=== PATIENT | female | born 1940 | race Caucasian/White ===

== ENCOUNTER 2017-01-12 20:49 | Emergency (ER) | payer OTHER, BC ==
[~2017-01-12] VITALS: Ht 165.1 cm; Wt 88.4 kg
[~2017-01-12 20:49] MED LIST: ASPI81TA28 PO; BENZ100C84 PO; CRAN1TAB6 PO; DICY20TA10 PO; GLIM1TAB2 PO; HYDR-5688 PO; HYDR25TA5 PO; INSDGI SQ; LEVO125T5 PO; LOSA50TA54 PO; METF-384 PO; MULT-506 PO; NVLGI SQ; ONDA4TAB9 PO; PRLSR20 PO; PROM25TA9 PO; SIMV40TA2 PO; TMF75 PO; ZOLP5TAB PO
[2017-01-12 20:56] VITALS: TEMP 36.9; Ht 165.1 cm; Wt 88.4 kg
[2017-01-12] MEDS ORDERED: ALBUT/IPRATROP 3MG/0.5MG NEB 3 ML VIAL INH ONE (21:15)
--- NOTE | 2017-01-12 21:17 | EMERGENCY ROOM VISIT NOTE ---
History Report prepared by Mel[place]: Denita Lee Under the Supervision of: Dr. Tai West M.D. First contact with patient: 21:05 Chief Complaint: OTHER COMPLAINT Stated Complaint: TOOK WRONG INSULIN MEDICATION History of Present Illness The patient is a 76 year old female who presents to the Emergency Room with complaints of weakness. 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 She denies trying her hurt herself by taking the wrong medication. She notes she did see her doctor earlier today for worsening asthma symptoms and shortness of breath, and states she was so tired she wasn't thinking when she went to take her evening medications. Her biggest complaint here in the ED is shortness of breath and wheezy breathing. She also notes she has not had much to eat today. 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 A total of 10 systems reviewed and were otherwise negative. Past Medical & Surgical Medical Problems: (1) Cancer of thorax (2) Carpal tunnel syndrome on right (3) Diabetes (4) Diverticulitis (5) Hypertension (6) Influenza A (7) Thyroid cancer Surgical Problems: (1) Hx of cholecystectomy Family History No significant family history stated Social History Smoking Status: Never Smoker Alcohol Use: none Drug Use: none Marital Status: Housing Status: lives with significant other Occupation Status: retired Current/Historical Medications Scheduled Aspirin (Aspirin Ec), 81 MG PO DAILY Cranberry (Vaccinium Macrocarp (Cranberry), 600 MG PO BID Dicyclomine Hcl (Dicyclomine Hcl), 20 MG PO DIRECTED Glimepiride (Glimepiride), 2 MG PO BID Hydrochlorothiazide (Hydrochlorothiazide), 25 MG PO BID Insulin Aspart (Novolog), SQ AC Insulin Glargine (Lantus), 95 UNITS SQ QPM Levothyroxine Sodium (Levothyroxine Sodium), 125 MCG PO DAILY Losartan Potassium (Cozaar), 50 MG PO DAILY Metformin Hcl (Glucophage), 1,000 MG PO BID Multivitamin (Multivitamin), 1 TAB PO DAILY Pantoprazole (Protonix), 40 MG PO QAM Prednisone (Prednisone Tab), 0 PO DAILY Simvastatin (Zocor), 40 MG PO QPM Scheduled PRN Benzonatate (Tessalon Perles), 100 MG PO DIRECTED PRN for Cough Hydrocodone/Acetaminophen 5MG/325MG (Rumely 5MG/325MG), 1 TABLET PO q4-6 hours PRN for Pain Promethazine Hcl (Phenergan), 25 MG PO DIRECTED PRN for Nausea Allergies Coded Allergies: Doxycycline (Verified Allergy, Severe, TONGUE SWELLS/SOB, 02/13/16) Codeine (Verified Allergy, Intermediate, LARGE DOSES CAUSE RASH, 02/13/16) Oxycodone (Verified Allergy, Unknown, RASH, TAKES HYDROCODONE AT HOME, ) Physical Exam Vital Signs Date Time Temp Pulse Resp B/P (MAP) Pulse Ox O2 Delivery O2 Flow Rate FiO2 01/13/17 00:24 106 20 133/68 97 Room Air 01/12/17 23:19 107 16 127/82 95 Room Air 01/12/17 22:20 104 01/12/17 21:44 96 16 95 Room Air 01/12/17 21:23 97 Room Air 01/12/17 21:23 97 Room Air 01/12/17 20:56 36.9 103 18 147/80 96 Room Air Physical Exam GENERAL: Patient is a healthy-appearing well-nourished 76 year old male HEAD: Normocephalic atraumatic EYES: Ocular movements intact pupils equal and react to light OROPHARYNX mucous membranes are moist no exudates present no erythema or edema present NECK: Supple no nuchal rigidity CHEST: Good equal expansion LUNGS: Slight wheezes bilaterally CARDIAC: Normal S1 and S2 ABDOMEN: Soft nontender no guarding BACK: No CVA tenderness EXTREMITIES: No pain upon palpation normal muscle strength in all groups no clubbing cyanosis or edema NEURO: Patient is following commands and answering questions appropriately. Alert and oriented x3 Cranial Nerves 2-12 grossly intact Medical Decision & Procedures ER Provider Diagnostic Interpretation: Radiology results as stated below per my review and radiologist interpretation: CHEST ONE VIEW PORTABLE CLINICAL HISTORY: 76 years-old Female presenting with Pt c/o sob. TECHNIQUE: Portable upright AP view of the chest was obtained. COMPARISON: 02/13/2016. FINDINGS: Atherosclerosis of aortic arch. Surgical clips again project over the left apex. Cardiac silhouette normal in size. Mildly low lung volumes though improved from prior exam. Decreased appearance of prominent interstitial lung markings. Lungs and pleural spaces clear. Severe degenerative changes of the bilateral glenohumeral joints. Upper abdomen normal. IMPRESSION: 1. No acute cardiopulmonary disease. Electronically signed by: Jayce Hunt M.D. 01/12/2017 9:48 PM Laboratory Results 01/12/17 21:10 Red Blood Count 4.87, Mean Corpuscular Volume 73.1, Mean Corpuscular Hemoglobin 22.2, Mean Corpuscular Hemoglobin Concent 30.3, Mean Platelet Volume 9.4, Neutrophils (%) (Auto) 61.9, Lymphocytes (%) (Auto) 29.6, Monocytes (%) (Auto) 5.1, Eosinophils (%) (Auto) 2.6, Basophils (%) (Auto) 0.6, Neutrophils # (Auto) 5.29, Lymphocytes # (Auto) 2.53, Monocytes # (Auto) 0.44, Eosinophils # (Auto) 0.22, Basophils # (Auto) 0.05 01/12/17 21:10 Test 01/12/17 21:10 01/12/17 21:16 01/12/17 23:30 White Blood Count 8.55 K/uL (4.8-10.8) Red Blood Count 4.87 M/uL (4.2-5.4) Hemoglobin 10.8 g/dL (12.0-16.0) Hematocrit 35.6 % (37-47) Mean Corpuscular Volume 73.1 fL (80-100) Mean Corpuscular Hemoglobin 22.2 pg (25-34) Mean Corpuscular Hemoglobin Concent 30.3 g/dl (32-36) Platelet Count 328 K/uL (130-400) Mean Platelet Volume 9.4 fL (7.4-10.4) Neutrophils (%) (Auto) 61.9 % Lymphocytes (%) (Auto) 29.6 % Monocytes (%) (Auto) 5.1 % Eosinophils (%) (Auto) 2.6 % Basophils (%) (Auto) 0.6 % Neutrophils # (Auto) 5.29 K/uL (1.4-6.5) Lymphocytes # (Auto) 2.53 K/uL (1.2-3.4) Monocytes # (Auto) 0.44 K/uL (0.11-0.59) Eosinophils # (Auto) 0.22 K/uL (0-0.5) Basophils # (Auto) 0.05 K/uL (0-0.2) RDW Standard Deviation 44.2 fL (36.4-46.3) RDW Coefficient of Variation 16.6 % (11.5-14.5) Immature Granulocyte % (Auto) 0.2 % Immature Granulocyte # (Auto) 0.02 K/uL (0.00-0.02) Polychromasia 1+ Microcytosis PRESENT Anion Gap 12.0 mmol/L (3-11) Est Creatinine Clear Calc Drug Dose 52.0 ml/min Estimated GFR () 64.0 Estimated GFR (Non- 55.3 BUN/Creatinine Ratio 11.4 (10-20) Calcium Level 8.5 mg/dl (8.5-10.1) Total Bilirubin 0.2 mg/dl (0.2-1) Direct Bilirubin 0.1 mg/dl (0-0.2) Aspartate Amino Transf (AST/SGOT) 19 U/L (15-37) Alanine Aminotransferase (ALT/SGPT) 29 U/L (12-78) Alkaline Phosphatase 64 U/L (45-117) Total Protein 7.6 gm/dl (6.4-8.2) Albumin 4.1 gm/dl (3.4-5.0) Thyroid Stimulating Hormone (TSH) 3.120 uIu/ml (0.300-4.500) Bedside Glucose 284 mg/dl (70-90) Urine Color YELLOW Urine Appearance CLEAR (CLEAR) Urine pH 5.0 (4.5-7.5) Urine Specific [place] 1.022 (1.000-1.030) Urine Protein NEG (NEG) Urine Glucose (UA) 3+ (NEG) Urine Ketones TRACE (NEG) Urine Occult Blood NEG (NEG) Urine Nitrite NEG (NEG) Urine Bilirubin NEG (NEG) Urine Urobilinogen NEG (NEG) Urine Leukocyte Esterase NEG (NEG) Labs reviewed by ED physician. 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 The patient was evaluated in room A11. A complete history and physical examination was performed. 2114: DuoNeb 12 ml INH. 2119: I discussed the patients case with [facility] [employer] [facility]. They recommend we recheck the patients labs every hour for 4 hours. 2235: Potassium Chloride 30 meq PO. 3: Nursing informed me the patients BSG is 220. Medical Decision Prior records/ancillary studies reviewed. Triage Nursing notes reviewed. The patient's history was concerning for altered mental status and probable overdose. Differential diagnosis: Etiologies such as toxicologic, infection, hypoglycemia, electrolyte abnormalities, cardiac sources, intracerebral event, neurologic, as well as others were entertained. This is a 76-year-old female who presents emergency department complaining of taking the wrong dosing of insulin. I did discuss case with poison control who felt that the patient could just be observed in the emergency department by drawing serial Accu-Cheks for 4 hours. This was performed as instructed. I will note the patient's blood sugar never dropped below 150. The patient did receive breathing treatments in emergency department as she is been wheezing. I will place the patient on prednisone for bronchitis. She was fed in the emergency department and was feeling better. The patient denied being suicidal or homicidal and I feel can be safely discharged home. Patient was in agreement with the treatment plan. Medication Reconcilliation Current Medication List: was personally reviewed by me Blood Pressure Screening Patient's blood pressure: Normal blood pressure Blood pressure disposition: Did not require urgent referral Consults Time Called: 2114 Consulting Physician: [facility] Returned Call: [phone] I discussed the patients case with [facility] [employer] [facility]. They recommend we recheck the patients labs every hour for 4 hours. Impression Primary Impression: Bronchitis Additional Impression: Poisoning by insulin and oral hypoglycemic [antidiabetic] drugs, accidental ( unintentional), initial encounter Scribe Attestation The scribe's documentation has been prepared under my direction and personally reviewed by me in its entirety. I confirm that the note above accurately reflects all work, treatment, procedures, and medical decision making performed by me. Departure Information Dispostion Home / Self-Care Prescriptions Prednisone (Prednisone Tab) 20 Mg Tab 0 PO DAILY, #7 TAB 2 TABS DAILY FOR 2 DAYS, THEN 1 TAB DAILY FOR 2 DAYS, THEN 1/2 TAB DAILY FOR 2 DAYS. Prov: Tai West MD 01/13/17 Referrals Sera Liz M.D. (PCP) Patient Instructions My [facility] Problem Qualifiers
[2017-01-12 21:23] VITALS: O2SAT 97
[2017-01-12 21:36] LABS: BASO % 0.6 %; BASO ABS # 0.05 K/uL (0-0.2); EOS % 2.6 %; HEMATOCRIT 35.6 % (37-47); IG% 0.2 %; LYMPH % 29.6 %; LYMPH ABS # 2.53 K/uL (1.2-3.4); MEAN CELL VOLUME 73.1 fL (80-100); MEAN CORPUSCULAR HEMOGLOBIN 22.2 pg (25-34); MEAN CORPUSCULAR HGB CONC 30.3 g/dl (32-36); MEAN PLATELET VOLUME 9.4 fL (7.4-10.4); MONO % 5.1 %; NEUT % 61.9 %; PLATELET COUNT 328 K/uL (130-400); RED BLOOD COUNT 4.87 M/uL (4.2-5.4); WHITE BLOOD COUNT 8.55 K/uL (4.8-10.8)
[2017-01-12 21:44] VITALS: PULSE 96; O2SAT 95
--- NOTE | 2017-01-12 21:49 | DIAGNOSTIC IMAGING REPORT ---
CHEST ONE VIEW PORTABLE CLINICAL HISTORY: 76 years-old Female presenting with Pt c/o sob. TECHNIQUE: Portable upright AP view of the chest was obtained. COMPARISON: 02/13/2016. FINDINGS: Atherosclerosis of aortic arch. Surgical clips again project over the left apex. Cardiac silhouette normal in size. Mildly low lung volumes though improved from prior exam. Decreased appearance of prominent interstitial lung markings. Lungs and pleural spaces clear. Severe degenerative changes of the bilateral glenohumeral joints. Upper abdomen normal. IMPRESSION: 1. No acute cardiopulmonary disease. Electronically signed by: Jayce Hunt M.D. 01/12/2017 9:48 PM Dictated Date/Time: 01/12/2017 9:47 PM
[2017-01-12] MEDS ORDERED: PANT40TA PO (22:02)
[2017-01-12 22:09] LABS: BUN/CREATININE RATIO 11.4 (10-20); CALCIUM 8.5 mg/dl (8.5-10.1); CREATININE 0.98 mg/dl (0.60-1.20); POTASSIUM 3.7 mmol/L (3.5-5.1); THYROID STIMULATING HORMONE 3.12 uIu/ml (0.300-4.500)
[2017-01-12 22:21] LABS: COMPLETE YES; MICROCYTOSIS PRESENT; POLYCHROMASIA 1+
[2017-01-12] MEDS ORDERED: POTASSIUM CHLORIDE 20 MEQ/15 ML UDC PO STA (22:36)
[2017-01-12 23:45] LABS: URINE APPEARANCE CLEAR (CLEAR); URINE BILIRUBIN NEG (NEG); URINE COLOR YELLOW; URINE NITRITE NEG (NEG); URINE SPECIFIC GRAVITY 1.022 (1.000-1.030); UROBILINOGEN NEG (NEG)
[2017-01-12 23:48] LABS: MANUAL MICROSCOPIC REQUIRED? NO; REVIEW REQ? NO
[2017-01-13 00:24] VITALS: BP 133/68; PULSE 106; O2SAT 97
[2017-01-13] MEDS ORDERED: PRED20TA2 PO (00:25)
== END 2017-01-13 00:30 | disposition home or self-care (01) ==
LOC: C.EDB 20:52 → C.EDA 01-13 00:30
DX: J40 Bronchitis, not specified as acute or chronic (principal); T38.3X1A Poisoning by insulin and oral hypoglycemic [antidiabetic] drugs, accidental (unintentional), initial encounter; E11.9 Type 2 diabetes mellitus without complications; C73 Malignant neoplasm of thyroid gland; I10 Essential (primary) hypertension; C76.1 Malignant neoplasm of thorax; Z79.4 Long term (current) use of insulin; Z79.82 Long term (current) use of aspirin

== ENCOUNTER 2017-02-11 20:41 | Emergency (ER) | payer OTHER, BC ==
[~2017-02-11] VITALS: Ht 165.1 cm; Wt 88.2 kg
[~2017-02-11 20:41] MED LIST changes: -ASPI81TA28 PO; -BENZ100C84 PO; -LEVO125T5 PO; -METF-384 PO; -MULT-506 PO; -ONDA4TAB9 PO; +PANT40TA PO; +PRED20TA2 PO; -PRLSR20 PO; -SIMV40TA2 PO; -TMF75 PO; -ZOLP5TAB PO
[2017-02-11] MEDS ORDERED: METHYLPREDNISOLONE 125 MG VIAL IV STA (21:07)
[2017-02-11] MEDS ORDERED: ALBUT/IPRATROP 3MG/0.5MG NEB 3 ML VIAL INH STA ×2 (21:07→23:03)
--- NOTE | 2017-02-11 21:31 | DIAGNOSTIC IMAGING REPORT ---
SINGLE VIEW CHEST CLINICAL HISTORY: Dyspnea. FINDINGS: An AP, portable, upright chest radiograph is compared to study dated 01/12/2017. The examination is degraded by portable technique and patient rotation. The heart is top normal for projection and there is atherosclerotic calcification of the thoracic aorta. Chronic interstitial thickening and mild elevation of right hemidiaphragm are similar to previous. No airspace consolidation or large pleural effusion is seen. No pneumothorax is seen. The skeletal structures are osteopenic. Advanced arthritic change is seen in the shoulders and thoracic spine. Surgical clips project over the left lower neck. IMPRESSION: No acute cardiopulmonary abnormality. Electronically signed by: Grant Cochran M.D. 02/11/2017 9:30 PM Dictated Date/Time: 02/11/2017 9:29 PM
[2017-02-11 21:38] VITALS: O2SAT 98; Ht 165.1 cm; Wt 88.2 kg
[2017-02-11] MEDS ORDERED: NVLG SC (21:41)
[2017-02-11] MEDS ORDERED: INSDGI SC (21:41)
[2017-02-11 21:57] LABS: BASO % 0.3 %; BASO ABS # 0.02 K/uL (0-0.2); EOS % 3.3 %; EOS ABS # 0.24 K/uL (0-0.5); HEMATOCRIT 34.4 % (37-47); HEMOGLOBIN 10.1 g/dL (12.0-16.0); IG# 0.01 K/uL (0.00-0.02); LYMPH % 29.2 %; LYMPH ABS # 2.14 K/uL (1.2-3.4); MEAN CELL VOLUME 72.7 fL (80-100); MEAN CORPUSCULAR HEMOGLOBIN 21.4 pg (25-34); MEAN CORPUSCULAR HGB CONC 29.4 g/dl (32-36); MEAN PLATELET VOLUME 9.5 fL (7.4-10.4); MONO % 7.2 %; MONO ABS # 0.53 K/uL (0.11-0.59); NEUT % 59.9 %; PLATELET COUNT 310 K/uL (130-400); RED CELL DISTRIBUTION WIDTH CV 17.5 % (11.5-14.5); RED CELL DISTRIBUTION WIDTH SD 46.5 fL (36.4-46.3); WHITE BLOOD COUNT 7.34 K/uL (4.8-10.8)
[2017-02-11 22:18] LABS: INFLUENZA B ANTIGEN Neg for Influ B (NEG)
[2017-02-11 22:23] LABS: CALCIUM 8.2 mg/dl (8.5-10.1); CREATININE 0.81 mg/dl (0.60-1.20); TOTAL PROTEIN 7.3 gm/dl (6.4-8.2)
[2017-02-11] MEDS ORDERED: AZITHROMYCIN 250 MG TAB PO STA (23:02)
[2017-02-11] MEDS ORDERED: EMPTY 8 DRAM VIAL ONE (23:10)
[2017-02-11] MEDS ORDERED: PRED20TA PO (23:42)
[2017-02-11] MEDS ORDERED: AZIT-60 PO (23:42)
[2017-02-11 23:58] VITALS: BP 196/83; PULSE 99; TEMP 37.1; O2SAT 95
--- NOTE | 2017-02-12 00:37 | EMERGENCY ROOM VISIT NOTE ---
History Report prepared by Meliton: Prasad Phillips Under the Supervision of: Dr. Chris Lopez M.D. First contact with patient: 20:56 Chief Complaint: RESPIRATORY PROBLEMS Stated Complaint: BREATHING History of Present Illness The patient is a 76 year old female who presents to the Emergency Room with complaints of a constant cough that began a week ago. She rates her pain as a 5/ 10 in severity. The patient states that she had bronchitis a couple of weeks ago and feels as if she has not recovered fully. 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 The patient states that her cough is productive with green and yellow sputum. She states that she has been nauseous due to the sputum going down her throat. The patient states that she has been short of breath as well. The patient states that she took Robitussin, Joanne pearls, and an inhaler for her symptoms. She reports that she has a history of diabetes and states he sugars have been waxing and waning, which is not normal. The patient states that her levels were down to 46 yesterday. The patient denies LOC, headache, fevers, chills, diaphoresis, visual changes, neck pain, chest pain, vomiting, abdominal pain, back pain, melena, hematochezia, urinary symptoms, numbness, weakness, lymphadenopathy, rash, or other complaints. Source of History: patient Onset: a week ago Position: other (global) Symptom Intensity: 5/10 Quality: other (green and yellow sputum) Timing: constant Modifying Factors (Relieving): other (Robitussin, Joanne pearls, inhaler) Associated Symptoms: + SOB, + nausea Review of Systems See HPI for pertinent positives and negatives. A total of ten systems were reviewed and were otherwise negative. Past Medical & Surgical Medical Problems: (1) Cancer of thorax (2) Carpal tunnel syndrome on right (3) Diabetes (4) Diverticulitis (5) Hypertension (6) Influenza A (7) Thyroid cancer Surgical Problems: (1) Hx of cholecystectomy Family History No significant family history stated Social History Smoking Status: Never Smoker Alcohol Use: none Drug Use: none Marital Status: Housing Status: lives with significant other Occupation Status: retired Current/Historical Medications Scheduled Aspirin (Aspirin Ec), 81 MG PO DAILY Azithromycin (Zithromax), 250 MG PO DAILY Cranberry (Vaccinium Macrocarp (Cranberry), 600 MG PO BID Glimepiride (Glimepiride), 2 MG PO BID Insulin Aspart (Novolog), Unknown Dose SC AC Insulin Glargine (Lantus), 95 UNITS SC QPM Levothyroxine Sodium (Levothyroxine Sodium), 125 MCG PO DAILY Losartan Potassium (Cozaar), 50 MG PO DAILY Metformin Hcl (Glucophage), 1,000 MG PO BID Multivitamin (Multivitamin), 1 TAB PO DAILY Pantoprazole (Protonix), 40 MG PO QAM Prednisone (Prednisone), 20 MG PO DAILY Simvastatin (Zocor), 40 MG PO QPM Scheduled PRN Benzonatate (Tessalon Perles), 100 MG PO DIRECTED PRN for Cough Dicyclomine Hcl (Dicyclomine Hcl), 20 MG PO DIRECTED PRN for PRN Hydrocodone/Acetaminophen 5MG/325MG ([place] 5MG/325MG), 1 TABLET PO q4-6 hours PRN for Pain Promethazine Hcl (Phenergan), 25 MG PO DIRECTED PRN for Nausea Allergies Coded Allergies: Doxycycline (Verified Allergy, Severe, TONGUE SWELLS/SOB, 02/11/17) Codeine (Verified Allergy, Intermediate, LARGE DOSES CAUSE RASH, 02/11/17) Oxycodone (Verified Allergy, Intermediate, RASH, TAKES HYDROCODONE AT HOME , 02/11/17) Physical Exam Vital Signs Date Time Temp Pulse Resp B/P (MAP) Pulse Ox O2 Delivery O2 Flow Rate FiO2 02/11/17 23:58 37.1 99 20 196/83 95 02/11/17 22:32 91 20 180/84 96 Room Air 02/11/17 21:52 92 02/11/17 21:38 98 Nasal Cannula 02/11/17 21:38 98 Room Air 02/11/17 20:44 37.0 95 18 186/159 99 Room Air Physical Exam GENERAL: Awake, alert, mildly-appearing, in no distress HENT: Normocephalic, atraumatic. Oropharynx unremarkable. EYES: Normal conjunctiva. Sclera non-icteric. NECK: Supple. No nuchal rigidity. FROM. No JVD. RESPIRATORY: Clear to auscultation. Frequent cough. CARDIAC: Regular rate, normal rhythm. Extremities warm and well perfused. Pulses equal. ABDOMEN: Soft, non-distended. No tenderness to palpation. No rebound or guarding. No masses. RECTAL: Deferred. MUSCULOSKELETAL: Chest examination reveals no tenderness. The back is symmetrical on inspection without obvious abnormality. There is no CVA tenderness to palpation. No joint edema. LOWER EXTREMITIES: Calves are equal size bilaterally and non-tender. No edema. No discoloration. NEURO: Normal sensorium. No sensory or motor deficits noted. SKIN: No rash or jaundice noted. Medical Decision & Procedures ER Provider Diagnostic Interpretation: X-ray: Per my interpretation, radiologist review. SINGLE VIEW CHEST CLINICAL HISTORY: Dyspnea. FINDINGS: An AP, portable, upright chest radiograph is compared to study dated 01/12/2017. The examination is degraded by portable technique and patient rotation. The heart is top normal for projection and there is atherosclerotic calcification of the thoracic aorta. Chronic interstitial thickening and mild elevation of right hemidiaphragm are similar to previous. No airspace consolidation or large pleural effusion is seen. No pneumothorax is seen. The skeletal structures are osteopenic. Advanced arthritic change is seen in the shoulders and thoracic spine. Surgical clips project over the left lower neck. IMPRESSION: No acute cardiopulmonary abnormality. Electronically signed by: Grant Cochran M.D. 02/11/2017 9:30 PM Dictated Date/Time: 02/11/2017 9:29 PM Laboratory Results 02/11/17 21:25 Red Blood Count 4.73, Mean Corpuscular Volume 72.7, Mean Corpuscular Hemoglobin 21.4, Mean Corpuscular Hemoglobin Concent 29.4, Mean Platelet Volume 9.5, Neutrophils (%) (Auto) 59.9, Lymphocytes (%) (Auto) 29.2, Monocytes (%) (Auto) 7.2, Eosinophils (%) (Auto) 3.3, Basophils (%) (Auto) 0.3, Neutrophils # (Auto) 4.40, Lymphocytes # (Auto) 2.14, Monocytes # (Auto) 0.53, Eosinophils # (Auto) 0.24, Basophils # (Auto) 0.02 02/11/17 21:25 Test 02/11/17 21:25 02/11/17 21:36 White Blood Count 7.34 K/uL (4.8-10.8) Red Blood Count 4.73 M/uL (4.2-5.4) Hemoglobin 10.1 g/dL (12.0-16.0) Hematocrit 34.4 % (37-47) Mean Corpuscular Volume 72.7 fL (80-100) Mean Corpuscular Hemoglobin 21.4 pg (25-34) Mean Corpuscular Hemoglobin Concent 29.4 g/dl (32-36) Platelet Count 310 K/uL (130-400) Mean Platelet Volume 9.5 fL (7.4-10.4) Neutrophils (%) (Auto) 59.9 % Lymphocytes (%) (Auto) 29.2 % Monocytes (%) (Auto) 7.2 % Eosinophils (%) (Auto) 3.3 % Basophils (%) (Auto) 0.3 % Neutrophils # (Auto) 4.40 K/uL (1.4-6.5) Lymphocytes # (Auto) 2.14 K/uL (1.2-3.4) Monocytes # (Auto) 0.53 K/uL (0.11-0.59) Eosinophils # (Auto) 0.24 K/uL (0-0.5) Basophils # (Auto) 0.02 K/uL (0-0.2) RDW Standard Deviation 46.5 fL (36.4-46.3) RDW Coefficient of Variation 17.5 % (11.5-14.5) Immature Granulocyte % (Auto) 0.1 % Immature Granulocyte # (Auto) 0.01 K/uL (0.00-0.02) Red Blood Cell Morphology Unremarkable Anion Gap 9.0 mmol/L (3-11) Est Creatinine Clear Calc Drug Dose 62.8 ml/min Estimated GFR () 80.6 Estimated GFR (Non- 69.6 BUN/Creatinine Ratio 15.9 (10-20) Calcium Level 8.2 mg/dl (8.5-10.1) Total Bilirubin 0.3 mg/dl (0.2-1) Aspartate Amino Transf (AST/SGOT) 20 U/L (15-37) Alanine Aminotransferase (ALT/SGPT) 28 U/L (12-78) Alkaline Phosphatase 64 U/L (45-117) Total Protein 7.3 gm/dl (6.4-8.2) Albumin 4.0 gm/dl (3.4-5.0) Globulin 3.3 gm/dl (2.5-4.0) Albumin/Globulin Ratio 1.2 (0.9-2) Influenza Type A Antigen Neg for Influ A (NEG) Influenza Type B Antigen Neg for Influ B (NEG) Laboratory results reviewed by me Medications Administered Medications (Trade) Dose Ordered Sig/Regis Route Start Time Stop Time Status Last Admin Dose Admin Albuterol/ Ipratropium (Duoneb) 3 ml NOW STAT INH 02/11/17 21:07 02/11/17 21:09 DC 02/11/17 21:31 3 ML Methylprednisolone Sodium Succinate (Solu-Medrol IV) 125 mg NOW STAT IV 02/11/17 21:07 02/11/17 21:09 DC 02/11/17 21:31 125 MG Azithromycin (Zithromax Tab) 500 mg NOW STAT PO 02/11/17 23:02 02/11/17 23:03 DC 02/11/17 23:14 500 MG Prednisone (PredniSONE TAB) 20 mg NOW STAT PO 02/11/17 23:02 02/11/17 23:03 DC 02/11/17 23:13 20 MG Albuterol/ Ipratropium (Duoneb) 3 ml NOW STAT INH 02/11/17 23:03 02/11/17 23:04 DC 02/11/17 23:14 3 ML ECG Indication: SOB/dyspnea Rate (beats per minute): 90 Rhythm: normal sinus Findings: no acute ischemic change, no ectopy ED Course 2101: The patient was evaluated in room A03. A complete history and physical exam was performed. 2106: Ordered Solu-Medrol 125 mg IV, Duoneb 3 ml INH. 2257: I reevaluated the patient and she is feeling better. The patient states that she would like to go home. She is going to be getting a second nebulizer treatment. 2301: Ordered Prednisone 20 mg PO, Zithromax Tab 500 mg PO. 2302: Ordered Duoneb 3 ml INH. Medical Decision Triage Nursing notes reviewed. The patient's presentation and history were concerning for flu like symptoms. Etiologies such as pneumonia, COPD, reactive airway disease, influenza, CHF, cardiac ischemia, pulmonary embolism, pneumothorax, musculoskeletal, infections , gastrointestinal, as well as others were entertained. The patient was evaluated. Clinically she he was doing well but had a moderate cough. She was given a nebulizer treatment and Solu-Medrol. On reassessment she felt significantly better. Her blood work was rather unremarkable except for mild hyperglycemia. On reassessment she was doing well. She was given a second nebulizer treatment and Zithromax. She will be placed on low-dose prednisone as she is diabetic. She has tolerated this in the past. She will use her inhaler as well as a Z-Deshawn. She'll follow-up promptly in the clinic. If she worsens in any way she will be back. Patient was very pleased with this. She desired discharge home. I gave my usual and customary discussion regarding this issue. By the evaluation outlined above other emergent etiologies such as those listed in the differential, as well as others, were deemed relatively unlikely. The patient was educated about the findings as listed above. All questions were answered and the patient was pleased with the treatment. Return instructions were outlined and the patient was discharged in stable condition. The patient was referred to her primary for follow-up for a recheck of the current condition. Medication Reconcilliation Current Medication List: was personally reviewed by me Blood Pressure Screening Patient's blood pressure: Elevated blood pressure Blood pressure disposition: Referred to PCP Impression Primary Impression: Productive cough Additional Impression: Flu-like symptoms Scribe Attestation The scribe's documentation has been prepared under my direction and personally reviewed by me in its entirety. I confirm that the note above accurately reflects all work, treatment, procedures, and medical decision making performed by me. Departure Information Dispostion Home / Self-Care Prescriptions Prednisone (Prednisone) 20 Mg Tab 20 MG PO DAILY for 4 Days, #4 TAB Prov: Chris Lopez MD 02/11/17 Azithromycin (ZITHROMAX) 250 Mg Tab 250 MG PO DAILY, #4 TAB Prov: Chris Lopez MD 02/11/17 Referrals No Doctor, Assigned (PCP) Forms HOME CARE DOCUMENTATION FORM, IMPORTANT VISIT INFORMATION, WORK / SCHOOL INSTRUCTIONS Patient Instructions My [facility] Additional Instructions ASTHMA INSTRUCTIONS: Albuterol Inhaler: Take 2 puffs four times daily for five days, then as needed. Prednisone 20mg: Once daily until the prescription is finished. It is best to take this earlier in the day as some patients note occasional difficulty falling asleep when taken in the late evening. Azithromycin(Zithromax) 250mg: Take one a day for 4 additional days. All antibiotics can cause diarrhea. If this occurs and you feel worse or it does not resolve in 1-2 days follow up with your doctor or return to the Emergency Department as this could be signs of serious underlying problems. Any medication can cause an allergic reaction, stop the pills immediately and return to the ER for rash, hives, breathing difficulties, or swelling. Acetaminophen(Tylenol) may be used for fever or pain. Use 1000mg every six hours as needed. Avoid using more than 4000mg in a 24 hour period. Rest and drink plenty of fluids. Avoid smoke/smoking, fumes, dust, or any triggers in the past that may have affected your breathing. Continue current medications. Monitor blood sugar closely. Watch intake of simple sugars and sweets. Return to the ER for chest pain, difficulty breathing, fevers, vomiting, worsening of your condition, or as needed. Follow up with your primary physician this week for a recheck of your current condition. Problem Qualifiers
[2017-03-08] MEDS ORDERED: LISI-730 PO (08:54)
[2017-03-09] MEDS ORDERED: HYDR-5688 PO (12:11)
[2017-03-15] MEDS ORDERED: IPRA-64 INH ×2 (08:50)
[2017-04-15] MEDS ORDERED: LEVO125T5 PO (04:47)
[2017-04-15] MEDS ORDERED: METF-384 PO (04:48)
[2017-04-15] MEDS ORDERED: SIMV40TA2 PO (04:49)
[2017-04-15] MEDS ORDERED: BENZ100C84 PO (04:53)
[2017-04-15] MEDS ORDERED: ASPI81TA28 PO (05:00)
[2017-04-15] MEDS ORDERED: MULT-506 PO (05:02)
[2017-04-15] MEDS ORDERED: PROC10TA PO (08:46)
[2017-04-15] MEDS ORDERED: FERR1TAB13 PO (08:53)
[2017-04-15] MEDS ORDERED: IPRA-64 INH (16:27)
[2017-04-18] MEDS ORDERED: OXYC-737 PO (13:16)
[2017-04-28] MEDS ORDERED: METO25TA3 PO (14:36)
[2017-04-28] MEDS ORDERED: ATOR-22 PO (14:36)
[2017-04-28] MEDS ORDERED: CHOL2000 PO (14:36)
[2017-04-28] MEDS ORDERED: DOCU100C31 PO (15:19)
[2017-04-28] MEDS ORDERED: SENN-65 PO (15:19)
[2017-04-28] MEDS ORDERED: BISA1SUP4 RE (15:19)
[2017-04-28] MEDS ORDERED: MOML PO (15:19)
[2017-04-28] MEDS ORDERED: SODIENE PR (15:19)
[2017-04-28] MEDS ORDERED: NOVOLOG INJ (15:22)
[2017-04-28] MEDS ORDERED: GLUCOSE GEL PO (15:22)
[2017-04-28] MEDS ORDERED: GLUCAGON INJ (15:22)
[2017-04-28] MEDS ORDERED: POLY335019 PO (15:22)
[2017-04-28] MEDS ORDERED: ONDA4TAB46 PO (15:33)
[2017-04-28] MEDS ORDERED: HYDR-4079 PO (15:33)
[2017-04-28] MEDS ORDERED: PHEN-876 PO (15:33)
[2017-04-28] MEDS ORDERED: AMLO2.5T PO (15:33)
[2017-04-28] MEDS ORDERED: CYAN10005 PO (15:35)
[2017-04-28] MEDS ORDERED: CEPH500C2 PO (15:35)
[2017-04-28] MEDS ORDERED: LCTX PO (15:35)
[2017-04-28] MEDS ORDERED: IPRA1AER2 INH (15:37)
[2017-04-28] MEDS ORDERED: INSDGIPEN INJ (15:37)
== END 2017-02-11 23:58 | disposition home or self-care (01) ==
LOC: C.EDB 20:42 → C.EDA 23:58
DX: J11.1 Influenza due to unidentified influenza virus with other respiratory manifestations (principal); R05 Cough; E11.9 Type 2 diabetes mellitus without complications; I10 Essential (primary) hypertension; Z85.850 Personal history of malignant neoplasm of thyroid; Z86.19 Personal history of other infectious and parasitic diseases; Z90.49 Acquired absence of other specified parts of digestive tract; Z79.4 Long term (current) use of insulin; Z79.84 Long term (current) use of oral hypoglycemic drugs; Z79.82 Long term (current) use of aspirin; Z79.899 Other long term (current) drug therapy; Z88.3 Allergy status to other anti-infective agents; Z88.5 Allergy status to narcotic agent

== ENCOUNTER 2017-03-04 07:03 | Inpatient (IN) | payer OTHER, BC ==
[~2017-03-04] VITALS: Ht 165.1 cm; Wt 89.8 kg
[~2017-03-04 07:03] MED LIST changes: +ASPI81TA28 PO; +BENZ100C84 PO; -HYDR25TA5 PO; +INSDGI SC; -INSDGI SQ; +LEVO125T5 PO; +METF-384 PO; +MULT-506 PO; +NVLG SC; -NVLGI SQ; -PRED20TA2 PO; +RAPID SEQUENCE INDUCTION BAG ONE; +SIMV40TA2 PO
[2017-03-04] MEDS ORDERED: ONDANSETRON INJ 2 MG/ML 2 ML VIAL IV STA (07:20)
[2017-03-04] MEDS ORDERED: HYDROmorphone INJ 0.5 MG/0.5 ML SYR IV STA ×2 (07:20→08:56)
--- NOTE | 2017-03-04 07:31 | EMERGENCY ROOM VISIT NOTE ---
History Report prepared by Meliton: Yuri Burrows Under the Supervision of: Dr. Tai West M.D. First contact with patient: 07:10 Stated Complaint: FALL/SHOULDER PAIN History of Present Illness The patient is a 76 year old female who presents to the Emergency Room with complaints of constant ache-like left shoulder pain that began [employer]. She rates her pain moderate in severity. 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 Earlier this morning, the patient accidentally experienced a fall. She states that she landed on the left side of her body, struck her head, and lost consciousness for a small amount of time. She is experiencing left shoulder, left arm, and left-sided abdominal pain. Her pain is exacerbated with movement. She denies any weakness, numbness, or any other abnormal symptoms at this time. She is not on any blood thinners. Source of History: patient Onset: [employer] Position: shoulder (left) Symptom Intensity: moderate Quality: ache Timing: constant Modifying Factors (Worsening): movement Associated Symptoms: + LOC, + abdominal pain (left sided), No weakness, No numbness Note: She is experiencing left arm pain. She denies any other abnormal symptoms. Review of Systems See HPI for pertinent positives & negatives. A total of 10 systems reviewed and were otherwise negative. Past Medical & Surgical Medical Problems: (1) Cancer of thorax (2) Carpal tunnel syndrome on right (3) Diabetes (4) Diverticulitis (5) Humerus fracture (6) Hypertension (7) Influenza A (8) Thyroid cancer Surgical Problems: (1) Hx of cholecystectomy Family History No significant family history stated Social History Smoking Status: Never Smoker Alcohol Use: none Drug Use: none Marital Status: Housing Status: lives with significant other Occupation Status: retired Current/Historical Medications Scheduled Aspirin (Aspirin Ec), 81 MG PO DAILY Celecoxib (Celecoxib), 200 MG PO DAILY Cranberry (Vaccinium Macrocarp (Cranberry), 600 MG PO BID Ferrous Sulfate (Kp Ferrous Sulfate), 650 MG PO DAILY Glimepiride (Glimepiride), 2 MG PO BID Insulin Aspart (Novolog), Unknown Dose SC AC Insulin Glargine (Lantus), 95 UNITS SC QPM Levothyroxine Sodium (Levothyroxine Sodium), 125 MCG PO DAILY Losartan Potassium (Cozaar), 50 MG PO DAILY Metformin Hcl (Glucophage), 1,000 MG PO BID Multivitamin (Multivitamin), 1 TAB PO DAILY Pantoprazole (Protonix), 40 MG PO QAM Simvastatin (Zocor), 40 MG PO QPM Scheduled PRN Benzonatate (Tessalon Perles), 100 MG PO DIRECTED PRN for Cough Dicyclomine Hcl (Dicyclomine Hcl), 20 MG PO DIRECTED PRN for PRN Hydrocodone/Acetaminophen 5MG/325MG ([place] 5MG/325MG), 1 TABLET PO q4-6 hours PRN for Pain Promethazine Hcl (Phenergan), 25 MG PO DIRECTED PRN for Nausea Allergies Coded Allergies: Doxycycline (Verified Allergy, Severe, TONGUE SWELLS/SOB, 03/04/17) Codeine (Verified Allergy, Intermediate, LARGE DOSES CAUSE RASH, 03/04/17) Oxycodone (Verified Allergy, Intermediate, RASH, TAKES HYDROCODONE AT HOME , 03/04/17) Physical Exam Vital Signs Date Time Temp Pulse Resp B/P (MAP) Pulse Ox O2 Delivery O2 Flow Rate FiO2 03/04/17 10:36 103/71 03/04/17 09:26 101 20 165/93 03/04/17 09:05 113 184/122 03/04/17 08:26 98 163/93 03/04/17 07:26 96 Room Air 03/04/17 07:25 92 03/04/17 07:17 36.5 100 20 191/101 95 Room Air Physical Exam GENERAL: Patient is a healthy-appearing well-nourished female HEAD: Normocephalic atraumatic EYES: Ocular movements intact pupils equal and react to light OROPHARYNX mucous membranes are moist no exudates present no erythema or edema present NECK: Supple no nuchal rigidity CHEST: Good equal expansion LUNGS: Clear and equal to auscultation CARDIAC: Normal S1 and S2 ABDOMEN: Soft, tenderness to the LUQ, no guarding BACK: No CVA tenderness EXTREMITIES: The left shoulder is grossly swollen. Good ROM of the left wrist. N /V intact at the hand. NEURO: Patient is following commands and answering questions appropriately. Alert and oriented x3 Cranial Nerves 2-12 grossly intact Medical Decision & Procedures ER Provider Diagnostic Interpretation: Radiology results as stated below per my review and radiologist interpretation: L HUMERUS MIN 2 VIEWS ROUTINE, L SHOULDER MIN 2 VIEWS ROUTINE HISTORY: 76 years-old Female Pt c/o left shoulder pain acute left shoulder pain COMPARISON: Chest radiograph 02/11/2017 TECHNIQUE: 3 views of the left humerus and 2 views of the left shoulder FINDINGS: SHOULDER: Comminuted displaced fracture involves the proximal humerus. Involving the proximal metadiaphyseal portion. There is 10 mm medial displacement of the distal fracture fragment with approximately 10 degrees apex lateral angulation of the fracture. The humeral head, greater and lesser tuberosities appear intact. Moderate associated soft tissue swelling. Bones appear osteopenic. Severe glenohumeral and moderate chronic reticular degenerative changes. HUMERUS: No fracture of the distal humerus identified. Proximal humerus fracture as above. IMPRESSION: 1. Comminuted displaced and angulated fracture of the proximal metadiaphyseal humerus as above. 2. Severe degenerative changes of the glenohumeral joint with moderate degenerative changes of the acromioclavicular joint. No fractures are seen involving the humeral head, greater or lesser tuberosities. No dislocation. 3. Bones appear osteopenic. The above report was generated using voice recognition software. It may contain grammatical, syntax or spelling errors. Electronically signed by: Mikie Fu M.D. 03/04/2017 8:38 AM Dictated Date/Time: 03/04/2017 8:31 AM L HUMERUS MIN 2 VIEWS ROUTINE, L SHOULDER MIN 2 VIEWS ROUTINE HISTORY: 76 years-old Female Pt c/o left shoulder pain acute left shoulder pain COMPARISON: Chest radiograph 02/11/2017 TECHNIQUE: 3 views of the left humerus and 2 views of the left shoulder FINDINGS: SHOULDER: Comminuted displaced fracture involves the proximal humerus. Involving the proximal metadiaphyseal portion. There is 10 mm medial displacement of the distal fracture fragment with approximately 10 degrees apex lateral angulation of the fracture. The humeral head, greater and lesser tuberosities appear intact. Moderate associated soft tissue swelling. Bones appear osteopenic. Severe glenohumeral and moderate chronic reticular degenerative changes. HUMERUS: No fracture of the distal humerus identified. Proximal humerus fracture as above. IMPRESSION: 1. Comminuted displaced and angulated fracture of the proximal metadiaphyseal humerus as above. 2. Severe degenerative changes of the glenohumeral joint with moderate degenerative changes of the acromioclavicular joint. No fractures are seen involving the humeral head, greater or lesser tuberosities. No dislocation. 3. Bones appear osteopenic. The above report was generated using voice recognition software. It may contain grammatical, syntax or spelling errors. Electronically signed by: Mikie Fu M.D. 03/04/2017 8:38 AM Dictated Date/Time: 03/04/2017 8:31 AM L FOREARM 2 VIEWS ROUTINE CLINICAL HISTORY: Left forearm pain status post trauma COMPARISON: None. DISCUSSION: No fractures or dislocations are visualized. IMPRESSION: No fractures identified. Electronically signed by: Eric Qiu M.D. 03/04/2017 8:49 AM Dictated Date/Time: 03/04/2017 8:48 AM CHEST ONE VIEW PORTABLE CLINICAL HISTORY: Fall. Left shoulder pain. COMPARISON STUDY: Chest radiograph February 11, 2017. FINDINGS: A fracture within the proximal shaft of the left humerus is better depicted on the left humerus radiographs. Please see that report for further description. There is no pneumothorax. Left lower neck/upper mediastinal surgical clips are noted. Mild elevation of the right hemidiaphragm is unchanged. Mild bibasilar opacities favor atelectasis. There is no evidence for pulmonary edema. Cardiomediastinal silhouette is stable. A small hiatal hernia is noted. IMPRESSION: 1. No acute cardiopulmonary findings. 2. Left humeral fracture better depicted on the left humerus radiographs. Please see that report for further description. Electronically signed by: Torey Nova M.D. 03/04/2017 8:34 AM Dictated Date/Time: 03/04/2017 8:31 AM HEAD WITHOUT CONTRAST (CT) CLINICAL HISTORY: 76 years-old Female with Pt c/o fall +LOC. Acute fall with loss of consciousness. TECHNIQUE: Multiple axial CT images of the head were obtained without contrast. A dose lowering technique was utilized adhering to the principles of ALARA. COMPARISON: None. FINDINGS: No acute intracranial hemorrhage, midline shift, intracranial mass, hydrocephalus, territorial ischemia or abnormal extra-axial collection. Moderate brain atrophy with patchy areas of ill-defined low-attenuation within the subcortical, deep and periventricular white matter compatible with chronic microvascular ischemic changes. Vascular calcifications are seen at the level of the skull base. 6 mm area of low-attenuation is seen within the region of the inferior right lentiform nucleus. The calvarium is intact. The paranasal sinuses, mastoid air cells, and middle ear cavities are clear. IMPRESSION: 1. No acute intracranial abnormality identified. No calvarial fracture. 2. Moderate atrophy with chronic microvascular ischemic changes. 6 mm focal area of low-attenuation within the region of the inferior right lentiform nucleus suggests prominent perivascular space or remote lacunar infarction. The above report was generated using voice recognition software. It may contain grammatical, syntax or spelling errors. Electronically signed by: Mikie Fu M.D. 03/04/2017 8:23 AM Dictated Date/Time: 03/04/2017 8:[address] ABD/PELVIS IV CONTRAST ONLY CLINICAL HISTORY: Left-sided abdominal pain status post trauma. COMPARISON STUDY: 11/07/2015 TECHNIQUE: Following the IV administration of 93 mL of Optiray-320, CT scan of the abdomen and pelvis was performed from the lung bases to the proximal femurs. Images are reviewed in the axial, sagittal, and coronal planes. IV contrast was administered without complication. A dose lowering technique was utilized adhering to the principles of ALARA. CT DOSE: 1822.00 mGy.cm FINDINGS: Lower chest: There is mild interstitial thickening and basilar atelectasis. There is a small hiatal hernia. There are coronary artery calcifications. Liver: The contrast-enhanced liver is normal in size, contour, and attenuation. There is no intrahepatic biliary ductal dilatation. The hepatic veins and portal veins are patent. Gallbladder: Surgically absent Spleen: Normal in size and attenuation. Pancreas: Unremarkable. Adrenal glands: Unremarkable. Kidneys: There is a 2 cm upper pole left renal cortical cyst. There is no evidence of hydronephrosis. There is no significant perirenal infiltration. Bowel: There are no transition zones indicate bowel obstruction. There is no evidence for interloop fluid. There are no extraluminal gas collections. There is colonic diverticulosis. There are no acute peridiverticular inflammatory changes. The appendix appears normal. Peritoneum: There is no intraperitoneal free air or abdominal ascites. Vasculature: The abdominal aorta is normal in course and caliber. Adenopathy: None. Pelvic viscera: The bladder, and pelvic viscera are unremarkable. Skeletal structures: No destructive osseous lesions are seen. IMPRESSION: No evidence of acute intra-abdominal or pelvic injury. Electronically signed by: Eric Qiu M.D. 03/04/2017 8:25 AM Dictated Date/Time: 03/04/2017 8:20 AM L UPPER EXTREMITY WITHOUT HISTORY: 76 years-old Female Pt c/o humerus pain acute fracture the left humerus. Acute left arm pain. COMPARISON: Left humerus and shoulder radiographs of same day TECHNIQUE: Multiple axial CT images of the left upper extremity were obtained without the use of IV contrast. Coronal and sagittal reformatted images were obtained from the axial data set and submitted for review. A dose lowering technique was used consistent with the principals of ALARA. FINDINGS: Bones appear moderately demineralized. Severe glenohumeral and moderate to severe acromioclavicular degenerative changes are present. Prominent spurring is noted involving the greater tuberosity with caudal spurring of the acromium and decreased acromioclavicular interval suggesting possible subacromial impingement. Chondrocalcinosis of the glenohumeral joint. 5 mm corticated bone fragment is seen anterior to the superior aspect of the glenohumeral joint suggesting loose body. Large subcortical cysts are seen throughout the humeral head. There is an acute comminuted displaced and angulated fracture of the proximal metadiaphyseal humerus which is displaced 3 mm medially, and 3.0 cm anteriorly. The degree of lateral angulation is better assessed on comparison radiographs. The humeral head, greater and lesser tuberosities are intact without additional acute fracture or dislocation identified. No acute rib fracture identified. Suture material is noted within the left lower neck. Probable small joint effusion about the glenohumeral joint. Moderate soft tissue swelling about the left shoulder. IMPRESSION: 1. Acute comminuted displaced and angulated fracture of the proximal humeral metadiaphysis redemonstrated. The humeral head, greater and lesser tuberosities are intact. 2. 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 Chondrocalcinosis with 5 mm loose body involves the glenohumeral joint as above. 3. Probable small joint effusion with moderate soft tissue swelling. The above report was generated using voice recognition software. It may contain grammatical, syntax or spelling errors. Electronically signed by: Mikie Fu M.D. 03/04/2017 9:42 AM Dictated Date/Time: 03/04/2017 9:[address] OF THE ABDOMEN AND PELVIS WITH CONTRAST CLINICAL HISTORY: Worsening severe abdominal pain following fall. History of thyroid cancer. COMPARISON STUDY: CT of the abdomen and pelvis November 07, 2015 and March 04, 2017 at 7:59 AM. TECHNIQUE: Following IV administration of 93 mL of Optiray-320, axial images of the abdomen and pelvis were obtained from the lung bases to the proximal femurs. Images were reviewed in the axial, sagittal, and coronal planes. IV contrast was administered without complication. A dose lowering technique was utilized adhering to the principles of ALARA. FINDINGS: Visualized portions of the lower lungs demonstrate several pulmonary nodules which are similar to CT of November 07, 2015, including a 1 cm right lower lobe nodule shown image 36 of 496. A small hiatal hernia is noted. No pneumatosis, free air or portal venous gas is present. Mild splenomegaly is unchanged. There is no evidence for traumatic injury to the liver, spleen, adrenal glands, kidneys or pancreas. There is no biliary ductal dilatation status post cholecystectomy. A 1.7 cm cyst within the upper pole of the left kidney is noted. There is no hydronephrosis. There are parapelvic cysts. Contrast within the collecting systems, ureter and bladder is from recent contrast-enhanced CT. Caliber and wall thickness of small and large bowel are normal. There is left colon diverticulosis without evidence for acute diverticulitis. No acute lumbar spine or pelvic fracture is identified. No hemoperitoneum or pneumoperitoneum is identified. IMPRESSION: 1. No acute traumatic findings within the abdomen or pelvis. 2. No significant change in several lower lung nodules since prior CT of November 07, 2015. These remain indeterminate. 3. Small hiatal hernia. 4. Colonic diverticulosis without evidence for acute diverticulitis. Electronically signed by: Torey Nova M.D. 03/04/2017 9:45 AM Dictated Date/Time: 03/04/2017 9:29 AM Laboratory Results 03/04/17 07:35 Red Blood Count 4.55, Mean Corpuscular Volume 74.1, Mean Corpuscular Hemoglobin 22.2, Mean Corpuscular Hemoglobin Concent 30.0, Mean Platelet Volume 9.1, Neutrophils (%) (Auto) 73.5, Lymphocytes (%) (Auto) 15.5, Monocytes (%) (Auto) 8.2, Eosinophils (%) (Auto) 2.4, Basophils (%) (Auto) 0.2, Neutrophils # (Auto) 5.93, Lymphocytes # (Auto) 1.25, Monocytes # (Auto) 0.66, Eosinophils # (Auto) 0.19, Basophils # (Auto) 0.02 03/04/17 07:35 Test 03/04/17 07:25 03/04/17 07:35 03/04/17 07:41 Bedside Glucose 258 mg/dl (70-90) White Blood Count 8.07 K/uL (4.8-10.8) Red Blood Count 4.55 M/uL (4.2-5.4) Hemoglobin 10.1 g/dL (12.0-16.0) Hematocrit 33.7 % (37-47) Mean Corpuscular Volume 74.1 fL (80-100) Mean Corpuscular Hemoglobin 22.2 pg (25-34) Mean Corpuscular Hemoglobin Concent 30.0 g/dl (32-36) Platelet Count 250 K/uL (130-400) Mean Platelet Volume 9.1 fL (7.4-10.4) Neutrophils (%) (Auto) 73.5 % Lymphocytes (%) (Auto) 15.5 % Monocytes (%) (Auto) 8.2 % Eosinophils (%) (Auto) 2.4 % Basophils (%) (Auto) 0.2 % Neutrophils # (Auto) 5.93 K/uL (1.4-6.5) Lymphocytes # (Auto) 1.25 K/uL (1.2-3.4) Monocytes # (Auto) 0.66 K/uL (0.11-0.59) Eosinophils # (Auto) 0.19 K/uL (0-0.5) Basophils # (Auto) 0.02 K/uL (0-0.2) RDW Standard Deviation 53.2 fL (36.4-46.3) RDW Coefficient of Variation 21.1 % (11.5-14.5) Immature Granulocyte % (Auto) 0.2 % Immature Granulocyte # (Auto) 0.02 K/uL (0.00-0.02) Polychromasia 1+ Microcytosis PRESENT Prothrombin Time 10.7 SECONDS (9.0-12.0) Prothromb Time International Ratio 1.0 (0.9-1.1) Est Creatinine Clear Calc Drug Dose 72.3 ml/min Estimated GFR () 94.6 Estimated GFR (Non- 81.6 BUN/Creatinine Ratio 17.4 (10-20) Calcium Level 8.3 mg/dl (8.5-10.1) Total Bilirubin 0.3 mg/dl (0.2-1) Direct Bilirubin < 0.1 mg/dl (0-0.2) Aspartate Amino Transf (AST/SGOT) 18 U/L (15-37) Alanine Aminotransferase (ALT/SGPT) 23 U/L (12-78) Alkaline Phosphatase 51 U/L (45-117) Total Protein 6.8 gm/dl (6.4-8.2) Albumin 3.8 gm/dl (3.4-5.0) Bedside Hemoglobin 10.9 g/dl (12.0-16.0) Bedside Hematocrit 32 % (37-47) Bedside Sodium 139 mEq/L (135-144) Bedside Potassium 3.6 mEq/L (3.3-5.0) Bedside Chloride 99 mEq/L (101-112) Bedside Total CO2 25 mEq/l (24-31) Anion Gap 19.0 mmol/L (16-25) Bedside Blood Urea Nitrogen 12 mg/dl (7-18) Bedside Creatinine 0.7 mg/dl (0.6-1.3) Bedside Glucose (other) 253 mg/dl (70-99) Bedside Ionized Calcium (Donnie) 1.04 mmol/l (1.12-1.32) Labs reviewed by ED physician. Medications Administered Medications (Trade) Dose Ordered Sig/Regis Route Start Time Stop Time Status Last Admin Dose Admin Hydromorphone HCl (Dilaudid Inj) 0.5 mg NOW STAT IV 03/04/17 07:20 03/04/17 07:21 DC 03/04/17 07:41 0.5 MG Ondansetron HCl (Zofran Inj) 4 mg NOW STAT IV 03/04/17 07:20 03/04/17 07:21 DC 03/04/17 07:41 4 MG Hydromorphone HCl (Dilaudid Inj) 0.5 mg NOW STAT IV 03/04/17 08:56 03/04/17 08:57 DC 03/04/17 09:05 0.5 MG Metoclopramide HCl (Reglan Inj) 10 mg NOW STAT IV. 03/04/17 08:56 03/04/17 08:57 DC 03/04/17 09:02 10 MG Morphine Sulfate (MoRPHine SULFATE INJ) 4 mg Q4 PRN IV 03/04/17 10:45 03/18/17 10:44 03/04/17 14:12 4 MG ED Course 0710: Past medical records reviewed. The patient was evaluated in room A2. A complete history and physical examination was performed. 0720: Ordered Zofran Inj 4 mg IV, Dilaudid Inj 0.5 mg IV 0855: The patient is now complaining for excruciating abdominal pain stating that it feels as though her abdomen is "going to explode" and "something is filling up inside." 0856: Ordered Reglan Inj 10 mg IV, Dilaudid Inj 0.5 mg IV 0900: I performed a beside FAST at this time which was negative. 0903: I spoke with Dr. Hernandes of [facility] who recommended getting a CT of her upper extremity and she can most likely follow up as an outpatient. 1015: [facility] is unable to accept the patient due to a bed not being available until tomorrow. 1033: Upon reexamination the patient is resting. I discussed results and treatment plan with the patient. She verbalizes agreement and understanding. I spoke with Dr. Montana from the [facility]. The patient will be evaluated for further management. Medical Decision Differential diagnosis: Etiologies such as fracture, dislocation, intra-abdominal, pneumothorax, intrathoracic , intracranial, neurologic, as well as other traumatic pathologies were entertained. This is a 76-year-old female who presents emergency department after a fall at home. Due to the nature the fall as well as the fact the patient loss consciousness she was sent for CAT scan of the head. The patient was given Dilaudid in the emergency department. The patient was complaining of abdominal pain however the CAT scan of the abdomen pelvis did not show any acute process however upon arriving back from CAT scan the patient began panicking and began complaining of diffuse abdominal pain. After discussing the case with the radiology she was sent back for a second CAT scan of the abdomen pelvis which did not show any acute process. The patient did break her humeral head and I did discuss the case with orthopedics. We attempted to place the patient in the rehabilitation facility however when there were no beds available the patient was admitted by the [facility] hospitalist service. Medication Reconcilliation Current Medication List: was personally reviewed by me Blood Pressure Screening Patient's blood pressure: Normal blood pressure Blood pressure disposition: Did not require urgent referral Her pressures were elevated, but I believe them to be situational as they have now normalized. Consults Time Called: [phone] Consulting Physician: Dr. Cecilio BledsoeOC Returned Call: [phone] We discussed the patient's case. They recommended getting a CT of the patient's upper extremity and that she most likely will be able to follow up as an outpatient. Additional Consults: Time Called: [phone] Consulted Physician: Dr. Montana - [facility] Returned Call: [phone] Additional Comments: I discussed the patient's case with Dr. Montana, they have agreed to evaluate the patient for further management and care. Impression Primary Impression: Fall Additional Impression: Humerus fracture Scribe Attestation The scribe's documentation has been prepared under my direction and personally reviewed by me in its entirety. I confirm that the note above accurately reflects all work, treatment, procedures, and medical decision making performed by me. Departure Information Dispostion Being Evaluated By Hospitalist Referrals Sera Liz M.D. (PCP) Problem Qualifiers Primary Impression: Fall Encounter type: initial encounter Qualified Codes: W19.XXXA - Unspecified fall, initial encounter Additional Impression: Humerus fracture Encounter type: initial encounter Humerus Location: shaft Fracture type: closed Fracture morphology: comminuted Fracture alignment: displaced Laterality: left Qualified Codes: S42.352A - Displaced comminuted fracture of shaft of humerus, left arm, initial encounter for closed fracture
[2017-03-04 07:47] LABS: BASO % 0.2 %; BASO ABS # 0.02 K/uL (0-0.2); EOS % 2.4 %; EOS ABS # 0.19 K/uL (0-0.5); HEMATOCRIT 33.7 % (37-47); HEMOGLOBIN 10.1 g/dL (12.0-16.0); IG# 0.02 K/uL (0.00-0.02); LYMPH % 15.5 %; LYMPH ABS # 1.25 K/uL (1.2-3.4); MEAN CELL VOLUME 74.1 fL (80-100); MEAN CORPUSCULAR HEMOGLOBIN 22.2 pg (25-34); MEAN PLATELET VOLUME 9.1 fL (7.4-10.4); MONO % 8.2 %; MONO ABS # 0.66 K/uL (0.11-0.59); NEUT % 73.5 %; NEUT ABS # 5.93 K/uL (1.4-6.5); PLATELET COUNT 250 K/uL (130-400); RED CELL DISTRIBUTION WIDTH CV 21.1 % (11.5-14.5); RED CELL DISTRIBUTION WIDTH SD 53.2 fL (36.4-46.3); WHITE BLOOD COUNT 8.07 K/uL (4.8-10.8)
[2017-03-04 07:54] LABS: ISTAT CREATININE 0.7 mg/dl (0.6-1.3); ISTAT IONIZED CALCIUM 1.04 mmol/l (1.12-1.32); ISTAT POTASSIUM 3.6 mEq/L (3.3-5.0)
[2017-03-04 08:03] LABS: ALBUMIN 3.8 gm/dl (3.4-5.0); ALT/SGPT 23 U/L (12-78); BLOOD UREA NITROGEN 12 mg/dl (7-18); CALCIUM 8.3 mg/dl (8.5-10.1); CARBON DIOXIDE 25 mmol/L (21-32); CREATININE 0.71 mg/dl (0.60-1.20); GLUCOSE 244 mg/dl (70-99); POTASSIUM 3.6 mmol/L (3.5-5.1); SODIUM 138 mmol/L (136-145)
[2017-03-04 08:06] LABS: ALKALINE PHOSPHATASE 51 U/L (45-117); AST/SGOT 18 U/L (15-37); TOTAL PROTEIN 6.8 gm/dl (6.4-8.2)
--- NOTE | 2017-03-04 08:24 | DIAGNOSTIC IMAGING REPORT ---
HEAD WITHOUT CONTRAST (CT) CLINICAL HISTORY: 76 years-old Female with Pt c/o fall +LOC. Acute fall with loss of consciousness. TECHNIQUE: Multiple axial CT images of the head were obtained without contrast. A dose lowering technique was utilized adhering to the principles of ALARA. COMPARISON: None. FINDINGS: No acute intracranial hemorrhage, midline shift, intracranial mass, hydrocephalus, territorial ischemia or abnormal extra-axial collection. Moderate brain atrophy with patchy areas of ill-defined low-attenuation within the subcortical, deep and periventricular white matter compatible with chronic microvascular ischemic changes. Vascular calcifications are seen at the level of the skull base. 6 mm area of low-attenuation is seen within the region of the inferior right lentiform nucleus. The calvarium is intact. The paranasal sinuses, mastoid air cells, and middle ear cavities are clear. IMPRESSION: 1. No acute intracranial abnormality identified. No calvarial fracture. 2. Moderate atrophy with chronic microvascular ischemic changes. 6 mm focal area of low-attenuation within the region of the inferior right lentiform nucleus suggests prominent perivascular space or remote lacunar infarction. The above report was generated using voice recognition software. It may contain grammatical, syntax or spelling errors. Electronically signed by: Mikie Fu M.D. 03/04/2017 8:23 AM Dictated Date/Time: 03/04/2017 8:19 AM
--- NOTE | 2017-03-04 08:26 | DIAGNOSTIC IMAGING REPORT ---
CT ABD/PELVIS IV CONTRAST ONLY CLINICAL HISTORY: Left-sided abdominal pain status post trauma. COMPARISON STUDY: 11/07/2015 TECHNIQUE: Following the IV administration of 93 mL of Optiray-320, CT scan of the abdomen and pelvis was performed from the lung bases to the proximal femurs. Images are reviewed in the axial, sagittal, and coronal planes. IV contrast was administered without complication. A dose lowering technique was utilized adhering to the principles of ALARA. CT DOSE: 1822.00 mGy.cm FINDINGS: Lower chest: There is mild interstitial thickening and basilar atelectasis. There is a small hiatal hernia. There are coronary artery calcifications. Liver: The contrast-enhanced liver is normal in size, contour, and attenuation. There is no intrahepatic biliary ductal dilatation. The hepatic veins and portal veins are patent. Gallbladder: Surgically absent Spleen: Normal in size and attenuation. Pancreas: Unremarkable. Adrenal glands: Unremarkable. Kidneys: There is a 2 cm upper pole left renal cortical cyst. There is no evidence of hydronephrosis. There is no significant perirenal infiltration. Bowel: There are no transition zones indicate bowel obstruction. There is no evidence for interloop fluid. There are no extraluminal gas collections. There is colonic diverticulosis. There are no acute peridiverticular inflammatory changes. The appendix appears normal. Peritoneum: There is no intraperitoneal free air or abdominal ascites. Vasculature: The abdominal aorta is normal in course and caliber. Adenopathy: None. Pelvic viscera: The bladder, and pelvic viscera are unremarkable. Skeletal structures: No destructive osseous lesions are seen. IMPRESSION: No evidence of acute intra-abdominal or pelvic injury. Electronically signed by: Eric Qiu M.D. 03/04/2017 8:25 AM Dictated Date/Time: 03/04/2017 8:20 AM
--- NOTE | 2017-03-04 08:36 | DIAGNOSTIC IMAGING REPORT ---
CHEST ONE VIEW PORTABLE CLINICAL HISTORY: Fall. Left shoulder pain. COMPARISON STUDY: Chest radiograph February 11, 2017. FINDINGS: A fracture within the proximal shaft of the left humerus is better depicted on the left humerus radiographs. Please see that report for further description. There is no pneumothorax. Left lower neck/upper mediastinal surgical clips are noted. Mild elevation of the right hemidiaphragm is unchanged. Mild bibasilar opacities favor atelectasis. There is no evidence for pulmonary edema. Cardiomediastinal silhouette is stable. A small hiatal hernia is noted. IMPRESSION: 1. No acute cardiopulmonary findings. 2. Left humeral fracture better depicted on the left humerus radiographs. Please see that report for further description. Electronically signed by: Torey Nova M.D. 03/04/2017 8:34 AM Dictated Date/Time: 03/04/2017 8:31 AM
--- NOTE | 2017-03-04 08:39 | DIAGNOSTIC IMAGING REPORT ---
L HUMERUS MIN 2 VIEWS ROUTINE, L SHOULDER MIN 2 VIEWS ROUTINE HISTORY: 76 years-old Female Pt c/o left shoulder pain acute left shoulder pain COMPARISON: Chest radiograph 02/11/2017 TECHNIQUE: 3 views of the left humerus and 2 views of the left shoulder FINDINGS: SHOULDER: Comminuted displaced fracture involves the proximal humerus. Involving the proximal metadiaphyseal portion. There is 10 mm medial displacement of the distal fracture fragment with approximately 10 degrees apex lateral angulation of the fracture. The humeral head, greater and lesser tuberosities appear intact. Moderate associated soft tissue swelling. Bones appear osteopenic. Severe glenohumeral and moderate chronic reticular degenerative changes. HUMERUS: No fracture of the distal humerus identified. Proximal humerus fracture as above. IMPRESSION: 1. Comminuted displaced and angulated fracture of the proximal metadiaphyseal humerus as above. 2. Severe degenerative changes of the glenohumeral joint with moderate degenerative changes of the acromioclavicular joint. No fractures are seen involving the humeral head, greater or lesser tuberosities. No dislocation. 3. Bones appear osteopenic. The above report was generated using voice recognition software. It may contain grammatical, syntax or spelling errors. Electronically signed by: Mikie Fu M.D. 03/04/2017 8:38 AM Dictated Date/Time: 03/04/2017 8:31 AM
--- NOTE | 2017-03-04 08:50 | DIAGNOSTIC IMAGING REPORT ---
L FOREARM 2 VIEWS ROUTINE CLINICAL HISTORY: Left forearm pain status post trauma COMPARISON: None. DISCUSSION: No fractures or dislocations are visualized. IMPRESSION: No fractures identified. Electronically signed by: Eric Qiu M.D. 03/04/2017 8:49 AM Dictated Date/Time: 03/04/2017 8:48 AM
[2017-03-04] MEDS ORDERED: FERR1TAB13 PO (08:53)
[2017-03-04] MEDS ORDERED: CELE1CAP30 PO (08:53)
[2017-03-04] MEDS ORDERED: METOCLOPRAMIDE HCL INJ 5 MG/ML 2 ML VIAL IV. STA (08:56)
[2017-03-04] MEDS ORDERED: OPTIRAY 320 IV PRN (09:15)
--- NOTE | 2017-03-04 09:43 | DIAGNOSTIC IMAGING REPORT ---
L UPPER EXTREMITY WITHOUT HISTORY: 76 years-old Female Pt c/o humerus pain acute fracture the left humerus. Acute left arm pain. COMPARISON: Left humerus and shoulder radiographs of same day TECHNIQUE: Multiple axial CT images of the left upper extremity were obtained without the use of IV contrast. Coronal and sagittal reformatted images were obtained from the axial data set and submitted for review. A dose lowering technique was used consistent with the principals of ASHLEY. FINDINGS: Bones appear moderately demineralized. Severe glenohumeral and moderate to severe acromioclavicular degenerative changes are present. Prominent spurring is noted involving the greater tuberosity with caudal spurring of the acromium and decreased acromioclavicular interval suggesting possible subacromial impingement. Chondrocalcinosis of the glenohumeral joint. 5 mm corticated bone fragment is seen anterior to the superior aspect of the glenohumeral joint suggesting loose body. Large subcortical cysts are seen throughout the humeral head. There is an acute comminuted displaced and angulated fracture of the proximal metadiaphyseal humerus which is displaced 3 mm medially, and 3.0 cm anteriorly. The degree of lateral angulation is better assessed on comparison radiographs. The humeral head, greater and lesser tuberosities are intact without additional acute fracture or dislocation identified. No acute rib fracture identified. Suture material is noted within the left lower neck. Probable small joint effusion about the glenohumeral joint. Moderate soft tissue swelling about the left shoulder. IMPRESSION: 1. Acute comminuted displaced and angulated fracture of the proximal humeral metadiaphysis redemonstrated. The humeral head, greater and lesser tuberosities are intact. 2. 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 Chondrocalcinosis with 5 mm loose body involves the glenohumeral joint as above. 3. Probable small joint effusion with moderate soft tissue swelling. The above report was generated using voice recognition software. It may contain grammatical, syntax or spelling errors. Electronically signed by: Mikie Fu M.D. 03/04/2017 9:42 AM Dictated Date/Time: 03/04/2017 9:31 AM
--- NOTE | 2017-03-04 09:46 | DIAGNOSTIC IMAGING REPORT ---
CT OF THE ABDOMEN AND PELVIS WITH CONTRAST CLINICAL HISTORY: Worsening severe abdominal pain following fall. History of thyroid cancer. COMPARISON STUDY: CT of the abdomen and pelvis November 07, 2015 and March 04, 2017 at 7:59 AM. TECHNIQUE: Following IV administration of 93 mL of Optiray-320, axial images of the abdomen and pelvis were obtained from the lung bases to the proximal femurs. Images were reviewed in the axial, sagittal, and coronal planes. IV contrast was administered without complication. A dose lowering technique was utilized adhering to the principles of ALARA. FINDINGS: Visualized portions of the lower lungs demonstrate several pulmonary nodules which are similar to CT of November 07, 2015, including a 1 cm right lower lobe nodule shown image 36 of 496. A small hiatal hernia is noted. No pneumatosis, free air or portal venous gas is present. Mild splenomegaly is unchanged. There is no evidence for traumatic injury to the liver, spleen, adrenal glands, kidneys or pancreas. There is no biliary ductal dilatation status post cholecystectomy. A 1.7 cm cyst within the upper pole of the left kidney is noted. There is no hydronephrosis. There are parapelvic cysts. Contrast within the collecting systems, ureter and bladder is from recent contrast-enhanced CT. Caliber and wall thickness of small and large bowel are normal. There is left colon diverticulosis without evidence for acute diverticulitis. No acute lumbar spine or pelvic fracture is identified. No hemoperitoneum or pneumoperitoneum is identified. IMPRESSION: 1. No acute traumatic findings within the abdomen or pelvis. 2. No significant change in several lower lung nodules since prior CT of November 07, 2015. These remain indeterminate. 3. Small hiatal hernia. 4. Colonic diverticulosis without evidence for acute diverticulitis. Electronically signed by: Torey Nova M.D. 03/04/2017 9:45 AM Dictated Date/Time: 03/04/2017 9:29 AM
[2017-03-04] MEDS ORDERED: MAGNESIUM HYDROXIDE SUSP 30 ML UDC PO PRN (10:45)
[2017-03-04] MEDS ORDERED: ALUMINUM/MAGNESIUM/SIMETH (MAALOX MAX) 30 ML UDC PO PRN (10:45)
[2017-03-04] MEDS ORDERED: ACETAMINOPHEN 325 MG TAB PO PRN (10:45)
[2017-03-04] MEDS ORDERED: BENZONATATE 100MG CAP PO PRN (10:45)
[2017-03-04] MEDS ORDERED: DICYCLOMINE HCL 20 MG TAB PO PRN (10:45)
[2017-03-04] MEDS ORDERED: LIDODERM (LIDOCAINE) PATCH 5% TD ONE (11:06)
[2017-03-04 11:11] VITALS: O2SAT 96; BMI 32.9
--- NOTE | 2017-03-04 11:17 | History and Physical ---
History & Physical Date & Time of Service: Mar 04, 2017 at 11:11 Chief Complaint: Fall/Shoulder Pain Primary Care Physician: Sera Liz M.D. Past Medical/Surgical History Medical Problems: (1) Cancer of thorax Status: Resolved (2) Diabetes Status: Chronic (3) Diverticulitis Status: Chronic (4) Hypertension Status: Chronic (5) Thyroid cancer Status: Resolved Surgical Problems: (1) Hx of cholecystectomy Status: Resolved Family History No significant family history stated Social History Smoking Status: Never Smoker Drug Use: none Marital Status: Housing status: lives with family Occupational Status: retired Multi-Drug Resistant Organisms History of MDRO: No Allergies Coded Allergies: Doxycycline (Verified Allergy, Severe, TONGUE SWELLS/SOB, 03/04/17) Codeine (Verified Allergy, Intermediate, LARGE DOSES CAUSE RASH, 03/04/17) Oxycodone (Verified Allergy, Intermediate, RASH, TAKES HYDROCODONE AT HOME , 03/04/17) Home Medications Scheduled Aspirin (Aspirin Ec), 81 MG PO DAILY Celecoxib (Celecoxib), 200 MG PO DAILY Cranberry (Vaccinium Macrocarp (Cranberry), 600 MG PO BID Ferrous Sulfate (Kp Ferrous Sulfate), 650 MG PO DAILY Glimepiride (Glimepiride), 2 MG PO BID Insulin Aspart (Novolog), Unknown Dose SC AC Insulin Glargine (Lantus), 95 UNITS SC QPM Levothyroxine Sodium (Levothyroxine Sodium), 125 MCG PO DAILY Losartan Potassium (Cozaar), 50 MG PO DAILY Metformin Hcl (Glucophage), 1,000 MG PO BID Multivitamin (Multivitamin), 1 TAB PO DAILY Pantoprazole (Protonix), 40 MG PO QAM Simvastatin (Zocor), 40 MG PO QPM Scheduled PRN Benzonatate (Tessalon Perles), 100 MG PO DIRECTED PRN for Cough Dicyclomine Hcl (Dicyclomine Hcl), 20 MG PO DIRECTED PRN for PRN Hydrocodone/Acetaminophen 5MG/325MG (Gunter 5MG/325MG), 1 TABLET PO q4-6 hours PRN for Pain Promethazine Hcl (Phenergan), 25 MG PO DIRECTED PRN for Nausea Physical Exam Vital Signs Date Time Temp Pulse Resp B/P (MAP) Pulse Ox O2 Delivery O2 Flow Rate FiO2 03/04/17 11:01 108 03/04/17 10:36 103/71 03/04/17 09:26 101 20 165/93 03/04/17 09:05 113 184/122 03/04/17 08:26 98 163/93 03/04/17 07:26 96 Room Air 03/04/17 07:25 92 03/04/17 07:17 36.5 100 20 191/101 95 Room Air Diagnostics Laboratory Results Results Past 24 Hours Test 03/04/17 07:25 03/04/17 07:35 03/04/17 07:41 03/04/17 10:45 Range/Units Bedside Glucose 258 70-90 mg/dl White Blood Count 8.07 4.8-10.8 K/uL Red Blood Count 4.55 4.2-5.4 M/uL Hemoglobin 10.1 12.0-16.0 g/dL Hematocrit 33.7 37-47 % Mean Corpuscular Volume 74.1 80-100 fL Mean Corpuscular Hemoglobin 22.2 25-34 pg Mean Corpuscular Hemoglobin Concent 30.0 32-36 g/dl Platelet Count 250 130-400 K/uL Mean Platelet Volume 9.1 7.4-10.4 fL Neutrophils (%) (Auto) 73.5 % Lymphocytes (%) (Auto) 15.5 % Monocytes (%) (Auto) 8.2 % Eosinophils (%) (Auto) 2.4 % Basophils (%) (Auto) 0.2 % Neutrophils # (Auto) 5.93 1.4-6.5 K/uL Lymphocytes # (Auto) 1.25 1.2-3.4 K/uL Monocytes # (Auto) 0.66 0.11-0.59 K/uL Eosinophils # (Auto) 0.19 0-0.5 K/uL Basophils # (Auto) 0.02 0-0.2 K/uL RDW Standard Deviation 53.2 36.4-46.3 fL RDW Coefficient of Variation 21.1 11.5-14.5 % Immature Granulocyte % (Auto) 0.2 % Immature Granulocyte # (Auto) 0.02 0.00-0.02 K/uL Polychromasia 1+ Microcytosis PRESENT Sodium Level 138 136-145 mmol/L Potassium Level 3.6 3.5-5.1 mmol/L Chloride Level 102 98-107 mmol/L Carbon Dioxide Level 25 21-32 mmol/L Anion Gap 11.0 19.0 16-25 mmol/L Blood Urea Nitrogen 12 7-18 mg/dl Creatinine 0.71 0.60-1.20 mg/dl Est Creatinine Clear Calc Drug Dose 72.3 ml/min Estimated GFR () 94.6 Estimated GFR (Non- 81.6 BUN/Creatinine Ratio 17.4 10-20 Random Glucose 244 70-99 mg/dl Calcium Level 8.3 8.5-10.1 mg/dl Total Bilirubin 0.3 0.2-1 mg/dl Direct Bilirubin < 0.1 0-0.2 mg/dl Aspartate Amino Transf (AST/SGOT) 18 15-37 U/L Alanine Aminotransferase (ALT/SGPT) 23 12-78 U/L Alkaline Phosphatase 51 45-117 U/L Total Protein 6.8 6.4-8.2 gm/dl Albumin 3.8 3.4-5.0 gm/dl Bedside Hemoglobin 10.9 12.0-16.0 g/dl Bedside Hematocrit 32 37-47 % Bedside Sodium 139 135-144 mEq/L Bedside Potassium 3.6 3.3-5.0 mEq/L Bedside Chloride 99 101-112 mEq/L Bedside Total CO2 25 24-31 mEq/l Bedside Blood Urea Nitrogen 12 7-18 mg/dl Bedside Creatinine 0.7 0.6-1.3 mg/dl Bedside Glucose (other) 253 70-99 mg/dl Bedside Ionized Calcium (Donnie) 1.04 1.12-1.32 mmol/l Impression Assessment and Plan obs #[id number] VTE Prophylaxis VTE Risk Assessment Done? Y/N: Yes Risk Level: Moderate
--- NOTE | 2017-03-04 11:43 | HISTORY & PHYSICAL EXAMINATION ---
DATE OF ADMISSION: 03/04/2017 CHIEF COMPLAINT: Left arm pain. HISTORY OF PRESENT ILLNESS: The patient is a very pleasant 76-year-old female known to me from prior care. She fell this morning. She was going to the bathroom, she believes she had a hypoglycemic episode as she does not really remember anything, but she did know that her sugar was in the 40s then. She fell on her left side. She came to with left arm pain and could not really move her arm well as well as a bit of a left lower rib/upper abdominal pain. She came to the ER for further evaluation and was found to have a rather fragmented left humerus fracture and no other significant trauma. Orthopedics saw her and wanted apparently some time for swelling to go down prior to surgery and she was set to go to rehab. Unfortunately, there are no beds available. REVIEW OF SYSTEMS: Positive for resolving cough from a bronchitis that she has had since around , but it is getting better. Review of systems is also positive for erratic sugars lately. She notes that she has been anywhere from the 300s to the 40s up and down and believes it is a fairly new problem for her. She believes it is probably something she is doing with her eating versus meds, but she just is not quite sure what. Review of systems is positive for the upper abdominal/lower rib pain and review of systems is otherwise negative except for as above. PAST MEDICAL HISTORY: Includes uncontrolled type 2 diabetes, hypertension, prior history of thyroid cancer, diverticulosis and of notes, she notes she just had a bone density test and does not have osteoporosis. She does have some vitamin D insufficiency as of November. PAST SURGICAL HISTORY: Includes cholecystectomy. FAMILY HISTORY: None of note. SOCIAL HISTORY: She is a never smoker, no drugs. She is . 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 She does have a preformed plan with a local senior care facility for respite care for him. ALLERGIES: INCLUDE CODEINE AND OXYCODONE, WHICH SHE NOTES WITH A RASH BUT SHE TAKES HYDROCODONE WITHOUT DIFFICULTY AND DOXYCYCLINE. MEDICATIONS: Home meds are noted to be aspirin, benzonatate celecoxib, cranberry, dicyclomine, iron sulfate, glimepiride, hydrocodone/acetaminophen, NovoLog at meals, Lantus 95 in the evening, Synthroid, losartan, metformin, multivitamin, Protonix, Phenergan, and simvastatin. PHYSICAL EXAMINATION: VITAL SIGNS: Temp 36.5, pulse 100, respiratory rate 20, blood pressure initially 191/101, 95% on room air, blood pressures have since come down. GENERAL: She is awake, alert, oriented x3, mildly anxious, but otherwise in no acute distress. HEAD, EYES, EARS, NOSE, AND THROAT: Normocephalic, atraumatic. Mucous membranes are moist. CARDIOVASCULAR: Regular, slightly distant. No rubs, murmurs, gallops. LUNGS: Show a bit of left-sided expiratory rhonchi consistent with her resolving bronchitis, otherwise clear. No rales, rhonchi, or wheezes. No accessory muscles. ABDOMEN: Soft, nondistended, nontender, no masses or organomegaly. EXTREMITIES: Without cyanosis, clubbing or edema. Her left upper extremity is held very still and given the diffuse fractures present full exam obviously was deferred for comfort. SKIN: Shows no rashes, no pallor or icterus. NEUROLOGIC: Shows cranial nerves II-XII grossly intact. Gross motor and sensory are intact. MUSCULOSKELETAL: Left upper extremity as above. She is also tender to palpation in her left lower ribs without any crepitus. MENTAL STATE: Shows good recent and remote recall. Normal mood and affect. Good judgment and insight. LABORATORY AND DIAGNOSTICS: CBC shows a white count of 8.07, hemoglobin 10.1 with an MCV of 74.1, platelets 250. Complete metabolic panel with sodium 138, potassium 3.6, chloride 102, CO2 25, BUN 12, creatinine 0.71, calcium 8.3, glucose 244, last A1c was 9.2 about a month ago, total bilirubin less than 0.1. AST 18, ALT 23, alkaline phosphatase 51, albumin 3.8. Her last vitamin D was in high 20s about 3 months ago. She had numerous imaging studies done most prominently showing a comminuted displaced angulated fracture of the proximal metadiaphyseal humerus and severe DJD of the glenohumeral joint, but no fractures or dislocations. Bones appear osteopenic but again she notes that she recently had a bone density scan that was normal. She also had a chest x-ray without acute cardiopulmonary findings. She had a head CT without acute findings but does show an apparent 6 mm focal area in the region of the inferior right lentiform nucleus suggesting either prominent perivascular space or a remote lacunar infarct. She had a CT abdomen and pelvis showing no evidence of injury, no acute findings. Later it was repeated with contrast and the only other notable findings a small hiatal hernia, diverticulosis without diverticulitis. She had an upper extremity CT better depicting the fracture. ASSESSMENT AND PLAN: 1. Fall. This appears to be due to hypoglycemia. See below. 2. Humerus fracture. Consult orthopedics. Pain control with Tylenol for mild, Toradol or hydrocodone for moderate and morphine for severe. Check a vitamin D, although she does note that her bone density was good. I do not have direct data in front of me and she was vitamin D insufficient not that long ago. 3. Uncontrolled diabetes. It sounds like she is struggling with highs and lows. She is completely open to the idea that she is probably having medications/carb intake mismatch and would like educated further on this. I started to educate her in general and also recommended checking postprandial glucose so she can learn directly from the food she eats. Will also consult rn diabetes educator and dietitian to educate her further. I suspect in the long run getting her on board with varying her log insulin dosing and getting rid of the glimepiride all together would be a good next step, but certainly she requires a heavy amount of education in this regard. 4. Old stroke. Uncertain how old this is, probably relates to her diabetes. She is on aspirin. She has a statin. She is on an STEFFEN receptor alfredo. Given that there is no appearance of acuity of the situation, we will defer the rest of the workup to outpatient. She is agreeable to this. 5. Microcytic anemia. Outpatient workup. Her hemoglobin is stable from the fall. 6. Hypertension. She is elevated initially probably related to pain and stress of the situation. Continue her home meds. Continue to follow her blood pressure. 7. Deep venous thrombosis prophylaxis, Lovenox.
[2017-03-04 12:01] VITALS: BP 127/71; PULSE 112; TEMP 36.7; O2SAT 94
[2017-03-04 12:13] VITALS: O2SAT 96
[2017-03-04] MEDS ORDERED: DEXTROSE 50% 50 ML SYR IV PRN (12:30)
[2017-03-04] MEDS ORDERED: GLUCOSE 40% GEL 15 GM TUBE PO PRN (12:30)
[2017-03-04] MEDS ORDERED: GLUCAGON FOR INJ 1 MG VIAL SQ PRN (12:30)
[2017-03-04] MEDS ORDERED: POLYETHYLENE (MIRALAX) 17 GM PACK PO PRN (12:30)
[2017-03-04] MEDS ORDERED: GLUCOSE 10 TABS/TUBE PO PRN (12:30)
[2017-03-04] MEDS ORDERED: IV FLUIDS COMPLETED PRN (14:00)
[2017-03-04] MEDS: MoRPHine SULFATE 4 MG/ML 1 ML CARP\\VIAL IV PRN (14:12)
[2017-03-04] MEDS: INSULIN ASPART 100 UNITS/ML 3 ML PEN SC SCH ×2 (14:29→18:21)
[2017-03-04 14:35] VITALS: BMI 32.9
[2017-03-04 15:09] VITALS: BP 129/77; PULSE 107; TEMP 37; O2SAT 94
--- NOTE | 2017-03-04 16:31 | ORTHOPEDICS PROGRESS NOTE ---
DATE: 03/04/2017 DATE: 03/04/2017 HISTORY OF PRESENT ILLNESS: The patient is a 76-year-old white female who presents after having blackout with what she recalls as a diabetic low having a fall sustaining a fracture of her left proximal humerus and humeral shaft with comminution. She is neurovascularly and neurologically intact. She is in a sling with swollen arm. She is neurovascularly and neurologically intact. Her complaints are intermittent pain when she moves with her left shoulder. X-rays revealed there to be evidence of a comminuted fracture of the proximal shaft into the neck of the humerus with comminution. Discussed situation with the patient. She is apparently scheduled to be transferred to [facility] or possibly even home with home care. She will need followup. Will discuss this with some of my partners regarding potential for surgical intervention versus conservative management.
[2017-03-04] MEDS: GLIMEPIRIDE 2 MG TAB PO SCH (18:19)
[2017-03-04] MEDS: METFORMIN HCL 500 MG TAB PO SCH (18:19)
[2017-03-04] MEDS: SIMVASTATIN 40 MG TAB PO SCH (20:53)
[2017-03-04] MEDS: KETOROLAC TROMETHAMINE 15 MG/ML VIAL IV. PRN (20:54)
[2017-03-04] MEDS: INSULIN GLARGINE SC SCH (20:59)
[2017-03-04] MEDS ORDERED: CRANBERRY PO SCH (21:00)
[2017-03-04] MEDS ORDERED: INSULIN GLARGINE SC SCH (21:00)
[2017-03-04 23:17] VITALS: BP 120/75; PULSE 95; TEMP 37; O2SAT 96
[2017-03-05] MEDS: HYDROCODONE/ACETAMOPHEN 5/325MG TAB PO PRN ×2 (01:39→09:40)
[2017-03-05] MEDS: LEVOTHYROXINE 125 MCG TAB PO SCH (05:32)
[2017-03-05 07:09] VITALS: BP 110/60; PULSE 88; TEMP 36.6; O2SAT 94
[2017-03-05] MEDS: MULTIVITAMIN TAB PO SCH (08:24)
[2017-03-05] MEDS: PANTOprazole SOD 40 MG TAB PO SCH (08:25)
[2017-03-05] MEDS: GLIMEPIRIDE 2 MG TAB PO SCH (08:25)
[2017-03-05] MEDS: LOSARTAN POTASSIUM 50 MG TAB PO SCH (08:25)
[2017-03-05] MEDS: ASPIRIN 81 MG ECTAB PO SCH (08:25)
[2017-03-05] MEDS: METFORMIN HCL 500 MG TAB PO SCH ×2 (08:26→18:42)
[2017-03-05] MEDS: FERROUS SULFATE 325 MG TAB PO SCH (08:26)
[2017-03-05] MEDS: LIDODERM (LIDOCAINE) PATCH 5% TD SCH (08:29)
--- NOTE | 2017-03-05 09:35 | Hospitalist Progress Note ---
Hospitalist Progress Note Date of Service Mar 05, 2017. Subjective Pt evaluation today including: conversation w/ patient, physical exam, chart review, lab review, review of studies Pain: Left shoulder PO Intake: Good Voiding: no voiding problems The patient was seen and examined this morning. Pt reports doing well today. She still has significant left shoulder pain, and has not yet seen orthopedics. She is hoping to have surgical intervention for this currently, but ate breakfast this morning. She has not moved her bowels x 4 days, uses miralax at home. If surgical intervention is planned then likely would happen tomorrow due to the upcoming weekend. Pt was just up walking with PT/OT and did well. She did speak with informatics educator already today. Her will be visiting later today, she lives at home with him. Constitutional: No fever, No chills, No sweats, No fatigue ENT: + trouble swallowing (needs small pills/small bites due to hx of throat cancer and esophageal narrowing), No nasal symptoms Respiratory: + wheezing, + problem reported (hx of bronchitis since Dec), No cough Cardiovascular: No chest pain, No palpitations Abdomen: + constipation, No pain, No nausea, No vomiting Musculoskeletal: + joint pain (Left shoulder/arm), No calf pain Female : No dysuria Neurologic: No weakness, No numbness/tingling Endo: No fatigue Skin: No rash, No itch Objective Vital Signs Date Time Temp Pulse Resp B/P (MAP) Pulse Ox O2 Delivery O2 Flow Rate FiO2 03/05/17 07:09 36.6 88 16 110/60 (77) 94 Room Air 03/04/17 23:17 37.0 95 18 120/75 (90) 96 Room Air 03/04/17 19:00 Room Air 03/04/17 15:09 37.0 107 16 129/77 (94) 94 Room Air 03/04/17 12:13 96 Room Air 03/04/17 12:01 36.7 112 17 127/71 (89) 94 Nasal Cannula 03/04/17 11:34 106 16 110/73 94 Room Air 03/04/17 11:11 96 Room Air 03/04/17 11:01 108 03/04/17 10:36 103/71 Physical Exam General Appearance: WD/WN, no apparent distress, + obese Eyes: PERRL, EOMI ENT: hearing grossly normal, pharynx normal Neck: no adenopathy, no JVD Respiratory/Chest: no respiratory distress, no accessory muscle use, + pertinent finding (On RA, + mild expiratory wheeze throughout, no other adventitious breath sounds. ) Cardiovascular: regular rate, rhythm, no murmur Abdomen: normal bowel sounds, non tender, soft Extremities: non-tender, no pedal edema, no calf tenderness Neurologic/Psychiatric: alert, normal mood/affect, oriented x 3 Laboratory Results Last 24 Hours Test 03/04/17 12:04 03/04/17 12:51 03/04/17 17:11 03/04/17 20:44 Bedside Glucose 298 mg/dl 304 mg/dl 269 mg/dl 25-Hydroxy Vitamin D Total 26.5 ng/ml Test 03/05/17 06:02 03/05/17 07:56 Bedside Glucose 213 mg/dl 257 mg/dl Assessment and Plan This is a 76 yo F with PMHx of DM II Humeral Fracture s/p fall likely secondary to hypoglycemia - Ortho on board, no OR today as the pt ate breakfast, await for ortho to re- eval and determine if surgery or conservative management. - Pain control wth tylenol for mild, Toradol or hydrocodone for moderate and morphine for severe. Start bowel regimen as no BM in 4 days. - Vit D level is very low, start supplementation - PT/OT on board Uncontrolled DM II - DM educator consulted - Lantus 55 U BID, ISS with accuchecks achs, metformin 1000 BID, cont glimepiride 2.5 daily for now, but likely could stop this med - will follow glucose and determine Hx stroke - Uncertain how old this is, probably relates to her diabetes. - Cont aspirin, statin, STEFFEN Microcytic anemia - Outpatient workup. Hgb remains stable Hypertension. - Continue losartan - BP likely elevated d/t pain at time of admission, well controlled currently. Hypothyroidism - Cont levothyroxine DVT ppx: ambulatory CODE STATUS: FULL Disposition: PT/OT to eval, await ortho recs regarding possible surgery vs conservative management.
[2017-03-05] MEDS: PROMETHAZINE HCL 25 MG TAB PO PRN (09:40)
[2017-03-05] MEDS: INSULIN ASPART 100 UNITS/ML 3 ML PEN SC SCH ×4 (09:52→20:47)
[2017-03-05] MEDS: INSULIN GLARGINE SC SCH ×2 (09:53→20:46)
[2017-03-05] MEDS: CALCIUM 600MG + VIT D 400 IU TAB PO SCH ×2 (10:37→20:41)
[2017-03-05] MEDS: ENOXAPARIN 40 MG/0.4 ML SYR SQ SCH (10:38)
[2017-03-05] MEDS ORDERED: BISACODYL 5 MG TABEC PO ONE (11:45)
[2017-03-05] MEDS: POLYETHYLENE (MIRALAX) 17 GM PACK PO SCH (12:38)
[2017-03-05] MEDS: ALBUT/IPRATROP 3MG/0.5MG NEB 3 ML VIAL INH SCH ×2 (13:21→20:07)
[2017-03-05 13:22] VITALS: PULSE 88; O2SAT 95
[2017-03-05] MEDS: CHOLECALCIFEROL 1000 INTER.UNIT TAB PO SCH (13:56)
[2017-03-05] MEDS: SODIUM CHLORIDE 0.9% 1000ML 1,000 ML IV SCH (13:57)
[2017-03-05] MEDS ORDERED: PHARMACY GLYCEMIC MGMT CONSULT SCH (14:44)
--- NOTE | 2017-03-05 15:10 | Pharmacy Progress Note ---
Glycemic Control Intl Consult Date of Service Mar 05, 2017. Scope Glycemic Pharmacist consulted by Dr Elliott on 03/05/17 for glycemic control and to write orders per [facility] inpatient glycemic control protocol Objective Weight (Kilograms): 89.800 Accuchecks BSG (last 24hrs): Test 03/04/17 17:11 03/04/17 20:44 03/05/17 06:02 03/05/17 07:56 Bedside Glucose 304 mg/dl (70-90) 269 mg/dl (70-90) 213 mg/dl (70-90) 257 mg/dl (70-90) Test 03/05/17 12:10 Bedside Glucose 265 mg/dl (70-90) Recent Pertinent Medications Outpatient Anti-diabetic Regimen: * Lantus 95 units HS * Novolog AC ? * Glimepiride 2 mg BIDM + Metformin 1 g BIDM * A1c = 9.2 % 02/14/16 The patient is currently receiving: * Basal insulin: Lantus 55 units every 12 hours * Correctional Insulin: Novolog Correction per scale ACHS Goal Range: Low 120 mg/dL - High 160 mg/dL Correction Factor: 20 mg/dL/unit * Prandial insulin: Per carb ratio of 1 unit per 4 grams CHO consumed * Oral Agents: Glimepiride 2 mg BIDM + Metformin 1 g BIDM Assessment & Plan ASSESSMENT: * 76 yo diabetic F admitted with humeral fracture and BSGs >250 mg/dL * states pt has been having lows and highs at home/very uneducated about diabetic diet etc * BSGs all >250 mg/dL over the past 24 hours * Pt received Lantus 55 units last night and this morning * Basal needs may actually be ~100 units per day - so I will leave current basal dosing in hopes pt should start to trend down tomorrow * Tighten CF/CR based on estimated basal needs and add additional overnight checks for sustained hyperglycemia * New A1c pending for tomorrow * Recommend CDE to see patient prior to discharge PLAN FOR INPATIENT GLYCEMIC CONTROL: * Continue metformin 1 g PO BIDM * Discontinue glimepiride - increased risk of hypoglycemia * Continue basal insulin with LANTUS 55 units SQ BID * Correctional Insulin with NOVOLOG per scale ACHS + 00,04 tonight * Goal Range: Low 110 mg/dL - High 140 mg/dL * Correction Factor: 10 mg/dL/unit * Nutritional / Prandial insulin per carb ratio of 1 unit per 3 grams CHO consumed * Please note that the plan above was derived based on current level of insulin resistance and hospital stress. These recommendations are appropriate for inpatient admission only. Plan of care upon discharge will need to be reassessed to avoid potential outpatient hypo/hyperglycemia. Thank you.
[2017-03-05 15:37] VITALS: BMI 32.9
[2017-03-05 15:42] VITALS: PULSE 89; O2SAT 96
[2017-03-05] MEDS: MoRPHine SULFATE 4 MG/ML 1 ML CARP\\VIAL IV PRN (15:43)
[2017-03-05 15:48] VITALS: BP 152/92; PULSE 96; TEMP 38.2; O2SAT 100
--- NOTE | 2017-03-05 15:55 | Orthopedic Progress Note ---
Orthopedic Progress Note Date of Service Mar 05, 2017. Subjective Additional Notes: Painful currently and just received some pain meds. Discussed with her that Dr Mao has looked at her films and would like to try and treat her conservatively at this point. She is in agreement with this. No new complaints currently. Objective Sling in place. NV intact. Date Time Temp Pulse Resp B/P (MAP) Pulse Ox O2 Delivery O2 Flow Rate FiO2 03/05/17 13:22 88 18 95 Room Air 03/05/17 07:09 36.6 88 16 110/60 (77) 94 Room Air 03/04/17 23:17 37.0 95 18 120/75 (90) 96 Room Air 03/04/17 19:00 Room Air Assessment & Plan Assessment: Left proximal humerus fx Plan: Non op treatment for now. Pt will need to follow up with Dr Mao early next week for further xrays. Pt understands that she may need surgery if the fx does not stay in place.
[2017-03-05] MEDS: ONDANSETRON INJ 2 MG/ML 2 ML VIAL IV PRN (16:09)
[2017-03-05 20:07] VITALS: PULSE 91; O2SAT 95
[2017-03-05] MEDS: SIMVASTATIN 40 MG TAB PO SCH (20:41)
[2017-03-05] MEDS: BOOST GLUCOSE CONTROL PO SCH (20:50)
[2017-03-05 22:56] VITALS: BP 129/67; PULSE 99; TEMP 37.4; O2SAT 96
[2017-03-06] VITALS (7 sets, daily range): BP systolic 133–165; BP diastolic 69–137; PULSE 77–112; TEMP 37–37.4; O2SAT 93–96; Ht 165.1 cm; Wt 89.8 kg
[2017-03-06] MEDS: SODIUM CHLORIDE 0.9% 1000ML 1,000 ML IV SCH ×2 (02:09→15:33)
[2017-03-06] MEDS: INSULIN ASPART 100 UNITS/ML 3 ML PEN SC SCH ×7 (03:47→23:52)
[2017-03-06] MEDS: LEVOTHYROXINE 125 MCG TAB PO SCH (05:35)
[2017-03-06] MEDS: ALBUT/IPRATROP 3MG/0.5MG NEB 3 ML VIAL INH SCH ×3 (07:39→15:36)
[2017-03-06 08:40] LABS: HEMOGLOBIN A1C 8.3 % (4.5-5.6)
[2017-03-06] MEDS ORDERED: INSULIN GLARGINE SC SCH (09:00)
[2017-03-06] MEDS ORDERED: INSULIN GLARGINE SOLOSTAR 100 UNITS/ML 3 ML PEN SC SCH (09:00)
[2017-03-06] MEDS: METFORMIN HCL 500 MG TAB PO SCH ×2 (09:02→19:14)
[2017-03-06] MEDS: MULTIVITAMIN TAB PO SCH (09:02)
[2017-03-06] MEDS: CALCIUM 600MG + VIT D 400 IU TAB PO SCH ×2 (09:03→21:23)
[2017-03-06] MEDS: ASPIRIN 81 MG ECTAB PO SCH (09:03)
[2017-03-06] MEDS: POLYETHYLENE (MIRALAX) 17 GM PACK PO SCH (09:03)
[2017-03-06] MEDS: FERROUS SULFATE 325 MG TAB PO SCH (09:03)
[2017-03-06] MEDS: PANTOprazole SOD 40 MG TAB PO SCH (09:04)
[2017-03-06] MEDS: LOSARTAN POTASSIUM 50 MG TAB PO SCH (09:05)
[2017-03-06] MEDS: CHOLECALCIFEROL 1000 INTER.UNIT TAB PO SCH (09:05)
[2017-03-06] MEDS: ENOXAPARIN 40 MG/0.4 ML SYR SQ SCH (09:06)
[2017-03-06] MEDS: LIDODERM (LIDOCAINE) PATCH 5% TD SCH (09:07)
[2017-03-06] MEDS: HYDROCODONE/ACETAMOPHEN 5/325MG TAB PO PRN ×3 (09:10→21:21)
[2017-03-06] MEDS: INSULIN GLARGINE SC SCH ×2 (09:32→21:41)
[2017-03-06 10:05] LABS: HEMATOCRIT 27.7 % (37-47); HEMOGLOBIN 8.3 g/dL (12.0-16.0); MEAN CELL VOLUME 75.7 fL (80-100); MEAN CORPUSCULAR HEMOGLOBIN 22.7 pg (25-34); MEAN PLATELET VOLUME 9.3 fL (7.4-10.4); PLATELET COUNT 283 K/uL (130-400); RED CELL DISTRIBUTION WIDTH CV 22.7 % (11.5-14.5); RED CELL DISTRIBUTION WIDTH SD 60.3 fL (36.4-46.3); WHITE BLOOD COUNT 10.29 K/uL (4.8-10.8)
[2017-03-06 10:29] LABS: CALCIUM 8.3 mg/dl (8.5-10.1); CREATININE 0.8 mg/dl (0.60-1.20); POTASSIUM 3.9 mmol/L (3.5-5.1)
--- NOTE | 2017-03-06 10:59 | Pharmacy Progress Note ---
Glycemic Control Progress Note Date of Service Mar 06, 2017. Scope Glycemic Pharmacist consulted for glycemic control to write orders per [facility] inpatient glycemic control protocol. Objective Accuchecks BSG (last 24hrs): Test 03/05/17 12:10 03/05/17 17:07 03/05/17 20:25 03/06/17 03:44 Bedside Glucose 265 mg/dl (70-90) 189 mg/dl (70-90) 193 mg/dl (70-90) 169 mg/dl (70-90) Test 03/06/17 09:20 HbA1c: Test 03/06/17 07:32 Hemoglobin A1c 8.3 % (4.5-5.6) H Recent Pertinent Medications The patient is currently receiving: * Basal insulin: Lantus 55 units every 12 hours * Correctional Insulin: Novolog Correction per scale ACHS Goal Range: Low 110 mg/dL - High 140 mg/dL Correction Factor: 10 mg/dL/unit * Prandial insulin: Per carb ratio of 1 unit per 3 grams CHO consumed * Oral Agents: Metformin 1gm PO BID Outpatient Anti-Diabetic Meds Lantus 95 units SQ Q HS Novolog w/ meals and at bedtime; reports using doses of 4-5 units per meal is BSGs 200-250, and often used 10 units at bedtime as BSGs were "very high" at that time of day Assessment & Plan ASSESSMENT: 03/06/17 * Type 2 diabetic admitted for humerus fx s/p fall secondary to hypoglycemic episode * Patient reports episodes of fasting AM hypoglycemia on a frequent basis. Upon further questioning, it appears that her BSGs climbed steadily throughout the day and peaked at bedtime. She would then give twice as much correctional insulin at bedtime for hyperglycemia. This pattern suggests inadequate prandial insulin and overcorrection at bedtime. One cannot r/o that Lantus dose may also need scaled back as well - however stopping the sulfonylurea may also reduce the risk of fasting hypoglycemia. Moving the Lantus dose to AM rather than PM may also help reduce the risk of AM hypoglycemia as the basal dose may wear-off overnight to some degree. * BSGs have ranged 169-265 over the last 24 hrs. She has received 158 units of SQ insulin over the last 24 hrs. BSGs have been trending favorably. * Fasting BSG 168 this AM with 110 units of Lantus on board plus 9 units of correctional insulin given between HS and this AM * CF and CR performed fairly well after change was made yesterday PLAN FOR INPATIENT GLYCEMIC CONTROL: * Provider has decreased Lantus to 50 units SQ BID - this may be reasonable as BSGs are starting to trend favorably - another 24 hrs of data would help determine true basal needs. * Continuing correction factor of 10 mg/dl/unit * Continuing carb ratio of 1 unit per 3 grams CHO consumed * Continuing goal range of Low 110 mg/dL - High 140 mg/dL RECOMMENDATIONS FOR DISCHARGE: * In light of recent episode of severe hypoglycemia and fall resulting in humerus fx it would be reasonable to allow BSGs to run a little higher than goal initially as long as patient has close f/u with endocrinology / PCP for assistance with insulin dose titration. Would recommend the following based upon reported history and current BSGs/insulin doses: * Stop glimepiride * Continue metformin 1gm PO BID * Lantus SQ BID: if BSG less than 80 give 0 units; if BSG 81-110 give 20 units , if BSG 110 or greater give 40 units * Novolog 12 units with each meal + per sliding scale: -if BSG 160-180: give 2 units -if BSG 181-200: give 4 units -if BSG 201-220: give 6 units -if BSG greater than 220, give 8 units * Continue to check BSG at 2am initially to screen for low BSGs, but do not administer Novolog for BSG elevations at 2am. Please record these numbers in your journal for your physician to review. * Please note that the plan above was derived based on current level of insulin resistance and hospital stress. These recommendations are appropriate for inpatient admission only. Plan of care upon discharge will need to be reassessed to avoid potential outpatient hypo/hyperglycemia. Thank you.
--- NOTE | 2017-03-06 12:18 | Consultant Recommendations ---
Weight Tester Recommendations Date of Service Mar 06, 2017. Weight Tester Recommendations LEFT PROXIMAL HUMERUS FRACTURE SLING TO LEFT UPPER EXTREMITY AT ALL TIMES. MAY LOOSEN SLIGHTLY TO RELIEVE ELBOW/WRIST/FINGER DISCOMFORT OR NUMBNESS. NO RANGE OF MOTION OF THE LEFT SHOULDER. NON WEIGHTBEARING ON THE LEFT UPPER EXTREMITY FOLLOW UP WITH DR BOX EARLY NEXT WEEK FOR FURTHER XRAYS.
[2017-03-06] MEDS: KETOROLAC TROMETHAMINE 15 MG/ML VIAL IV. PRN (15:33)
[2017-03-06] MEDS ORDERED: ALBUT/IPRATROP 3MG/0.5MG NEB 3 ML VIAL INH PRN (16:30)
--- NOTE | 2017-03-06 16:30 | Hospitalist Progress Note ---
Hospitalist Progress Note Date of Service Mar 06, 2017. Subjective Pt evaluation today including: conversation w/ patient, physical exam, chart review, lab review, review of inpatient medication list Voiding: no voiding problems Ms. Cox continues to have pain in her left arm however she is refusing further morphine as she did not like the way it made her feel. No numbness or tingling in her left hand. Brohard is helping with the pain. ROS Constitutional: no chills, aches, sweats or fever Respiratory: no sob,cough, sputum, or wheezing Cardiac: no chest pain, palpitations, edema, orthopnea or lightheadedness GI: no abdominal pain, nausea, vomiting, diarrhea or constipation : no dysuria or hesitancy Extremities: see HPI Skin: no rash All other systems reviewed and negative Medications Medications (Trade) Dose Ordered Sig/Regis Route Start Time Stop Time Status Last Admin Dose Admin Insulin Aspart (novoLOG ASPART) SLIDING SCALE ACHS SC 03/05/17 17:15 04/04/17 17:14 03/06/17 13:29 38 UNITS Insulin Aspart (novoLOG ASPART) SLIDING SCALE 0000,0400 SC 03/06/17 00:00 04/05/17 00:00 03/06/17 03:47 3 UNITS Enteral Nutritional Formula (Boost Glucose Control) 1 can HS PO 03/05/17 21:00 04/04/17 20:59 03/05/17 20:50 1 CAN Insulin Glargine (Lantus Vial) 50 units BID SC 03/06/17 09:00 04/05/17 08:59 03/06/17 09:32 50 UNITS Objective Vital Signs Date Time Temp Pulse Resp B/P (MAP) Pulse Ox O2 Delivery O2 Flow Rate FiO2 03/06/17 15:03 37.0 112 16 147/69 (95) 94 Room Air 03/06/17 11:44 94 18 96 Room Air 03/06/17 10:42 37.4 95 17 153/77 (102) 93 Room Air 03/06/17 07:55 Room Air 03/06/17 07:39 77 18 95 Room Air 03/06/17 07:13 37.2 89 133/73 (93) 94 Room Air 03/06/17 00:38 Nasal Cannula 3.0 03/05/17 22:56 37.4 99 20 129/67 (87) 96 Nasal Cannula 2.0 03/05/17 20:07 91 18 95 Nasal Cannula 2.0 03/05/17 16:20 Nasal Cannula 2.0 Physical Exam Notes: General: no distress Eyes: normal inspection, PERLL Respiratory: chest non tender, clear to auscultation, normal breath sounds, no respiratory distress, no accessory muscle use Cardiac: regular rate and rhythm, no rub or gallop, no murmur, no edema, no jvd GI/: active bowel sounds, no abd pain or tenderness, soft, non distended Extremities: normal range of motion, normal strength, non tender, left arm in sling Neuro/Psych: alert and oriented x 3, normal mood and affect Skin: normal color, dry Laboratory Results Last 24 Hours Test 03/05/17 17:07 03/05/17 20:25 03/06/17 03:44 03/06/17 07:32 Bedside Glucose 189 mg/dl 193 mg/dl 169 mg/dl Estimated Average Glucose 192 mg/dl Hemoglobin A1c 8.3 % Thyroid Stimulating Hormone (TSH) 1.090 uIu/ml Test 03/06/17 09:20 03/06/17 12:05 White Blood Count 10.29 K/uL Red Blood Count 3.66 M/uL Hemoglobin 8.3 g/dL Hematocrit 27.7 % Mean Corpuscular Volume 75.7 fL Mean Corpuscular Hemoglobin 22.7 pg Mean Corpuscular Hemoglobin Concent 30.0 g/dl RDW Standard Deviation 60.3 fL RDW Coefficient of Variation 22.7 % Platelet Count 283 K/uL Mean Platelet Volume 9.3 fL Sodium Level 137 mmol/L Potassium Level 3.9 mmol/L Chloride Level 102 mmol/L Carbon Dioxide Level 26 mmol/L Anion Gap 9.0 mmol/L Blood Urea Nitrogen 15 mg/dl Creatinine 0.80 mg/dl Est Creatinine Clear Calc Drug Dose 64.2 ml/min Estimated GFR () 81.8 Estimated GFR (Non- 70.6 BUN/Creatinine Ratio 18.6 Random Glucose 208 mg/dl Calcium Level 8.3 mg/dl Bedside Glucose 277 mg/dl Assessment and Plan This is a 76 yo F with PMHx of DM II Humeral Fracture s/p fall likely secondary to hypoglycemia - Per ortho - conservative management, no surgery - Pain control wth tylenol for mild, Toradol or hydrocodone more severe. Start bowel regimen as no BM in 4 days, added colace and continue prn miralax - Vit D level is very low, continue supplementation - PT/OT on board Uncontrolled DM II - DM educator consulted - Lantus 50 U BID, ISS with accuchecks achs, metformin 1000 BID, discontinued glimeperide - will trend bsgs for today to help decide on home regimen Hx stroke - Uncertain how old this is, probably relates to her diabetes. - Cont aspirin, statin, STEFFEN Microcytic anemia - Outpatient workup. Hgb remains stable Hypertension. - Continue losartan - BP likely elevated d/t pain at time of admission, well controlled currently. Hypothyroidism - Cont levothyroxine DVT ppx: ambulatory CODE STATUS: FULL Disposition: PT/OT to eval, can likely discharge tomorrow.
[2017-03-06] MEDS: IPRATROPIUM BROMIDE/ALBUTEROL respimat INH INH SCH ×2 (17:00→21:21)
[2017-03-06] MEDS: BOOST GLUCOSE CONTROL PO SCH (21:22)
[2017-03-06] MEDS: DOCUSATE SODIUM 100 MG CAP PO SCH (21:23)
[2017-03-06] MEDS: SIMVASTATIN 40 MG TAB PO SCH (21:23)
[2017-03-07] VITALS (8 sets, daily range): BP systolic 130–171; BP diastolic 66–84; PULSE 86–94; TEMP 36.9–37.2; O2SAT 95–98
[2017-03-07] MEDS: SODIUM CHLORIDE 0.9% 1000ML 1,000 ML IV SCH (03:53)
[2017-03-07] MEDS: INSULIN ASPART 100 UNITS/ML 3 ML PEN SC SCH ×5 (04:00→21:00)
[2017-03-07] MEDS: LEVOTHYROXINE 125 MCG TAB PO SCH (06:27)
[2017-03-07] MEDS: KETOROLAC TROMETHAMINE 15 MG/ML VIAL IV. PRN ×2 (07:06→16:29)
[2017-03-07 07:24] LABS: HEMATOCRIT 27.9 % (37-47); HEMOGLOBIN 8.1 g/dL (12.0-16.0); MEAN CELL VOLUME 77.3 fL (80-100); MEAN CORPUSCULAR HEMOGLOBIN 22.4 pg (25-34); MEAN PLATELET VOLUME 9.2 fL (7.4-10.4); PLATELET COUNT 272 K/uL (130-400); RED CELL DISTRIBUTION WIDTH CV 23.8 % (11.5-14.5); RED CELL DISTRIBUTION WIDTH SD 64.2 fL (36.4-46.3); WHITE BLOOD COUNT 7.56 K/uL (4.8-10.8)
[2017-03-07] MEDS: ONDANSETRON INJ 2 MG/ML 2 ML VIAL IV PRN ×2 (07:36→21:24)
[2017-03-07 07:58] LABS: CREATININE 0.63 mg/dl (0.60-1.20)
[2017-03-07] MEDS: IPRATROPIUM BROMIDE/ALBUTEROL respimat INH INH SCH ×4 (08:49→22:00)
[2017-03-07] MEDS: CALCIUM 600MG + VIT D 400 IU TAB PO SCH ×2 (08:50→22:03)
[2017-03-07] MEDS: CHOLECALCIFEROL 1000 INTER.UNIT TAB PO SCH (08:50)
[2017-03-07] MEDS: PANTOprazole SOD 40 MG TAB PO SCH (08:51)
[2017-03-07] MEDS: DOCUSATE SODIUM 100 MG CAP PO SCH ×2 (08:51→22:03)
[2017-03-07] MEDS: POLYETHYLENE (MIRALAX) 17 GM PACK PO SCH (09:00)
[2017-03-07] MEDS ORDERED: INSULIN GLARGINE SC SCH ×2 (09:00→21:00)
[2017-03-07] MEDS: ENOXAPARIN 40 MG/0.4 ML SYR SQ SCH (09:01)
[2017-03-07] MEDS: LIDODERM (LIDOCAINE) PATCH 5% TD SCH (09:01)
--- NOTE | 2017-03-07 09:10 | Progress Note ---
Subjective Date of Service: Mar 07, 2017. Subjective Pt evaluation today including: conversation w/ patient, physical exam, chart review, lab review, review of studies, conversation w/ hematology oncology consultant, review of inpatient medication list Was complaining about left humeral pain this morning, which helped with pain medicine, however blood pressure was raised up to 178, blood pressure was 165 over 137 in midnight, Patient's blood glucose was at 68s this morning Mild wheezing, help with the inhaler Generally pain better control Problem List Medical Problems: (1) Abdominal bloating Status: Acute (2) Abdominal discomfort Status: Acute (3) Abdominal pain Status: Acute (4) Bacteremia Status: Acute (5) Fall Status: Acute (6) Gastritis Status: Acute (7) Poisoning by insulin and oral hypoglycemic [antidiabetic] drugs, accidental (unintentional), initial encounter Status: Acute (8) Shingles Status: Acute Review of Systems Constitutional: No fever, No chills, No sweats, No weight loss, No weakness, No fatigue, No problem reported Eyes: No worsening of vision, No eye pain, No redness, No discharge, No diplopia ENT: No hearing loss, No unusual epistaxis, No nasal symptoms, No sore throat, No tinnitus, No dental problems, No trouble swallowing Respiratory: + wheezing (mild), No cough, No sputum, No shortness of breath, No dyspnea on exertion, No dyspnea at rest, No hemoptysis Cardiac: No chest pain, No orthopnea, No PND, No edema, No claudication, No palpitations Abdomen: No pain, No nausea, No vomiting, No diarrhea, No constipation Musculoskeletal: + joint pain (left humeral), No muscle pain, No swelling, No calf pain Female : No dysuria, No urinary frequency, No hematuria, No incontinence, No abnormal vaginal bleeding, No vaginal discharge Neurologic: No memory loss, No paralysis, No weakness, No numbness/tingling, No vertigo, No balance problems Psychiatric: No depression symptoms, No anhedonism, No anxiety, No insomnia, No substance abuse Heme: No abnormal bleeding/bruising, No clotting problems, No swollen lymph nodes, No night sweats Endo: No fatigue, No excessive thirst, No excessive urination Skin: No rash, No itch, No new/changing skin lesions, No color change, No bleeding Objective Vital Signs Date Time Temp Pulse Resp B/P (MAP) Pulse Ox O2 Delivery O2 Flow Rate FiO2 03/07/17 07:45 87 18 98 Room Air 03/07/17 07:39 36.9 86 18 171/84 (113) 98 Nasal Cannula 2.0 03/07/17 07:20 Room Air 03/07/17 00:09 130/69 (89) 03/06/17 23:45 Nasal Cannula 2.0 03/06/17 23:16 37.0 98 16 165/137 (146) 96 Nasal Cannula 1.5 03/06/17 19:18 92 96 03/06/17 16:00 Room Air 03/06/17 15:03 37.0 112 16 147/69 (95) 94 Room Air 03/06/17 11:44 94 18 96 Room Air 03/06/17 10:42 37.4 95 17 153/77 (102) 93 Room Air Physical Exam General Appearance: WD/WN, no apparent distress, + obese Eyes: normal inspection, PERRL, EOMI, sclerae normal ENT: normal ENT inspection, hearing grossly normal, pharynx normal Neck: supple, no adenopathy, thyroid normal, no JVD, no carotid bruits, trachea midline Respiratory/Chest: chest non-tender, lungs clear, normal breath sounds, no respiratory distress, no accessory muscle use Cardiovascular: regular rate, rhythm, no edema, no gallop, no JVD, no murmur Abdomen: normal bowel sounds, non tender, soft, no organomegaly, no pulsatile mass Extremities: non-tender, normal inspection, no pedal edema, no calf tenderness , normal capillary refill, pelvis stable, + pertinent finding (bilateral fingers has no swelling, bilateral radial pulse is positive and symmetric) Neurologic/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, no motor/sensory deficits, alert, normal mood/affect, oriented x 3 Skin: normal color, warm/dry, no rash Lymphatic: no adenopathy Laboratory Results Last 24 Hours Test 03/06/17 09:20 03/06/17 12:05 03/06/17 15:10 03/06/17 16:58 White Blood Count 10.29 K/uL Red Blood Count 3.66 M/uL Hemoglobin 8.3 g/dL Hematocrit 27.7 % Mean Corpuscular Volume 75.7 fL Mean Corpuscular Hemoglobin 22.7 pg Mean Corpuscular Hemoglobin Concent 30.0 g/dl RDW Standard Deviation 60.3 fL RDW Coefficient of Variation 22.7 % Platelet Count 283 K/uL Mean Platelet Volume 9.3 fL Sodium Level 137 mmol/L Potassium Level 3.9 mmol/L Chloride Level 102 mmol/L Carbon Dioxide Level 26 mmol/L Anion Gap 9.0 mmol/L Blood Urea Nitrogen 15 mg/dl Creatinine 0.80 mg/dl Est Creatinine Clear Calc Drug Dose 64.2 ml/min Estimated GFR () 81.8 Estimated GFR (Non- 70.6 BUN/Creatinine Ratio 18.6 Random Glucose 208 mg/dl Calcium Level 8.3 mg/dl Bedside Glucose 277 mg/dl 162 mg/dl 76 mg/dl Test 03/06/17 20:33 03/06/17 23:51 03/07/17 03:49 03/07/17 04:15 Bedside Glucose 108 mg/dl 116 mg/dl 68 mg/dl 105 mg/dl Test 03/07/17 06:58 03/07/17 07:57 White Blood Count 7.56 K/uL Red Blood Count 3.61 M/uL Hemoglobin 8.1 g/dL Hematocrit 27.9 % Mean Corpuscular Volume 77.3 fL Mean Corpuscular Hemoglobin 22.4 pg Mean Corpuscular Hemoglobin Concent 29.0 g/dl RDW Standard Deviation 64.2 fL RDW Coefficient of Variation 23.8 % Platelet Count 272 K/uL Mean Platelet Volume 9.2 fL Creatinine 0.63 mg/dl Est Creatinine Clear Calc Drug Dose 81.5 ml/min Estimated GFR () 99.6 Estimated GFR (Non- 85.9 Bedside Glucose 162 mg/dl Assessment and Plan 76 yo F with Humeral Fracture s/p fall likely secondary to hypoglycemia Humeral Fracture s/p fall Per ortho: conservative management, no surgery, Pain control with tylenol for mild, Toradol or hydrocodone more severe. Discharge instructions per orthopedic service : LEFT PROXIMAL HUMERUS FRACTURE, SLING TO LEFT UPPER EXTREMITY AT ALL TIMES. MAY LOOSEN SLIGHTLY TO RELIEVE ELBOW/WRIST/FINGER DISCOMFORT OR NUMBNESS. NO RANGE OF MOTION OF THE LEFT SHOULDER. NON WEIGHTBEARING ON THE LEFT UPPER EXTREMITY, FOLLOW UP WITH DR BOX EARLY NEXT WEEK FOR FURTHER XRAYS. Uncontrolled DM II with possible frequent hypoglycemic episodes avoid hypoglycemic episodes because which may caused the fall and Humira fracture , Decreased Lantus 50 U BID to 48, ISS with accuchecks achs, metformin 1000 BID, discontinued glimeperide Hx stroke , Cont aspirin, statin, STEFFEN Microcytic anemia, Outpatient workup. Hgb is lower today, we'll follow-up , continue iron pill, as ordered ferritin, iron panel, vitamin B12, folate acid , stool Hemoccult, we'll follow-up Hypertension, with accelerated hypertension, likely because of pain, blood pressure in normal range when has no pain, I will not adjust blood pressure medicine for now Hypothyroidism, continue current medication Patient live with at home, need to take care of l at home , no children, with the above hypoglycemic episodes, worsening anemic and accelerated hypertension, I will keep her one day more, plan to discharge home tomorrow and with home health care coming to the home on Thursday Continued [facility] stay due to: home environment unsafe for pt Discharge planning: home with home health
[2017-03-07] MEDS: MULTIVITAMIN TAB PO SCH (09:47)
[2017-03-07] MEDS: FERROUS SULFATE 325 MG TAB PO SCH (09:48)
[2017-03-07] MEDS: ASPIRIN 81 MG ECTAB PO SCH (09:48)
[2017-03-07] MEDS: METFORMIN HCL 500 MG TAB PO SCH ×2 (09:48→18:35)
[2017-03-07] MEDS: LOSARTAN POTASSIUM 50 MG TAB PO SCH (09:48)
[2017-03-07] MEDS: HYDROCODONE/ACETAMOPHEN 5/325MG TAB PO PRN ×2 (13:28→22:06)
--- NOTE | 2017-03-07 16:31 | Progress Note ---
Subjective Date & Time of Service Mar 07, 2017 at 16:22 Pt evaluation today including: conversation w/ patient, physical exam, review of studies Contacted by nurse due to patient concerns about increased left arm swelling today. Patient noticed increased swelling in upper arm around fracture site, and more swelling in hand. Denies any increase in pain. She was out of bed moving more today than she has been. Objective Last 8 Hrs Date Time Temp Pulse Resp B/P (MAP) Pulse Ox O2 Delivery O2 Flow Rate FiO2 03/07/17 15:24 36.9 92 18 160/66 (97) 95 Room Air 03/07/17 11:24 96 Room Air Physical Exam General Appearance: no apparent distress Head: normocephalic Left arm: Moderate swelling and ecchymosis around fracture site. Spreading to dependent areas as expected. Compartments soft and compressible, no pain with passive stretch. Skin intact, no lacerations or fracture blisters. Motor and sensory intact distally in median, ulnar, radial nerve distributions. Hand warm and well perfused, 2+ radial pulse. Laboratory Results Laboratory Results (24 Hrs): Last 24 Hours Test 03/06/17 16:58 03/06/17 20:33 03/06/17 23:51 03/07/17 03:49 Bedside Glucose 76 mg/dl 108 mg/dl 116 mg/dl 68 mg/dl Test 03/07/17 04:15 03/07/17 06:58 03/07/17 07:57 03/07/17 09:14 Bedside Glucose 105 mg/dl 162 mg/dl White Blood Count 7.56 K/uL Red Blood Count 3.61 M/uL Hemoglobin 8.1 g/dL Hematocrit 27.9 % Mean Corpuscular Volume 77.3 fL Mean Corpuscular Hemoglobin 22.4 pg Mean Corpuscular Hemoglobin Concent 29.0 g/dl RDW Standard Deviation 64.2 fL RDW Coefficient of Variation 23.8 % Platelet Count 272 K/uL Mean Platelet Volume 9.2 fL Creatinine 0.63 mg/dl Est Creatinine Clear Calc Drug Dose 81.5 ml/min Estimated GFR () 99.6 Estimated GFR (Non- 85.9 Iron Level 19 mcg/dl Total Iron Binding Capacity 350 mcg/dl Ferritin 13.4 ng/ml Vitamin B12 Level 198 pg/mL Folate 18.51 ng/mL Test 03/07/17 12:04 Bedside Glucose 267 mg/dl Radiology: XR left humerus/shoulder reviewed. Shows comminuted proximal humerus fracture with distal extension into proximal diaphyseal region. Assessment and Plan (1) Humerus fracture Status: Acute Repeat eval of left proximal humerus fracture due to concerns of increased swelling. -Likely related to patient's increased movement today. -No evidence of compartment syndrome. -Encourage frequent hand and finger motion/steeping press tender to reduce swelling in hand. -Continue plan as previously outlined. Continued [facility] stay due to: home environment unsafe for pt Discharge planning: home with home health
[2017-03-07] MEDS ORDERED: NURSING VERBAL MED ORDER ONE (18:30)
[2017-03-07] MEDS ORDERED: HYDROCHLOROTHIAZIDE 25 MG TAB PO ONE (19:00)
[2017-03-07] MEDS ORDERED: INSULIN GLARGINE SC STA (21:58)
[2017-03-07] MEDS: BOOST GLUCOSE CONTROL PO SCH (21:59)
[2017-03-07] MEDS: SIMVASTATIN 40 MG TAB PO SCH (22:03)
[2017-03-08] MEDS ORDERED: INSULIN ASPART 100 UNITS/ML 3 ML PEN SC ONE (02:00)
[2017-03-08] MEDS: LEVOTHYROXINE 125 MCG TAB PO SCH (05:15)
[2017-03-08] MEDS: KETOROLAC TROMETHAMINE 15 MG/ML VIAL IV. PRN (05:15)
[2017-03-08 07:29] VITALS: BP 183/90; PULSE 85; TEMP 37; O2SAT 97
[2017-03-08 08:10] VITALS: BP 181/68
[2017-03-08] MEDS: LOSARTAN POTASSIUM 50 MG TAB PO SCH (08:17)
[2017-03-08] MEDS ORDERED: IPRA1AER2 INH (08:45)
[2017-03-08] MEDS ORDERED: LDDP5 TD (08:45)
[2017-03-08] MEDS ORDERED: INSDGIPEN SC (08:45)
[2017-03-08] MEDS ORDERED: NUTR-7 PO (08:45)
[2017-03-08] MEDS ORDERED: VTMD1000 PO (08:45)
[2017-03-08] MEDS: METFORMIN HCL 500 MG TAB PO SCH ×2 (08:49→18:10)
[2017-03-08] MEDS: IPRATROPIUM BROMIDE/ALBUTEROL respimat INH INH SCH ×4 (08:49→21:30)
[2017-03-08] MEDS: MULTIVITAMIN TAB PO SCH (08:50)
[2017-03-08] MEDS: FERROUS SULFATE 325 MG TAB PO SCH (08:50)
[2017-03-08] MEDS: PANTOprazole SOD 40 MG TAB PO SCH (08:51)
[2017-03-08] MEDS: ASPIRIN 81 MG ECTAB PO SCH (08:51)
[2017-03-08] MEDS: CALCIUM 600MG + VIT D 400 IU TAB PO SCH ×2 (08:51→21:32)
[2017-03-08] MEDS ORDERED: CYANOCOBALAMIN 1000 MCG/ML VIAL IM STA (08:51)
--- NOTE | 2017-03-08 08:51 | Discharge Instructions ---
Discharge Instructions Date of Service Mar 08, 2017. Admission Reason for Admission: Humerus Fracture Discharge Discharge Diagnosis / Problem: Humeral Fracture s/p fall likely secondary to hypoglycemia Discharge Goals Goal(s): Decrease discomfort, Improve function, Increase independence, Improve disease control, Improve nutritional status, Learn about illness, Diagnostic testing, Therapeutic intervention, Prevent Disease Progression, Specific goals Activity Recommendations Activity Limitations: as noted below Lifting Limitations: none (see below) Exercise/Sports Limitations: none (see below) . Instructions / Follow-Up Instructions / Follow-Up you have Humeral Fracture s/p fall Per ortho: conservative management, no surgery, Pain control with tylenol for mild, Toradol or hydrocodone more severe. Discharge instructions per orthopedic service : LEFT PROXIMAL HUMERUS FRACTURE, SLING TO LEFT UPPER EXTREMITY AT ALL TIMES. MAY LOOSEN SLIGHTLY TO RELIEVE ELBOW/WRIST/FINGER DISCOMFORT OR NUMBNESS. NO RANGE OF MOTION OF THE LEFT SHOULDER. NON WEIGHTBEARING ON THE LEFT UPPER EXTREMITY, FOLLOW UP WITH DR BOX EARLY NEXT WEEK FOR FURTHER XRAYS. you have Uncontrolled DM II with possible frequent hypoglycemic episodes your Lantus currently is 40units twice daily, ISS with accuchecks achs, metformin 1000 BID, discontinued Glimeperide, for the adjustment of medicine, need to be done by PCP you have accelerated blood pressure, I increased Losartan to 75mg danny daily Microcytic anemia, Outpatient workup. Hgb is lower today, Vit b12 is low, got 1 im dose today, you need to continue im injection through pcp, - you need to follow up with your primary care physician in 1 week, - take medication as instructed, never overdose or any misuse, or take with alcohol, because misuse of medicine may cause organ damage or , call your primary care physician if have questions of medicaitons. - call your primary care physician OR go to local emergency room if has any fever/chill, chest pain, shortness of breathing, nausea/vomiting/abdominal pain , facial droop/slurry speech/local weakness, or if has any questions. - fall precaution - diet as instructed - you need to follow up with your subspecialist , such as orthopedic as the above - you should understand that it is important to follow up the above instruction , and "not following the above instruction" may cause delayed or missed care of your medical conditions which may cause permanent organ damage and even . Current Hospital Diet Patient's current hospital diet: Diabetes Type 2 Diet Discharge Diet Recommended Diet: Diabetes Type 2 Diet Pending Studies Studies pending at discharge: no Laboratory Results Hemoglobin A1c Test 03/06/17 07:32 Range/Units Estimated Average Glucose 192 mg/dl Hemoglobin A1c 8.3 H 4.5-5.6 % Medical Emergencies . Who to Call and When: Medical Emergencies: If at any time you feel your situation is an emergency, please call 911 immediately. . Non-Emergent Contact Non-Emergency issues call your: Primary Care Provider, Specialist (orthopedic) . . "Provider Documentation" section prepared by Lance Elliott. . Firer Boiler Recommendations Firer Boiler Recommendations: LEFT PROXIMAL HUMERUS FRACTURE SLING TO LEFT UPPER EXTREMITY AT ALL TIMES. MAY LOOSEN SLIGHTLY TO RELIEVE ELBOW/WRIST/FINGER DISCOMFORT OR NUMBNESS. NO RANGE OF MOTION OF THE LEFT SHOULDER. NON WEIGHTBEARING ON THE LEFT UPPER EXTREMITY FOLLOW UP WITH DR BOX EARLY NEXT WEEK FOR FURTHER XRAYS. VTE Core Measure Inpt VTE Proph given/why not?: Unfractionated heparin SQ
[2017-03-08] MEDS: CHOLECALCIFEROL 1000 INTER.UNIT TAB PO SCH (08:52)
[2017-03-08] MEDS: LIDODERM (LIDOCAINE) PATCH 5% TD SCH (08:52)
[2017-03-08] MEDS: ENOXAPARIN 40 MG/0.4 ML SYR SQ SCH (08:53)
[2017-03-08] MEDS ORDERED: LSN5 PO (08:54)
[2017-03-08] MEDS ORDERED: LOSA50TA54 PO (08:55)
[2017-03-08] MEDS ORDERED: LISINOPRIL 5 MG TAB PO ONE (09:00)
[2017-03-08] MEDS ORDERED: LOSARTAN POTASSIUM 25 MG TAB PO STA (09:00)
[2017-03-08] MEDS ORDERED: LISINOPRIL 10 MG TAB PO SCH (09:00)
[2017-03-08] MEDS ORDERED: INSULIN GLARGINE SOLOSTAR 100 UNITS/ML 3 ML PEN SC SCH (09:00)
[2017-03-08] MEDS: INSULIN ASPART 100 UNITS/ML 3 ML PEN SC SCH ×4 (09:00→21:51)
[2017-03-08] MEDS: DOCUSATE SODIUM 100 MG CAP PO SCH ×2 (09:33→21:33)
[2017-03-08] MEDS: INSULIN GLARGINE SC SCH ×2 (09:37→21:52)
--- NOTE | 2017-03-08 09:57 | Progress Note ---
Subjective Date of Service: Mar 08, 2017. Subjective Pt evaluation today including: conversation w/ patient, physical exam, chart review, lab review, review of studies, conversation w/ ent consultant, review of inpatient medication list Report left fingers mild swelling, which is a little better, was having some wheezing which has been better, only mild rale, blood pressure is high, No feel comfortable to go home want to go to long-term or [facility] rehabilitation Problem List Medical Problems: (1) Abdominal bloating Status: Acute (2) Abdominal discomfort Status: Acute (3) Abdominal pain Status: Acute (4) Bacteremia Status: Acute (5) Fall Status: Acute (6) Gastritis Status: Acute (7) Humerus fracture Status: Acute (8) Poisoning by insulin and oral hypoglycemic [antidiabetic] drugs, accidental (unintentional), initial encounter Status: Acute (9) Shingles Status: Acute Review of Systems Constitutional: + weight loss, + fatigue, No fever, No chills, No sweats, No weakness, No problem reported Eyes: No worsening of vision, No eye pain, No redness, No discharge, No diplopia ENT: No hearing loss, No unusual epistaxis, No nasal symptoms, No sore throat, No tinnitus, No dental problems, No trouble swallowing Respiratory: + wheezing (mild), No cough, No sputum, No shortness of breath, No dyspnea on exertion, No dyspnea at rest, No hemoptysis Cardiac: No chest pain, No orthopnea, No PND, No edema, No claudication, No palpitations Abdomen: No pain, No nausea, No vomiting, No diarrhea, No constipation Musculoskeletal: + joint pain, + problem reported (left arm pain and fingers mild swelling), No muscle pain, No swelling, No calf pain Female : No dysuria, No urinary frequency, No hematuria, No incontinence, No abnormal vaginal bleeding, No vaginal discharge Neurologic: No memory loss, No paralysis, No weakness, No numbness/tingling, No vertigo, No balance problems Psychiatric: No depression symptoms, No anhedonism, No anxiety, No insomnia, No substance abuse Heme: No abnormal bleeding/bruising, No clotting problems, No swollen lymph nodes, No night sweats Endo: No fatigue, No excessive thirst, No excessive urination Skin: No rash, No itch, No new/changing skin lesions, No color change, No bleeding Objective Vital Signs Date Time Temp Pulse Resp B/P (MAP) Pulse Ox O2 Delivery O2 Flow Rate FiO2 03/08/17 08:10 181/68 (105) 03/08/17 07:40 Room Air 03/08/17 07:29 37.0 85 18 183/90 (121) 97 03/08/17 00:30 Room Air 03/07/17 23:06 37.2 94 17 161/71 (101) 96 Room Air 03/07/17 22:17 138/70 (92) 03/07/17 18:06 86 163/82 (109) 97 Room Air 03/07/17 16:30 Room Air 2.0 03/07/17 15:24 36.9 92 18 160/66 (97) 95 Room Air 03/07/17 11:24 96 Room Air Physical Exam General Appearance: + obese, + pertinent finding (pleasant) Eyes: normal inspection, PERRL, EOMI, sclerae normal ENT: normal ENT inspection, hearing grossly normal, pharynx normal Neck: supple, no adenopathy, thyroid normal, no JVD, no carotid bruits, trachea midline Respiratory/Chest: chest non-tender, no respiratory distress, no accessory muscle use, + decreased breath sounds, + rales Cardiovascular: regular rate, rhythm, no edema, no gallop, no JVD, no murmur Abdomen: normal bowel sounds, non tender, soft, no organomegaly, no pulsatile mass Extremities: non-tender, normal inspection, no pedal edema, no calf tenderness , normal capillary refill, pelvis stable, + pertinent finding (left arm in sling , left fingers minimal swelling him a no limited range of motion, pulses in bilateral upper and lower extremities are symmetric and positive) 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 Discharge instructions per orthopedic service : LEFT PROXIMAL HUMERUS FRACTURE, SLING TO LEFT UPPER EXTREMITY AT ALL TIMES. MAY LOOSEN SLIGHTLY TO RELIEVE ELBOW/WRIST/FINGER DISCOMFORT OR NUMBNESS. NO RANGE OF MOTION OF THE LEFT SHOULDER. NON WEIGHTBEARING ON THE LEFT UPPER EXTREMITY, FOLLOW UP WITH DR BOX EARLY NEXT WEEK FOR FURTHER XRAYS. ortho reevaluation patient yesterday because of left fingers and hand swelling , Likely related to increased movement, No evidence of compartment syndrome, Encourage frequent hand and finger motion/steam engineer to reduce swelling in hand, Continue plan as previously outlined previously Uncontrolled DM II with possible frequent hypoglycemic episodes, stable and improving avoid hypoglycemic episodes because which may caused the fall and Humira fracture , Decreased Lantus to 40 bid , ISS with accuchecks achs, metformin 1000 BID, discontinued glimeperide Hx stroke , Cont aspirin, statin, STEFFEN Microcytic anemia, tomorrow morning labs ordered to follow-up hemoglobin level, continue iron pill, vitamin B12 is 198 which is low, likely vitamin B12 deficiency, has started vitamin B12 IM daily, recommend IM for 7 days, then every week any for 4 week, then every month any for 6 months, has ordered stool Hemoccult, result is pending Hypertension, with accelerated hypertension, likely because of pain, however, today's blood pressure still high, I increased losartan from 50 mg by mouth daily to 75 mg by mouth daily Hypothyroidism, continue current medication Patient lives with at home, need to take care of at home , no children, with the above hypoglycemic episodes, worsening anemic, accelerated hypertension, and hand swelling which is new , Humerus fracture which caused her a lot inconvenience, Initially was planning to send home with home health care , today patient change my want to go to the rehabilitation all long-term for several days because of a lot of medical care need to be supported for her, I agreed Has request nurse to notify case briefer about this Discharge instruction can be referred in below Instructions / Follow-Up you have Humeral Fracture s/p fall Per ortho: conservative management, no surgery, Pain control with tylenol for mild, Toradol or hydrocodone more severe. Discharge instructions per orthopedic service : LEFT PROXIMAL HUMERUS FRACTURE, SLING TO LEFT UPPER EXTREMITY AT ALL TIMES. MAY LOOSEN SLIGHTLY TO RELIEVE ELBOW/WRIST/FINGER DISCOMFORT OR NUMBNESS. NO RANGE OF MOTION OF THE LEFT SHOULDER. NON WEIGHTBEARING ON THE LEFT UPPER EXTREMITY, FOLLOW UP WITH DR BOX EARLY NEXT WEEK FOR FURTHER XRAYS. you have Uncontrolled DM II with possible frequent hypoglycemic episodes your Lantus currently is 40units twice daily, ISS with accuchecks achs, metformin 1000 BID, discontinued Glimeperide, for the adjustment of medicine, need to be done by PCP you have accelerated blood pressure, I increased Losartan to 75mg danny daily Microcytic anemia, Outpatient workup. Hgb is lower today, Vit b12 is low, got 2 im dose , you need to continue im injection through pcp, - you need to follow up with your primary care physician in 1 week, - take medication as instructed, never overdose or any misuse, or take with alcohol, because misuse of medicine may cause organ damage or , call your primary care physician if have questions of medicaitons. - call your primary care physician OR go to local emergency room if has any fever/chill, chest pain, shortness of breathing, nausea/vomiting/abdominal pain , facial droop/slurry speech/local weakness, or if has any questions. - fall precaution - diet as instructed - you need to follow up with your subspecialist , such as orthopedic as the above - you should understand that it is important to follow up the above instruction , and "not following the above instruction" may cause delayed or missed care of your medical conditions which may cause permanent organ damage and even . Continued [facility] stay due to: home environment unsafe for pt Discharge planning: rehab hospital, nursing home facility
[2017-03-08] MEDS: POLYETHYLENE (MIRALAX) 17 GM PACK PO SCH (09:58)
[2017-03-08] MEDS: HYDROCODONE/ACETAMOPHEN 5/325MG TAB PO PRN ×2 (14:16→23:52)
--- NOTE | 2017-03-08 14:28 | Pharmacy Progress Note ---
Glycemic Control Progress Note Date of Service Mar 08, 2017. Scope Glycemic Pharmacist consulted for glycemic control to write orders per [facility] inpatient glycemic control protocol. Objective Accuchecks BSG (last 24hrs): Test 03/07/17 17:00 03/07/17 21:25 03/08/17 02:02 03/08/17 08:32 Bedside Glucose 114 mg/dl (70-90) 93 mg/dl (70-90) 132 mg/dl (70-90) 224 mg/dl (70-90) Test 03/08/17 11:49 Bedside Glucose 136 mg/dl (70-90) HbA1c: Test 03/06/17 07:32 Hemoglobin A1c 8.3 % (4.5-5.6) H Recent Pertinent Medications The patient is currently receiving: * Basal insulin: on 03/07/17: received Lantus 48 units in AM + 30 units in PM * Correctional Insulin: Novolog Correction per scale ACHS Goal Range: Low 110 mg/dL - High 140 mg/dL Correction Factor: 10 mg/dL/unit all times of day except 20mg/dL/unit at bedtime * Prandial insulin: Per carb ratio of 1 unit per 3 grams CHO consumed all times of day except 1 unit per 6 grams CHO at bedtime * Oral Agents: Metformin 1gm PO BID Outpatient Anti-Diabetic Meds Lantus 95 units SQ Q HS Novolog w/ meals and at bedtime; reports using doses of 4-5 units per meal is BSGs 200-250, and often used 10 units at bedtime as BSGs were "very high" at that time of day Assessment & Plan ASSESSMENT: 03/06/17 * Type 2 diabetic admitted for humerus fx s/p fall secondary to hypoglycemic episode * Patient reports episodes of fasting AM hypoglycemia on a frequent basis. Upon further questioning, it appears that her BSGs climbed steadily throughout the day and peaked at bedtime. She would then give twice as much correctional insulin at bedtime for hyperglycemia. This pattern suggests inadequate prandial insulin and overcorrection at bedtime. One cannot r/o that Lantus dose may also need scaled back as well - however stopping the sulfonylurea may also reduce the risk of fasting hypoglycemia. Moving the Lantus dose to AM rather than PM may also help reduce the risk of AM hypoglycemia as the basal dose may wear-off overnight to some degree. * BSGs have ranged 169-265 over the last 24 hrs. She has received 158 units of SQ insulin over the last 24 hrs. BSGs have been trending favorably. * Fasting BSG 168 this AM with 110 units of Lantus on board plus 9 units of correctional insulin given between HS and this AM * CF and CR performed fairly well after change was made yesterday 03/08/17 * BSGs have ranged 93-267 over the last 24 hours * Patient did experience mild fasting hypoglycemia on 03/07 (FBS 68), likely secondary to excessive prandial insulin at bedtime along w/ excess basal insulin (8 units of Novolog given at bedtime + 100 units of Lantus on board). Since this low her HS Novolog doses have been lessened and her basal insulin dose has been titrated down. * Fasting AM BSG 224 this AM with 78 units of Lantus on board. Her 0200 BSG was 132. Uncertain if patient did eat something this AM prior to BSG. * Over the last 24 hrs she has received 136 units SQ insulin while tolerating a diet. Based upon current BSG trends would anticipate her to require ~140-150 units per day to achieve our targets. * Will continue to redistribute basal / prandial insulin does to a more 50:50 split to lessen the risk of fasting hypoglycemia. * Current BSG pattern suggests she requires more insulin with breakfast than other meals of day. Will adjust CR's w/ meals. PLAN FOR INPATIENT GLYCEMIC CONTROL: * Decrease Lantus to 40 units SQ BID * Continuing correction factor of 10 mg/dl/unit with meals, but 20mg/dL/unit at bedtime * Changing carb ratio to 1 unit per 2.5 grams CHO consumed w/ breakfast; and 1 unit per 4 grams CHO consumed with lunch and dinner and no CHO coverage at bedtime. * Continuing goal range of Low 110 mg/dL - High 140 mg/dL RECOMMENDATIONS FOR DISCHARGE: * In light of recent episode of severe hypoglycemia and fall resulting in humerus fx it would be reasonable to allow BSGs to run a little higher than goal initially as long as patient has close f/u with endocrinology / PCP for assistance with insulin dose titration. Would recommend the following based upon reported history and current BSGs/insulin doses: * Stop glimepiride * Continue metformin 1gm PO BID * Lantus SQ BID: if BSG less than 80 give 0 units; if BSG 81-110 give 20 units , if BSG 110 or greater give 40 units * Novolog 12 units with each meal + per sliding scale: -if BSG 160-180: give 2 units -if BSG 181-200: give 4 units -if BSG 201-220: give 6 units -if BSG greater than 220, give 8 units * Continue to check BSG at 2am initially to screen for low BSGs, but do not administer Novolog for BSG elevations at 2am. Please record these numbers in your journal for your physician to review. * Please note that the plan above was derived based on current level of insulin resistance and hospital stress. These recommendations are appropriate for inpatient admission only. Plan of care upon discharge will need to be reassessed to avoid potential outpatient hypo/hyperglycemia. Thank you.
[2017-03-08 15:41] VITALS: BP 191/98; PULSE 94; TEMP 37.1; O2SAT 97
[2017-03-08 15:57] VITALS: BP 167/74; PULSE 94
[2017-03-08] MEDS: BOOST GLUCOSE CONTROL PO SCH (21:29)
[2017-03-08] MEDS: SIMVASTATIN 40 MG TAB PO SCH (21:32)
[2017-03-08 23:30] VITALS: BP 160/82; PULSE 99; TEMP 37.1; O2SAT 99
[2017-03-09] MEDS: PROMETHAZINE HCL 25 MG TAB PO PRN (00:19)
[2017-03-09] MEDS ORDERED: INSULIN ASPART 100 UNITS/ML 3 ML PEN SC ONE (02:00)
[2017-03-09] MEDS: LEVOTHYROXINE 125 MCG TAB PO SCH (05:09)
[2017-03-09 08:14] VITALS: BP 170/91; PULSE 86; TEMP 37; O2SAT 97
[2017-03-09] MEDS: METFORMIN HCL 500 MG TAB PO SCH (08:43)
[2017-03-09] MEDS: HYDROCODONE/ACETAMOPHEN 5/325MG TAB PO PRN (08:44)
[2017-03-09] MEDS ORDERED: LOSARTAN POTASSIUM 50 MG TAB PO SCH (09:00)
[2017-03-09] MEDS ORDERED: CYANOCOBALAMIN 1000 MCG/ML VIAL IM SCH (09:00)
[2017-03-09] MEDS: POLYETHYLENE (MIRALAX) 17 GM PACK PO SCH (09:00)
[2017-03-09 09:17] LABS: CREATININE 0.65 mg/dl (0.60-1.20); POTASSIUM 3.9 mmol/L (3.5-5.1)
[2017-03-09 09:31] LABS: HEMATOCRIT 29.4 % (37-47); HEMOGLOBIN 8.4 g/dL (12.0-16.0); MEAN CORPUSCULAR HEMOGLOBIN 22.3 pg (25-34); MEAN CORPUSCULAR HGB CONC 28.6 g/dl (32-36); NUCLEATED RED BLOOD CELL ABS 0.04 K/uL (0-0); PLATELET COUNT 358 K/uL (130-400); RED CELL DISTRIBUTION WIDTH CV 24.3 % (11.5-14.5); RED CELL DISTRIBUTION WIDTH SD 66.2 fL (36.4-46.3)
[2017-03-09 09:34] LABS: BASO % 0.1 %; BASO ABS # 0.01 K/uL (0-0.2); EOS ABS # 0.23 K/uL (0-0.5); IG# 0.02 K/uL (0.00-0.02); LYMPH % 18.2 %; MONO % 9.7 %; MONO ABS # 0.75 K/uL (0.11-0.59); NEUT % 68.7 %; NEUT ABS # 5.29 K/uL (1.4-6.5)
[2017-03-09] MEDS: ASPIRIN 81 MG ECTAB PO SCH (10:09)
[2017-03-09] MEDS: CALCIUM 600MG + VIT D 400 IU TAB PO SCH (10:09)
[2017-03-09] MEDS: FERROUS SULFATE 325 MG TAB PO SCH (10:10)
[2017-03-09] MEDS: CHOLECALCIFEROL 1000 INTER.UNIT TAB PO SCH (10:10)
[2017-03-09] MEDS: DOCUSATE SODIUM 100 MG CAP PO SCH (10:10)
[2017-03-09] MEDS: PANTOprazole SOD 40 MG TAB PO SCH (10:11)
[2017-03-09] MEDS: MULTIVITAMIN TAB PO SCH (10:11)
[2017-03-09] MEDS: ENOXAPARIN 40 MG/0.4 ML SYR SQ SCH (10:12)
[2017-03-09] MEDS: LIDODERM (LIDOCAINE) PATCH 5% TD SCH (10:13)
[2017-03-09] MEDS: IPRATROPIUM BROMIDE/ALBUTEROL respimat INH INH SCH ×2 (10:22→13:00)
[2017-03-09] MEDS: INSULIN ASPART 100 UNITS/ML 3 ML PEN SC SCH ×2 (10:32→14:10)
[2017-03-09] MEDS: INSULIN GLARGINE SC SCH (10:33)
[2017-03-09 11:23] VITALS: BP 157/72; PULSE 86
[2017-03-09] MEDS ORDERED: HYDR-5688 PO (12:11)
--- NOTE | 2017-03-09 12:18 | Discharge Instructions ---
Discharge Instructions Date of Service Mar 09, 2017. Admission Reason for Admission: Humerus Fracture Discharge Discharge Diagnosis / Problem: humerus fracture, DM with hypoglycemic episodes Discharge Goals Goal(s): Decrease discomfort, Improve function, Increase independence Activity Recommendations Activity Level: Assistance Required Therapies: Physical Therapy, Occupational Therapy LEFT PROXIMAL HUMERUS FRACTURE, SLING TO LEFT UPPER EXTREMITY AT ALL TIMES. MAY LOOSEN SLIGHTLY TO RELIEVE ELBOW/WRIST/FINGER DISCOMFORT OR NUMBNESS. NO RANGE OF MOTION OF THE LEFT SHOULDER. NON WEIGHTBEARING ON THE LEFT UPPER EXTREMITY, FOLLOW UP WITH DR MAO EARLY NEXT WEEK FOR FURTHER XRAYS. Additional Information Patient informed of condition: Yes Advance Directives: Yes DNR: No Level of Care: Acute Rehab Communicable Disease: No Prognosis: Improving Oxygen at (LPM): no Leyva Catheter: No Instructions / Follow-Up Instructions / Follow-Up Humerus fracture: keep in sling at all times, no range of motion, no weight bearing with left arm further instructions per Dr. Mao after follow up DM: hypoglycemic episodes prior to admission, regimen changes to Lantus 40 units BID (was 95 units qPM prior to admission) Glimepiride discontinued, continue Metformin HTN: BP has been elevated, likely due to pain, Losartan increased to 75mg daily , if BP still high in a few days could increase to 100mg daily Microcytic anemia, Outpatient workup. Hgb is lower today, Vit b12 is low, received two IM injections of vitamin B12, you need to continue im injection through pcp, FOLLOW UP - Dr. Mao this week in office for repeat x-rays - PCP one week after discharge from [facility] Diet Patient's current hospital diet: Diabetes Type 2 Diet Discharge Diet Recommended Diet: Diabetes Type 2 Diet Pending Studies Studies pending at discharge: no Physician Orders On Transfer POLST Discussion: without POLST completion Laboratory Results Hemoglobin A1c Test 03/06/17 07:32 Range/Units Estimated Average Glucose 192 mg/dl Hemoglobin A1c 8.3 H 4.5-5.6 % Medical Emergencies . Who to Call and When: Medical Emergencies: If at any time you feel your situation is an emergency, please call 911 immediately. . Non-Emergent Contact Non-Emergency issues call your: Primary Care Provider, Surgeon (Dr. Mao) Call Non-Emergent contact if: you have a fever, your pain is not controlled, your pain is worsening, you have any medication questions . . "Provider Documentation" section prepared by Willie Truong. . Inside Barrel Polisher Recommendations Inside Barrel Polisher Recommendations: LEFT PROXIMAL HUMERUS FRACTURE SLING TO LEFT UPPER EXTREMITY AT ALL TIMES. MAY LOOSEN SLIGHTLY TO RELIEVE ELBOW/WRIST/FINGER DISCOMFORT OR NUMBNESS. NO RANGE OF MOTION OF THE LEFT SHOULDER. NON WEIGHTBEARING ON THE LEFT UPPER EXTREMITY FOLLOW UP WITH DR MAO EARLY NEXT WEEK FOR FURTHER XRAYS. Core Measure Problem Core Measures: None [place] Drug Monitoring Program Search Results: no issues identified
[2017-03-09 14:20] VITALS: BP 157/72; PULSE 86; TEMP 37; O2SAT 97
--- NOTE | 2017-03-10 08:12 | Discharge Summary ---
Discharge Summary Date of Service Mar 09, 2017. Discharge Summary Admission Date: Mar 05, 2017 at 15:42 Discharge Date: Mar 09, 2017 Discharge Disposition: Rehab Principal Diagnosis: Left humerus fracture Problems/Secondary Diagnoses: DM with hypoglycemic episodes Hypertension s/p fall Procedures: none Consultations: Orthopedic surgery Medication Reconciliation New Medications: Cholecalciferol (Vitamin D3) 1,000 Inter.unit Tab 1000 INTER.UNIT PO QAM for 30 Days, #3 TAB Insulin Glargine (Lantus Solostar) 100 Unit/Ml Inj 40 UNITS SC BID for 30 Days Ipratropium-Albuterol (Combivent Respimat) 1 Aer Aer 1 PUFFS INH QID for 7 Days Lidocaine (Lidocaine) 1 Patch Tdsy 1 PATCH TD QAM for 7 Days Nutritional Supplements (Boost) 1 Liq Liq 1 CAN PO HS for 30 Days Changed Medications: Losartan Potassium (Cozaar) 50 Mg Tab 75 MG PO DAILY for 30 Days (Changed from: 50 MG) Continued Medications: Aspirin (Aspirin Ec) 81 Mg Tab 81 MG PO DAILY Benzonatate (Tessalon Perles) 100 Mg Cap 100 MG PO DIRECTED PRN for Cough, CAP take up to 3/day as needed Celecoxib (Celecoxib) 200 Mg Cap 200 MG PO DAILY Cranberry (Vaccinium Macrocarp (Cranberry) 600 Mg Tab 600 MG PO BID Dicyclomine Hcl (Dicyclomine Hcl) 20 Mg Tab 20 MG PO DIRECTED PRN for PRN for 30 Days, TAB 11 Refills may take as needed up to 4 pills/day Ferrous Sulfate (Kp Ferrous Sulfate) 325 Mg Tab 650 MG PO DAILY Hydrocodone/Acetaminophen 5MG/325MG (Clayton 5MG/325MG) Tab 1 TABLET PO q4-6 hours PRN for Pain, #30 TAB 0 Refills (This prescription has been renewed) PRN PAIN Insulin Aspart (Novolog) 100 Units/Ml Inj Unknown Dose SC AC SLIDING SCALE Levothyroxine Sodium (Levothyroxine Sodium) 125 Mcg Tab 125 MCG PO DAILY Metformin Hcl (Glucophage) 1,000 Mg Tab 1000 MG PO BID, TAB Multivitamin (Multivitamin) Tab 1 TAB PO DAILY, TAB Pantoprazole (Protonix) 40 Mg Tab 40 MG PO QAM, TAB Promethazine Hcl (Phenergan) 25 Mg Tab 25 MG PO DIRECTED PRN for Nausea, TAB may take as needed up to 4 daily Simvastatin (Zocor) 40 Mg Tab 40 MG PO QPM, TAB Discontinued Medications: Glimepiride (Glimepiride) 1 Mg Tab 2 MG PO BID Insulin Glargine (Lantus) 100 Unit/Ml Inj 95 UNITS SC QPM, VIAL Discharge Exam Patient doing well, c/o some left hand swelling but nothing severe. Evaluated by ortho the day before for swelling, instructed to keep up hand exercises. Review of Systems: Constitutional: No fever, No chills, No sweats, No weight loss, No weakness , No fatigue, No problem reported Eyes: No worsening of vision, No eye pain, No redness, No discharge, No diplopia, No problem reported ENT: No hearing loss, No unusual epistaxis, No nasal symptoms, No sore throat, No tinnitus, No dental problems, No trouble swallowing, No problem reported Respiratory: No cough, No sputum, No wheezing, No shortness of breath, No dyspnea on exertion, No dyspnea at rest, No hemoptysis, No problem reported Cardiovascular: No chest pain, No orthopnea, No PND, No edema, No claudication, No palpitations, No problem reported Abdomen: No pain, No nausea, No vomiting, No diarrhea, No constipation, No GI bleeding, No problem reported Musculoskeletal: + joint pain (left shoulder pain), + swelling (left hand, left forearm), No muscle pain, No calf pain, No problem reported Genitourinary - Female: No dysuria, No urinary frequency, No urinary urgency , No urinary incontinence, No urinary retention, No hematuria Neurologic: + weakness, No memory loss, No paralysis, No numbness/tingling, No vertigo, No balance problems, No problem reported Psychiatric: No depression symptoms, No anhedonism, No anxiety, No insomnia , No substance abuse, No problem reported Endocrine: No fatigue, No excessive thirst, No excessive urination, No problem reported Hematologic / Lymphatic: No abnormal bleeding/bruising, No clotting problems , No swollen lymph nodes, No night sweats, No problem reported Integumentary: No rash, No itch, No new/changing skin lesions, No color change, No bleeding, No problem reported Physical Exam: General Appearance: no apparent distress, + obese Eyes: normal inspection, EOMI, sclerae normal ENT: normal ENT inspection, hearing grossly normal, pharynx normal Neck: supple, no adenopathy, no JVD, trachea midline Respiratory/Chest: chest non-tender, lungs clear, normal breath sounds, no respiratory distress, no accessory muscle use Cardiovascular: regular rate, rhythm, no edema, no gallop, no JVD, no murmur , normal peripheral pulses Abdomen / GI: normal bowel sounds, non tender, soft, no organomegaly Extremities: no calf tenderness, normal capillary refill, no pedal edema, pelvis stable, + pertinent finding (left arm in sling, tender, left hand swollen ) Neurologic/Psychiatric: equine vet II-XII nml as tested, no motor/sensory deficits , alert, normal mood/affect, normal reflexes, oriented x 3 Skin: normal color, warm/dry, no rash Hospital Course 76 yo F meeting on 03/04/2017 with Humeral Fracture s/p fall likely secondary to hypoglycemia, Humeral Fracture s/p fall Per ortho: conservative management, no surgery, Pain control with tylenol for mild, Clayton prescribed for severe pain, working Discharge instructions per orthopedic service : LEFT PROXIMAL HUMERUS FRACTURE, SLING TO LEFT UPPER EXTREMITY AT ALL TIMES. MAY LOOSEN SLIGHTLY TO RELIEVE ELBOW/WRIST/FINGER DISCOMFORT OR NUMBNESS. NO RANGE OF MOTION OF THE LEFT SHOULDER. NON WEIGHTBEARING ON THE LEFT UPPER EXTREMITY, FOLLOW UP WITH DR MAO EARLY NEXT WEEK FOR FURTHER XRAYS. Uncontrolled DM II with possible frequent hypoglycemic episodes, may have caused fall Decreased Lantus to 40 bid , ISS with accuchecks achs, metformin 1000 BID, discontinued glimeperide to avoid hypoglycemia Hx stroke , Cont aspirin, statin, STEFFEN Microcytic anemia, tomorrow morning labs ordered to follow-up hemoglobin level, continue iron pill, vitamin B12 is 198 which is low, likely vitamin B12 deficiency, has started vitamin B12 IM daily, recommend IM for 7 days, then every week any for 4 week, then every month any for 6 months, has ordered stool Hemoccult, result is pending Hypertension, with accelerated hypertension, likely because of pain Losartan increased to 75mg from 50mg Hypothyroidism, continue current medication will d/c to [facility] Total Time Spent: Greater than 30 minutes This includes examination of the patient, discharge planning, medication reconciliation, and communication with other providers. Discharge Instructions Please refer to the electronic Patient Visit Report (Discharge Instructions) for additional information. Follow-Up physician at [facility] Dr. Mao in the office this week with repeat x-rays Additional Copies To Sera Liz M.D.; [facility]; Jayce Mao M.D.
== END 2017-03-09 14:37 | DRG 563 ==
LOC: EDBD 07:03 → C.EDA 07:05 → C.MSN 10:50 → ENRESERV 11:02 → OBSVTOIN 03-05 15:42
PROVIDERS: ADMIT Family Medicine; ATTEND Internal Medicine
DX: S49.002A Unspecified physeal fracture of upper end of humerus, left arm, initial encounter for closed fracture (principal); E11.649 Type 2 diabetes mellitus with hypoglycemia without coma; R10.9 Unspecified abdominal pain; I10 Essential (primary) hypertension; D64.9 Anemia, unspecified; E03.9 Hypothyroidism, unspecified; Z51.81 Encounter for therapeutic drug level monitoring; Z79.899 Other long term (current) drug therapy; Z79.4 Long term (current) use of insulin; Z79.82 Long term (current) use of aspirin; Z86.73 Personal history of transient ischemic attack (TIA), and cerebral infarction without residual deficits; Z85.850 Personal history of malignant neoplasm of thyroid; Z86.19 Personal history of other infectious and parasitic diseases; Z87.19 Personal history of other diseases of the digestive system; Z86.69 Personal history of other diseases of the nervous system and sense organs; W19.XXXA Unspecified fall, initial encounter; Y92.009 Unspecified place in unspecified non-institutional (private) residence as the place of occurrence of the external cause; Y93.E8 Activity, other personal hygiene; Y99.8 Other external cause status

== ENCOUNTER 2017-03-13 08:13 | Inpatient (IN) | payer OTHER, BC ==
[~2017-03-13] VITALS: Ht 165.1 cm; Wt 87.0 kg
[2017-03-13] VITALS (7 sets, daily range): BP systolic 144–163; BP diastolic 71–80; PULSE 83–95; TEMP 36.6–37.3; O2SAT 94–98; Ht 165.1 cm; Wt 87.0 kg
--- NOTE | 2017-03-13 07:05 | History and Physical ---
History & Physical Date Mar 13, 2017. Chief Complaint Left shoulder pain History of Present Illness The patient is a 76 year old female with complaints of left shoulder pain. She states it started after a fall. She went to the ER where x-rays demonstrated a proximal humerus fracture with displacement. Past Medical/Surgical History Medical Problems: (1) Cancer of thorax (2) Carpal tunnel syndrome on right (3) Diabetes (4) Diverticulitis (5) Hypertension (6) Influenza A (7) left humerus fx, hyperglycemic and sob (8) Thyroid cancer Surgical Problems: (1) Hx of cholecystectomy Additional History Hepatic Disease: No Endocrine Disorder: Yes Kidney Disease: No Hypertension: Yes Heart Disease: No Bleeding Tendencies: No Infectious Diseases: No Allergies Coded Allergies: Doxycycline (Verified Allergy, Severe, TONGUE SWELLS/SOB, 03/04/17) Codeine (Verified Allergy, Intermediate, LARGE DOSES CAUSE RASH, 03/04/17) Oxycodone (Verified Allergy, Intermediate, RASH, TAKES HYDROCODONE AT HOME , 03/04/17) Home Medications Scheduled Aspirin (Aspirin Ec), 81 MG PO DAILY Celecoxib (Celecoxib), 200 MG PO DAILY Cholecalciferol (Vitamin D3), 1,000 INTER.UNIT PO QAM Cranberry (Vaccinium Macrocarp (Cranberry), 600 MG PO BID Ferrous Sulfate (Kp Ferrous Sulfate), 650 MG PO DAILY Insulin Aspart (Novolog), Unknown Dose SC AC Insulin Glargine (Lantus Solostar), 40 UNITS SC BID Ipratropium-Albuterol (Combivent Respimat), 1 PUFFS INH QID Levothyroxine Sodium (Levothyroxine Sodium), 125 MCG PO DAILY Lidocaine (Lidocaine), 1 PATCH TD QAM Losartan Potassium (Cozaar), 75 MG PO DAILY Metformin Hcl (Glucophage), 1,000 MG PO BID Multivitamin (Multivitamin), 1 TAB PO DAILY Nutritional Supplements (Boost), 1 CAN PO HS Pantoprazole (Protonix), 40 MG PO QAM Simvastatin (Zocor), 40 MG PO QPM Scheduled PRN Benzonatate (Tessalon Perles), 100 MG PO DIRECTED PRN for Cough Dicyclomine Hcl (Dicyclomine Hcl), 20 MG PO DIRECTED PRN for PRN Hydrocodone/Acetaminophen 5MG/325MG ([place] 5MG/325MG), 1 TABLET PO q4-6 hours PRN for Pain Promethazine Hcl (Phenergan), 25 MG PO DIRECTED PRN for Nausea Physical Examination Skin: warm/dry, no rash Eyes: normal inspection, EOMI ENT: normal ENT inspection Head: normocephalic, atraumatic Neck: supple, no adenopathy Respiratory/Chest: + pertinent finding (rales and inspiratory wheeze noted throughout all lung areas) Cardiovascular: regular rate, rhythm, no murmur Abdomen / GI: normal bowel sounds, non tender Extremities: normal inspection, + pertinent finding (ecchymosis, swelling of the left upper extremity, tender to palpation. Arm was in a sling, pulses were compared bilaterally and were equal, was able to move fingers and wrist. ) Neurologic/Psych: no motor/sensory deficits, alert, oriented x 3 Diagnosis Closed displaced left proximal humerus fracture Plan of Treatment Patient is scheduled for a left ORIF proximal humerus fracture. Risks and benefits to surgery were discussed with the patient and she wishes to proceed. All questions were answered to her satisfaction. She will go to [facility] after her hospital stay.
[~2017-03-13 08:13] MED LIST changes: +CELE1CAP30 PO; +FERR1TAB13 PO; -GLIM1TAB2 PO; -INSDGI SC; +INSDGIPEN SC; +IPRA1AER2 INH; +LDDP5 TD; +NUTR-7 PO; -RAPID SEQUENCE INDUCTION BAG ONE; +ROPIVACAINE 0.5% 5 MG/ML 30 ML VIAL ONE; +VTMD1000 PO
--- NOTE | 2017-03-13 08:15 | HISTORY & PHYSICAL EXAMINATION ---
DATE OF ADMISSION: 03/13/2017 CHIEF COMPLAINT: Left shoulder pain. HISTORY OF PRESENT ILLNESS: The patient is a 76-year-old female who complains of left shoulder pain. She presented with pain and a fracture on the left side. She states that her symptoms were acute and traumatic that began on 03/04/2017 as a result of a fall. The pain is described as aching, sharp and throbbing. The patient had previous x-rays that demonstrated a comminuted and displaced proximal humerus fracture. PAST MEDICAL HISTORY: Significant for hypertension, hypercholesterolemia, asthma, sleep apnea, type 2 diabetes, thyroid cancer, tracheal cancer and GERD. PAST SURGICAL HISTORY: Thyroidectomy and vocal cord box device insertion. SOCIAL HISTORY: She denies smoking or tobacco use. She denies IV or illegal drug use. FAMILY HISTORY: Her dad has a history of heart attacks. ALLERGIES: She has no known drug allergies and she requests no morphine due to behavioral disturbances when given this in the Emergency Room. MEDICATIONS: Vitamin D3, Senokot, pantoprazole 40 mg, [place] 5/325, multivitamin, MiraLax, milk of magnesia, metformin 1000 mg, losartan 100 mg, levothyroxine 125 mcg, Lantus, ferrous sulfate 325, docusate sodium 100 mg, dicyclomine 20 mg, Combivent, Celebrex 200 mg, benzonatate 100 mg, atorvastatin 20 mg, and aspirin 81 mg. REVIEW OF SYSTEMS: She denies headaches, fevers, chills, double vision, blurry vision, sore throat, cough, chest pain, nausea, vomiting, diarrhea, constipation, numbness and tingling to the extremities, tired, urinary difficulties, thoughts to harm herself or harm others or depression. She is positive for joint pain and joint stiffness of her left shoulder. OBJECTIVE: GENERAL APPEARANCE: The patient is a 76-year-old female, sitting in her wheelchair in no acute distress. She is well dressed and well nourished. VITAL SIGNS: She is 5 feet 5 inches tall and weighs 195 pounds. Blood pressure was 177/80. HEENT: Extraocular movements were intact. Normocephalic and atraumatic. Mucosa was moist. No septal deviation. NECK: Supple with no lymphadenopathy. No JVD and no thyromegaly. Surgical scar from her thyroidectomy is appreciated. HEART: Regular rate and rhythm. LUNGS: Diffuse rales as well as inspiratory wheeze breath sounds appreciated. ABDOMEN: Soft, nontender, and nondistended. Normal bowel sounds. EXTREMITIES: Paying particular attention to the left extremity, it was in a sling. She was able to move her fingers. Pulses were compared bilaterally and were equal. There was diffuse swelling of the left upper extremity as well as tenderness proximal humerus down to the elbow as well as down to the wrist. She was able to move the wrist. NEUROLOGIC: She is awake, alert, and oriented x3. IMAGIN-view x-rays of the left shoulder demonstrated a comminuted proximal humerus fracture with displacement. ASSESSMENT: Closed nondisplaced fracture of the proximal left humerus. PLAN: The patient is scheduled for an ORIF of the left proximal humerus fracture. Risks and benefits were discussed with the patient and included, but not limited to infection, DVT, pain, stiffness, nonunion, need for revision surgery, failure to relieve her symptoms, progression of arthritis, damage to blood vessels, damage to nerves, risks of anesthesia and were all discussed with the patient and she wishes to proceed. All questions were answered to her satisfaction. She will be discharged back to [facility] after her hospital stay. WALLACE
[2017-03-13] MEDS ORDERED: DOCU100C31 PO (08:45)
[2017-03-13] MEDS ORDERED: PROC1TAB5 PO (08:46)
[2017-03-13] MEDS ORDERED: ONDANSETRON INJ 2 MG/ML 2 ML VIAL IV PRN ×2 (09:30→16:00)
[2017-03-13] MEDS ORDERED: EpHEDrine SULFATE INJ 50 MG/ML AMP IV PRN (09:30)
[2017-03-13] MEDS ORDERED: PHENYLEPHRINE 100MCG/ML 5ML SYR IV PRN (09:30)
[2017-03-13] MEDS ORDERED: ATROPINE SULFATE 0.1 MG/ML 5ML SYR IV PRN (09:30)
[2017-03-13] MEDS ORDERED: HYDROmorphone INJ 0.5 MG/0.5 ML SYR IV PRN ×2 (09:30→16:15)
[2017-03-13] MEDS ORDERED: MIDAZOLAM HCL 1 MG/ML 2ML VIAL ONE (10:54)
[2017-03-13] MEDS ORDERED: CEFAZOLIN SOD 2000MG/15 ML IV PUSH IV ONE (11:05)
--- NOTE | 2017-03-13 11:07 | History & Physical Bridge Note ---
H&P Re-Evaluation Bridge Note: I have examined the patient, reviewed the History & Physical and in the interval since the performance of the History & Physical I have noted the following changes of clinical significance: No changes noted
[2017-03-13] MEDS ORDERED: NURSING VERBAL MED ORDER ONE (11:15)
[2017-03-13] MEDS ORDERED: PROPOFOL IV EMULSION 10 MG/ML 20 ML VIAL IV ONE (12:22)
[2017-03-13] MEDS ORDERED: ONDANSETRON INJ 2 MG/ML 2 ML VIAL ONE (12:22)
[2017-03-13] MEDS ORDERED: LIDOCAINE HCL 2% 2 ML VIAL (20MG/ML) ONE (12:22)
[2017-03-13] MEDS ORDERED: DEXAMETHASONE SOD INJ 4 MG/ML VIAL ONE (12:22)
[2017-03-13] MEDS ORDERED: FENTANYL CITRATE INJ 50 MCG/1 ML 2 ML VIAL ONE (12:22)
[2017-03-13] MEDS ORDERED: EpHEDrine SULFATE 50MG/5ML SYR ONE (13:42)
[2017-03-13] MEDS ORDERED: PHENYLEPHRINE 100MCG/ML 5ML SYR ONE (13:42)
[2017-03-13] MEDS ORDERED: SUCCINYLCHOLINE 100MG/5ML SYR IV ONE (13:54)
[2017-03-13] MEDS ORDERED: PHENYLEPHRINE HCL INJ 10 MG/ML VIAL ONE (13:56)
--- NOTE | 2017-03-13 15:33 | [facility] Operative Report ---
Operative Report Operative Date Mar 13, 2017. Pre-Operative Diagnosis Displaced Fracture of the Proximal Left Humerus Post-Operative Diagnosis Same Procedure(s) Performed Open Reduction Internal Fixation Left Proximal Humerus Fracture Surgeon Dr. Mao Clip Riveter Surgeon(s) MAGDALENA Contreras Estimated Blood Loss 100CC Findings as above Specimens none per surgeon Drains none Anesthesia Gen. with interscalene block Complication(s) None Disposition Recovery Room / PACU Indications The patient is a 76-year-old female who sustained a fall onto left arm. Initial x-rays demonstrated a comminuted proximal humerus fracture that was in acceptable alignment. Subsequent x-rays demonstrated increasing angulation and displacement. She presents for open reduction and internal fixation. Description of Procedure Risks, benefits and alternatives to surgery including, but not limited to, infection DVT, pain, stiffness, need for revision surgery, failure to relieve all symptoms, damage to blood vessels, damage to nerves, risk of anesthesia were discussed with the patient and they wished to proceed. The patient was identified. Laterality was confirmed and marked. The patient received a preoperative antibiotic as well as an interscalene block. They were transferred to the operating room and placed in the supine position and induced into general endotracheal anesthesia per the anesthesia staff. There were then placed in a slight beachchair position. All pressure points were well padded.. We confirmed that we're able to achieve proper visualization of the fracture under fluoroscopy the arm was then prepped and draped in the usual standard manner with ChloraPrep. I made a longitudinal incision just lateral to the coracoid, sharply incising through the skin and utilizing Bovie electrocautery to achieve hemostasis. I identified the cephalic vein and mobilized it laterally with the deltoid. I mobilize the pectoralis and mobilize this medially releasing a small portion of the upper border of the pec tendon to improve visualization. I then identified and mobilized the conjoined tendon. I identified the long head of the biceps tendon. Holding traction on the arm I then reduced the fracture. I then positioned a long 6-hole size Synthes proximal humerus locking plate into position. I placed a nonlocking screw into the oblong hole and adjusted the height of the plate as necessary. I then placed K wires into the humeral head for provisional fixation. I then placed 2 locking screws into the humeral head while holding the reduction. I placed an additional locking screw distally. I then took the arm through live fluoroscopy to ensure that we maintained good reduction and plate placement. I was satisfied with reduction of the fracture and the alignment of the plate. I then placed additional locking screws distally and placed additional locking screws proximally into the humeral head. I then again confirmed reduction on AP and scapular Y views and I was satisfied with the reduction as well as the screw lengths. I thoroughly irrigated the wound. The deltopectoral interval was closed with interrupted #1 Ethibond suture. The subcutaneous tissue was closed with interrupted 2-0 Vicryl suture. The skin was closed with khalif. A sterile dressing was applied. A sling was placed. All needle and sponge counts were correct at the end of the procedure. The patient was transferred to the PACU in stable condition without apparent complication. The PA-C was necessary for assistance with procedure for assistance in positioning, I attest to the content of the Intraoperative Record and any orders documented therein. Any exceptions are noted below.
--- NOTE | 2017-03-13 15:42 | DIAGNOSTIC IMAGING REPORT ---
L HUMERUS MIN 2 VIEW ROUTINE HISTORY: 76 years-old Female LT ORIF HUMERUS status post ORIF of the left humerus. Comminuted proximal left humerus fracture COMPARISON: Left humerus radiographs 03/04/2017 TECHNIQUE: 4 spot fluoroscopic images of the left humerus were obtained utilizing 159 seconds fluoroscopy time FINDINGS: Interval placement of a large lateral plate with multiple fixation screws fixating the previously noted comminuted proximal left humerus fracture. There is improved alignment with a comminuted bone fragment displaced medially approximately 1 cm. There is also some posterior cortical displacement with mild apex volar angulation. Hardware appears intact. IMPRESSION: Status post ORIF of the left humerus with improved alignment. The above report was generated using voice recognition software. It may contain grammatical, syntax or spelling errors. Electronically signed by: Mikie Fu M.D. 03/13/2017 3:41 PM Dictated Date/Time: 03/13/2017 3:38 PM
[2017-03-13] MEDS ORDERED: ALUMINUM/MAGNESIUM SUSP 30 ML UDC PO PRN (16:00)
[2017-03-13] MEDS ORDERED: MAGNESIUM HYDROXIDE SUSP 30 ML UDC PO PRN (16:00)
[2017-03-13] MEDS ORDERED: BISACODYL 10 MG SUPP PR PRN (16:00)
[2017-03-13] MEDS ORDERED: SOD PHOSPHATE/SOD BIPHOSPHATE ENEMA 132 ML BTL PR PRN (16:00)
[2017-03-13] MEDS ORDERED: ZOLPIDEM TARTRATE 5 MG TAB PO PRN (16:00)
--- NOTE | 2017-03-13 16:17 | Anesthesiology Progress Note ---
Anesthesia Post Op Note Date & Time Mar 13, 2017 at 16:17 Vital Signs Pain Intensity: 0 Vital Signs Past 12 Hours Date Time Temp Pulse Resp B/P (MAP) Pulse Ox O2 Delivery O2 Flow Rate FiO2 03/13/17 16:15 102 18 167/79 100 Oxymask 10 03/13/17 16:05 102 18 167/79 100 Oxymask 10 03/13/17 15:58 36.1 102 18 142/94 100 Oxymask 10 03/13/17 08:38 37.0 83 20 163/71 96 Room Air Notes Mental Status: alert / awake / arousable, participated in evaluation Pt Amnestic to Procedure: Yes Nausea / Vomiting: adequately controlled Pain: adequately controlled Airway Patency, RR, SpO2: stable & adequate BP & HR: stable & adequate Hydration State: stable & adequate Anesthetic Complications: no major complications apparent
[2017-03-13] MEDS ORDERED: GLUCOSE 40% GEL 15 GM TUBE PO PRN (16:30)
[2017-03-13] MEDS ORDERED: DEXTROSE 50% 50 ML SYR IV PRN (16:30)
[2017-03-13] MEDS ORDERED: GLUCAGON FOR INJ 1 MG VIAL SQ PRN (16:30)
[2017-03-13] MEDS ORDERED: GLUCOSE 10 TABS/TUBE PO PRN (16:30)
--- NOTE | 2017-03-13 16:54 | DIAGNOSTIC IMAGING REPORT ---
L SHOULDER MIN 2 VIEWS ROUTINE CLINICAL HISTORY: Post shoulder surgery COMPARISON STUDY: Left shoulder 03/04/2017. FINDINGS: Status post internal fixation of a proximal left humeral fracture with a cortical plate and screws. The heart appears intact. The alignment is near-anatomic. No dislocation. Skin khalif are in place. IMPRESSION: Status post internal fixation of a proximal left humerus fracture. The hardware appears intact. The alignment is near-anatomic. Electronically signed by: Giancarlo Escalante M.D. 03/13/2017 4:53 PM Dictated Date/Time: 03/13/2017 4:52 PM
[2017-03-13] MEDS: IPRATROPIUM BROMIDE/ALBUTEROL respimat INH INH SCH ×2 (17:00→20:58)
[2017-03-13] MEDS ORDERED: PHARMACY GLYCEMIC MGMT CONSULT PRN (19:30)
[2017-03-13] MEDS: PROCHLORPERAZINE MALEATE 10 MG TAB PO SCH (19:30)
[2017-03-13] MEDS: POTASSIUM CHLORIDE INJ 10 MEQ in SODIUM CHLORIDE 0.9% 1000ML 1,000 ML IV SCH (19:30)
[2017-03-13] MEDS ORDERED: INSULIN GLARGINE SC STA (20:49)
[2017-03-13] MEDS: INSULIN ASPART 100 UNITS/ML 3 ML PEN SC SCH (20:54)
[2017-03-13] MEDS: SENNA 8.6 MG TAB PO SCH (21:00)
[2017-03-13] MEDS ORDERED: INSULIN GLARGINE SC SCH (21:00)
[2017-03-13] MEDS ORDERED: DOCUSATE SODIUM 100 MG CAP PO SCH (21:00)
[2017-03-13] MEDS: SIMVASTATIN 40 MG TAB PO SCH (21:01)
--- NOTE | 2017-03-13 21:03 | Pharmacy Progress Note ---
Glycemic Control Intl Consult Date of Service Mar 13, 2017. Scope Glycemic Pharmacist consulted by Aneudy on 03/13/17 for glycemic control and to write orders per [facility] inpatient glycemic control protocol Objective Weight (Kilograms): 87.000 Accuchecks BSG (last 24hrs): Test 03/13/17 08:39 03/13/17 16:02 03/13/17 20:20 Bedside Glucose 218 mg/dl (70-90) 161 mg/dl (70-90) 347 mg/dl (70-90) Recent Pertinent Medications Outpatient Anti-diabetic Regimen: * Lantus 40 units SC BID * Novolog AC * Metformin 1000 mg po BID * A1c = 8/3 % 03/06/17 Risk Factors for Insulin Resistance: * Steroids: Dexamethasone 4 mg IV x1 * Recent Surgery: POD 0 s/p ORIF humerus * Diet: T2DM Assessment & Plan ASSESSMENT: * 76 yo F with recent admission to [facility] now re-admitted 2nd fall, now s/p ORIF humerus today * Significant hyperglycemia to 347 mg/dL per RN at 2000 noted - 2nd steroids, surgery, and missed Lantus dose of 40 units this AM * Will attempt to manage for the next couple hours only with aggressive basal/ bolus SC regimen. May require insulin drip if any subsequent BSG > 250 mg/dL as this may have a significant impact on post-op healing and infection risk * Lantus full daily outpatient dose x1 (similar to total daily dose on previous admission) * Aggressive Novolog at significantly tighter than weight-based stress of 3 ( slightly more aggressive than previous admission) * Two overnight checks PLAN FOR INPATIENT GLYCEMIC CONTROL: * If any BSG > 250 mg/dL, IV insulin infusion per severe stress protocol * Goal Range 110 - 160 mg/dl (lower goal range selected 2nd significance of post-op hyperglycemia) * Holding outpatient oral diabetes medications * Basal insulin with LANTUS 80 units SQ x1 now. Ongoing Lantus to be determined tomorrow AM. * Correctional Insulin with NOVOLOG per scale ACHS with additional checks at 0000,0400 * Goal Range: Low 110 mg/dL - High 140 mg/dL * Correction Factor: 10 mg/dL/unit * Nutritional / Prandial insulin per carb ratio of 1 unit per 3 grams CHO consumed * Please note that the plan above was derived based on current level of insulin resistance and hospital stress. These recommendations are appropriate for inpatient admission only. Plan of care upon discharge will need to be reassessed to avoid potential outpatient hypo/hyperglycemia. Thank you.
[2017-03-13] MEDS: CEFAZOLIN IV 2,000 MG in SYRINGE 0 ML IV SCH (21:54)
[2017-03-13] MEDS: ACETAMINOPHEN 500 MG TAB PO SCH (21:54)
[2017-03-13] MEDS: HYDROCODONE/ACETAMOPHEN 5/325MG TAB PO PRN (23:19)
[2017-03-14] VITALS (10 sets, daily range): BP systolic 129–201; BP diastolic 61–97; PULSE 84–99; TEMP 36.7–37.4; O2SAT 92–99
[2017-03-14] MEDS ORDERED: INSULIN HUMAN REGULAR PER UNIT 7 UNITS in SYRINGE 6.93 ML IV SCH
[2017-03-14] MEDS: INSULIN ASPART 100 UNITS/ML 3 ML PEN SC SCH ×6 (00:08→21:39)
[2017-03-14] MEDS: PROCHLORPERAZINE MALEATE 10 MG TAB PO SCH ×5 (00:09→23:58)
[2017-03-14] MEDS: OXYCODONE HCL IR 5 MG TAB (IMMEDIATE RELEASE) PO PRN ×4 (03:11→20:46)
[2017-03-14] MEDS: HYDROCODONE/ACETAMOPHEN 5/325MG TAB PO PRN ×2 (03:56→21:36)
[2017-03-14] MEDS: POTASSIUM CHLORIDE INJ 10 MEQ in SODIUM CHLORIDE 0.9% 1000ML 1,000 ML IV SCH (05:30)
[2017-03-14] MEDS: LEVOTHYROXINE 125 MCG TAB PO SCH (05:32)
[2017-03-14] MEDS: CEFAZOLIN IV 2,000 MG in SYRINGE 0 ML IV SCH (05:32)
[2017-03-14] MEDS: ACETAMINOPHEN 500 MG TAB PO SCH ×3 (05:33→21:37)
[2017-03-14 06:10] LABS: HEMOGLOBIN 8.7 g/dL (12.0-16.0); MEAN CELL VOLUME 80.2 fL (80-100); MEAN CORPUSCULAR HEMOGLOBIN 23.3 pg (25-34); MEAN PLATELET VOLUME 8.4 fL (7.4-10.4); PLATELET COUNT 385 K/uL (130-400); RED CELL DISTRIBUTION WIDTH CV 25.7 % (11.5-14.5); RED CELL DISTRIBUTION WIDTH SD 68.8 fL (36.4-46.3); WHITE BLOOD COUNT 11.78 K/uL (4.8-10.8)
[2017-03-14 06:21] LABS: INR 1.1 (0.9-1.1)
[2017-03-14 06:48] LABS: CALCIUM 8.2 mg/dl (8.5-10.1); CREATININE 0.83 mg/dl (0.60-1.20); POTASSIUM 3.1 mmol/L (3.5-5.1)
[2017-03-14] MEDS ORDERED: METFORMIN HCL 500 MG TAB PO SCH (08:30)
[2017-03-14] MEDS: DOCUSATE SODIUM 100 MG CAP PO SCH (09:00)
[2017-03-14] MEDS ORDERED: FERROUS SULFATE 650 MG PO SCH (09:00)
[2017-03-14] MEDS: CHOLECALCIFEROL 1000 INTER.UNIT TAB PO SCH (09:00)
[2017-03-14] MEDS ORDERED: MULTIVITAMIN TAB PO SCH (09:00)
[2017-03-14] MEDS: FERROUS GLUCONATE 324 MG TAB PO SCH ×3 (09:07→18:12)
[2017-03-14] MEDS: IPRATROPIUM BROMIDE/ALBUTEROL respimat INH INH SCH (09:07)
[2017-03-14] MEDS: LOSARTAN POTASSIUM 50 MG TAB PO SCH (09:08)
[2017-03-14] MEDS: CeleBREX 200 MG CAP PO SCH (09:08)
[2017-03-14] MEDS: ASPIRIN 81 MG ECTAB PO SCH (09:09)
[2017-03-14] MEDS: PANTOprazole SOD 40 MG TAB PO SCH (09:09)
[2017-03-14] MEDS: MULTIVITAMIN TAB PO SCH (09:09)
[2017-03-14] MEDS: LIDODERM (LIDOCAINE) PATCH 5% TD SCH (09:11)
[2017-03-14] MEDS ORDERED: INSULIN GLARGINE SC ONE (10:00)
[2017-03-14] MEDS ORDERED: NURSING VERBAL MED ORDER ONE ×2 (10:30→20:45)
--- NOTE | 2017-03-14 11:35 | Orthopedic Progress Note ---
Orthopedic Progress Note Date of Service Mar 14, 2017. Subjective Post OP Day: 1 Reports: SOB, Denies: chest pain, nausea / vomiting, light headedness, calf pain Objective calves soft nontender, dressing C/D/I, A&O x3, toes mobile Date Time Temp Pulse Resp B/P (MAP) Pulse Ox O2 Delivery O2 Flow Rate FiO2 03/14/17 09:50 Room Air 03/14/17 07:16 37.2 98 18 180/81 (114) 92 Room Air 03/14/17 03:05 36.7 90 20 129/61 (83) 98 Room Air 03/13/17 23:05 36.8 95 18 161/79 (106) 97 Room Air 03/13/17 21:21 37.2 88 18 151/76 (101) 97 Room Air 03/13/17 19:45 37.3 95 18 149/77 (101) 94 Room Air 03/13/17 19:30 Room Air 03/13/17 18:44 36.6 93 18 145/80 (101) 95 Room Air 03/13/17 18:15 36.8 95 18 150/72 (98) 95 Room Air 03/13/17 17:50 98 Nasal Cannula 2.0 03/13/17 17:50 98 Nasal Cannula 2.0 03/13/17 17:50 36.6 89 18 144/72 (96) 98 Nasal Cannula 2.0 03/13/17 17:15 36.1 92 18 151/88 99 Room Air 03/13/17 17:00 36.1 90 18 161/76 98 Room Air 03/13/17 16:45 89 18 155/89 95 Room Air 03/13/17 16:35 97 18 156/83 95 Room Air 03/13/17 16:25 102 18 139/66 93 Room Air 03/13/17 16:15 102 18 167/79 100 Oxymask 10 03/13/17 16:05 99 14 176/78 100 Oxymask 10 03/13/17 15:58 36.1 102 18 142/94 100 Oxymask 10 Laboratory Results 24 Hours: Test 03/14/17 05:55 Hematocrit 30.0 % Hemoglobin 8.7 g/dL Prothromb Time International Ratio 1.1 Prothrombin Time 11.4 SECONDS Assessment & Plan Assessment: s/p Left ORIF proximal humerus fracture POD#1 Plan: Patient noting pain is controlled at this time. She notes SOB today and has a recent history of bronchitis that she notes she has not improved with over the last couple weeks. Consult medicine. Plan for [facility] when stable Inhouse Planning Pain Management: Dilaudid, PO Tylenol, Oxy IR DVT Prophylaxis: MERTs SCDs, ASA Discharge Planning Discharge Planning: rehab hospital Pain Management: Dilaudid, PO Tylenol, Oxy IR DVT Prophylaxis: Fuad SCDs, ASA Therapy: Physical Therapy
[2017-03-14] MEDS: ALBUT/IPRATROP 3MG/0.5MG NEB 3 ML VIAL INH SCH ×3 (12:00→19:10)
[2017-03-14] MEDS ORDERED: OPTIRAY 320 IV PRN (12:30)
--- NOTE | 2017-03-14 12:33 | Medical Consult ---
Consultation Date of Consultation: Mar 14, 2017. Attending Physician: Jayce Mao M.D. Reason for Consultation: Wheezing History of Present Illness 76 y/o F who was admitted on 03/13 for a L ORIF of humeral fracture with Dr. Sahu. Pt was seen by Dr. Sahu today and felt that she was having a lot of wheezing and a high pitched breath sound. When asked how pt is feeling, her first concern is that she has a lot of pain related to her surgery which is causing her sleep issues. She notes that she has been having mild wheezing since the fall. She has seen her PCP multiple times for this and dx with bronchitis. She has had 3 different abx and steroid courses x2, none of which has changed her wheezing. She does not feel that this wheezing is any different than usual, although she states that at home she was using her inhaler since the fall and this was helping more. She was not ordered this during her admission. She states that she has had a high pitched noise in her lungs since that time and it is no different to her. She has no issues with swallowing other than she feels her throat is a bit dry. Her voice has not changed. She does not feel SOB. Pt states she follows with Dr. Franco for her hx of thyroid and tracheal cancer. She saw him last in 2015. A CT chest was done at that time and she was told it was unchanged from prior. She has a PET scan Q2yrs and the next one is due at the end of this year. Pt has had CXR x3, 12/2016, 01/2017, 02/2017 and all are neg for acute issues. Her CT chest from 2016 was noted for pulmonary nodules that were increased in size from prior imaging at that time. Pt denies fever, chest pain, abd pain, n/v/c/d, LE pain or swelling. 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 GERD Family History No significant family history stated Father with multiple MIs Social History Smoking Status: Never Smoker Alcohol Use: none Drug Use: none Marital Status: Housing Status: lives with significant other Occupation Status: retired Allergies Coded Allergies: Doxycycline (Verified Allergy, Severe, TONGUE SWELLS/SOB, 03/04/17) Codeine (Verified Allergy, Intermediate, LARGE DOSES CAUSE RASH, 03/04/17) Oxycodone (Verified Allergy, Intermediate, RASH, TAKES HYDROCODONE AT HOME , 03/04/17) Current Inpatient Medications Current Inpatient Medications Medications (Trade) Dose Ordered Sig/Regis Route Start Time Stop Time Status Last Admin Dose Admin Diphenhydramine HCl (Benadryl Cap) 25 mg Q8 PRN PO 03/13/17 16:00 04/12/17 15:59 Zolpidem Tartrate (Ambien Tab) 5 mg HSZ PRN PO 03/13/17 16:00 04/12/17 15:59 Ondansetron HCl (Zofran Inj) 4 mg Q6H PRN IV 03/13/17 16:00 04/12/17 15:59 03/14/17 03:13 4 MG Al Hydroxide/Mg Hydroxide (Maalox Susp) 30 ml Q4H PRN PO 03/13/17 16:00 04/12/17 15:59 Oxycodone HCl (Roxicodone Immediate Rel Tab) `1-2 TABS FOR PAIN `1 TAB... Q4H PRN PO 03/13/17 16:00 03/27/17 15:59 03/14/17 07:52 10 MG Acetaminophen (Tylenol Tab) 1,000 mg Q8 PO 03/13/17 22:00 04/12/17 21:59 03/13/17 21:54 1,000 MG Magnesium Hydroxide (Milk Of Magnesia Susp) 30 ml Q6H PRN PO 03/13/17 16:00 04/12/17 15:59 Bisacodyl (Dulcolax Supp) 10 mg DAILY PRN RI 03/13/17 16:00 04/12/17 15:59 Sodium Biphosphate/ Sodium Phosphate (Fleet Enema) 132 ml DAILY PRN RI 03/13/17 16:00 04/12/17 15:59 Senna (Senokot Tab) 17.2 mg HS PO 03/13/17 21:00 04/12/17 20:59 Ferrous Gluconate (Ferrous Gluconate Tab) 324 mg TIDM PO 03/14/17 08:30 04/13/17 08:29 03/14/17 09:07 324 MG Aspirin (Ecotrin Tab) 81 mg DAILY PO 03/14/17 09:00 04/13/17 08:59 03/14/17 09:09 81 MG Celecoxib (CeleBREX CAP) 200 mg DAILY PO 03/14/17 09:00 04/13/17 08:59 03/14/17 09:08 200 MG Cholecalciferol (Vitamin D Tab) 1,000 inter.unit QAM PO 03/14/17 09:00 04/13/17 08:59 Docusate Sodium (coLACE CAP) 100 mg DAILY PO 03/14/17 09:00 04/13/17 08:59 Albuterol/ Ipratropium (Combivent Respimat Inh) 1 puffs QID INH 03/13/17 17:00 04/12/17 16:59 03/14/17 09:07 1 PUFFS Levothyroxine Sodium (Synthroid Tab) 125 mcg DAILYBB PO 03/14/17 06:00 04/13/17 05:59 03/14/17 05:32 125 MCG Lidocaine (Lidoderm Patch 5%) 1 patch QAM TD 03/14/17 09:00 04/13/17 08:59 03/14/17 09:11 1 PATCH Losartan Potassium (coZAAR TAB) 75 mg DAILY PO 03/14/17 09:00 04/13/17 08:59 03/14/17 09:08 75 MG Metformin HCl (Glucophage Tab) 1,000 mg BIDM PO 03/14/17 08:30 04/13/17 08:29 Future Hold Multivitamins (Multivitamin Tab) 1 tab DAILY PO 03/14/17 09:00 04/13/17 08:59 03/14/17 09:09 1 TAB Pantoprazole Sodium (Protonix Tab) 40 mg QAM PO 03/14/17 09:00 04/13/17 08:59 03/14/17 09:09 40 MG Prochlorperazine Maleate (Compazine Tab) 10 mg Q6 PO 03/13/17 19:00 04/12/17 18:59 03/14/17 05:33 10 MG Simvastatin (Zocor Tab) 40 mg QPM PO 03/13/17 21:00 04/12/17 20:59 03/13/17 21:01 40 MG Miscellaneous (Remove Lidoderm Patch) 1 ea DAILY@21 N/A 03/13/17 21:00 04/12/17 20:59 Acetaminophen/ Hydrocodone Bitart (Bee 5/325 Tab) 1 tab Q4H PRN PO 03/13/17 16:00 03/27/17 15:59 03/14/17 03:56 1 TAB Hydromorphone HCl (Dilaudid Inj) 0.5 mg Q4H PRN IV 03/13/17 16:15 03/27/17 16:14 03/14/17 05:49 0.5 MG Glucose (Glucose 40% Gel) 15-30 GRAMS 15 GRAMS... UD PRN PO 03/13/17 16:30 04/12/17 16:29 Glucose (Glucose Chew Tab) 4-8 Tablets 4 Tabl... UD PRN PO 03/13/17 16:30 04/12/17 16:29 Dextrose (Dextrose 50% 50ML Syringe) 25-50ML OF 50% DW IV FOR... UD PRN IV 03/13/17 16:30 04/12/17 16:29 Glucagon (Glucagon Inj) 1 mg UD PRN SQ 03/13/17 16:30 04/12/17 16:29 Miscellaneous Information (Consult Glycemic Management Pharmacy) 1 ea UD PRN N/A 03/13/17 19:30 04/12/17 19:29 Insulin Aspart (novoLOG ASPART) SLIDING SCALE ACHS SC 03/13/17 20:00 04/12/17 19:59 03/14/17 09:18 11 UNITS Review of Systems Pertinent positives and negatives reviewed in HPI--all others negative Physical Exam Date Time Temp Pulse Resp B/P (MAP) Pulse Ox O2 Delivery O2 Flow Rate FiO2 03/14/17 09:50 Room Air 03/14/17 07:16 37.2 98 18 180/81 (114) 92 Room Air 03/14/17 03:05 36.7 90 20 129/61 (83) 98 Room Air 03/13/17 23:05 36.8 95 18 161/79 (106) 97 Room Air 03/13/17 21:21 37.2 88 18 151/76 (101) 97 Room Air 03/13/17 19:45 37.3 95 18 149/77 (101) 94 Room Air 03/13/17 19:30 Room Air 03/13/17 18:44 36.6 93 18 145/80 (101) 95 Room Air 03/13/17 18:15 36.8 95 18 150/72 (98) 95 Room Air 03/13/17 17:50 98 Nasal Cannula 2.0 03/13/17 17:50 98 Nasal Cannula 2.0 03/13/17 17:50 36.6 89 18 144/72 (96) 98 Nasal Cannula 2.0 03/13/17 17:15 36.1 92 18 151/88 99 Room Air 03/13/17 17:00 36.1 90 18 161/76 98 Room Air 03/13/17 16:45 89 18 155/89 95 Room Air 03/13/17 16:35 97 18 156/83 95 Room Air 03/13/17 16:25 102 18 139/66 93 Room Air 03/13/17 16:15 102 18 167/79 100 Oxymask 10 03/13/17 16:05 99 14 176/78 100 Oxymask 10 03/13/17 15:58 36.1 102 18 142/94 100 Oxymask 10 General Appearance: WD/WN, no apparent distress Head: normocephalic, atraumatic Eyes: normal inspection, sclerae normal Respiratory/Chest: no respiratory distress, + pertinent finding (high pitched whistling on inhalation with lower pitched "honking" noise on exhalation) Cardiovascular: regular rate, rhythm, no edema Abdomen/GI: non tender, soft Extremities/Musculoskelatal: no calf tenderness, no pedal edema Neurologic/Psych: alert, normal mood/affect, oriented x 3 Skin: normal color, warm/dry Laboratory Results Last 24 Hours Test 03/13/17 16:02 03/13/17 20:20 03/13/17 23:52 03/14/17 03:58 Bedside Glucose 161 mg/dl 347 mg/dl 297 mg/dl 130 mg/dl Test 03/14/17 05:55 03/14/17 08:11 03/14/17 11:47 White Blood Count 11.78 K/uL Red Blood Count 3.74 M/uL Hemoglobin 8.7 g/dL Hematocrit 30.0 % Mean Corpuscular Volume 80.2 fL Mean Corpuscular Hemoglobin 23.3 pg Mean Corpuscular Hemoglobin Concent 29.0 g/dl RDW Standard Deviation 68.8 fL RDW Coefficient of Variation 25.7 % Platelet Count 385 K/uL Mean Platelet Volume 8.4 fL Prothrombin Time 11.4 SECONDS Prothromb Time International Ratio 1.1 Sodium Level 138 mmol/L Potassium Level 3.1 mmol/L Chloride Level 106 mmol/L Carbon Dioxide Level 27 mmol/L Anion Gap 5.0 mmol/L Blood Urea Nitrogen 11 mg/dl Creatinine 0.83 mg/dl Est Creatinine Clear Calc Drug Dose 60.8 ml/min Estimated GFR () 78.3 Estimated GFR (Non- 67.5 BUN/Creatinine Ratio 12.8 Random Glucose 71 mg/dl Calcium Level 8.2 mg/dl Bedside Glucose 114 mg/dl 185 mg/dl Assessment & Plan 76 y/o F who was admitted on 03/13 for a L ORIF of humeral fracture with Dr. Sahu. Abn breath sounds: pt states that this is new since the fall She has no SOB, but is aware of the wheezing She has been using an inhaler which helps, will order nebs and mucomyst Multiple CXRs since that time are neg for acute issues, will not reorder CT chest done 2016 showed pulmonary nodules that were increased in size and concerning for malignancy, pt's last imaging was a PET in 2016 (reported by her , not in system, last in system was 2013) that she states was WNL Next PET is due late this year Will order a CT chest If WNL, t/c speech therapy eval although pt denies new issues with swallowing or voice Will avoid further abx or steroids as these have not changed pt's wheezing and cause her to have elevated DM. She prefers to avoid these as well. DM: stable, continue home meds HTN: stable, continue home meds Hx of thyroid and tracheal cancers: as noted above L ORIF: as per ortho
[2017-03-14] MEDS ORDERED: ALBUT/IPRATROP 3MG/0.5MG NEB 3 ML VIAL INH PRN (12:45)
--- NOTE | 2017-03-14 13:16 | DIAGNOSTIC IMAGING REPORT ---
CT OF THE CHEST WITH IV CONTRAST CLINICAL HISTORY: History of pulmonary nodules. Whistling breath sounds. History of thyroid cancer. COMPARISON STUDY: Chest CT November 07, 2015 and chest radiograph March 04, 2017. TECHNIQUE: Following IV administration of 93 mL of Optiray-320, helical axial images of the chest were obtained. Sagittal and coronal reconstructions were viewed as well as maximal intensity projections on an independent 3-D workstation. A dose lowering technique was utilized adhering to the principles of ALARA. CT DOSE: 994.32 mGy.cm FINDINGS: A recent left humeral internal fixation is noted. There is expected soft tissue gas. There is left upper cavity soft tissue swelling. There is mild infiltration/swelling of the left breast adjacent to the pectoralis major. Segmental left lower lobe atelectasis is noted. There is no pneumothorax or pleural effusion. The heart is moderately enlarged. There is no pericardial effusion. A small hiatal hernia is noted. Multiple thyroid nodules are noted, including a 1 cm right lower lobe nodule shown image [id number], a 6 mm left lower lobe nodule shown image 33 and a 5 m left lower lobe nodule shown image 28. These are similar to chest CT of November 07, 2015. Comparison with earlier PET/CT of December 21, 2013 is difficult due to motion artifact on that exam. A few right middle lobe tiny nodules are unchanged since CT of November 07, 2015. IMPRESSION: 1. Multiple pulmonary nodules which measure up to 1 cm. These are similar to chest CT of November 07, 2015. Comparison with earlier PET/CT of December 21, 2013 is difficult given motion artifact on that exam. These nodules remain indeterminate and a follow-up chest CT in 6 months is recommended. 2. Segmental left lower lobe atelectasis. No consolidation to suggest pneumonia. 3. Status post recent proximal left internal fixation with expected soft tissue gas and left upper extremity edema. Electronically signed by: Torey Nova M.D. 03/14/2017 1:15 PM Dictated Date/Time: 03/14/2017 1:04 PM
[2017-03-14] MEDS: ACETYLCYSTEINE 20% INHAL SOLN ***DISPENSED BY RESP. INH SCH (19:10)
[2017-03-14] MEDS ORDERED: HydrALAZINE HCL 20 MG/ML VIAL IV. ONE (20:45)
[2017-03-14] MEDS: SIMVASTATIN 40 MG TAB PO SCH (21:36)
[2017-03-14] MEDS: SENNA 8.6 MG TAB PO SCH (21:37)
[2017-03-14] MEDS: INSULIN GLARGINE SC SCH (21:45)
[2017-03-15] MEDS: HYDROCODONE/ACETAMOPHEN 5/325MG TAB PO PRN (03:30)
[2017-03-15] MEDS: LEVOTHYROXINE 125 MCG TAB PO SCH (05:32)
[2017-03-15] MEDS: PROCHLORPERAZINE MALEATE 10 MG TAB PO SCH ×2 (05:32→11:56)
[2017-03-15] MEDS: ACETAMINOPHEN 500 MG TAB PO SCH (05:32)
[2017-03-15 05:38] LABS: HEMOGLOBIN 9.1 g/dL (12.0-16.0); MEAN CELL VOLUME 80.1 fL (80-100); MEAN CORPUSCULAR HEMOGLOBIN 23.5 pg (25-34); MEAN CORPUSCULAR HGB CONC 29.4 g/dl (32-36); MEAN PLATELET VOLUME 8.4 fL (7.4-10.4); PLATELET COUNT 372 K/uL (130-400); RED CELL DISTRIBUTION WIDTH CV 26.3 % (11.5-14.5); RED CELL DISTRIBUTION WIDTH SD 73.2 fL (36.4-46.3); WHITE BLOOD COUNT 10.09 K/uL (4.8-10.8)
[2017-03-15 05:48] LABS: INR 1.1 (0.9-1.1)
[2017-03-15 06:09] LABS: CALCIUM 8.6 mg/dl (8.5-10.1); CREATININE 0.62 mg/dl (0.60-1.20); POTASSIUM 3.1 mmol/L (3.5-5.1)
[2017-03-15 06:47] VITALS: BP 156/78; PULSE 78; TEMP 37.1; O2SAT 98
[2017-03-15] MEDS ORDERED: NURSING VERBAL MED ORDER ONE ×2 (07:15→10:15)
[2017-03-15 07:51] VITALS: PULSE 80; O2SAT 98
[2017-03-15] MEDS: ALBUT/IPRATROP 3MG/0.5MG NEB 3 ML VIAL INH SCH ×2 (07:51→11:39)
[2017-03-15] MEDS: ACETYLCYSTEINE 20% INHAL SOLN ***DISPENSED BY RESP. INH SCH (07:51)
[2017-03-15] MEDS: ASPIRIN 81 MG ECTAB PO SCH (08:18)
[2017-03-15] MEDS: CHOLECALCIFEROL 1000 INTER.UNIT TAB PO SCH (08:18)
[2017-03-15] MEDS: MULTIVITAMIN TAB PO SCH (08:18)
[2017-03-15] MEDS: LIDODERM (LIDOCAINE) PATCH 5% TD SCH (08:18)
[2017-03-15] MEDS: FERROUS GLUCONATE 324 MG TAB PO SCH ×2 (08:19→12:39)
[2017-03-15] MEDS: DOCUSATE SODIUM 100 MG CAP PO SCH ×2 (08:19→08:25)
[2017-03-15] MEDS: LOSARTAN POTASSIUM 50 MG TAB PO SCH (08:19)
[2017-03-15] MEDS: CeleBREX 200 MG CAP PO SCH (08:19)
[2017-03-15] MEDS: INSULIN ASPART 100 UNITS/ML 3 ML PEN SC SCH ×2 (08:20→12:42)
[2017-03-15] MEDS: INSULIN GLARGINE SC SCH (08:22)
--- NOTE | 2017-03-15 08:44 | Orthopedic Progress Note ---
Orthopedic Progress Note Date of Service Mar 15, 2017. Subjective Post OP Day: 2 Reports: feeling well, Denies: chest pain, SOB, nausea / vomiting, light headedness, calf pain Objective Date Time Temp Pulse Resp B/P (MAP) Pulse Ox O2 Delivery O2 Flow Rate FiO2 03/15/17 07:51 80 18 98 Room Air 03/15/17 07:30 Room Air 03/15/17 06:47 37.1 78 15 156/78 (104) 98 Room Air 03/15/17 00:00 Room Air 03/14/17 23:35 37.4 84 18 157/75 (102) 95 Room Air 03/14/17 21:10 98 152/74 (100) 03/14/17 20:26 97 195/93 (127) 03/14/17 20:19 99 18 201/97 (131) 99 Room Air 03/14/17 19:35 37.3 88 20 170/71 (104) 97 Room Air 03/14/17 19:09 90 18 98 Room Air 03/14/17 16:00 Room Air 03/14/17 15:44 96 18 93 Room Air 03/14/17 15:10 37.2 88 20 170/77 (108) 96 Room Air 03/14/17 09:50 Room Air Laboratory Results 24 Hours: Test 03/15/17 05:23 Hematocrit 31.0 % Hemoglobin 9.1 g/dL Prothromb Time International Ratio 1.1 Prothrombin Time 11.2 SECONDS Assessment & Plan Assessment: s/p Left ORIF proximal humerus fracture POD#1 Plan: Patient [facility] Will plan for discharge today if approved for bed and with medicine approval Continue no shoulder ROM, only elbow and wrist Inhouse Planning Pain Management: PO Tylenol, Oxy IR DVT Prophylaxis: TEDs, SCDs, ASA Discharge Planning Discharge Planning: rehab hospital Pain Management: PO Tylenol, Oxy IR DVT Prophylaxis: TEDs, SCDs, ASA Therapy: Physical Therapy
[2017-03-15] MEDS: PANTOprazole SOD 40 MG TAB PO SCH (08:46)
[2017-03-15] MEDS ORDERED: ACET-24 PO (08:50)
[2017-03-15] MEDS ORDERED: RXC5 PO (08:50)
[2017-03-15] MEDS ORDERED: IPRASOL4 INH ×2 (08:50)
--- NOTE | 2017-03-15 08:54 | Discharge Instructions ---
Discharge Instructions Date of Service Mar 15, 2017. Admission Reason for Admission: Left Humerus Other Displaced Fracture Of Upper End Discharge Discharge Diagnosis / Problem: left orif proximal humerus fracture Discharge Goals Goal(s): Decrease discomfort, Improve function, Increase independence, Therapeutic intervention Activity Recommendations Activity Level: Assistance Required Therapies: Physical Therapy (elbow and wrist ROM only left side), Occupational Therapy ACTIVITY RECOMMENDATIONS: SELF CARE INSTRUCTIONS AFTER TOTAL SHOULDER ARTHROPLASTY REVERSE A. You may do daily exercises as taught in physical therapy while in hospital. No lifting with the operative arm. B. You are to wear your sling/immobilizer at all times EXCEPT when performing your daily exercises and for hygiene purposes. C. You may perform dry, daily dressing changes. Please keep your incision covered. You may shower 48 hours after surgery. Do not apply soap or any ointment/ lotions directly over incision. Do not soak incision in bath tub/swimming pool. D. You may use ice as needed to operative shoulder. SPECIAL CARE INSTRUCTIONS: VERY IMPORTANT TO READ AND REVIEW A. There are a few signs you need to watch for after you are home. Call [facility] at [phone] if you experience any of the followin. Increased severe shoulder pain. Some pain is expected especially when you exercise. 2. Increased swelling in you shoulder or arm; pain or swelling in either upper extremity. 3. Any fluid drainage from the incision. 4. Shortness of breath or chest pain. B. Please call [facility] at [phone] if you have any questions or concerns about your operation or recovery. C. Call your physician if: 1. Temperature is greater than 101 degrees (F). 2. Pain is not relieved by prescribed pain medications. 3. Increase drainage or redness from incision. 4. Unanswered questions or concerns. FOLLOW UP VISIT: Please call [facility] at [phone] to schedule a follow up appointment with Dr. Mao or his PA in 12-14 days from your surgery date. . Additional Information Patient informed of condition: Yes Advance Directives: No DNR: No Level of Care: Acute Rehab Communicable Disease: No Prognosis: Stable Current Hospital Diet Patient's current hospital diet: Diabetes Type 2 Diet Discharge Diet Recommended Diet: Diabetes Type 2 Diet Procedures Procedures Performed: Open Reduction Internal Fixation Left Proximal Humerus Fracture Pending Studies Studies pending at discharge: no Laboratory Results Hemoglobin A1c Test 03/06/17 07:32 Range/Units Estimated Average Glucose 192 mg/dl Hemoglobin A1c 8.3 H 4.5-5.6 % Medical Emergencies . Who to Call and When: Medical Emergencies: If at any time you feel your situation is an emergency, please call 911 immediately. . Non-Emergent Contact Non-Emergency issues call your: Primary Care Provider . . "Provider Documentation" section prepared by Angelia Amado. . Core Measure Problem Core Measures: None [place] Drug Monitoring Program Search Results: patient reviewed within database, no issues identified
[2017-03-15] MEDS ORDERED: MICONAZOLE NITRATE POWDER 43 GM EXT SCH (09:00)
[2017-03-15] MEDS ORDERED: MCRK20 PEG (09:28)
[2017-03-15] MEDS ORDERED: MAGNESIUM SULFATE 1GM / D5W 1 GM in PREMIXED IN D5W 100 ML IV ONE (10:00)
[2017-03-15] MEDS ORDERED: POTASSIUM CHLR 10 MEQ / WTR 10 MEQ in PREMIXED WATER 100 ML IV SCH (10:00)
[2017-03-15 10:47] VITALS: BP 156/78; PULSE 80; TEMP 37.1; O2SAT 98
[2017-03-15] MEDS ORDERED: POTASSIUM CHLORIDE 20 MEQ TABCR PO ONE (11:00)
[2017-03-15 11:39] VITALS: PULSE 64; O2SAT 95
[2017-03-15] MEDS: OXYCODONE HCL IR 5 MG TAB (IMMEDIATE RELEASE) PO PRN (13:42)
--- NOTE | 2017-03-15 13:56 | Progress Note ---
Progress Note Date of Service Mar 15, 2017. Progress Note I did visit with Mrs. Cox today there was concerns regarding her voice box implant by speech therapy. When I arrived at the room the patient was sleeping and she did have some snoring-type sounds I would not classify this is overt stridor. When she awoke she is able to speak without evidence of difficulty likewise she is able to eat according to speech therapy without evidence of difficulty. Given speech therapies concern I did ask on her discharge paperwork that Sruthi in the [facility] with set her up with an appointment with ENT to evaluate her vocal cord implant. He was also noted she was hypokalemic. Prior to her leaving we gave her a gram of magnesium sulfate 10 mg once a potassium intravenously and 20 mEq orally. I also instructed Sruthi to continue her oral supplementation of potassium and have her laboratories checked this week
[2017-03-15] MEDS ORDERED: POTASSIUM CHLORIDE 20 MEQ TABCR PO SCH (21:00)
[2017-03-15] MEDS ORDERED: INSULIN GLARGINE SC SCH (21:00)
--- NOTE | 2017-03-16 09:40 | DIAGNOSTIC IMAGING REPORT ---
INTRAOPERATIVE RADIOGRAPHS CLINICAL HISTORY: Intraoperative assessment of hand pain. Fluoroscopy time: 6 seconds. FINDINGS: 4 spot fluoroscopic views of the left hand are presented. No clear bony abnormality is identified. Soft tissue swelling is suggested. Arthritic change is noted at the first carpometacarpal joint. IMPRESSION: Intraoperative images of the left hand as above. See operative report for detailed findings. Electronically signed by: Grant Cochran M.D. 03/13/2017 3:40 PM Dictated Date/Time: 03/13/2017 3:38 PM
--- NOTE | 2017-03-17 13:22 | Discharge Summary ---
Orthopedic Discharge Summary Admission Date/Reason Mar 13, 2017 at 11:07 Left Humerus Other Displaced Fracture Of Upper End. Discharge Date/Disposition Mar 15, 2017 longterm facility Diagnosis Principal Diagnosis: S/P ORIF left proximal humerus fracture Medication Reconciliation as per discharge instructions Admission Physical Exam As per Admitting History & Physical. Hospital Course POD#1 Dressing was clean, dry and intact. She was neurovascularly intact. She was complaining of some SOB as she previously had some bronchitis a few weeks before her surgery. Medicine was consulted to evaluate the SOB. Upon evaluation , she was feeling a little better but speech therapy was concerned about her voice box implant. Medicine advised that at [facility] they get a referral to ENT to have this evaluated. POD#2 patient was feeling well and pain was controlled with PO medications. She was cleared later in the day to be sent to [facility]. She was to remain in the sling with only moving her elbow and wrist to prevent stiffness. Discharge Instructions Please refer to the electronic Patient Visit Report (Discharge Instructions) for additional information.
== END 2017-03-15 13:50 | DRG 494 ==
LOC: C.ACU 08:13 → C.3E 11:07 → ENRESERV 17:31 → C.3E 03-15 00:43
PROVIDERS: ADMIT Orthopaedic Surgery; ATTEND Orthopaedic Surgery
PROC: 0PSD04Z Reposition Left Humeral Head with Internal Fixation Device, Open Approach (ICD-10-PCS; principal; 2017-03-13 12:00)
DX: S42.292A Other displaced fracture of upper end of left humerus, initial encounter for closed fracture (principal); E11.9 Type 2 diabetes mellitus without complications; I10 Essential (primary) hypertension; G47.33 Obstructive sleep apnea (adult) (pediatric); R06.2 Wheezing; E87.6 Hypokalemia; Z85.12 Personal history of malignant neoplasm of trachea; Z79.82 Long term (current) use of aspirin; Z90.49 Acquired absence of other specified parts of digestive tract; Z79.4 Long term (current) use of insulin; Z88.5 Allergy status to narcotic agent; Z85.850 Personal history of malignant neoplasm of thyroid; W19.XXXA Unspecified fall, initial encounter

== ENCOUNTER 2017-04-15 14:24 | Inpatient (IN) | payer OTHER, BC ==
[~2017-04-15] VITALS: Ht 162.6 cm; Wt 87.9 kg
[~2017-04-15 14:24] MED LIST changes: +ACET-24 PO; -CRAN1TAB6 PO; +DOCU100C31 PO; -HYDR-5688 PO; -IPRA1AER2 INH; +IPRASOL4 INH; +MCRK20 PEG; -NUTR-7 PO; +PROC1TAB5 PO; -PROM25TA9 PO; -ROPIVACAINE 0.5% 5 MG/ML 30 ML VIAL ONE; +RXC5 PO
--- NOTE | 2017-04-15 15:10 | EMERGENCY ROOM VISIT NOTE ---
History First contact with patient: 14:58 Chief Complaint: FALL Stated Complaint: FALL/RT. ELBOW DEFORMITY History of Present Illness The patient is a 76 year old female who presents to the Emergency Room after a fall. She reports that she was going to the bedroom to grab her cheese puffs and tripped over a bunch of wires. She hit the left forehead on her dresser on her way down. She landed on her left knee and put a lot of weight on her right elbow. She recently had left shoulder surgery and was attempting to protect the shoulder. She denies any loss of consciousness, pre-syncope, chest pain, shortness of breath. She was completely aware of the incident. She currently is unable to move her right arm/elbow and is complaining of pain 9/10. She reports profuse bleeding from her forehead. She was eventually able to control her bleeding with pressure. She denies being on a blood thinner but is on aspirin. She called 911. She also reports abdominal pain and distension. Denies nausea, vomiting, diarrhea, melena, hematochezia. She has had a couple of falls recently; attributed to hypoglycemia. Review of Systems See above for pertinent positives & negatives. A total of 10 systems reviewed and were otherwise negative. Past Medical/Surgical History Medical Problems: (1) Cancer of thorax (2) Carpal tunnel syndrome on right (3) Closed fracture of left proximal humerus (4) Diabetes (5) Diverticulitis (6) Fracture in accidental fall (7) Hypertension (8) Influenza A (9) left humerus fx, hyperglycemic and sob (10) Right humeral fracture (11) Thyroid cancer Surgical Problems: (1) Hx of cholecystectomy Family History No significant family history stated Social History Smoking Status: Never Smoker Alcohol Use: none Drug Use: none Marital Status: Housing Status: lives with significant other Occupation Status: retired Current/Historical Medications Scheduled Aspirin (Aspirin Ec), 81 MG PO DAILY Cranberry (Vaccinium Macrocarp (Cranberry), 1 TAB PO BID Ferrous Sulfate (Kp Ferrous Sulfate), 650 MG PO DAILY Insulin Glargine (Lantus Solostar), 40 UNITS SQ BID Levothyroxine Sodium (Levothyroxine Sodium), 125 MCG PO DAILY Losartan Potassium (Losartan Potassium), 75 MG PO DAILY Metformin Hcl (Glucophage), 1,000 MG PO BID Multivitamin (Multivitamin), 1 TAB PO DAILY Pantoprazole (Pantoprazole Sodium), 40 MG PO BID Simvastatin (Zocor), 40 MG PO QAM Scheduled PRN Acetaminophen (Tylenol), 1,000 MG PO Q8 PRN for Pain Benzonatate (Tessalon Perles), 100 MG PO DIRECTED PRN for Cough Ipratropium-Albuterol (Duoneb), 1 TREATMENT INH Q4H PRN for SOB/Wheezing Oxycodone HCl (Oxycodone HCl), 5 MG PO Q4 PRN for Pain Prochlorperazine Maleate (Compazine), 10 MG PO Q6H PRN for Nausea Physical Exam Vital Signs Date Time Temp Pulse Resp B/P (MAP) Pulse Ox O2 Delivery O2 Flow Rate FiO2 04/15/17 20:28 93 14 143/90 93 Room Air 04/15/17 19:07 100 20 117/104 95 Room Air 04/15/17 14:49 37.3 18 18 206/114 97 Room Air Physical Exam GENERAL: Patient is awake alert in mild distress due to pain EYES: The conjunctivae are clear. The pupils are round and reactive. Extra ocular muscles are intact. The left upper eyelid is swollen and bruised. There is a 1.5 laceration over the left eyebrow; bleeding is controlled. EARS, NOSE, MOUTH AND THROAT: The nose is without any evidence of any deformity. Mucous membranes are moist tongue is midline NECK: The neck is nontender and supple. RESPIRATORY: Normal respiratory effort is noted there is no evidence of wheezing rhonchi or rales CARDIOVASCULAR: Regular rate and rhythm noted there no murmurs rubs or gallops normal S1 normal S2 GASTROINTESTINAL: The abdomen is soft. Bowel sounds are present in all quadrants. Abdomen is moderately tender and distended BACK: No midline tenderness or or step-off noted range of motion in flexion extension as well as rotation no signs of muscle spasm noted MUSCULOSKELETAL/EXTREMITIES: The right elbow is flexed and swollen; tender to palpation. Minimal ROM of the right shoulder/elbow. The left knee is swollen, and tender with superficial abrasions. strength is 5/5 of the lower extremities. SKIN: There is no obvious evidence of any rash. There are no petechiae, pallor or cyanosis noted. NEUROLOGIC: Patient is awake alert and oriented x3 Medical Decision & Procedures Laboratory Results 04/15/17 15:55 Red Blood Count 4.23, Mean Corpuscular Volume 82.3, Mean Corpuscular Hemoglobin 24.8, Mean Corpuscular Hemoglobin Concent 30.2, Mean Platelet Volume 9.5, Neutrophils (%) (Auto) 84.6, Lymphocytes (%) (Auto) 7.4, Monocytes (%) (Auto) 6.9, Eosinophils (%) (Auto) 0.7, Basophils (%) (Auto) 0.2, Neutrophils # (Auto) 10.71, Lymphocytes # (Auto) 0.94, Monocytes # (Auto) 0.88, Eosinophils # (Auto) 0.09, Basophils # (Auto) 0.02 04/15/17 15:55 Test 04/15/17 15:55 04/15/17 17:55 White Blood Count 12.67 K/uL (4.8-10.8) Red Blood Count 4.23 M/uL (4.2-5.4) Hemoglobin 10.5 g/dL (12.0-16.0) Hematocrit 34.8 % (37-47) Mean Corpuscular Volume 82.3 fL (80-100) Mean Corpuscular Hemoglobin 24.8 pg (25-34) Mean Corpuscular Hemoglobin Concent 30.2 g/dl (32-36) Platelet Count 256 K/uL (130-400) Mean Platelet Volume 9.5 fL (7.4-10.4) Neutrophils (%) (Auto) 84.6 % Lymphocytes (%) (Auto) 7.4 % Monocytes (%) (Auto) 6.9 % Eosinophils (%) (Auto) 0.7 % Basophils (%) (Auto) 0.2 % Neutrophils # (Auto) 10.71 K/uL (1.4-6.5) Lymphocytes # (Auto) 0.94 K/uL (1.2-3.4) Monocytes # (Auto) 0.88 K/uL (0.11-0.59) Eosinophils # (Auto) 0.09 K/uL (0-0.5) Basophils # (Auto) 0.02 K/uL (0-0.2) RDW Standard Deviation 61.3 fL (36.4-46.3) RDW Coefficient of Variation 20.2 % (11.5-14.5) Immature Granulocyte % (Auto) 0.2 % Immature Granulocyte # (Auto) 0.03 K/uL (0.00-0.02) Anisocytosis PRESENT Prothrombin Time 10.7 SECONDS (9.0-12.0) Prothromb Time International Ratio 1.0 (0.9-1.1) Activated Partial Thromboplast Time 23.8 SECONDS (21.0-31.0) Partial Thromboplastin Ratio 0.9 Anion Gap 8.0 mmol/L (3-11) Est Creatinine Clear Calc Drug Dose 60.9 ml/min Estimated GFR () 81.8 Estimated GFR (Non- 70.6 BUN/Creatinine Ratio 19.3 (10-20) Calcium Level 8.5 mg/dl (8.5-10.1) Total Bilirubin 0.3 mg/dl (0.2-1) Direct Bilirubin < 0.1 mg/dl (0-0.2) Aspartate Amino Transf (AST/SGOT) 19 U/L (15-37) Alanine Aminotransferase (ALT/SGPT) 21 U/L (12-78) Alkaline Phosphatase 76 U/L (45-117) Total Protein 6.7 gm/dl (6.4-8.2) Albumin 3.9 gm/dl (3.4-5.0) Urine Color YELLOW Urine Appearance CLEAR (CLEAR) Urine pH 5.0 (4.5-7.5) Urine Specific [place] 1.045 (1.000-1.030) Urine Protein 2+ (NEG) Urine Glucose (UA) NEG (NEG) Urine Ketones NEG (NEG) Urine Occult Blood NEG (NEG) Urine Nitrite NEG (NEG) Urine Bilirubin NEG (NEG) Urine Urobilinogen NEG (NEG) Urine Leukocyte Esterase SMALL (NEG) Urine WBC (Auto) 5-10 /hpf (0-5) Urine RBC (Auto) 0-4 /hpf (0-4) Urine Hyaline Casts (Auto) 1-5 /lpf (0-5) Urine Epithelial Cells (Auto) 20-30 /lpf (0-5) Urine Bacteria (Auto) NEG (NEG) Medications Administered Medications (Trade) Dose Ordered Sig/Regis Route Start Time Stop Time Status Last Admin Dose Admin Hydromorphone HCl (Dilaudid Inj) 0.5 mg NOW STAT IV 04/15/17 15:13 04/15/17 15:17 DC 04/15/17 15:58 0.5 MG Ondansetron HCl (Zofran Inj) 4 mg NOW STAT IV 04/15/17 15:13 04/15/17 15:17 DC 04/15/17 15:58 4 MG Lactated Ringer's 1,000 ml @ 75 mls/hr [id number] IV 04/15/17 15:25 05/15/17 15:24 04/16/17 17:57 75 MLS/HR Hydromorphone HCl (Dilaudid Inj) 0.5 mg NOW STAT IV 04/15/17 19:08 04/15/17 19:10 DC 04/15/17 19:51 0.5 MG Ondansetron HCl (Zofran Inj) 4 mg STK-MED ONCE .ROUTE 04/15/17 19:58 04/15/17 19:59 DC 04/15/17 21:22 4 MG ED Course 1500 The patient was evaluated in A11. A complete history and physical was performed. 1525 Blood work and Imaging ordered 155 0.5 mg of Dilaudid given, 4 mg of Zofran given 1700 Patient was reevaluated. pain is controlled [address] Sahu, with [facility] [place] - recommends placing patient in a splint and will be evaluated in the AM [address] [facility]ist. 1929 Laceration above forehead was cleaned and Dermabond was applied 1950 0.5 mg of dilaudid given, 4 mg of Zofran given Medical Decision This is a 76 y/o F who presents after a fall. She had X-rays of her right upper extremity and left lower extremity. UE x-rays reveal oblique/spiral fracture of the mid shaft of the right humerus. Head CT was normal except for small hematoma over left forehead. Abdominal CT was normal. All other x-rays were unremarkable. The left knee is contused with swelling but imaging does not reveal any fractures. CBC does reveal mild leucocytosis that is likely reactive. She also does have some degree of anemia which based on previous lab review looks to be chronic and likely from iron deficiency. CMP is normal. Urinalysis and Coags were normal. B/P was elevated initially, however with pain control, repeat pressures were better. Her pain was managed with 2 doses of Dilaudid 0.5 mg. She received Zofran 4 mg x 2 doses. She was placed NPO and started on IV fluids. She is not on any blood thinners other than aspirin. There is a laceration about 1.5 cm over her left forehead that was cleaned and Dermabond was applied. Orthopedics was consulted in the ED and they recommended placing the patient in a long arm posterior splint as well as a sling. She will be evaluated by orthopedics in the morning for determination of conservative management vs. surgical intervention. She was advised of the possibility of rehab after her hospitalization. The patient was advised of all results and she mentioned that she does not feel stable enough to stand/walk on her own. She was advised that she will have PT/ OT evaluate her. The case was discussed with [facility] hospitalist and she will be further evaluated for admission. Impression Primary Impression: Right humeral fracture Additional Impressions: Contusion of multiple sites Fall Departure Information Dispostion Being Evaluated By Hospitalist Condition FAIR Referrals Sera Liz M.D. (PCP) Patient Instructions [facility] Health Problem Qualifiers
[2017-04-15] MEDS ORDERED: ONDANSETRON INJ 2 MG/ML 2 ML VIAL IV STA (15:13)
[2017-04-15] MEDS ORDERED: HYDROmorphone INJ 0.5 MG/0.5 ML SYR IV STA ×2 (15:13→19:08)
[2017-04-15] MEDS: LACTATED RINGER'S 1000ML 1,000 ML IV SCH ×2 (15:57→22:03)
[2017-04-15] MEDS ORDERED: OPTIRAY 320 IV PRN (16:00)
[2017-04-15 16:08] LABS: BASO % 0.2 %; BASO ABS # 0.02 K/uL (0-0.2); EOS % 0.7 %; EOS ABS # 0.09 K/uL (0-0.5); HEMATOCRIT 34.8 % (37-47); HEMOGLOBIN 10.5 g/dL (12.0-16.0); IG# 0.03 K/uL (0.00-0.02); LYMPH % 7.4 %; LYMPH ABS # 0.94 K/uL (1.2-3.4); MEAN CELL VOLUME 82.3 fL (80-100); MEAN CORPUSCULAR HEMOGLOBIN 24.8 pg (25-34); MEAN CORPUSCULAR HGB CONC 30.2 g/dl (32-36); MEAN PLATELET VOLUME 9.5 fL (7.4-10.4); MONO % 6.9 %; MONO ABS # 0.88 K/uL (0.11-0.59); NEUT % 84.6 %; NEUT ABS # 10.71 K/uL (1.4-6.5); PLATELET COUNT 256 K/uL (130-400); RED CELL DISTRIBUTION WIDTH CV 20.2 % (11.5-14.5); RED CELL DISTRIBUTION WIDTH SD 61.3 fL (36.4-46.3); WHITE BLOOD COUNT 12.67 K/uL (4.8-10.8)
[2017-04-15 16:17] LABS: PTT PATIENT 23.8 SECONDS (21.0-31.0)
[2017-04-15 16:26] LABS: ALBUMIN 3.9 gm/dl (3.4-5.0); ALT/SGPT 21 U/L (12-78); BLOOD UREA NITROGEN 16 mg/dl (7-18); CALCIUM 8.5 mg/dl (8.5-10.1); CARBON DIOXIDE 27 mmol/L (21-32); GLUCOSE 171 mg/dl (70-99); POTASSIUM 3.7 mmol/L (3.5-5.1); SODIUM 140 mmol/L (136-145)
[2017-04-15] MEDS ORDERED: OXYC-609 PO (16:27)
[2017-04-15] MEDS ORDERED: ACET-1256 PO (16:27)
[2017-04-15] MEDS ORDERED: INSDGIPEN SQ (16:27)
[2017-04-15] MEDS ORDERED: CZR50 PO (16:27)
[2017-04-15] MEDS ORDERED: IPRASOL4 INH (16:27)
[2017-04-15] MEDS ORDERED: PANT40TA2 PO (16:27)
[2017-04-15 16:28] LABS: ALKALINE PHOSPHATASE 76 U/L (45-117); AST/SGOT 19 U/L (15-37); TOTAL PROTEIN 6.7 gm/dl (6.4-8.2)
[2017-04-15] MEDS ORDERED: CRAN1TAB4 PO (16:32)
--- NOTE | 2017-04-15 17:13 | DIAGNOSTIC IMAGING REPORT ---
AP PELVIS AND BILATERAL HIPS 5 VIEWS CLINICAL HISTORY: Pelvis and hip pain status post trauma COMPARISON STUDY: No previous studies for comparison. FINDINGS: No acute fractures or dislocations are visualized. There are mild osteoarthritic changes present within each hip. There is a corticated ossicle adjacent to the superior lateral margin of the left acetabulum. There is mild spurring at the level of the greater trochanter the right hip. There is no SI joint diastases. There is no symphysis diastases. IMPRESSION: No fractures or dislocations identified. Electronically signed by: Eric Qiu M.D. 04/15/2017 5:12 PM Dictated Date/Time: 04/15/2017 5:11 PM
--- NOTE | 2017-04-15 17:15 | DIAGNOSTIC IMAGING REPORT ---
CHEST ONE VIEW PORTABLE CLINICAL HISTORY: Fall. Evaluate for rib fractures. COMPARISON STUDY: Chest radiograph March 04, [address] March 14, 2017. FINDINGS: Left humeral internal fixation is partially imaged. There is no pneumothorax or pleural effusion. Lung volumes are mildly diminished. Cardiomediastinal silhouette is stable. There is a mildly displaced posterior lateral left seventh rib fracture which is likely subacute. IMPRESSION: 1. No pneumothorax. 2. Mildly displaced left seventh rib fracture which is likely subacute. Electronically signed by: Torey Nova M.D. 04/15/2017 5:14 PM Dictated Date/Time: 04/15/2017 5:09 PM
--- NOTE | 2017-04-15 17:15 | DIAGNOSTIC IMAGING REPORT ---
CT HEAD WITHOUT CONTRAST (CT) CLINICAL HISTORY: Head pain status post trauma COMPARISON STUDY: 03/04/2017 TECHNIQUE: Axial CT of the brain is performed from the vertex to the skull base. IV contrast was not administered for this examination. A dose lowering technique was utilized adhering to the principles of ALARA. CT DOSE: 638.56 mGycm FINDINGS: No intra or extra-axial mass lesions are visualized. There is no CT evidence of acute cortical infarction. There is no evidence of midline shift. There is no acute hemorrhage. No calvarial fractures are visualized. There are patchy white matter hypodensities likely on a small vessel basis. There is no evidence of pathologic ventricular dilatation. There is no evidence of acute sinusitis. There is a left frontal scalp hematoma and there is left periorbital edema. IMPRESSION: 1. No acute intracranial findings 2. Left frontal scalp hematoma with left periorbital edema Electronically signed by: Eric Qiu M.D. 04/15/2017 5:14 PM Dictated Date/Time: 04/15/2017 5:12 PM
--- NOTE | 2017-04-15 17:16 | DIAGNOSTIC IMAGING REPORT ---
L KNEE 1 OR 2 VIEWS ROUTINE CLINICAL HISTORY: Fall. Left knee pain. COMPARISON: None FINDINGS: Alignment of left knee is anatomic. There is no acute fracture or joint effusion. There is marked pre and infrapatellar soft tissue swelling. There is mild to moderate arthritis of the left knee. IMPRESSION: 1. No acute fracture or joint effusion of the left knee. 2. Marked pre and infrapatellar soft tissue swelling. Electronically signed by: Torey Nova M.D. 04/15/2017 5:15 PM Dictated Date/Time: 04/15/2017 5:14 PM
--- NOTE | 2017-04-15 17:18 | DIAGNOSTIC IMAGING REPORT ---
R ELBOW MIN 3 VIEWS ROUTINE CLINICAL HISTORY: fall, right elbow pain, limited ROM COMPARISON: None FINDINGS: Note is made of an acute moderately displaced oblique fracture through the distal shaft of the right humerus. Moderate angulation at the level the fracture is noted. Alignment of the right elbow is anatomic. There is no proximal right radial or ulnar fracture. IMPRESSION: Acute moderately displaced angulated oblique distal diaphyseal fracture of the right humerus. Electronically signed by: Torey Nova M.D. 04/15/2017 5:17 PM Dictated Date/Time: 04/15/2017 5:15 PM
--- NOTE | 2017-04-15 17:20 | DIAGNOSTIC IMAGING REPORT ---
R SHOULDER MIN 2 VIEWS ROUTINE CLINICAL HISTORY: right shoulder pain, s/p fall COMPARISON: Right shoulder pain status post fall. FINDINGS: There is severe osteoarthritis of the right glenohumeral joint with complete loss of the joint space with osteophytosis. There is severe arthritis of the right acromioclavicular joint. A moderately displaced angulated fracture through the distal shaft of the right humerus is better depicted on the right elbow radiographs. IMPRESSION: 1. Acute moderately displaced angulated fracture through the distal shaft of the right humerus which is better depicted on the right elbow radiographs. 2. Severe osteoarthritis of the right glenohumeral joint. No proximal right humeral fracture. Electronically signed by: Torey Nova M.D. 04/15/2017 5:19 PM Dictated Date/Time: 04/15/2017 5:17 PM
--- NOTE | 2017-04-15 17:21 | DIAGNOSTIC IMAGING REPORT ---
CT ABD/PELVIS IV AND ORAL CONT CLINICAL HISTORY: Abdominal pain status post trauma COMPARISON STUDY: March 04, 2017 TECHNIQUE: Following the IV administration of 115 mL of Optiray-320, CT scan of the abdomen and pelvis was performed from the lung bases to the proximal femurs. Images are reviewed in the axial, sagittal, and coronal planes. IV contrast was administered without complication. A dose lowering technique was utilized adhering to the principles of ALARA. CT DOSE: 1033.91 mGycm FINDINGS: Lower chest: There is a small hiatal hernia. There is a small amount of contrast within the distal esophagus. There is mild basilar atelectatic change. There are coronary artery calcifications. Lower lung zone pulmonary nodules remain stable, including a 11 mm right lower lobe pulmonary nodule and 6 mm left lower lobe pulmonary nodule. Liver: The contrast-enhanced liver is normal in size, contour, and attenuation. There is no intrahepatic biliary ductal dilatation. The hepatic veins and portal veins are patent. Gallbladder: Surgically absent Spleen: Normal in size and attenuation. Pancreas: Unremarkable. Adrenal glands: Unremarkable. Kidneys: There is 18 mm upper pole right renal cyst. There is a 4 mm mid pole right renal cyst. There are symmetric nephrograms. Bowel: There are no transition zones indicate bowel obstruction. There is no interloop fluid. There are no extraluminal gas collections. There is diverticulosis. There is no acute diverticulitis. The appendix appears normal. Peritoneum: There is no intraperitoneal free air or abdominal ascites. Vasculature: The abdominal aorta is normal in course and caliber. Adenopathy: None. Pelvic viscera: The bladder, and pelvic viscera are unremarkable. Skeletal structures: Advanced degenerative changes are present within the lumbar spine. There is multilevel spinal stenosis. No acute fractures are visualized. There is a healing left seventh rib fracture. IMPRESSION: 1. No evidence of acute intra-abdominal or pelvic injury 2. Stable indeterminate lower lobe pulmonary nodules 3. Healing left seventh rib fracture 4. Degenerative changes within the spine with multilevel spinal stenosis Electronically signed by: Eric Qiu M.D. 04/15/2017 5:20 PM Dictated Date/Time: 04/15/2017 5:14 PM
--- NOTE | 2017-04-15 17:23 | DIAGNOSTIC IMAGING REPORT ---
R HUMERUS MIN 2 VIEWS ROUTINE CLINICAL HISTORY: Right upper arm pain status post trauma COMPARISON: None. DISCUSSION: 2 views reveal an oblique/spiral fracture of the humerus at the junction of the middle and distal one third. There is 22 degrees of angulation at the fracture site. The distal fragment is laterally displaced x 18 mm. IMPRESSION: Mildly displaced angulated oblique/spiral fracture of the humerus at the junction of the middle and distal one third Electronically signed by: Eric Qiu M.D. 04/15/2017 5:22 PM Dictated Date/Time: 04/15/2017 5:21 PM
[2017-04-15] MEDS ORDERED: ONDANSETRON INJ 2 MG/ML 2 ML VIAL ONE (19:58)
--- NOTE | 2017-04-15 20:19 | History and Physical ---
History & Physical Date & Time of Service: Apr 15, 2017 at 19:59 Chief Complaint: Fall/Rt. Elbow Deformity Primary Care Physician: Sera Liz M.D. History of Present Illness The patient is a 76 year old female with a past medical history of HTN, HLD, Asthma, JEFERSON, DM, GERD, Thyroid Cancer s/p Thyroidectomy in 1994, and tracheal cancer s/p resection in 2007 that presents with a right humeral fracture status post mechanical fall this morning. The patient woke up this morning and tripped over a cord and fall into her dressing, primarily striking her left eye and right arm. Patient denies loss of consciousness with the fall, or any preceding lightheadedness, syncope, dizziness, or altered mentation. The patient experienced a laceration over the left eye with swelling of the left eyelid obstructing her vision. The laceration was approximated with Dermabond in the ED without requiring sutures. The patient was unable to move her right arm without significant pain and X-ray revealed a humeral fracture. Orthopaedics was consulted and stated the patient would not need surgery at this time and to place a long arm orthoglass cast. At this time the patient states her pain is 7/ 10 at rest and 10/10 with any movement of the arm. The patient was initially complaining of a headache, although CT head showed no acute intracranial abnormalities and improved with pain medication. The patient also experienced a Fall in late February resulting in a left humeral fracture that was taken to the OR for ORIF. The patient states that the circumstances for these falls have been different. The fall in February occurred after she woke up at 5:30 am and does not recall the events that led to the fall. She attributes the fall to being hypoglycemic and since had her Lantus regimen reduced. She states that this morning she was also fairly hypoglycemic with a sugar in the 60's and normally sits in the morning. The patient was scheduled for a follow up in mid April with her field training manager to once again adjust her insulin regimen. The patient after her last discharge was sent to [facility], and now that she has limited use of both arms and a with dementia at home, she feels very uncomfortable going home. The patient thinks that these hypoglycemic episodes have been caused by her recent lack of appetite for which she cannot explain. Family History No significant family history stated Social History Smoking Status: Never Smoker Drug Use: none Marital Status: Housing status: lives with family Occupational Status: retired Allergies Coded Allergies: Doxycycline (Verified Allergy, Severe, TONGUE SWELLS/SOB, 03/04/17) Codeine (Verified Allergy, Intermediate, LARGE DOSES CAUSE RASH, 03/04/17) Morphine (Verified Adverse Reaction, Severe, CONFUSION, 04/15/17) Home Medications Scheduled Aspirin (Aspirin Ec), 81 MG PO DAILY Cranberry (Vaccinium Macrocarp (Cranberry), 1 TAB PO BID Ferrous Sulfate (Kp Ferrous Sulfate), 650 MG PO DAILY Insulin Glargine (Lantus Solostar), 40 UNITS SQ BID Levothyroxine Sodium (Levothyroxine Sodium), 125 MCG PO DAILY Losartan Potassium (Losartan Potassium), 75 MG PO DAILY Metformin Hcl (Glucophage), 1,000 MG PO BID Multivitamin (Multivitamin), 1 TAB PO DAILY Pantoprazole (Pantoprazole Sodium), 40 MG PO BID Simvastatin (Zocor), 40 MG PO QAM Scheduled PRN Acetaminophen (Tylenol), 1,000 MG PO Q8 PRN for Pain Benzonatate (Tessalon Perles), 100 MG PO DIRECTED PRN for Cough Ipratropium-Albuterol (Duoneb), 1 TREATMENT INH Q4H PRN for SOB/Wheezing Oxycodone HCl (Oxycodone HCl), 5 MG PO Q4 PRN for Pain Prochlorperazine Maleate (Compazine), 10 MG PO Q6H PRN for Nausea Review of Systems Constitutional: No fever, No chills, No sweats, No weight loss, No fatigue Respiratory: No cough, No sputum, No shortness of breath Cardiovascular: No chest pain, No palpitations Abdomen: No pain, No nausea, No vomiting, No diarrhea, No constipation Musculoskeletal: + joint pain (Right arm pain, 7/10) Genitourinary - Female: No dysuria, No urinary frequency Neurologic: No memory loss, No paralysis, No weakness, No numbness/tingling, No vertigo, No balance problems Physical Exam Vital Signs Date Time Temp Pulse Resp B/P (MAP) Pulse Ox O2 Delivery O2 Flow Rate FiO2 04/15/17 19:07 100 20 117/104 95 Room Air 04/15/17 14:49 37.3 18 18 206/114 97 Room Air General Appearance: WD/WN, no apparent distress Head: normocephalic, + pertinent finding (1.5 cm laceration superior to left eye, c/d/i, approximated with dermabond) Eyes: PERRL, EOMI, sclerae normal, + pertinent finding (Hematoma over left left superior eye lid with significant swelling, although patient still able to open her eyelids to allow for vision. No visible trauma to the eye itself and vision testing in addition to pupillary reactivity and extraoccular movements are grossly intact) Neck: supple, no carotid bruits, trachea midline Respiratory/Chest: chest non-tender, lungs clear, normal breath sounds Cardiovascular: regular rate, rhythm, no edema, no JVD, no murmur Abdomen/GI: normal bowel sounds, non tender, soft Extremities/Musculoskelatal: + pertinent finding (Abrasions over the left knee with mild swelling, no bleeding or lacerations or hematoma. Right arms currently in cast but significant tenderness with any manipulation of the arm) Neurologic/Psych: jive developer II-XII nml as tested, alert, oriented x 3 Diagnostics Laboratory Results Results Past 24 Hours Test 04/15/17 15:55 04/15/17 17:55 Range/Units White Blood Count 12.67 4.8-10.8 K/uL Red Blood Count 4.23 4.2-5.4 M/uL Hemoglobin 10.5 12.0-16.0 g/dL Hematocrit 34.8 37-47 % Mean Corpuscular Volume 82.3 80-100 fL Mean Corpuscular Hemoglobin 24.8 25-34 pg Mean Corpuscular Hemoglobin Concent 30.2 32-36 g/dl Platelet Count 256 130-400 K/uL Mean Platelet Volume 9.5 7.4-10.4 fL Neutrophils (%) (Auto) 84.6 % Lymphocytes (%) (Auto) 7.4 % Monocytes (%) (Auto) 6.9 % Eosinophils (%) (Auto) 0.7 % Basophils (%) (Auto) 0.2 % Neutrophils # (Auto) 10.71 1.4-6.5 K/uL Lymphocytes # (Auto) 0.94 1.2-3.4 K/uL Monocytes # (Auto) 0.88 0.11-0.59 K/uL Eosinophils # (Auto) 0.09 0-0.5 K/uL Basophils # (Auto) 0.02 0-0.2 K/uL RDW Standard Deviation 61.3 36.4-46.3 fL RDW Coefficient of Variation 20.2 11.5-14.5 % Immature Granulocyte % (Auto) 0.2 % Immature Granulocyte # (Auto) 0.03 0.00-0.02 K/uL Anisocytosis PRESENT Prothrombin Time 10.7 9.0-12.0 SECONDS Prothromb Time International Ratio 1.0 0.9-1.1 Activated Partial Thromboplast Time 23.8 21.0-31.0 SECONDS Partial Thromboplastin Ratio 0.9 Sodium Level 140 136-145 mmol/L Potassium Level 3.7 3.5-5.1 mmol/L Chloride Level 105 98-107 mmol/L Carbon Dioxide Level 27 21-32 mmol/L Anion Gap 8.0 3-11 mmol/L Blood Urea Nitrogen 16 7-18 mg/dl Creatinine 0.80 0.60-1.20 mg/dl Est Creatinine Clear Calc Drug Dose 60.9 ml/min Estimated GFR () 81.8 Estimated GFR (Non- 70.6 BUN/Creatinine Ratio 19.3 10-20 Random Glucose 171 70-99 mg/dl Calcium Level 8.5 8.5-10.1 mg/dl Total Bilirubin 0.3 0.2-1 mg/dl Direct Bilirubin < 0.1 0-0.2 mg/dl Aspartate Amino Transf (AST/SGOT) 19 15-37 U/L Alanine Aminotransferase (ALT/SGPT) 21 12-78 U/L Alkaline Phosphatase 76 45-117 U/L Total Protein 6.7 6.4-8.2 gm/dl Albumin 3.9 3.4-5.0 gm/dl Urine Color YELLOW Urine Appearance CLEAR CLEAR Urine pH 5.0 4.5-7.5 Urine Specific [place] 1.045 1.000-1.030 Urine Protein 2+ NEG Urine Glucose (UA) NEG NEG Urine Ketones NEG NEG Urine Occult Blood NEG NEG Urine Nitrite NEG NEG Urine Bilirubin NEG NEG Urine Urobilinogen NEG NEG Urine Leukocyte Esterase SMALL NEG Urine WBC (Auto) 5-10 0-5 /hpf Urine RBC (Auto) 0-4 0-4 /hpf Urine Hyaline Casts (Auto) 1-5 0-5 /lpf Urine Epithelial Cells (Auto) 20-30 0-5 /lpf Urine Bacteria (Auto) NEG NEG Impression Assessment and Plan The patient is a 76 year old female with a past medical history of HTN, HLD, Asthma, JEFERSON, DM, GERD, Thyroid Cancer s/p Thyroidectomy in 1994, and tracheal cancer s/p resection in 2007 that presents with a right humeral fracture status post mechanical fall this morning. Mechanical Fall - Humeral X-Ray: Mildly displaced angulated oblique/spiral fracture of the humerus at the junction of the middle and distal one third - Abdominal Pelvis CT: No Pelvic fractures - CXR: Mildly displaced left seventh rib fracture which is likely subacute, No pneumothorax - Head CT: No acute intracranial findings - Knee X-Ray: No acute fracture or joint effusion of the left knee - Orthopaedics Consult: Patient placed in right arm cast with plan for follow up tomorrow. No anticipated surgical intervention at this time - Dermabond over left eye laceration - Hold home Aspirin, no anticoagulation - Pain control: Tylenol 650mg PO q6h, Dilaudid 0.5mg IV q3h Diabetes - Diabetic diet - Will give Lantus 20 units this evening (normal dose is 40 units BID) although has been hypoglycemic in the mornings and not eaten all day - ISS with BSG check AC/HS - Hold home metformin Hypertension - Continue home Losartan GERD - Continue home Protonix HLD - Continue home Zocor Hypothyroidism - Continue home Synthroid Asthma - Well controlled with no recent flares - DuoNeb PRN SOB DVT - SCDs Code Status - Full Resuscitation Disposition - PT/OT ordered for evaluation - May need rehab due to limited use of hands, home situation, and hypoglycemic episodes Resident Physician Supervision Note: Pt evaluated independently. I discussed the case with the resident and agree with the findings and plan as documented in the note. Any exceptions or clarifications are listed here: 76 y/o F HTN, HPL, Asthma, JEFERSON, DM, GERD, Thyroid Cancer, tracheal tumor resected 2007 - Presents with a right humeral fracture due to a mechanical fall this AM. this is not likely to require surgery, however, the pt will have difficulty managing at home without use of her arm and is also charged with caring for a with dementia. She is requesting temp placement therefore. OE AAO x 3 S1,2 R CTAB NT, ND No CCE R arm is casted P: Will arrange for rehab or placement AM - analgesics as needed SS and Lantus to continue Cont Losartan and Zocor Documented By: Jian Carpenter Resuscitation Status FULL CODE VTE Prophylaxis Will order VTE Prophylaxis: Yes Reason for no VTE drug order: Contraindicated Resident Tracking Resident Involvement: Resident Care Provided Care Provided: Adult Hospital Medicine
[2017-04-15] MEDS ORDERED: DEXTROSE 50% 50 ML SYR IV PRN (20:30)
[2017-04-15] MEDS ORDERED: BENZONATATE 100MG CAP PO PRN (20:30)
[2017-04-15] MEDS ORDERED: GLUCOSE 10 TABS/TUBE PO PRN (20:30)
[2017-04-15] MEDS ORDERED: MAGNESIUM HYDROXIDE SUSP 30 ML UDC PO PRN (20:30)
[2017-04-15] MEDS ORDERED: ACETAMINOPHEN 325 MG TAB PO PRN (20:30)
[2017-04-15] MEDS ORDERED: PROCHLORPERAZINE MALEATE 10 MG TAB PO PRN (20:30)
[2017-04-15] MEDS ORDERED: GLUCOSE 40% GEL 15 GM TUBE PO PRN (20:30)
[2017-04-15] MEDS ORDERED: POLYETHYLENE (MIRALAX) 17 GM PACK PO PRN (20:30)
[2017-04-15] MEDS ORDERED: ACETAMINOPHEN 500 MG TAB PO PRN (20:30)
[2017-04-15] MEDS ORDERED: GLUCAGON FOR INJ 1 MG VIAL SQ PRN (20:30)
[2017-04-15] MEDS ORDERED: IV FLUIDS COMPLETED PRN (21:00)
[2017-04-15] MEDS ORDERED: INSULIN GLARGINE SOLOSTAR 100 UNITS/ML 3 ML PEN SC ONE (21:00)
[2017-04-15 21:45] VITALS: BMI 31.0
[2017-04-15] MEDS ORDERED: NURSING VERBAL MED ORDER ONE (22:15)
[2017-04-15] MEDS: BOOST GLUCOSE CONTROL PO SCH (23:06)
[2017-04-15] MEDS: INSULIN ASPART 100 UNITS/ML 3 ML PEN SC SCH (23:06)
[2017-04-15 23:08] VITALS: BP 147/74; PULSE 88; TEMP 37.1; O2SAT 96
[2017-04-16] VITALS (7 sets, daily range): BP systolic 115–150; BP diastolic 60–80; PULSE 70–99; TEMP 36.8–37.7; O2SAT 94–97; Ht 162.6 cm; Wt 87.9 kg
[2017-04-16] MEDS: PANTOprazole SOD 40 MG TAB PO SCH ×3 (00:10→21:48)
[2017-04-16] MEDS: HYDROmorphone INJ 0.5 MG/0.5 ML SYR IV PRN ×4 (02:18→19:22)
[2017-04-16] MEDS: LACTATED RINGER'S 1000ML 1,000 ML IV SCH ×2 (05:40→17:57)
[2017-04-16] MEDS: LEVOTHYROXINE 125 MCG TAB PO SCH (05:40)
--- NOTE | 2017-04-16 07:33 | Family Medicine Progress Note ---
Progress Note Date of Service Apr 16, 2017. Subjective Pt evaluation today including: conversation w/ patient, physical exam, chart review, lab review, review of inpatient medication list Pain: Right arm pain PO Intake: NPO for surgery Voiding: zapata catheter in place Ms. Cox reports minimal pain at rest, as long as she keeps her right arm still. She notes that she has function in her left arm after her rehabilitation [facility], and that she no longer experiences pain in that arm. She denies chest pain, SOB, n/v, fever or chills. She states she remembers this fall very clearly and that she tripped over a wire. She denies any preceding symptoms. She sustained a bruise and laceration to her left eye and abrasions to her left knee. She is concerned regarding care home management as her has Alzheimer's and she is his primary draw hand. Constitutional: No fever, No chills Respiratory: No cough, No sputum, No shortness of breath Cardiovascular: No chest pain Abdomen: No pain, No nausea, No vomiting All Other Systems: Reviewed and Negative Medications Current Inpatient Medications Medications (Trade) Dose Ordered Sig/Regis Route Start Time Stop Time Status Last Admin Dose Admin Lactated Ringer's 1,000 ml @ 75 mls/hr [id number] IV 04/15/17 15:25 05/15/17 15:24 04/16/17 05:40 75 MLS/HR Ioversol (Optiray 320) 100 ml UD PRN IV 04/15/17 16:00 04/19/17 15:59 Acetaminophen (Tylenol Tab) 650 mg Q4H PRN PO 04/15/17 20:30 05/15/17 20:29 Magnesium Hydroxide (Milk Of Magnesia Susp) 30 ml Q6H PRN PO 04/15/17 20:30 05/15/17 20:29 Polyethylene (Miralax Powder Packet) 17 gm DAILY PRN PO 04/15/17 20:30 05/15/17 20:29 Ondansetron HCl (Zofran Inj) 4 mg Q6H PRN IV 04/15/17 20:30 05/15/17 20:29 04/16/17 07:58 4 MG Insulin Aspart (novoLOG ASPART) SLIDING SCALE If C... ACHS SC 04/15/17 21:00 3/30/18 20:59 04/16/17 08:48 2 UNITS Glucose (Glucose 40% Gel) 15-30 GRAMS 15 GRAMS... UD PRN PO 04/15/17 20:30 05/15/17 20:29 Glucose (Glucose Chew Tab) 4-8 Tablets 4 Tabl... UD PRN PO 04/15/17 20:30 05/15/17 20:29 Dextrose (Dextrose 50% 50ML Syringe) 25-50ML OF 50% DW IV FOR... UD PRN IV 04/15/17 20:30 05/15/17 20:29 Glucagon (Glucagon Inj) 1 mg UD PRN SQ 04/15/17 20:30 05/15/17 20:29 Benzonatate (Tessalon Perles Cap) 100 mg TID PRN PO 04/15/17 20:30 05/15/17 20:29 Levothyroxine Sodium (Synthroid Tab) 125 mcg DAILYBB PO 04/16/17 06:00 05/16/17 05:59 04/16/17 05:40 125 MCG Losartan Potassium (coZAAR TAB) 75 mg DAILY PO 04/16/17 09:00 05/16/17 08:59 Pantoprazole Sodium (Protonix Tab) 40 mg BID PO 04/15/17 21:00 05/15/17 20:59 04/16/17 00:10 40 MG Prochlorperazine Maleate (Compazine Tab) 10 mg Q6H PRN PO 04/15/17 20:30 05/15/17 20:29 Simvastatin (Zocor Tab) 40 mg QAM PO 04/16/17 09:00 05/16/17 08:59 Ferrous Sulfate (Feosol Tab) 650 mg DAILY PO 04/16/17 09:00 05/16/17 08:59 Miscellaneous (Iv Fluids Completed) 1 ea PRN PRN N/A 04/15/17 21:00 04/15/18 20:59 Hydromorphone HCl (Dilaudid Inj) 0.5 mg Q3H PRN IV 04/15/17 22:30 04/29/17 22:29 04/16/17 07:50 0.5 MG Enteral Nutritional Formula (Boost Glucose Control) 1 can HS PO 04/15/17 23:00 05/15/17 22:59 04/15/17 23:06 1 CAN Fentanyl Citrate (Fentanyl Inj) 25 mcg Q5M PRN IV 04/16/17 12:30 04/16/17 17:30 Ondansetron HCl (Zofran Inj) 4 mg ONE PRN IV 04/16/17 12:30 04/16/17 17:30 Ephedrine Sulfate (EpHEDrine SULFATE INJ) 5 mg Q5M PRN IV 04/16/17 12:30 04/16/17 17:30 Atropine Sulfate (Atropine Sulfate 0.1mg/ml Inj) 0.5 mg Q1M PRN IV 04/16/17 12:30 04/16/17 17:30 Oxycodone HCl (Roxicodone Immediate Rel Tab) `1-2 tabs for pain 1 tab ... Q6HWA PRN PO 04/16/17 13:45 04/30/17 13:44 Objective Vital Signs Date Time Temp Pulse Resp B/P (MAP) Pulse Ox O2 Delivery O2 Flow Rate FiO2 04/16/17 14:10 36.2 99 16 146/79 95 Room Air 04/16/17 14:00 95 16 136/72 91 Room Air 04/16/17 13:50 16 124/63 91 Room Air 04/16/17 13:43 36.3 92 16 107/66 100 Oxymask 10 04/16/17 07:50 Room Air 04/16/17 06:55 37.1 87 16 150/75 (100) 96 Room Air 04/15/17 23:15 Room Air 04/15/17 23:08 37.1 88 18 147/74 (98) 96 Room Air 04/15/17 21:45 Room Air 04/15/17 21:24 102 20 141/84 95 Room Air 04/15/17 21:24 102 20 141/84 95 04/15/17 20:28 93 14 143/90 93 Room Air 04/15/17 19:07 100 20 117/104 95 Room Air 04/15/17 14:49 37.3 18 18 206/114 97 Room Air Physical Exam General Appearance: WD/WN, no apparent distress, + pertinent finding (right arm in orthoglass) Eyes: PERRL, + pertinent finding (left eye swollen and erythematous with hematoma. ) Respiratory/Chest: lungs clear, normal breath sounds, no respiratory distress, no accessory muscle use Cardiovascular: regular rate, rhythm, no edema Extremities: no pedal edema, no calf tenderness, + pertinent finding (bandage over abrasions on left knee) Neurologic/Psychiatric: alert, normal mood/affect, oriented x 3 Laboratory Results Last 24 Hours Test 04/15/17 15:55 04/15/17 17:55 04/15/17 20:36 04/15/17 21:34 White Blood Count 12.67 K/uL Red Blood Count 4.23 M/uL Hemoglobin 10.5 g/dL Hematocrit 34.8 % Mean Corpuscular Volume 82.3 fL Mean Corpuscular Hemoglobin 24.8 pg Mean Corpuscular Hemoglobin Concent 30.2 g/dl Platelet Count 256 K/uL Mean Platelet Volume 9.5 fL Neutrophils (%) (Auto) 84.6 % Lymphocytes (%) (Auto) 7.4 % Monocytes (%) (Auto) 6.9 % Eosinophils (%) (Auto) 0.7 % Basophils (%) (Auto) 0.2 % Neutrophils # (Auto) 10.71 K/uL Lymphocytes # (Auto) 0.94 K/uL Monocytes # (Auto) 0.88 K/uL Eosinophils # (Auto) 0.09 K/uL Basophils # (Auto) 0.02 K/uL RDW Standard Deviation 61.3 fL RDW Coefficient of Variation 20.2 % Immature Granulocyte % (Auto) 0.2 % Immature Granulocyte # (Auto) 0.03 K/uL Anisocytosis PRESENT Prothrombin Time 10.7 SECONDS Prothromb Time International Ratio 1.0 Activated Partial Thromboplast Time 23.8 SECONDS Partial Thromboplastin Ratio 0.9 Sodium Level 140 mmol/L Potassium Level 3.7 mmol/L Chloride Level 105 mmol/L Carbon Dioxide Level 27 mmol/L Anion Gap 8.0 mmol/L Blood Urea Nitrogen 16 mg/dl Creatinine 0.80 mg/dl Est Creatinine Clear Calc Drug Dose 60.9 ml/min Estimated GFR () 81.8 Estimated GFR (Non- 70.6 BUN/Creatinine Ratio 19.3 Random Glucose 171 mg/dl Calcium Level 8.5 mg/dl Total Bilirubin 0.3 mg/dl Direct Bilirubin < 0.1 mg/dl Aspartate Amino Transf (AST/SGOT) 19 U/L Alanine Aminotransferase (ALT/SGPT) 21 U/L Alkaline Phosphatase 76 U/L Total Protein 6.7 gm/dl Albumin 3.9 gm/dl Urine Color YELLOW Urine Appearance CLEAR Urine pH 5.0 Urine Specific [place] 1.045 Urine Protein 2+ Urine Glucose (UA) NEG Urine Ketones NEG Urine Occult Blood NEG Urine Nitrite NEG Urine Bilirubin NEG Urine Urobilinogen NEG Urine Leukocyte Esterase SMALL Urine WBC (Auto) 5-10 /hpf Urine RBC (Auto) 0-4 /hpf Urine Hyaline Casts (Auto) 1-5 /lpf Urine Epithelial Cells (Auto) 20-30 /lpf Urine Bacteria (Auto) NEG Bedside Glucose 153 mg/dl 163 mg/dl Test 04/16/17 07:58 04/16/17 11:44 04/16/17 13:45 Bedside Glucose 205 mg/dl 180 mg/dl 173 mg/dl Assessment and Plan The patient is a 76 year old female with a past medical history of HTN, HLD, Asthma, JEFERSON, DM, GERD, Thyroid Cancer s/p Thyroidectomy in 1994, and tracheal cancer s/p resection in 2007 that presents with a right humeral fracture status post mechanical fall this morning. Mechanical Fall - Humeral X-Ray: Mildly displaced angulated oblique/spiral fracture of the humerus at the junction of the middle and distal one third - CXR: Mildly displaced left seventh rib fracture which is likely subacute, No pneumothorax - Head CT: No acute intracranial findings - Knee X-Ray: No acute fracture or joint effusion of the left knee - Thank you to Ortho for consult -.Patient placed in right arm cast last night - pt underwent closed reduction of right humeral fracture today - Dermabond over left eye laceration - Hold home Aspirin, no anticoagulation - Pain control: Tylenol 650mg PO q6h, Dilaudid 0.5mg IV q3h, Roxicodone 5-10mg q6h Diabetes Mellitus - Diabetic diet - Home dose of Lantus is 40 units BID - pt reports sugars have not been well controlled and she has frequent lows - will change Lantus to 20 units BID and add insulin sliding scale - will adjust Lantus as needed to optimize sugar levels - glycemic consult ordered - pt has research center director follow up later in April for diabetes management - ISS with BSG check AC/HS - Hold home metformin - check vitamin b12 level given care home metformin use ?Osteoporosis - this is the patient's second time breaking an arm after a fall from standing height - pt said she had DEXA scan done 1-2 years ago and it was normal - will check vitamin D level and review outpatient records for DEXA scan Hypertension - Continue home Losartan GERD - Continue home Protonix HLD - Continue home Zocor Hypothyroidism - Continue home Synthroid Asthma - Well controlled with no recent flares - DuoNeb PRN SOB DVT - SCDs Code Status - Full Resuscitation Disposition - PT/OT ordered for evaluation - likely d/c to [facility] early next week - case management looking into placing her at [facility] as she is his primary caregiver. He has Alzheimer's Disease and requires round the clock care. He is currently staying with her sister. Resident Physician Supervision Note: I was present with the resident physician during the history and exam. I discussed the case with the resident and agree with the findings and plan as documented in the note. Any exceptions or clarifications are listed here: Patient is seen postoperatively; she is hemodynamically stable and pain is well controlled. Documented By: Guillaume Garrido Resident Tracking Resident Involvement: Resident Care Provided Care Provided: Adult Hospital Medicine
[2017-04-16] MEDS: ONDANSETRON INJ 2 MG/ML 2 ML VIAL IV PRN (07:58)
[2017-04-16] MEDS: LOSARTAN POTASSIUM 50 MG TAB PO SCH (08:45)
[2017-04-16] MEDS: FERROUS SULFATE 325 MG TAB PO SCH (08:46)
[2017-04-16] MEDS: SIMVASTATIN 40 MG TAB PO SCH (08:46)
[2017-04-16] MEDS: INSULIN ASPART 100 UNITS/ML 3 ML PEN SC SCH ×4 (08:48→21:51)
--- NOTE | 2017-04-16 09:15 | Orthopedic Consultation ---
Orthopedic Consultation Date of Consultation: Apr 16, 2017. Attending Physician: Jian Carpenter M.D. Reason for Consultation: Right distal humerus fracture History of Present Illness Patient is a 76-year-old white female known to our practice who is status post ORIF of the left proximal humerus. Patient states that she had gone to [facility] afterwards and then transition to back home and was doing well. Yesterday she was sitting on her deck doing some knitting when she stood up and ended up tripping on a cord that was on the floor. This caused her to lose her balance and fall onto her right side. She had immediate pain in the right elbow and humerus. She denies any shortness of breath, chest pain, lightheadedness prior to the fall or after the fall. She denies loss of consciousness. She was brought to [facility] ED where she was seen by the staff. X-rays were taken and found that she had a distal humerus fracture of the right humerus. She was admitted by hospitalist service and we have been asked to see her for her fracture. Past Medical/Surgical History HTN, HLD, Asthma, JEFERSON, DM, GERD, Thyroid Cancer s/p Thyroidectomy in 1994, and tracheal cancer s/p resection in 2007; ORIF Left proximal Humerus Feb 2017 Medical Problems: (1) Abdominal bloating Status: Acute (2) Abdominal discomfort Status: Acute (3) Abdominal pain Status: Acute (4) Bacteremia Status: Acute (5) Fall Status: Acute (6) Gastritis Status: Acute (7) Humerus fracture Status: Acute (8) Poisoning by insulin and oral hypoglycemic [antidiabetic] drugs, accidental (unintentional), initial encounter Status: Acute (9) Shingles Status: Acute Family History No significant family history stated Social History Smoking Status: Never Smoker Drug Use: none Marital Status: Housing Status: lives with significant other Occupation Status: retired Allergies Coded Allergies: Doxycycline (Verified Allergy, Severe, TONGUE SWELLS/SOB, 03/04/17) Codeine (Verified Allergy, Intermediate, LARGE DOSES CAUSE RASH, 03/04/17) Morphine (Verified Adverse Reaction, Severe, CONFUSION, 04/15/17) Home Medications Scheduled Aspirin (Aspirin Ec), 81 MG PO DAILY Cranberry (Vaccinium Macrocarp (Cranberry), 1 TAB PO BID Ferrous Sulfate (Kp Ferrous Sulfate), 650 MG PO DAILY Insulin Glargine (Lantus Solostar), 40 UNITS SQ BID Levothyroxine Sodium (Levothyroxine Sodium), 125 MCG PO DAILY Losartan Potassium (Losartan Potassium), 75 MG PO DAILY Metformin Hcl (Glucophage), 1,000 MG PO BID Multivitamin (Multivitamin), 1 TAB PO DAILY Pantoprazole (Pantoprazole Sodium), 40 MG PO BID Simvastatin (Zocor), 40 MG PO QAM Scheduled PRN Acetaminophen (Tylenol), 1,000 MG PO Q8 PRN for Pain Benzonatate (Tessalon Perles), 100 MG PO DIRECTED PRN for Cough Ipratropium-Albuterol (Duoneb), 1 TREATMENT INH Q4H PRN for SOB/Wheezing Oxycodone HCl (Oxycodone HCl), 5 MG PO Q4 PRN for Pain Prochlorperazine Maleate (Compazine), 10 MG PO Q6H PRN for Nausea Current Inpatient Medications Current Inpatient Medications Medications (Trade) Dose Ordered Sig/Regis Route Start Time Stop Time Status Last Admin Dose Admin Lactated Ringer's 1,000 ml @ 75 mls/hr [id number] IV 04/15/17 15:25 05/15/17 15:24 04/16/17 05:40 75 MLS/HR Ioversol (Optiray 320) 100 ml UD PRN IV 04/15/17 16:00 04/19/17 15:59 Acetaminophen (Tylenol Tab) 650 mg Q4H PRN PO 04/15/17 20:30 05/15/17 20:29 Magnesium Hydroxide (Milk Of Magnesia Susp) 30 ml Q6H PRN PO 04/15/17 20:30 05/15/17 20:29 Polyethylene (Miralax Powder Packet) 17 gm DAILY PRN PO 04/15/17 20:30 05/15/17 20:29 Ondansetron HCl (Zofran Inj) 4 mg Q6H PRN IV 04/15/17 20:30 05/15/17 20:29 04/16/17 07:58 4 MG Insulin Aspart (novoLOG ASPART) SLIDING SCALE If C... ACHS SC 04/15/17 21:00 05/15/17 20:59 04/16/17 08:48 2 UNITS Glucose (Glucose 40% Gel) 15-30 GRAMS 15 GRAMS... UD PRN PO 04/15/17 20:30 05/15/17 20:29 Glucose (Glucose Chew Tab) 4-8 Tablets 4 Tabl... UD PRN PO 04/15/17 20:30 05/15/17 20:29 Dextrose (Dextrose 50% 50ML Syringe) 25-50ML OF 50% DW IV FOR... UD PRN IV 04/15/17 20:30 05/15/17 20:29 Glucagon (Glucagon Inj) 1 mg UD PRN SQ 04/15/17 20:30 05/15/17 20:29 Benzonatate (Tessalon Perles Cap) 100 mg TID PRN PO 04/15/17 20:30 05/15/17 20:29 Levothyroxine Sodium (Synthroid Tab) 125 mcg DAILYBB PO 04/16/17 06:00 05/16/17 05:59 04/16/17 05:40 125 MCG Losartan Potassium (coZAAR TAB) 75 mg DAILY PO 04/16/17 09:00 05/16/17 08:59 Pantoprazole Sodium (Protonix Tab) 40 mg BID PO 04/15/17 21:00 05/15/17 20:59 04/16/17 00:10 40 MG Prochlorperazine Maleate (Compazine Tab) 10 mg Q6H PRN PO 04/15/17 20:30 05/15/17 20:29 Simvastatin (Zocor Tab) 40 mg QAM PO 04/16/17 09:00 05/16/17 08:59 Ferrous Sulfate (Feosol Tab) 650 mg DAILY PO 04/16/17 09:00 05/16/17 08:59 Miscellaneous (Iv Fluids Completed) 1 ea PRN PRN N/A 04/15/17 21:00 04/15/18 20:59 Hydromorphone HCl (Dilaudid Inj) 0.5 mg Q3H PRN IV 04/15/17 22:30 04/29/17 22:29 04/16/17 07:50 0.5 MG Enteral Nutritional Formula (Boost Glucose Control) 1 can HS PO 04/15/17 23:00 05/15/17 22:59 04/15/17 23:06 1 CAN Review of Systems As per admitting H&P Physical Exam Date Time Temp Pulse Resp B/P (MAP) Pulse Ox O2 Delivery O2 Flow Rate FiO2 04/16/17 06:55 37.1 87 16 150/75 (100) 96 Room Air 04/15/17 23:15 Room Air 04/15/17 23:08 37.1 88 18 147/74 (98) 96 Room Air 04/15/17 21:45 Room Air 04/15/17 21:24 102 20 141/84 95 Room Air 04/15/17 21:24 102 20 141/84 95 04/15/17 20:28 93 14 143/90 93 Room Air 04/15/17 19:07 100 20 117/104 95 Room Air 04/15/17 14:49 37.3 18 18 206/114 97 Room Air Patient is in a mildly obese white female who is awake and alert and oriented to person place and time. She is currently sitting up in bed and has a splint on her right upper extremity with sling. She is in no acute distress and pleasant and cooperative. On examination of her right upper extremity, it is noted she has a posterior splint applied to the forearm that extends up to the midportion of the humerus. She has moderate tenderness over the distal portion of the humerus at this time but does not complain of any pain in the forearm hand or wrist. She has good sensation of the fingers of the right hand and has good range of motion at this time. Capillary refill is less than 2 seconds. She denies shoulder pain on palpation and range of motion is limited at this time in the shoulder due to pain in her distal humerus when trying to move her arm. She has a well-healed scar noted of her left shoulder from her previous ORIF and has good range of motion at this time without discomfort. She denies neck pain on palpation and/ or range of motion and has good range of motion of the neck at this time; she denies thoracic or low back pain. She denies any overt pain in the hips knees or ankles of the lower extremities and has good range of motion. She has a noted dressing over her left knee which is covering an abrasion. She has good range of motion of the left knee at this time without discomfort. There is no gross motor or sensory loss seen at this time other than what is due to fracture of her right upper extremity. Laboratory Results Last 24 Hours Test 04/15/17 15:55 04/15/17 17:55 04/15/17 20:36 04/15/17 21:34 White Blood Count 12.67 K/uL Red Blood Count 4.23 M/uL Hemoglobin 10.5 g/dL Hematocrit 34.8 % Mean Corpuscular Volume 82.3 fL Mean Corpuscular Hemoglobin 24.8 pg Mean Corpuscular Hemoglobin Concent 30.2 g/dl Platelet Count 256 K/uL Mean Platelet Volume 9.5 fL Neutrophils (%) (Auto) 84.6 % Lymphocytes (%) (Auto) 7.4 % Monocytes (%) (Auto) 6.9 % Eosinophils (%) (Auto) 0.7 % Basophils (%) (Auto) 0.2 % Neutrophils # (Auto) 10.71 K/uL Lymphocytes # (Auto) 0.94 K/uL Monocytes # (Auto) 0.88 K/uL Eosinophils # (Auto) 0.09 K/uL Basophils # (Auto) 0.02 K/uL RDW Standard Deviation 61.3 fL RDW Coefficient of Variation 20.2 % Immature Granulocyte % (Auto) 0.2 % Immature Granulocyte # (Auto) 0.03 K/uL Anisocytosis PRESENT Prothrombin Time 10.7 SECONDS Prothromb Time International Ratio 1.0 Activated Partial Thromboplast Time 23.8 SECONDS Partial Thromboplastin Ratio 0.9 Sodium Level 140 mmol/L Potassium Level 3.7 mmol/L Chloride Level 105 mmol/L Carbon Dioxide Level 27 mmol/L Anion Gap 8.0 mmol/L Blood Urea Nitrogen 16 mg/dl Creatinine 0.80 mg/dl Est Creatinine Clear Calc Drug Dose 60.9 ml/min Estimated GFR () 81.8 Estimated GFR (Non- 70.6 BUN/Creatinine Ratio 19.3 Random Glucose 171 mg/dl Calcium Level 8.5 mg/dl Total Bilirubin 0.3 mg/dl Direct Bilirubin < 0.1 mg/dl Aspartate Amino Transf (AST/SGOT) 19 U/L Alanine Aminotransferase (ALT/SGPT) 21 U/L Alkaline Phosphatase 76 U/L Total Protein 6.7 gm/dl Albumin 3.9 gm/dl Urine Color YELLOW Urine Appearance CLEAR Urine pH 5.0 Urine Specific [place] 1.045 Urine Protein 2+ Urine Glucose (UA) NEG Urine Ketones NEG Urine Occult Blood NEG Urine Nitrite NEG Urine Bilirubin NEG Urine Urobilinogen NEG Urine Leukocyte Esterase SMALL Urine WBC (Auto) 5-10 /hpf Urine RBC (Auto) 0-4 /hpf Urine Hyaline Casts (Auto) 1-5 /lpf Urine Epithelial Cells (Auto) 20-30 /lpf Urine Bacteria (Auto) NEG Bedside Glucose 153 mg/dl 163 mg/dl Test 04/16/17 07:58 Bedside Glucose 205 mg/dl Assessment & Plan Assessment: Oblique spiral fracture of the right distal humerus at the junction of the middle and distal third. Plan; Dr. Mondragon has reviewed the films and plans at this time will be to bring the patient to the operating room and have her undergo closed reduction of the distal humerus fracture with use of fluoroscopy and application of coaptation splint.
[2017-04-16] MEDS ORDERED: MIDAZOLAM HCL 1 MG/ML 2ML VIAL ONE (12:23)
[2017-04-16] MEDS ORDERED: FENTANYL CITRATE INJ 50 MCG/1 ML 2 ML VIAL ONE (12:23)
[2017-04-16] MEDS ORDERED: EpHEDrine SULFATE INJ 50 MG/ML AMP IV PRN (12:30)
[2017-04-16] MEDS ORDERED: ONDANSETRON INJ 2 MG/ML 2 ML VIAL IV PRN (12:30)
[2017-04-16] MEDS ORDERED: FENTANYL CITRATE INJ 50 MCG/1 ML 2 ML VIAL IV PRN (12:30)
[2017-04-16] MEDS ORDERED: ATROPINE SULFATE 0.1 MG/ML 5ML SYR IV PRN (12:30)
--- NOTE | 2017-04-16 13:46 | [facility] Post Operative Brief Note ---
Immediate Operative Summary Operative Date Apr 16, 2017. Pre-Operative Diagnosis Fractured right humerous Post-Operative Diagnosis Same as preop Procedure(s) Performed Closed Reduction and Application Coaptation Device Right Distal Radius Surgeon Dr. Mondragon Senior Analytic Consultant Surgeon(s) Karel Youngblood PAC Estimated Blood Loss None Findings Consistent with Post-Op Diagnosis Specimens None Anesthesia Type IV Sedat Cons RN Only Complication(s) none Disposition Accompanied Pt To Recover: no Disposition: Recovery Room / PACU
[2017-04-16] MEDS ORDERED: PROPOFOL IV EMULSION 10 MG/ML 20 ML VIAL IV ONE (13:49)
--- NOTE | 2017-04-16 13:50 | DIAGNOSTIC IMAGING REPORT ---
FLUOROSCOPIC IMAGES OF THE RIGHT ELBOW CLINICAL HISTORY: Post reduction of distal right humeral fracture. COMPARISON STUDY: Right elbow radiographs April 15, 2017. Fluoroscopy time: 14.6 seconds. FINDINGS: 3 fluoroscopic images demonstrate significant improvement in alignment of the oblique fracture of the distal shaft of the right humerus. IMPRESSION: Improved alignment of the distal right humeral fracture status post closed reduction. Electronically signed by: Torey Nova M.D. 04/16/2017 1:48 PM Dictated Date/Time: 04/16/2017 1:47 PM
--- NOTE | 2017-04-16 14:04 | Anesthesiology Progress Note ---
Anesthesia Post Op Note Date & Time Apr 16, 2017 at 14:03 Vital Signs Pain Intensity: 0 Vital Signs Past 12 Hours Date Time Temp Pulse Resp B/P (MAP) Pulse Ox O2 Delivery O2 Flow Rate FiO2 04/16/17 13:50 16 124/63 91 Room Air 04/16/17 13:43 36.3 92 16 107/66 100 Oxymask 10 04/16/17 07:50 Room Air 04/16/17 06:55 37.1 87 16 150/75 (100) 96 Room Air Notes Mental Status: alert / awake / arousable, participated in evaluation Pt Amnestic to Procedure: Yes Nausea / Vomiting: adequately controlled Pain: adequately controlled Airway Patency, RR, SpO2: stable & adequate BP & HR: stable & adequate Hydration State: stable & adequate Anesthetic Complications: no major complications apparent
--- NOTE | 2017-04-16 14:27 | DIAGNOSTIC IMAGING REPORT ---
R HUMERUS MIN 2 VIEWS ROUTINE CLINICAL HISTORY: Postop closed reduction COMPARISON: 04/15/2017 DISCUSSION: There is been interval reduction of the previously identified fracture of the humerus at the junction of middle distal one third. There is been application of a plaster cast. There is decreased angulation and displacement the fracture site. Maximal fracture displacement is now 8 mm. Angulation is now 13 degrees. IMPRESSION: Improved alignment of the humeral fracture status post reduction and application of a plaster cast. Electronically signed by: Eric Qiu M.D. 04/16/2017 2:25 PM Dictated Date/Time: 04/16/2017 2:23 PM
--- NOTE | 2017-04-16 14:36 | DIAGNOSTIC IMAGING REPORT ---
L SHOULDER MIN 2 VIEWS ROUTINE CLINICAL HISTORY: previous ORIF fracture COMPARISON: Humerus same date DISCUSSION: Severe degenerative change right shoulder. The fracture of the distal humeral shaft is noted. No additional acute bony abnormality. There is no evidence for soft tissue swelling. IMPRESSION: Severe degenerative change right shoulder. No acute bony abnormality. The above report was generated using voice recognition software. It may contain grammatical, syntax or spelling errors. Electronically signed by: Amadeo Pickens M.D. 04/16/2017 2:35 PM Dictated Date/Time: 04/16/2017 2:31 PM
--- NOTE | 2017-04-16 15:30 | OPERATIVE REPORT ---
DATE OF OPERATION: 04/16/2017 PREOPERATIVE DIAGNOSIS: Spiral fracture distal humeral shaft right arm. POSTOPERATIVE DIAGNOSIS: Spiral fracture distal humeral shaft right arm. PROCEDURE: Closed reduction and application of coaptation splint right arm. SURGEON: Devin Mondragon MD DECORATOR STREET [employer] BUILDING: Jn Youngblood PA-C ANESTHESIA: IV sedation. COMPLICATIONS: None. Mr. Youngblood was essential for all portions of the case including positioning, splint application and fracture reduction. The patient was placed on the operating table under IV sedation and image intensification was used to perform a closed reduction of the humerus, much improvement in posterior angulation and displacement was gained. A coaptation splint was applied and mold was placed maintaining significantly improved reduction. Once the splint hardened, was placed back in a sling. She was transferred into her regular bed. She was awakened and taken to recovery room in stable and good condition. She tolerated the procedure well. I attest to the content of the Intraoperative Record and any orders documented therein. Any exception s are noted below.
[2017-04-16] MEDS ORDERED: PHARMACY GLYCEMIC MGMT CONSULT SCH (16:17)
[2017-04-16] MEDS: OXYCODONE HCL IR 5 MG TAB (IMMEDIATE RELEASE) PO PRN ×2 (17:15→21:48)
[2017-04-16] MEDS ORDERED: INSULIN GLARGINE SOLOSTAR 100 UNITS/ML 3 ML PEN SC ONE (17:15)
--- NOTE | 2017-04-16 20:53 | EMERGENCY ROOM VISIT NOTE ---
ED Visit Note First contact with patient: 15:03 Resident Physician Supervision Note: I interviewed and examined the patient. Discussed with Dr. Farley and agree with findings and plan as documented in the note. Any exceptions or clarifications are listed here: Pt was evaluated and all questions were answered. She was concerned about the possibility of a rehab stay after admission. Pt was informed that the dispo would depend on her progress during hospitalization. She agrees with the plan for medical admission and orthopaedic consultation. Documented By: Leah Ledezma
--- NOTE | 2017-04-16 21:38 | Pharmacy Progress Note ---
Glycemic Control Intl Consult Date of Service Apr 16, 2017. Scope Glycemic Pharmacist consulted by Dr Osborne on 04/16/17 for glycemic control and to write orders per [facility] inpatient glycemic control protocol Objective Weight (Kilograms): 82.000 Accuchecks BSG (last 24hrs): Test 04/15/17 21:34 04/16/17 07:58 04/16/17 11:44 04/16/17 13:45 Bedside Glucose 163 mg/dl (70-90) 205 mg/dl (70-90) 180 mg/dl (70-90) 173 mg/dl (70-90) Test 04/16/17 17:13 04/16/17 20:37 Bedside Glucose 195 mg/dl (70-90) 213 mg/dl (70-90) Recent Pertinent Medications Outpatient Anti-diabetic Regimen: * Lantus 40 units BID * Metformin 1 gm BID * Note: patient has been having hypoglycemia w/ this regimen - recent decreased po intake and weight loss The patient is currently receiving: * Basal insulin: Lantus 20 units X 1 last night * Correctional Insulin: Novolog Correction per scale ACHS Goal Range: Low 120 mg/dL - High 160 mg/dL Correction Factor: 30 mg/dL/unit * Prandial insulin: Per carb ratio of 1 unit per 9 grams CHO consumed * Oral Agents: None at this time Risk Factors for Insulin Resistance: * Steroids: none given in OR * Recent Surgery: POD 0 * Diet: type 2 diabetes Assessment & Plan ASSESSMENT: * 76 y/o female s/p ortho surgery * Received reduced dose Lantus for NPO status but will need more tonight * Hesitant to go back to outpatient dose based upon recent hypoglycemia. Will increase slowly. * Anticipate basal dose between 30-40 units/day once po intake resumes? PLAN FOR INPATIENT GLYCEMIC CONTROL: * Increase Lantus to 25 units x 1 tonight * Change to BID Lantus from tomorrow AM based upon scale * 15 units for BSG less than 150 * 20 units for BSG 150 or above * Continue correction factor of 30 mg/dl/unit * Continue carb ratio of 1 unit per 9 grams CHO consumed * Change goal range to Low 120 mg/dL - High 150 mg/dL * Add overnight accucheck at 0200 * Please note that the plan above was derived based on current level of insulin resistance and hospital stress. These recommendations are appropriate for inpatient admission only. Plan of care upon discharge will need to be reassessed to avoid potential outpatient hypo/hyperglycemia. Thank you.
[2017-04-16] MEDS: BOOST GLUCOSE CONTROL PO SCH (21:47)
[2017-04-17] VITALS (21 sets, daily range): BP systolic 105–255; BP diastolic 65–119; PULSE 78–100; TEMP 36.6–37.3; O2SAT 93–100
[2017-04-17] MEDS: HYDROmorphone INJ 0.5 MG/0.5 ML SYR IV PRN ×2 (01:57→05:09)
[2017-04-17] MEDS ORDERED: INSULIN ASPART 100 UNITS/ML 3 ML PEN SC ONE (02:00)
[2017-04-17 03:35] LABS: BASO % 0.2 %; BASO ABS # 0.02 K/uL (0-0.2); EOS % 0.9 %; EOS ABS # 0.09 K/uL (0-0.5); HEMATOCRIT 30.3 % (37-47); HEMOGLOBIN 9.1 g/dL (12.0-16.0); IG# 0.02 K/uL (0.00-0.02); LYMPH % 14.6 %; MEAN CELL VOLUME 83.5 fL (80-100); MEAN CORPUSCULAR HEMOGLOBIN 25.1 pg (25-34); MEAN PLATELET VOLUME 9.3 fL (7.4-10.4); MONO ABS # 1.23 K/uL (0.11-0.59); NEUT % 72.1 %; NEUT ABS # 7.38 K/uL (1.4-6.5); PLATELET COUNT 215 K/uL (130-400); RED CELL DISTRIBUTION WIDTH CV 20.3 % (11.5-14.5); RED CELL DISTRIBUTION WIDTH SD 62.5 fL (36.4-46.3); WHITE BLOOD COUNT 10.24 K/uL (4.8-10.8)
[2017-04-17] MEDS: ALBUT/IPRATROP 3MG/0.5MG NEB 3 ML VIAL INH SCH ×5 (03:39→20:00)
[2017-04-17] MEDS ORDERED: ALBUT/IPRATROP 3MG/0.5MG NEB 3 ML VIAL INH STA (03:43)
[2017-04-17] MEDS ORDERED: NURSING VERBAL MED ORDER ONE (03:45)
[2017-04-17 03:54] LABS: CALCIUM 8.7 mg/dl (8.5-10.1); CREATININE 0.64 mg/dl (0.60-1.20); POTASSIUM 3.7 mmol/L (3.5-5.1)
--- NOTE | 2017-04-17 04:12 | Progress Note ---
Progress Note Date of Service Apr 17, 2017. Progress Note Paged about the patient this evening at 2:30 am with complaints of ongoing shortness of breath although saturating 95% on room air. Ordered Chest X-Ray, STAT Morning labs, Troponin, and EKG. EKG Showed T wave inversion in the inferior leads. Troponin returned at 0.493. Patient sent for STAT CT for PE. Due to suspected pulmonary embolism Heparin Subq ordered at this time despite surgery performed today for a right humeral fracture.
[2017-04-17] MEDS ORDERED: OPTIRAY 320 IV PRN (04:15)
[2017-04-17] MEDS: ONDANSETRON INJ 2 MG/ML 2 ML VIAL IV PRN (05:09)
[2017-04-17] MEDS ORDERED: HEPARIN 25,000 UNIT/500ML D5W 500 ML IV PRN (05:30)
[2017-04-17 05:36] LABS: PTT PATIENT 23.8 SECONDS (21.0-31.0)
[2017-04-17] MEDS ORDERED: LORAZEPAM 2 MG/ML 1 ML VIAL IV STA (05:43)
[2017-04-17] MEDS ORDERED: LORAZEPAM 2 MG/ML 1 ML VIAL ONE (06:03)
[2017-04-17] MEDS: LEVOTHYROXINE 125 MCG TAB PO SCH (06:09)
--- NOTE | 2017-04-17 06:33 | DIAGNOSTIC IMAGING REPORT ---
CT ANGIOGRAM OF THE CHEST CLINICAL HISTORY: Shortness of breath. Recent orthopedic fracture. COMPARISON STUDY: Chest x-ray dated 04/07/2017, CT scan dated 03/14/2017 TECHNIQUE: Following the IV administration of 92 mL of Optiray-320, CT angiogram of the thorax was performed from the thoracic inlet to the lung bases utilizing the pulmonary embolus protocol. Images are reviewed in the axial, sagittal, and coronal planes. IV contrast was administered without complication. MIP imaging was performed. A dose lowering technique was utilized adhering to the principles of ALARA. CT DOSE: 850.91 mGy.cm FINDINGS: No pathologically enlarged axillary mediastinal or hilar lymph nodes were visualized. There was no evidence of thoracic aortic dilatation. There were no pulmonary artery filling defects to indicate acute pulmonary embolism. No pleural effusions are visualized. There are dependent atelectatic changes. There is a stable 7.5 mm left lower lobe pulmonary nodule as visualized in image #107/288. There is a stable 5 mm right lower lobe pulmonary nodule as visualized in image #125/288. There is stable 10 mm right lower lobe pulmonary nodule as visualized in image #113/288. There is a stable 4 mm right lower lobe pulmonary nodule as visualized in image #170/288. There is a stable 5 mm left lower lobe pulmonary nodule as visualized in image #137/288. Also evident are pulmonary micronodules at the left apex measuring up to 2 mm in diameter. These also remain stable There is a healing left seventh rib fracture. IMPRESSION: 1. No evidence of acute pulmonary embolism 2. Multiple lower lobe pulmonary nodules measuring up to 10 mm in diameter. As was previously stated, [address] follow-up is recommended. 3. Displaced spiral/oblique fracture of the right humerus at the junction of proximal and distal one third as visualized on the research laboratory technician radiograph 4. Healing left seventh rib fracture Electronically signed by: Eric Qiu M.D. 04/17/2017 6:31 AM Dictated Date/Time: 04/17/2017 6:24 AM
--- NOTE | 2017-04-17 06:40 | DIAGNOSTIC IMAGING REPORT ---
CHEST ONE VIEW PORTABLE CLINICAL HISTORY: Shortness of breath COMPARISON STUDY: Chest radiograph April 15, 2017. FINDINGS: Proximal left humeral internal fixation is partially imaged. No pneumothorax or pleural effusion is noted. There is no evidence for pulmonary edema. Mild elevation of the right hemidiaphragm is unchanged. There is no consolidation. IMPRESSION: No acute cardiopulmonary findings. No change in appearance of the chest. Electronically signed by: Torey Nova M.D. 04/17/2017 6:39 AM Dictated Date/Time: 04/17/2017 6:36 AM
--- NOTE | 2017-04-17 07:16 | Family Medicine Progress Note ---
"Progress Note Date of Service Apr 17, 2017. Subjective Pt evaluation today including: conversation w/ patient, physical exam, chart review, lab review, review of inpatient medication list Pain: No pain reported PO Intake: NPO Voiding: zapata catheter in place Ms. Cox reports that last night she had an episode of chest pain that was severe and over the center of her chest. She states it came on suddenly, was associated with shortness of breath and feeling cold. She denies n/v, diaphoresis or radiation of the pain. She is unable to provide further details due to being very tired and slipping in and out of sleep. Pt was seen again later in the day and remained confused. She noted discharge from her left eye and crusting over the eyelid. She denied any chest pain or shortness of breath at this time. Constitutional: No fever, No chills Respiratory: + shortness of breath, No cough, No sputum Cardiovascular: + chest pain Abdomen: No pain, No nausea, No vomiting Musculoskeletal: + joint pain (right arm pain) All Other Systems: Reviewed and Negative Medications Current Inpatient Medications Medications (Trade) Dose Ordered Sig/Regis Route Start Time Stop Time Status Last Admin Dose Admin Ioversol (Optiray 320) 100 ml UD PRN IV 04/15/17 16:00 04/19/17 15:59 Acetaminophen (Tylenol Tab) 650 mg Q4H PRN PO 04/15/17 20:30 05/15/17 20:29 Magnesium Hydroxide (Milk Of Magnesia Susp) 30 ml Q6H PRN PO 04/15/17 20:30 05/15/17 20:29 Polyethylene (Miralax Powder Packet) 17 gm DAILY PRN PO 04/15/17 20:30 05/15/17 20:29 Ondansetron HCl (Zofran Inj) 4 mg Q6H PRN IV 04/15/17 20:30 05/15/17 20:29 04/17/17 05:09 4 MG Insulin Aspart (novoLOG ASPART) SLIDING SCALE If C... ACHS SC 04/15/17 21:00 05/15/17 20:59 04/17/17 12:26 7 UNITS Glucose (Glucose 40% Gel) 15-30 GRAMS 15 GRAMS... UD PRN PO 04/15/17 20:30 05/15/17 20:29 Glucose (Glucose Chew Tab) 4-8 Tablets 4 Tabl... UD PRN PO 04/15/17 20:30 05/15/17 20:29 Dextrose (Dextrose 50% 50ML Syringe) 25-50ML OF 50% DW IV FOR... UD PRN IV 04/15/17 20:30 05/15/17 20:29 Glucagon (Glucagon Inj) 1 mg UD PRN SQ 04/15/17 20:30 05/15/17 20:29 Benzonatate (Tessalon Perles Cap) 100 mg TID PRN PO 04/15/17 20:30 05/15/17 20:29 Levothyroxine Sodium (Synthroid Tab) 125 mcg DAILYBB PO 04/16/17 06:00 05/16/17 05:59 04/17/17 06:09 125 MCG Losartan Potassium (coZAAR TAB) 75 mg DAILY PO 04/16/17 09:00 05/16/17 08:59 04/17/17 08:38 75 MG Pantoprazole Sodium (Protonix Tab) 40 mg BID PO 04/15/17 21:00 05/15/17 20:59 04/17/17 08:38 40 MG Prochlorperazine Maleate (Compazine Tab) 10 mg Q6H PRN PO 04/15/17 20:30 05/15/17 20:29 Simvastatin (Zocor Tab) 40 mg QAM PO 04/16/17 09:00 05/16/17 08:59 04/17/17 08:38 40 MG Ferrous Sulfate (Feosol Tab) 650 mg DAILY PO 04/16/17 09:00 05/16/17 08:59 04/17/17 08:38 650 MG Miscellaneous (Iv Fluids Completed) 1 ea PRN PRN N/A 04/15/17 21:00 04/15/18 20:59 Hydromorphone HCl (Dilaudid Inj) 0.5 mg Q3H PRN IV 04/15/17 22:30 04/29/17 22:29 04/17/17 05:09 0.5 MG Enteral Nutritional Formula (Boost Glucose Control) 1 can HS PO 04/15/17 23:00 05/15/17 22:59 04/16/17 21:47 1 CAN Oxycodone HCl (Roxicodone Immediate Rel Tab) `1-2 tabs for pain 1 tab ... Q6HWA PRN PO 04/16/17 13:45 04/30/17 13:44 04/16/17 21:48 10 MG Miscellaneous Information (Consult Glycemic Management Pharmacy) 1 ea UD N/A 04/16/17 16:17 05/16/17 16:16 Insulin Glargine (Lantus Solostar Pen) SEE PROTOCOL TEXT BID SC 04/17/17 09:00 05/17/17 08:59 04/17/17 08:42 30 UNITS Albuterol/ Ipratropium (Duoneb) 3 ml QIDR INH 04/17/17 08:00 05/17/17 07:59 04/17/17 07:26 3 ML Ioversol (Optiray 320) 100 ml UD PRN IV 04/17/17 04:15 04/21/17 04:14 Heparin Sodium/ Dextrose 500 ml @ 24 mls/hr [id number] PRN IV 04/17/17 05:30 05/17/17 05:29 04/17/17 05:54 24 MLS/HR Ofloxacin (Ocuflox 0.3% Oph Soln) 2 drops Q4H OPL 04/17/17 12:30 04/19/17 12:29 04/17/17 13:43 2 DROPS Objective Vital Signs Date Time Temp Pulse Resp B/P (MAP) Pulse Ox O2 Delivery O2 Flow Rate FiO2 04/17/17 11:12 36.9 98 14 174/84 (114) 93 Room Air 04/17/17 08:39 37.1 98 24 127/71 (89) 93 Room Air 04/17/17 08:00 Room Air 04/17/17 07:29 84 20 100 Nasal Cannula 2.0 04/17/17 07:01 78 15 105/75 (85) 98 Nasal Cannula 2.0 04/17/17 05:25 86 12 156/80 (105) 98 04/17/17 05:01 37.1 185/83 (117) 04/17/17 05:01 37.1 97 18 95 2.0 04/17/17 03:40 92 21 98 Nasal Cannula 2.0 04/17/17 02:25 37.1 97 18 176/82 (113) 95 Room Air 04/17/17 01:52 37.2 04/16/17 23:30 Room Air 04/16/17 23:15 37.0 70 18 141/60 (87) 95 Room Air 04/16/17 19:06 36.8 99 20 122/80 (94) 95 Room Air 04/16/17 17:11 37.7 96 16 146/78 (100) 94 Room Air 04/16/17 15:34 37.1 84 18 137/75 (95) 95 Room Air 04/16/17 15:03 37.2 88 18 115/72 (86) 97 Room Air Physical Exam General Appearance: WD/WN, no apparent distress Eyes: + pertinent finding (left eye swollen, bruised. Crusting noted on eyelid) Respiratory/Chest: lungs clear, normal breath sounds, no respiratory distress, no accessory muscle use Cardiovascular: regular rate, rhythm, no edema Abdomen: non tender, soft Extremities: no pedal edema, no calf tenderness Neurologic/Psychiatric: + disoriented Laboratory Results Last 24 Hours Test 04/16/17 17:13 04/16/17 20:37 04/17/17 01:49 04/17/17 03:20 Bedside Glucose 195 mg/dl 213 mg/dl 178 mg/dl White Blood Count 10.24 K/uL Red Blood Count 3.63 M/uL Hemoglobin 9.1 g/dL Hematocrit 30.3 % Mean Corpuscular Volume 83.5 fL Mean Corpuscular Hemoglobin 25.1 pg Mean Corpuscular Hemoglobin Concent 30.0 g/dl Platelet Count 215 K/uL Mean Platelet Volume 9.3 fL Neutrophils (%) (Auto) 72.1 % Lymphocytes (%) (Auto) 14.6 % Monocytes (%) (Auto) 12.0 % Eosinophils (%) (Auto) 0.9 % Basophils (%) (Auto) 0.2 % Neutrophils # (Auto) 7.38 K/uL Lymphocytes # (Auto) 1.50 K/uL Monocytes # (Auto) 1.23 K/uL Eosinophils # (Auto) 0.09 K/uL Basophils # (Auto) 0.02 K/uL RDW Standard Deviation 62.5 fL RDW Coefficient of Variation 20.3 % Immature Granulocyte % (Auto) 0.2 % Immature Granulocyte # (Auto) 0.02 K/uL Polychromasia 1+ Anisocytosis PRESENT Sodium Level 139 mmol/L Potassium Level 3.7 mmol/L Chloride Level 103 mmol/L Carbon Dioxide Level 29 mmol/L Anion Gap 7.0 mmol/L Blood Urea Nitrogen 11 mg/dl Creatinine 0.64 mg/dl Est Creatinine Clear Calc Drug Dose 75.1 ml/min Estimated GFR () 99.1 Estimated GFR (Non- 85.5 BUN/Creatinine Ratio 17.6 Random Glucose 165 mg/dl Calcium Level 8.7 mg/dl Troponin I 0.493 ng/ml Vitamin B12 Level 266 pg/mL 25-Hydroxy Vitamin D Total 21.1 ng/ml Folate 16.22 ng/mL Test 04/17/17 05:15 04/17/17 06:52 04/17/17 09:33 04/17/17 11:11 Activated Partial Thromboplast Time 23.8 SECONDS Partial Thromboplastin Ratio 0.9 Bedside Glucose 171 mg/dl 247 mg/dl Troponin I 0.584 ng/ml Test 04/17/17 12:03 Activated Partial Thromboplast Time 28.9 SECONDS Partial Thromboplastin Ratio 1.1 Assessment and Plan The patient is a 76 year old female with a past medical history of HTN, HLD, Asthma, JEFERSON, DM, GERD, Thyroid Cancer s/p Thyroidectomy in 1994, and tracheal cancer s/p resection in 2007 that presents with a right humeral fracture status post mechanical fall this morning. Mechanical Fall - Humeral X-Ray: Mildly displaced angulated oblique/spiral fracture of the humerus at the junction of the middle and distal one third - CXR: Mildly displaced left seventh rib fracture which is likely subacute, No pneumothorax - Thank you to Ortho for consult - day 1 post closed reduction of right humeral fracture - repeat x-ray showed worsening of displacement of humeral diaphyseal fracture -> will defer to ortho for management - Pain control: Tylenol 650mg PO q6h, Dilaudid 0.5mg IV q3h, Roxicodone 5-10mg q6h Chest Pain - pt had episode of chest pain and shortness of breath overnight - CXR and CTA -ve - EKG showed new T wave inversions in inferior and lateral leads - troponin elevated at 0.4, repeat trop 0.5 - thank you to cardiology for consult - cath wnl, ?stress induced cardiomyopathy - ECHO ordered Conjunctivitis - treat with ofloxacin eyedrops Diabetes Mellitus - Diabetic diet - Home dose of Lantus is 40 units BID - pt reports sugars have not been well controlled and she has frequent lows - glycemic consult ordered - 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 for diabetes management - Hold home metformin - B12 levels wnl ?Osteoporosis - this is the patient's second time breaking an arm after a fall from standing height - pt said she had DEXA scan done 1-2 years ago and it was normal - no record of DEXA scan in Powerchart - Vitamin D level low at 21 - will supplement with 1500 units of cholecalciferol daily and recommend outpatient DEXA Hypertension - Continue home Losartan GERD - Continue home Protonix HLD - Continue home Zocor Hypothyroidism - Continue home Synthroid Asthma - Well controlled with no recent flares - DuoNeb PRN SOB DVT - SCDs Code Status - Full Resuscitation Disposition - referral in place to [facility] - case management looking into placing her at [facility] as she is his primary caregiver. He has Alzheimer's Disease and requires round the clock care. He is currently staying with her sister. Resident Tracking Resident Involvement: Resident Care Provided Care Provided: Adult Hospital Medicine History Resident Physician Supervision Note: I was present with Dr. Osborne during the history and exam. I discussed the case with the resident and agree with the findings and plan as documented in the note. Any exceptions or clarifications are listed here. At time of evaluation, pt complains of left shoulder pain without chest pain, shortness of breath, palpitations, or lightheadedness. General Appearance: WD/WN, obese Respiratory: chest non-tender, lungs clear, normal breath sounds, no respiratory distress Cardiovascular: normal peripheral pulses, regular rate, rhythm, systolic murmur (2/6 Jasen) Extremities: other (LUE swelling, in sling c/w fx) Assessment/Plan 76 y/o female h/o HLD, HTN< JEFERSON, DMII, asthma p/w right humeral fracture 2/2 mechanical fall Chest pain - cardiology consultation - TWI on EKG w/ elevated troponin - s/p cardiac catheterization WNL, echo pending Humeral fracture s/p fall - orthopaedic consultation - following imaging - cast in place | would benefit from DEXA as outpatient Conjunctivitis - likely bacterial w/ discharge and swelling. Agree w/ ophthalmic abx DMII - glycemic consultation - continue lantus w/ ISS w/ goal range of ~140 HTN - continue losartan Full code Placement at [facility]"
--- NOTE | 2017-04-17 08:09 | Anesthesiology Progress Note ---
Anesthesia Post Op Note Date & Time Apr 17, 2017 at 08:08 Vital Signs Pain Intensity: 7.0 Vital Signs Past 12 Hours Date Time Temp Pulse Resp B/P (MAP) Pulse Ox O2 Delivery O2 Flow Rate FiO2 04/17/17 07:29 84 20 100 Nasal Cannula 2.0 04/17/17 05:25 86 12 156/80 (105) 98 04/17/17 05:01 37.1 185/83 (117) 04/17/17 05:01 37.1 97 18 95 2.0 04/17/17 03:40 92 21 98 Nasal Cannula 2.0 04/17/17 02:25 37.1 97 18 176/82 (113) 95 Room Air 04/17/17 01:52 37.2 04/16/17 23:30 Room Air 04/16/17 23:15 37.0 70 18 141/60 (87) 95 Room Air Notes Mental Status: alert / awake / arousable, participated in evaluation Pt Amnestic to Procedure: Yes Nausea / Vomiting: adequately controlled Pain: adequately controlled Airway Patency, RR, SpO2: stable & adequate BP & HR: stable & adequate Hydration State: stable & adequate Anesthetic Complications: no major complications apparent
[2017-04-17] MEDS: FERROUS SULFATE 325 MG TAB PO SCH (08:38)
[2017-04-17] MEDS: SIMVASTATIN 40 MG TAB PO SCH (08:38)
[2017-04-17] MEDS: LOSARTAN POTASSIUM 50 MG TAB PO SCH (08:38)
[2017-04-17] MEDS: PANTOprazole SOD 40 MG TAB PO SCH ×2 (08:38→19:33)
[2017-04-17] MEDS: INSULIN ASPART 100 UNITS/ML 3 ML PEN SC SCH ×4 (08:42→19:36)
[2017-04-17] MEDS ORDERED: INSULIN GLARGINE SOLOSTAR 100 UNITS/ML 3 ML PEN SC SCH ×2 (09:00→21:00)
--- NOTE | 2017-04-17 10:25 | Orthopedic Progress Note ---
Orthopedic Progress Note Date of Service Apr 17, 2017. Subjective Post OP Day: 1 Additional Notes: Pt transferred to SICU overnight for CP/SOB. r/o PE/OK. Pt sitting at the edge of the bed. States she needs to urinate. Discussed that she has a zapata catheter in currently that looks like it is draining well. States that her right arm feels "ok". Some pain off and on but tolerating well. Denies CP/SOB currently. Objective Coaptation splint in place. Sling on. Moving fingers fairly well. Fingers swollen. Sensation intact. Date Time Temp Pulse Resp B/P (MAP) Pulse Ox O2 Delivery O2 Flow Rate FiO2 04/17/17 08:39 37.1 98 24 127/71 (89) 93 Room Air 04/17/17 08:00 Room Air 04/17/17 07:29 84 20 100 Nasal Cannula 2.0 04/17/17 07:01 78 15 105/75 (85) 98 Nasal Cannula 2.0 04/17/17 05:25 86 12 156/80 (105) 98 04/17/17 05:01 37.1 185/83 (117) 04/17/17 05:01 37.1 97 18 95 2.0 04/17/17 03:40 92 21 98 Nasal Cannula 2.0 04/17/17 02:25 37.1 97 18 176/82 (113) 95 Room Air 04/17/17 01:52 37.2 04/16/17 23:30 Room Air 04/16/17 23:15 37.0 70 18 141/60 (87) 95 Room Air 04/16/17 19:06 36.8 99 20 122/80 (94) 95 Room Air 04/16/17 17:11 37.7 96 16 146/78 (100) 94 Room Air 04/16/17 15:34 37.1 84 18 137/75 (95) 95 Room Air 04/16/17 15:03 37.2 88 18 115/72 (86) 97 Room Air 04/16/17 14:30 37.2 92 18 124/75 (91) 94 Room Air 04/16/17 14:30 Room Air 04/16/17 14:30 Room Air 04/16/17 14:10 36.2 99 16 146/79 95 Room Air 04/16/17 14:00 95 16 136/72 91 Room Air 04/16/17 13:50 16 124/63 91 Room Air 04/16/17 13:43 36.3 92 16 107/66 100 Oxymask 10 Laboratory Results 24 Hours: Test 04/17/17 03:20 White Blood Count 10.24 K/uL Red Blood Count 3.63 M/uL Hemoglobin 9.1 g/dL Hematocrit 30.3 % Mean Corpuscular Volume 83.5 fL Mean Corpuscular Hemoglobin 25.1 pg Mean Corpuscular Hemoglobin Concent 30.0 g/dl Platelet Count 215 K/uL Mean Platelet Volume 9.3 fL Neutrophils (%) (Auto) 72.1 % Lymphocytes (%) (Auto) 14.6 % Monocytes (%) (Auto) 12.0 % Eosinophils (%) (Auto) 0.9 % Basophils (%) (Auto) 0.2 % Neutrophils # (Auto) 7.38 K/uL Lymphocytes # (Auto) 1.50 K/uL Monocytes # (Auto) 1.23 K/uL Eosinophils # (Auto) 0.09 K/uL Basophils # (Auto) 0.02 K/uL Assessment & Plan Assessment: POD 1 s/p C/R and splinting of right distal humerus fx Plan: Planning for non operative treatment at this time. PT/OT as able Getting left shoulder films to recheck healing of left proximal humerus fx that had ORIF in February. Inhouse Planning Pain Management: Dilaudid, Oxy IR DVT Prophylaxis: TEDs, SCDs, Heparin Drip Discharge Planning Discharge Planning: rehab hospital
--- NOTE | 2017-04-17 10:32 | Cardiology Consultation ---
Cardiology Consultation Date of Consultation: Apr 17, 2017. Requesting Physician: Negrita Reason for Consultation: Elevated troponin Pt evaluation today including: conversation w/ patient, physical exam, chart review, lab review, review of studies, review of inpatient medication list History of Present Illness The patient is a 68-year-old woman without a known history of cardiac disease who was admitted to [facility] after suffering a right humeral fracture. The patient states that she tripped at home and landed on her right side. She had some mild facial injury associated with her arm fracture. She did not describe dizziness or lightheadedness leading up to this event. She did not lose consciousness. She did not have symptoms of palpitations. Apparently subsequent to a closed reduction of her fracture the patient began to experience symptoms of dyspnea. Concern was raised regarding PE and she was sent for a PE protocol CT scan. This did not suggest any evidence of pulmonary embolus. EKG obtained during that time was abnormal and different from her presenting EKG. She was also noted to have elevated cardiac biomarkers. During the interview today the patient had some difficulty with mentation due to narcotic administration. However, she was not reporting significant dyspnea. She is not reporting current chest discomfort. She is not aware of any palpitations. She states that at home she is fairly sedentary and has an a to provide some assistance with her activities. She is currently caring for her who suffers from dementia. He states that with certain activities she does experience chest pain. This was difficult to characterize due to her mild intoxication. 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 Remainder review of systems was normal but she was slightly intoxicated during this interview. All Other Systems: Reviewed and Negative Allergies Coded Allergies: Doxycycline (Verified Allergy, Severe, TONGUE SWELLS/SOB, 03/04/17) Codeine (Verified Allergy, Intermediate, LARGE DOSES CAUSE RASH, 03/04/17) Morphine (Verified Adverse Reaction, Severe, CONFUSION, 04/15/17) Medications Current Inpatient Medications Medications (Trade) Dose Ordered Sig/Regis Route Start Time Stop Time Status Last Admin Dose Admin Ioversol (Optiray 320) 100 ml UD PRN IV 04/15/17 16:00 04/19/17 15:59 Acetaminophen (Tylenol Tab) 650 mg Q4H PRN PO 04/15/17 20:30 05/15/17 20:29 Magnesium Hydroxide (Milk Of Magnesia Susp) 30 ml Q6H PRN PO 04/15/17 20:30 05/15/17 20:29 Polyethylene (Miralax Powder Packet) 17 gm DAILY PRN PO 04/15/17 20:30 05/15/17 20:29 Ondansetron HCl (Zofran Inj) 4 mg Q6H PRN IV 04/15/17 20:30 05/15/17 20:29 04/17/17 05:09 4 MG Insulin Aspart (novoLOG ASPART) SLIDING SCALE If C... ACHS SC 04/15/17 21:00 05/15/17 20:59 04/17/17 08:42 6 UNITS Glucose (Glucose 40% Gel) 15-30 GRAMS 15 GRAMS... UD PRN PO 04/15/17 20:30 05/15/17 20:29 Glucose (Glucose Chew Tab) 4-8 Tablets 4 Tabl... UD PRN PO 04/15/17 20:30 05/15/17 20:29 Dextrose (Dextrose 50% 50ML Syringe) 25-50ML OF 50% DW IV FOR... UD PRN IV 04/15/17 20:30 05/15/17 20:29 Glucagon (Glucagon Inj) 1 mg UD PRN SQ 04/15/17 20:30 05/15/17 20:29 Benzonatate (Tessalon Perles Cap) 100 mg TID PRN PO 04/15/17 20:30 05/15/17 20:29 Levothyroxine Sodium (Synthroid Tab) 125 mcg DAILYBB PO 04/16/17 06:00 05/16/17 05:59 04/17/17 06:09 125 MCG Losartan Potassium (coZAAR TAB) 75 mg DAILY PO 04/16/17 09:00 05/16/17 08:59 3/2/18 08:38 75 MG Pantoprazole Sodium (Protonix Tab) 40 mg BID PO 04/15/17 21:00 05/15/17 20:59 04/17/17 08:38 40 MG Prochlorperazine Maleate (Compazine Tab) 10 mg Q6H PRN PO 04/15/17 20:30 05/15/17 20:29 Simvastatin (Zocor Tab) 40 mg QAM PO 04/16/17 09:00 05/16/17 08:59 04/17/17 08:38 40 MG Ferrous Sulfate (Feosol Tab) 650 mg DAILY PO 04/16/17 09:00 05/16/17 08:59 04/17/17 08:38 650 MG Miscellaneous (Iv Fluids Completed) 1 ea PRN PRN N/A 04/15/17 21:00 04/15/18 20:59 Hydromorphone HCl (Dilaudid Inj) 0.5 mg Q3H PRN IV 04/15/17 22:30 04/29/17 22:29 04/17/17 05:09 0.5 MG Enteral Nutritional Formula (Boost Glucose Control) 1 can HS PO 04/15/17 23:00 05/15/17 22:59 04/16/17 21:47 1 CAN Oxycodone HCl (Roxicodone Immediate Rel Tab) `1-2 tabs for pain 1 tab ... Q6HWA PRN PO 04/16/17 13:45 04/30/17 13:44 04/16/17 21:48 10 MG Miscellaneous Information (Consult Glycemic Management Pharmacy) 1 ea UD N/A 04/16/17 16:17 05/16/17 16:16 Insulin Glargine (Lantus Solostar Pen) SEE PROTOCOL TEXT BID SC 04/17/17 09:00 05/17/17 08:59 04/17/17 08:42 30 UNITS Albuterol/ Ipratropium (Duoneb) 3 ml QIDR INH 04/17/17 08:00 05/17/17 07:59 04/17/17 07:26 3 ML Ioversol (Optiray 320) 100 ml UD PRN IV 04/17/17 04:15 04/21/17 04:14 Heparin Sodium/ Dextrose 500 ml @ 24 mls/hr [id number] PRN IV 04/17/17 05:30 05/17/17 05:29 04/17/17 05:54 24 MLS/HR Physical Exam Vital Signs Past 12 Hours Date Time Temp Pulse Resp B/P (MAP) Pulse Ox O2 Delivery O2 Flow Rate FiO2 04/17/17 07:29 84 20 100 Nasal Cannula 2.0 04/17/17 05:25 86 12 156/80 (105) 98 04/17/17 05:01 37.1 185/83 (117) 04/17/17 05:01 37.1 97 18 95 2.0 04/17/17 03:40 92 21 98 Nasal Cannula 2.0 04/17/17 02:25 37.1 97 18 176/82 (113) 95 Room Air 04/17/17 01:52 37.2 04/16/17 23:30 Room Air 04/16/17 23:15 37.0 70 18 141/60 (87) 95 Room Air She is alert and oriented x3. Mood affect appear normal. She answered all questions appropriately. HEENT: Sclerae are anicteric. Pupils are equal and reactive to light and accommodation. Extraocular movements were intact. There is ecchymosis around the left eye Neuro: Cranial nerves intact Neck: Examination of the submandibular region did not reveal any significant lymphadenopathy. Carotids are palpable bilaterally and free of bruits on auscultation. There was no evidence of jugular venous distention. The thyroid was not enlarged. Lungs: Lungs are clear to auscultation bilaterally. There are no rales wheezes or rhonchi. She has normal respiratory effort without use of accessory muscles. There is normal pulmonary excursion. Cardiac: The rhythm was regular. S1 and S2 were normal. There are no murmurs on examination. The PMI was not markedly displaced on palpation. Abdomen: The abdomen was soft and nontender. Extremities: The right arm was in a bandage. There was a normal left radial pulse.. There is no evidence cyanosis or clubbing. There was no evidence of significant peripheral edema bilaterally. She had a bandage on the left knee Skin: There are no rashes noted on examination today. Data Laboratory Results: Last 24 Hours Test 04/16/17 11:44 04/16/17 13:45 04/16/17 17:13 04/16/17 20:37 Bedside Glucose 180 mg/dl 173 mg/dl 195 mg/dl 213 mg/dl Test 04/17/17 01:49 04/17/17 03:20 04/17/17 05:15 04/17/17 06:52 Bedside Glucose 178 mg/dl 171 mg/dl White Blood Count 10.24 K/uL Red Blood Count 3.63 M/uL Hemoglobin 9.1 g/dL Hematocrit 30.3 % Mean Corpuscular Volume 83.5 fL Mean Corpuscular Hemoglobin 25.1 pg Mean Corpuscular Hemoglobin Concent 30.0 g/dl Platelet Count 215 K/uL Mean Platelet Volume 9.3 fL Neutrophils (%) (Auto) 72.1 % Lymphocytes (%) (Auto) 14.6 % Monocytes (%) (Auto) 12.0 % Eosinophils (%) (Auto) 0.9 % Basophils (%) (Auto) 0.2 % Neutrophils # (Auto) 7.38 K/uL Lymphocytes # (Auto) 1.50 K/uL Monocytes # (Auto) 1.23 K/uL Eosinophils # (Auto) 0.09 K/uL Basophils # (Auto) 0.02 K/uL RDW Standard Deviation 62.5 fL RDW Coefficient of Variation 20.3 % Immature Granulocyte % (Auto) 0.2 % Immature Granulocyte # (Auto) 0.02 K/uL Polychromasia 1+ Anisocytosis PRESENT Sodium Level 139 mmol/L Potassium Level 3.7 mmol/L Chloride Level 103 mmol/L Carbon Dioxide Level 29 mmol/L Anion Gap 7.0 mmol/L Blood Urea Nitrogen 11 mg/dl Creatinine 0.64 mg/dl Est Creatinine Clear Calc Drug Dose 75.1 ml/min Estimated GFR () 99.1 Estimated GFR (Non- 85.5 BUN/Creatinine Ratio 17.6 Random Glucose 165 mg/dl Calcium Level 8.7 mg/dl Troponin I 0.493 ng/ml Vitamin B12 Level 266 pg/mL 25-Hydroxy Vitamin D Total 21.1 ng/ml Folate 16.22 ng/mL Activated Partial Thromboplast Time 23.8 SECONDS Partial Thromboplastin Ratio 0.9 Test 04/17/17 09:20 Imaging: His CT did not demonstrate any intracranial hemorrhage. Chest CT did not demonstrate any evidence of pulmonary emboli. There will multiple pulmonary nodules. EKG: Normal sinus rhythm. Second EKG demonstrated normal sinus rhythm with notable T-wave changes in the precordial leads Telemetry reviewed: Sinus rhythm Assessment & Plan 1. Dyspnea: This of unclear etiology. It is possible this represented a form of cardiac ischemia. The patient not appear to be hypoxic at that time. There were no objective findings on her x-ray or CT scan. Her symptoms appear to have resolved. She has not report a lot of dyspnea normally. She has not report orthopnea or paroxysmal nocturnal dyspnea normally. I do not believe she has any element of pulmonary vascular congestion. She is mildly anemic but this should not cause significant dyspnea at rest. 2. Elevated troponin: This is concerning for ischemia in the setting of her abnormal EKG. Once again, she is mildly anemic but she has not had significant derangement of her other vital signs. She has not been hypoxic or tachycardic. She has not had notable hypotension. Number waiting the results of her 2nd troponin. I think this is markedly elevated we will need to proceed with an invasive study should she be agreeable.
--- NOTE | 2017-04-17 10:36 | DIAGNOSTIC IMAGING REPORT ---
PORTABLE LEFT HUMERUS RADIOGRAPHS CLINICAL HISTORY: Status post open reduction internal fixation. COMPARISON: Left shoulder radiographs March 13, 2017. FINDINGS: A proximal left humeral internal fixation with plate and screws is noted. The hardware is intact. Fracture alignment is likely similar to postprocedure radiographs of March 13, 2017. Mild angulation and fracture distraction is again noted. Several bone fragments are present. No interval fracture is noted. IMPRESSION: Status post left humeral internal fixation with plate and screws. Hardware intact. Minimal interval healing since previous exam. No definite change in alignment since post procedure radiographs with mild angulation and fracture distraction. Electronically signed by: Torey Nova M.D. 04/17/2017 10:34 AM Dictated Date/Time: 04/17/2017 10:28 AM
[2017-04-17 12:36] LABS: PTT PATIENT 28.9 SECONDS (21.0-31.0)
[2017-04-17] MEDS: OFLOXACIN 0.3% OP SOLN 5 ML BTL OPL SCH ×3 (13:43→19:30)
[2017-04-17] MEDS ORDERED: FENTANYL CITRATE INJ 50 MCG/1 ML 2 ML VIAL ONE (14:16)
[2017-04-17] MEDS ORDERED: NiCARDipine HCL INJ 2.5 MG/ML 10 ML AMP ONE (14:16)
[2017-04-17] MEDS ORDERED: HEPARIN SOD (PORCINE) 1000 UNIT/ML 10 ML VIAL ONE (14:16)
[2017-04-17] MEDS ORDERED: MIDAZOLAM HCL 1 MG/ML 2ML VIAL ONE (14:16)
[2017-04-17] MEDS ORDERED: NITROGLYCERIN/D5W 100MCG/ML 20ML SYR ONE (14:17)
--- NOTE | 2017-04-17 14:56 | Pharmacy Progress Note ---
Glycemic Control Progress Note Date of Service Apr 17, 2017. Scope Glycemic Pharmacist consulted for glycemic control to write orders per [facility] inpatient glycemic control protocol. Objective Accuchecks BSG (last 24hrs): Test 04/16/17 17:13 04/16/17 20:37 04/17/17 01:49 04/17/17 03:20 Bedside Glucose 195 mg/dl (70-90) 213 mg/dl (70-90) 178 mg/dl (70-90) Random Glucose 165 mg/dl (70-99) Test 04/17/17 06:52 04/17/17 11:11 Bedside Glucose 171 mg/dl (70-90) 247 mg/dl (70-90) Recent Pertinent Medications Outpatient Anti-Diabetic Meds Oral Agents Basal Insulin Assessment & Plan ASSESSMENT: * See progress note from 04/16 for more background info, in short: * Pt receiving SQ basal bolus insulin regimen for hyperglycemia secondary to baseline DM (outpatient regimen on hold), recent surgery, * Patient post-op day 1 s/p humerus fracture repair s/p fall - tight glycemic control indicated to promote healing and prevent infection * BSG to 247 mg/dL at lunch today - significantly higher than goal. Will make aggressive changes * Changes needed to insulin regimen: * AM Fasting BSG = 171 mg/dl. This is in slightly above goal range for patient based on inpatient targets and co-morbidities. Therefore Basal insulin needs to be increased * Post-prandial BSGs are elevated therefore need to tighten CF/CR * Patient may require insulin infusion PLAN FOR INPATIENT GLYCEMIC CONTROL: * Oral Agents * Continue to hold outpatient oral diabetes medications. * Basal insulin: Lantus SQ BID based on BSG (also additional 20 units this afternoon) * BSG less than 140 mg/dL: 20 units * BSG 140-180 mg/dL: 30 units * BSG greater than 180 mg/dL: 40 units * Bolus insulin * NovoLog per scale ACHS or Q6hrs while NPO - two overnight checks * Goal Range: Low 120 mg/dL - High 150 mg/dL * Correction Factor: 10 mg/dL/unit * Nutritional / Prandial insulin per carb ratio of 1 unit per 3 grams CHO consumed * Please note that the plan above was derived based on current level of insulin resistance and hospital stress. These recommendations are appropriate for inpatient admission only. Plan of care upon discharge will need to be reassessed to avoid potential outpatient hypo/hyperglycemia. Thank you.
--- NOTE | 2017-04-17 15:10 | Pre Sedation Assessment ---
Pre Sedation Assessment General Date of Sedation: Apr 17, 2017. Vital Signs Past 12 Hours Date Time Temp Pulse Resp B/P (MAP) Pulse Ox O2 Delivery O2 Flow Rate FiO2 04/17/17 11:12 36.9 98 14 174/84 (114) 93 Room Air 04/17/17 08:39 37.1 98 24 127/71 (89) 93 Room Air 04/17/17 08:00 Room Air 04/17/17 07:29 84 20 100 Nasal Cannula 2.0 04/17/17 07:01 78 15 105/75 (85) 98 Nasal Cannula 2.0 04/17/17 05:25 86 12 156/80 (105) 98 04/17/17 05:01 37.1 185/83 (117) 04/17/17 05:01 37.1 97 18 95 2.0 04/17/17 03:40 92 21 98 Nasal Cannula 2.0 Review Cardiovascular: regular rate, rhythm Pre-Sedation Airway Assessment Smoking Status: Never Smoker Hx of Sleep Apnea: No Hx of difficult intubation: No Short Thick Neck: No Thyro-mental Distance: > 3 Finger Breadths Oral Cavity: Dentures Mallampati Classification: Class III ASA Classification: Class III NPO Status Date of Last Intake of Fluids: Apr 16, 2017 Time of Last Intake of Fluids: 0800 Date of Last Intake of Solids: Apr 15, 2017 Time of Last Intake of Solids: 2100 Procedure Planning Contraindications for Sedation: None Current Medications Reviewed: Yes Notes The planned sedation has been discussed with the patient. Informed Consent was obtained. I have identified the patient, determined the appropriateness of sedation and have assessed the patient immediately prior to the procedure. All medicine(s) and interventions are by my order.
[2017-04-17] MEDS ORDERED: INSULIN GLARGINE SOLOSTAR 100 UNITS/ML 3 ML PEN SC STA (15:11)
[2017-04-17] MEDS ORDERED: SODIUM CHLORIDE 0.9% 1000ML 1,000 ML IV SCH (15:12)
--- NOTE | 2017-04-17 15:12 | [facility] Operative Report ---
Operative Report Date of Service Apr 17, 2017. Operative Report Procedure performed: Cardiac cath, [facility] [employer] Broker: Toñito Canales MD Indication: The patient is a 68-year-old woman without a known history of coronary disease who experienced an episode of dyspnea associated with significant EKG changes and elevated cardiac biomarkers. Procedure in detail: The patient was informed of the risks benefits and alternatives to the intended procedure. She understood such and wished to proceed. She was taken to the cardiac catheterization suite in a fasting state. Conscious sedation was administered per protocol the patient was monitored electrocardiographically throughout today's procedure. The left wrist area was prepped and draped in usual sterile fashion. This area was anesthetized using subcutaneous administration of lidocaine solution. The left radial artery was subsequently access using Seldinger technique and a 5 Slovak arterial sheath was placed at the site over guidewire. This sheath was used to facilitate passage of the catheters for engagement of the coronary arteries. Coronary angiography was performed in multiple orthogonal views and left heart catheterization was also performed prior to removal of the catheters and sheath. Hemostasis was achieved at the access site using manual pressure. The patient tolerated procedure well there no immediate complications. Equipment used: Five Slovak TrapEase 3.5 Five Slovak JL5 Findings: Opening aortic pressure was 84/49 Closing aortic pressure is 125/53 Left ventricular pressure was 147/3 Left ventricular end-diastolic pressure was 5 Coronary angiography: Left main: Left main was normal in size and caliber and bifurcated normally into the left anterior descending left circumflex Left anterior descending left anterior descending artery was large transapical vessel with a very diminutive 1st diagonal branch. This appeared to have approximately 70 percent stenosis at its ostium. The ongoing LAD bifurcated into a medium size diagonal vessel and a medium ongoing transapical LAD. There were luminal regularities throughout this course but no discrete stenoses Left circumflex: Left circumflex was a large vessel which produced a very small 1st OM branch and a very large branching 2nd OM vessel. There were luminal irregularities but no discrete stenoses Right coronary artery right coronary was a large dominant vessel. There were luminal irregularities but no discrete stenosis in this distribution. Impression: Nonobstructive coronary disease Right-dominant system Normal left ventricular pressures Plan: Continued aggressive risk factor modification for coronary artery disease I attest to the content of the Intraoperative Record and any orders documented therein. Any exceptions are noted below.
--- NOTE | 2017-04-17 15:33 | DIAGNOSTIC IMAGING REPORT ---
R HUMERUS MIN 2 VIEWS ROUTINE CLINICAL HISTORY: 76 years-old Female presenting with RIGHT HUMERUS FX. TECHNIQUE: Frontal and lateral views of the right humerus were obtained. COMPARISON: 04/16/2017. FINDINGS: Overlying plaster splint obscures underlying osseous detail. Allowing for this, redemonstration of the obliquely oriented fracture of the mid to distal right humeral diaphysis. There is approximately one half shaft width lateral displacement of the distal fracture fragment as well as nearly one shaft width posterior displacement. Underlying osteopenia is evident. This degree of displacement laterally and posteriorly is greater than on the prior radiograph. No significant angulation. Elbow joint not fully assessed. Grossly intact glenohumeral joint. IMPRESSION: Interval worsening of displacement at the obliquely oriented mid to distal right humeral diaphyseal fracture as detailed above. Electronically signed by: Jayce Hunt M.D. 04/17/2017 3:32 PM Dictated Date/Time: 04/17/2017 3:30 PM
--- NOTE | 2017-04-17 15:52 | ECHOCARDIOGRAM REPORT ---
*NOTICE TO RECEIVING [employer] This information is strictly Confidential and protected under [place] law. [place] law prohibits you from making any further disclosure of this information unless further disclosure is expressly permitted by the written consent of the person to whom it pertains or is authorized by law. A general authorization for the release of medical or other information is not sufficient for this purpose. Hospital accepts no responsibility if the information is made available to any other person, INCLUDING THE PATIENT. Interpretation Summary * Name: TERESA HUNTER Study Date: 04/17/2017 12:52 PM BP: 127/71 mmHg * Patient Location: .MSICU\S\E102\S\1 HR: 98 * : 1940 (M/d/yyyy) Gender: Female Height: 64 in * Age: 76 yrs Ethnicity: CA Weight: 193 lb * Ordering Physician: Toñito Canales * Referring Physician: No Doctor, Assigned * Performed By: Trista Wiley RDCS * * Reason For Study: Chest pain * BSA: 1.9 m2 * -- Conclusions -- * Left ventricular systolic function is normal. * Grade I diastolic dysfunction, (abnormal relaxation pattern). * There are regional wall motion abnormalities as specified. * No significant valvular disease Procedure Details * A complete two-dimensional transthoracic echocardiogram was performed (2D, M-mode, Doppler and color flow Doppler). * A contrast injection of Definity was performed to improve assessment of LV function. * Contrast was injected into an intravenous site in the left arm. * One vial of Definity ultrasound contrast was diluted in normal saline to a total volume of 10 ml. A total of '2' ml of solution was administered during imaging. * Lot # [id number] of Definity utilized for procedure. * Expiration date 1 APR 06. * The attending nurse who injected the contrast agent was Ev Santillan RN. Left Ventricle * The left ventricle is normal in size. * There is normal left ventricular wall thickness. * Ejection Fraction = 55-60%. * Left ventricular systolic function is normal. * Grade I diastolic dysfunction, (abnormal relaxation pattern). * There are regional wall motion abnormalities as specified. * Basal segments contract normally. There is some hypokinesis significant dyskinesis of the apex in certain views. This could be consistent with a stress cardiomyopathy. Right Ventricle * The right ventricle is normal in size and function. Atria * The left atrial size is normal. * Right atrial size is normal. Mitral Valve * The mitral valve anatomy is normal. * Significant mitral regurgitation is absent. Tricuspid Valve * The tricuspid valve anatomy is normal. * Significant tricuspid regurgitation is absent. Aortic Valve * The aortic valve is normal in structure and function. * The aortic valve is trileaflet. * No hemodynamically significant valvular aortic stenosis. * There is no significant aortic regurgitation. Great Vessels * The aortic root is normal size. Pericardium/Pleural * There is no pericardial effusion. MMode 2D Measurements and Calculations IVSd 0.97 cm LVIDd 4.9 cm LVIDs 3.4 cm LVPWd 0.98 cm IVS/LVPW 0.99 FS 31.3 % EDV(Teich) 111.6 ml ESV(Teich) 45.9 ml EF(Teich) 58.9 % EDV(cubed) 116.1 ml ESV(cubed) 37.7 ml EF(cubed) 67.5 % LV mass(C)d 169.3 grams LV mass(C)dI 87.9 grams/m\S\2 SV(Teich) 65.8 ml SI(Teich) 34.1 ml/m\S\2 SV(cubed) 78.4 ml SI(cubed) 40.7 ml/m\S\2 Ao root diam 2.8 cm Ao root area 6.2 cm\S\2 ACS 2.1 cm LA dimension 2.8 cm asc Aorta Diam 2.9 cm LA/Ao 1.0 LVOT diam 2.0 cm LVOT area 3.2 cm\S\2 LVAd ap4 32.5 cm\S\2 LVLd ap4 8.9 cm EDV(MOD-sp4) 94.3 ml EDV(sp4-el) 100.0 ml LVAs ap4 19.0 cm\S\2 LVLs ap4 7.1 cm ESV(MOD-sp4) 42.0 ml ESV(sp4-el) 43.2 ml EF(MOD-sp4) 55.4 % EF(sp4-el) 56.8 % LVAd ap2 23.6 cm\S\2 LVLd ap2 7.5 cm EDV(MOD-sp2) 58.5 ml EDV(sp2-el) 62.8 ml LVAs ap2 15.8 cm\S\2 LVLs ap2 7.4 cm ESV(MOD-sp2) 26.5 ml ESV(sp2-el) 28.6 ml EF(MOD-sp2) 54.7 % EF(sp2-el) 54.4 % LVLd %diff -19.01 % EDV(MOD-bp) 81.6 ml LVLs %diff 4.1 % ESV(MOD-bp) 33.5 ml EF(MOD-bp) 59.0 % SV(MOD-sp4) 52.2 ml SI(MOD-sp4) 27.1 ml/m\S\2 SV(MOD-sp2) 32.0 ml SI(MOD-sp2) 16.6 ml/m\S\2 SV(MOD-bp) 48.2 ml SI(MOD-bp) 25.0 ml/m\S\2 SV(sp4-el) 56.8 ml SI(sp4-el) 29.5 ml/m\S\2 SV(sp2-el) 34.2 ml SI(sp2-el) 17.7 ml/m\S\2 Doppler Measurements and Calculations MV E max dee 75.2 cm/sec MV A max dee 98.0 cm/sec MV E/A 0.77 MV dec time 0.25 sec Ao V2 max 127.7 cm/sec Ao max PG 6.5 mmHg Ao max PG (full) 2.8 mmHg KENDY(V,A) 2.4 cm\S\2 KENDY(V,D) 2.4 cm\S\2 LV V1 max PG 3.8 mmHg LV V1 max 97.0 cm/sec PA V2 max 120.8 cm/sec PA max PG 5.8 mmHg PA acc slope 888.3 cm/sec\S\2 PA acc time 0.10 sec PA pr(Accel) 33.1 mmHg
[2017-04-17] MEDS: BOOST GLUCOSE CONTROL PO SCH (19:32)
--- NOTE | 2017-04-17 21:20 | Progress Note ---
Progress Note Date of Service Apr 17, 2017. Progress Note Postop to see the pacing after her cardiac catheterization. She claims to be feeling well. She is not currently in pain and is not taking any pain medications by her report. Her left wrist has a palpable pulse. She appears to have reasonable perfusion of the hand. There is not appear to be any cyanosis. There is no hematoma or bleeding. Her echocardiogram did suggest an element of stress cardiomyopathy which we consistent with her elevated biomarkers and nonobstructive coronary disease. I think would be reasonable to treat her with a daily dose of beta blockade, perhaps 25 milligrams of metoprolol succinate in the short term at least with reassessment of her ventricle in a month or 2. She should continue to have aggressive cardiac risk factor modification according to published guidelines including treatment of hyperlipidemia.
[2017-04-18] VITALS (7 sets, daily range): BP systolic 121–186; BP diastolic 62–81; PULSE 70–96; TEMP 36.8–37.3; O2SAT 95–100
[2017-04-18] MEDS: OFLOXACIN 0.3% OP SOLN 5 ML BTL OPL SCH ×4 (00:02→11:46)
[2017-04-18] MEDS: INSULIN ASPART 100 UNITS/ML 3 ML PEN SC SCH ×4 (03:56→11:48)
[2017-04-18] MEDS: LEVOTHYROXINE 125 MCG TAB PO SCH (04:55)
[2017-04-18 06:02] LABS: HEMATOCRIT 27.1 % (37-47); HEMOGLOBIN 8.2 g/dL (12.0-16.0); MEAN CELL VOLUME 83.1 fL (80-100); MEAN CORPUSCULAR HEMOGLOBIN 25.2 pg (25-34); MEAN CORPUSCULAR HGB CONC 30.3 g/dl (32-36); PLATELET COUNT 227 K/uL (130-400); RED CELL DISTRIBUTION WIDTH CV 20.5 % (11.5-14.5); RED CELL DISTRIBUTION WIDTH SD 62.7 fL (36.4-46.3); WHITE BLOOD COUNT 11.88 K/uL (4.8-10.8)
[2017-04-18 06:15] LABS: BASO % 0.3 %; BASO ABS # 0.03 K/uL (0-0.2); EOS % 0.6 %; EOS ABS # 0.07 K/uL (0-0.5); IG# 0.03 K/uL (0.00-0.02); LYMPH % 12.4 %; LYMPH ABS # 1.47 K/uL (1.2-3.4); MONO % 10.9 %; NEUT % 75.5 %; NEUT ABS # 8.98 K/uL (1.4-6.5)
[2017-04-18 06:22] LABS: CALCIUM 8.3 mg/dl (8.5-10.1); CREATININE 0.61 mg/dl (0.60-1.20); POTASSIUM 3.4 mmol/L (3.5-5.1)
[2017-04-18] MEDS: ALBUT/IPRATROP 3MG/0.5MG NEB 3 ML VIAL INH SCH (06:53)
[2017-04-18] MEDS: SIMVASTATIN 40 MG TAB PO SCH (07:37)
[2017-04-18] MEDS: PANTOprazole SOD 40 MG TAB PO SCH (07:38)
[2017-04-18] MEDS: LOSARTAN POTASSIUM 50 MG TAB PO SCH (07:38)
[2017-04-18] MEDS: FERROUS SULFATE 325 MG TAB PO SCH (07:38)
[2017-04-18] MEDS ORDERED: METOPROLOL SUCC 25MG EXT REL TAB PO SCH (09:00)
[2017-04-18] MEDS ORDERED: CHOLECALCIFEROL 1000 INTER.UNIT TAB PO SCH (09:00)
[2017-04-18] MEDS ORDERED: INSULIN GLARGINE SOLOSTAR 100 UNITS/ML 3 ML PEN SC SCH (09:00)
[2017-04-18] MEDS ORDERED: TPRSR25 PO (10:24)
[2017-04-18] MEDS ORDERED: INSDGIPEN SQ (10:24)
[2017-04-18] MEDS ORDERED: [UNRECOGNIZED DRUG - OTHER] OPL (10:24)
--- NOTE | 2017-04-18 10:27 | Discharge Instructions ---
Discharge Instructions Date of Service Apr 18, 2017. Admission Reason for Admission: Fracture In Accidental Fall, Rt Humeral Fracture Discharge Discharge Diagnosis / Problem: Right Humeral Fracture s/p Mechanical Fall Discharge Goals Goal(s): Improve function, Increase independence Activity Recommendations Activity Level: Assistance Required . Additional Information Patient informed of condition: Yes Advance Directives: Yes DNR: No Level of Care: Acute Rehab Communicable Disease: No Prognosis: Improving Instructions / Follow-Up Instructions / Follow-Up Ms. oCx is a 76 year old female with a past medical history of HTN, HLD, Asthma , JEFERSON, DM, GERD, Thyroid Cancer s/p Thyroidectomy in 1994, and tracheal cancer s /p resection in 2007 that presents with a right humeral fracture status post mechanical fall. Mechanical Fall - Humeral X-Ray: Mildly displaced angulated oblique/spiral fracture of the humerus at the junction of the middle and distal one third - CXR: Mildly displaced left seventh rib fracture which is likely subacute, No pneumothorax - Orthopedics was consulted - day 2 post closed reduction of right humeral fracture - requires ortho follow up in outpatient setting for 7-10 days for repeat x- rays - oxycodone prn for pain control Chest Pain - pt had episode of chest pain and shortness of breath overnight whilst admitted - CXR and CTA -ve - EKG showed new T wave inversions in inferior and lateral leads - troponin elevated with peak at 0.5 - cardiology was consulted - She underwent a cath on 04/17 which was normal. - ECHO showed hypokinesis of the apex of the left ventricle. 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 She was started on 25mg of metoprolol succinate here and should continue this on discharge Anemia - pt's hemoglobin was 10 on arrival and 8.1 on discharge - stool guaiac negative - she notes she was previously diagnosed with anemia and has been taking 650mg of iron daily. Continue on d/c - recommend recheck of h&h within next 3-4 days Left Eye Conjunctivitis - pt sustained bruising over the left eye when she fell. - she noted crusting and discharge afterwards and was treated with ofloxacin eyedrops - continue on discharge Diabetes Mellitus - Home dose is 40 units of Lantus BID and metformin 1000 BID - pt reports sugars have not been well controlled and she has frequent lows - she has been receiving 20 units of lantus BID here, will d/c on this regimen and can be adjusted according to her sugar levels - pt has community services officer follow up later in April for diabetes management - B12 levels wnl ?Osteoporosis - this is the patient's second time breaking an arm after a fall from standing height - pt said she had DEXA scan done 1-2 years ago and it was normal - no record of DEXA scan in Powerchart - Vitamin D level low at 21 - will supplement with 1500 units of cholecalciferol daily and recommend outpatient DEXA Hypertension - Continue home Losartan GERD - Continue home Protonix HLD - Continue home Zocor Hypothyroidism - Continue home Synthroid Asthma - Well controlled with no recent flares 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 While she was here, we were looking at placing him at [facility] as he is currently staying with her sister. Current Hospital Diet Patient's current hospital diet: Diabetes Type 2 Diet, AHA Diet (Heart Healthy) Discharge Diet Recommended Diet: AHA Diet (Heart Healthy), Diabetes Type 2 Diet Procedures Procedures Performed: Closed Reduction and Application Coaptation Device Right Distal Radius Pending Studies Studies pending at discharge: no Laboratory Results Hemoglobin A1c Test 03/06/17 07:32 Range/Units Estimated Average Glucose 192 mg/dl Hemoglobin A1c 8.3 H 4.5-5.6 % Medical Emergencies . Who to Call and When: Medical Emergencies: If at any time you feel your situation is an emergency, please call 911 immediately. . Non-Emergent Contact Non-Emergency issues call your: Primary Care Provider . . "Provider Documentation" section prepared by Hui Osborne. . Core Measure Problem Core Measures: None
[2017-04-18] MEDS ORDERED: VTMD1000 PO (11:16)
--- NOTE | 2017-04-18 11:45 | Orthopedic Progress Note ---
Orthopedic Progress Note Date of Service Apr 18, 2017. Subjective Additional Notes: Patient was seen at bedside status post closed reduction of the right distal one third humerus fracture. With coaptation splint. She is doing well reports improvement in her pain as well as function of her right hand. She admits to participating with hand exercises and is compliant. Denies any numbness tingling or increased pain at this time. Objective Physical exam a right upper extremity: Neurovascular sensory intact, intact median/radial/ulnar/AIN/PIN, +2 radial pulses, + edema, sensory intact light touch grossly, and compartments soft nontender, coaptation splint in place. Date Time Temp Pulse Resp B/P (MAP) Pulse Ox O2 Delivery O2 Flow Rate FiO2 04/18/17 08:00 95 Room Air 04/18/17 08:00 37.3 96 16 121/62 (81) 96 Room Air 04/18/17 06:53 70 20 95 Room Air 04/18/17 04:00 96 Room Air 04/18/17 03:04 37.3 85 17 186/81 (116) 100 Room Air 04/18/17 00:00 96 Room Air 04/17/17 22:56 37.2 86 17 147/76 (99) 98 Room Air 04/17/17 20:00 96 Room Air 04/17/17 19:08 37.3 100 22 175/65 (101) 97 Room Air 04/17/17 18:29 Room Air 04/17/17 18:04 98 23 255/119 (164) 96 04/17/17 17:32 80 17 177/118 (137) 97 04/17/17 17:02 84 19 209/70 (116) 96 04/17/17 16:38 90 14 178/80 (112) 98 04/17/17 16:33 86 14 213/91 (131) 98 04/17/17 16:02 89 19 137/79 (98) 96 04/17/17 16:00 Room Air 04/17/17 15:47 80 17 128/68 (88) 95 04/17/17 15:42 85 19 146/66 (92) 93 Room Air 04/17/17 15:24 36.6 87 18 205/86 (125) 94 Room Air 04/17/17 15:16 66 16 182/73 (109) 96 Room Air 04/17/17 15:11 Room Air 04/17/17 15:06 69 16 178/112 (134) 95 Room Air 04/17/17 12:00 Room Air Laboratory Results 24 Hours: Test 04/18/17 05:17 White Blood Count 11.88 K/uL Red Blood Count 3.26 M/uL Hemoglobin 8.2 g/dL Hematocrit 27.1 % Mean Corpuscular Volume 83.1 fL Mean Corpuscular Hemoglobin 25.2 pg Mean Corpuscular Hemoglobin Concent 30.3 g/dl Platelet Count 227 K/uL Mean Platelet Volume 9.0 fL Neutrophils (%) (Auto) 75.5 % Lymphocytes (%) (Auto) 12.4 % Monocytes (%) (Auto) 10.9 % Eosinophils (%) (Auto) 0.6 % Basophils (%) (Auto) 0.3 % Neutrophils # (Auto) 8.98 K/uL Lymphocytes # (Auto) 1.47 K/uL Monocytes # (Auto) 1.30 K/uL Eosinophils # (Auto) 0.07 K/uL Basophils # (Auto) 0.03 K/uL Assessment & Plan Assessment: POD 2 s/p C/R and splinting of right distal humerus fx Plan: Patient being treated nonoperatively and coaptation splint. Maintain nonweightbearing right upper extremity. Maintain splint the right upper extremity keep clean and dry at all times We will need to follow-up in the office upon discharge, eventually she will be transitioned into a fracture brace. She is orthopedically stable. Inhouse Planning Pain Management: Dilaudid, Oxy IR DVT Prophylaxis: TEDs, SCDs, Heparin Drip Discharge Planning Discharge Planning: rehab hospital
--- NOTE | 2017-04-18 11:46 | Discharge Summary ---
Discharge Summary Date of Service Apr 18, 2017. Discharge Summary Admission Date: Apr 17, 2017 at 12:24 Discharge Date: Apr 18, 2017 Discharge Disposition: Rehab Principal Diagnosis: Right humeral fracture s/p mechanical fall Problems/Secondary Diagnoses: 1) Resolving left humeral fracture 2) Diabetes Mellitus Type 2 3) Hypertension 4) GERD 5) Hyperlipidemia 6) Anemia 7) Hypothyroidism 5) Asthma Procedures: R SHOULDER MIN 2 VIEWS ROUTINE CLINICAL HISTORY: right shoulder pain, s/p fall COMPARISON: Right shoulder pain status post fall. FINDINGS: There is severe osteoarthritis of the right glenohumeral joint with complete loss of the joint space with osteophytosis. There is severe arthritis of the right acromioclavicular joint. A moderately displaced angulated fracture through the distal shaft of the right humerus is better depicted on the right elbow radiographs. IMPRESSION: 1. Acute moderately displaced angulated fracture through the distal shaft of the right humerus which is better depicted on the right elbow radiographs. 2. Severe osteoarthritis of the right glenohumeral joint. No proximal right humeral fracture. CT HEAD WITHOUT CONTRAST (CT) CLINICAL HISTORY: Head pain status post trauma COMPARISON STUDY: 03/04/2017 TECHNIQUE: Axial CT of the brain is performed from the vertex to the skull base. IV contrast was not administered for this examination. A dose lowering technique was utilized adhering to the principles of ALARA. CT DOSE: 638.56 mGycm FINDINGS: No intra or extra-axial mass lesions are visualized. There is no CT evidence of acute cortical infarction. There is no evidence of midline shift. There is no acute hemorrhage. No calvarial fractures are visualized. There are patchy white matter hypodensities likely on a small vessel basis. There is no evidence of pathologic ventricular dilatation. There is no evidence of acute sinusitis. There is a left frontal scalp hematoma and there is left periorbital edema. IMPRESSION: 1. No acute intracranial findings 2. Left frontal scalp hematoma with left periorbital edema CT ABD/PELVIS IV AND ORAL CONT CLINICAL HISTORY: Abdominal pain status post trauma COMPARISON STUDY: March 04, 2017 TECHNIQUE: Following the IV administration of 115 mL of Optiray-320, CT scan of the abdomen and pelvis was performed from the lung bases to the proximal femurs. Images are reviewed in the axial, sagittal, and coronal planes. IV contrast was administered without complication. A dose lowering technique was utilized adhering to the principles of ALARA. CT DOSE: 1033.91 mGycm FINDINGS: Lower chest: There is a small hiatal hernia. There is a small amount of contrast within the distal esophagus. There is mild basilar atelectatic change. There are coronary artery calcifications. Lower lung zone pulmonary nodules remain stable, including a 11 mm right lower lobe pulmonary nodule and 6 mm left lower lobe pulmonary nodule. Liver: The contrast-enhanced liver is normal in size, contour, and attenuation. There is no intrahepatic biliary ductal dilatation. The hepatic veins and portal veins are patent. Gallbladder: Surgically absent Spleen: Normal in size and attenuation. Pancreas: Unremarkable. Adrenal glands: Unremarkable. Kidneys: There is 18 mm upper pole right renal cyst. There is a 4 mm mid pole right renal cyst. There are symmetric nephrograms. Bowel: There are no transition zones indicate bowel obstruction. There is no interloop fluid. There are no extraluminal gas collections. There is diverticulosis. There is no acute diverticulitis. The appendix appears normal. Peritoneum: There is no intraperitoneal free air or abdominal ascites. Vasculature: The abdominal aorta is normal in course and caliber. Adenopathy: None. Pelvic viscera: The bladder, and pelvic viscera are unremarkable. Skeletal structures: Advanced degenerative changes are present within the lumbar spine. There is multilevel spinal stenosis. No acute fractures are visualized. There is a healing left seventh rib fracture. IMPRESSION: 1. No evidence of acute intra-abdominal or pelvic injury 2. Stable indeterminate lower lobe pulmonary nodules 3. Healing left seventh rib fracture 4. Degenerative changes within the spine with multilevel spinal stenosis CT ANGIOGRAM OF THE CHEST CLINICAL HISTORY: Shortness of breath. Recent orthopedic fracture. COMPARISON STUDY: Chest x-ray dated 04/07/2017, CT scan dated 03/14/2017 TECHNIQUE: Following the IV administration of 92 mL of Optiray-320, CT angiogram of the thorax was performed from the thoracic inlet to the lung bases utilizing the pulmonary embolus protocol. Images are reviewed in the axial, sagittal, and coronal planes. IV contrast was administered without complication. MIP imaging was performed. A dose lowering technique was utilized adhering to the principles of ALARA. CT DOSE: 850.91 mGy.cm FINDINGS: No pathologically enlarged axillary mediastinal or hilar lymph nodes were visualized. There was no evidence of thoracic aortic dilatation. There were no pulmonary artery filling defects to indicate acute pulmonary embolism. No pleural effusions are visualized. There are dependent atelectatic changes. There is a stable 7.5 mm left lower lobe pulmonary nodule as visualized in image #107/288. There is a stable 5 mm right lower lobe pulmonary nodule as visualized in image #125/288. There is stable 10 mm right lower lobe pulmonary nodule as visualized in image #113/288. There is a stable 4 mm right lower lobe pulmonary nodule as visualized in image #170/288. There is a stable 5 mm left lower lobe pulmonary nodule as visualized in image #137/288. Also evident are pulmonary micronodules at the left apex measuring up to 2 mm in diameter. These also remain stable There is a healing left seventh rib fracture. IMPRESSION: 1. No evidence of acute pulmonary embolism 2. Multiple lower lobe pulmonary nodules measuring up to 10 mm in diameter. As was previously stated, [address] follow-up is recommended. 3. Displaced spiral/oblique fracture of the right humerus at the junction of proximal and distal one third as visualized on the special education associate radiograph 4. Healing left seventh rib fracture Consultations: Orthopedics, Cardiology Medication Reconciliation New Medications: Oxycodone Immediate Rel Tab (Roxicodone Ir) 5 Mg Tab 5 MG PO Q4H PRN for Severe Pain for 7 Days, #28 TAB Cholecalciferol (Vitamin D3) 1,000 Inter.unit Tab 1500 INTER.UNIT PO QAM for 30 Days, #30 TAB Metoprolol Succinate (Metoprolol Succinate ER) 25 Mg Tabcr 25 MG PO QAM for 30 Days, #30 TABS Ofloxacin (Ofloxacin) 75 Drops/5 Ml Soln 2 DROPS OPL Q4H for 5 Days Changed Medications: Insulin Glargine (Lantus Solostar) 100 Unit/Ml Inj 20 UNITS SQ BID for 30 Days, PEN (Changed from: 40 UNITS) Continued Medications: Acetaminophen (Tylenol) 500 Mg Tab 1000 MG PO Q8 PRN for Pain, TAB Aspirin (Aspirin Ec) 81 Mg Tab 81 MG PO DAILY Benzonatate (Tessalon Perles) 100 Mg Cap 100 MG PO DIRECTED PRN for Cough, CAP take up to 3/day as needed Cranberry (Vaccinium Macrocarp (Cranberry) Unknown Strength Tab 1 TAB PO BID Ferrous Sulfate (Kp Ferrous Sulfate) 325 Mg Tab 650 MG PO DAILY Ipratropium-Albuterol (Duoneb) 3 Ml Nebu 1 TREATMENT INH Q4H PRN for SOB/Wheezing, INHA Levothyroxine Sodium (Levothyroxine Sodium) 125 Mcg Tab 125 MCG PO DAILY Losartan Potassium (Losartan Potassium) 50 Mg Tab 75 MG PO DAILY Metformin Hcl (Glucophage) 1,000 Mg Tab 1000 MG PO BID, TAB Multivitamin (Multivitamin) Tab 1 TAB PO DAILY, TAB Oxycodone HCl (Oxycodone HCl) 5 Mg Tab 5 MG PO Q4 PRN for Pain Pantoprazole (Pantoprazole Sodium) 40 Mg Tab 40 MG PO BID Prochlorperazine Maleate (Compazine) 10 Mg Tab 10 MG PO Q6H PRN for Nausea, TAB Simvastatin (Zocor) 40 Mg Tab 40 MG PO QAM, TAB Discharge Exam Ms. Cox reports she feels well today. She states she has not had any more episodes of chest pain, or shortness of breath. She denies n/v, abdominal pain and states the pain in her right arm is well controlled. She is eager to be discharged to [facility] to begin rehab. Review of Systems: Constitutional: No fever, No chills Eyes: No worsening of vision, No eye pain, No diplopia Respiratory: No cough, No sputum, No shortness of breath Cardiovascular: No chest pain Abdomen: No pain, No nausea, No vomiting Physical Exam: General Appearance: WD/WN, no apparent distress Eyes: PERRL, EOMI, sclerae normal, + pertinent finding (Periorbital hematoma , bruising resolving. No discharge or crusting today.) Respiratory/Chest: lungs clear, normal breath sounds Cardiovascular: regular rate, rhythm, no edema Abdomen / GI: non tender, soft Extremities: + pertinent finding (right arm in sling) Neurologic/Psychiatric: alert, oriented x 3 Hospital Course Ms. Cox is a 76 year old female with a past medical history of HTN, HLD, Asthma , JEFERSON, DM, GERD, Thyroid Cancer s/p Thyroidectomy in 1994, and tracheal cancer s /p resection in 2007 that presents with a right humeral fracture status post mechanical fall. Mechanical Fall - Humeral X-Ray: Mildly displaced angulated oblique/spiral fracture of the humerus at the junction of the middle and distal one third - CXR: Mildly displaced left seventh rib fracture which is likely subacute, No pneumothorax - Orthopedics was consulted - day 2 post closed reduction of right humeral fracture - requires ortho follow up in outpatient setting for 7-10 days for repeat x- rays Chest Pain - pt had episode of chest pain and shortness of breath overnight whilst admitted - CXR and CTA -ve - EKG showed new T wave inversions in inferior and lateral leads - troponin elevated with peak at 0.5 - cardiology was consulted - She underwent a cath on 04/17 which was normal. - ECHO showed hypokinesis of the apex of the left ventricle. 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 She was started on 25mg of metoprolol succinate here and should continue this on discharge Anemia - pt's hemoglobin was 10 on arrival and 8.1 on discharge - stool guaiac negative - she notes she was previously diagnosed with anemia and has been taking 650mg of iron daily. Continue on d/c Left Eye Conjunctivitis - pt sustained bruising over the left eye when she fell. 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 Recommend [address] 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 While she was here, we were looking at placing him at [facility] as he is currently staying with her sister. Total Time Spent: Greater than 30 minutes This includes examination of the patient, discharge planning, medication reconciliation, and communication with other providers. Discharge Instructions Please refer to the electronic Patient Visit Report (Discharge Instructions) for additional information. Additional Copies To Sera Liz M.D. Resident Tracking Resident Involvement: Resident Care Provided Care Provided: [facility] Medicine Assessment/Plan Resident Physician Supervision Note: I was present with Dr. Osborne during the history and exam. I discussed the case with the resident and agree with the findings and plan as documented in the note. Any exceptions or clarifications are listed here: 76 y/o female h/o HLD, HTN< JEFERSON, DMII, asthma p/w right humeral fracture 2/2 mechanical fall - fracture has cast and pain well controlled with present regimen to transition to oral as noted. Anemia is now stable and guiac negative , but would bear repeating early next week. Treated conjunctivitis w/ eyedrops w / improvement. DMII and HTN mgmt as noted.
[2017-04-18] MEDS ORDERED: POTASSIUM CHLORIDE 20 MEQ TABCR PO STA (11:47)
[2017-04-18] MEDS ORDERED: IPRATROPIUM BROMIDE/ALBUTEROL respimat INH INH SCH (12:00)
[2017-04-18 12:48] LABS: HEMATOCRIT 27.2 % (37-47); HEMOGLOBIN 8.1 g/dL (12.0-16.0)
[2017-04-18] MEDS ORDERED: OXYC1TAB3 PO (13:16)
[2017-04-18] MEDS: OXYCODONE HCL IR 5 MG TAB (IMMEDIATE RELEASE) PO PRN (13:55)
== END 2017-04-18 14:33 | DRG 563 ==
LOC: EDBD 14:24 → C.ED 14:26 → C.3E 20:29 → ENRESERV 20:56 → C.MSICU 04-17 05:03 → OBSVTOIN 04-17 12:24
PROVIDERS: ADMIT Student in an Organized Health Care Education/Training Program; ATTEND Family Medicine
PROC: 0PSFXZZ Reposition Right Humeral Shaft, External Approach (ICD-10-PCS; principal; 2017-04-16 08:15)
DX: S42.341A Displaced spiral fracture of shaft of humerus, right arm, initial encounter for closed fracture (principal); S22.32XA Fracture of one rib, left side, initial encounter for closed fracture; I10 Essential (primary) hypertension; E78.5 Hyperlipidemia, unspecified; J45.909 Unspecified asthma, uncomplicated; G47.33 Obstructive sleep apnea (adult) (pediatric); E11.9 Type 2 diabetes mellitus without complications; K21.9 Gastro-esophageal reflux disease without esophagitis; W22.8XXA Striking against or struck by other objects, initial encounter; S01.81XA Laceration without foreign body of other part of head, initial encounter; M81.0 Age-related osteoporosis without current pathological fracture; H10.9 Unspecified conjunctivitis; Z79.82 Long term (current) use of aspirin; Z88.5 Allergy status to narcotic agent; Z88.1 Allergy status to other antibiotic agents; Z85.850 Personal history of malignant neoplasm of thyroid; Z85.12 Personal history of malignant neoplasm of trachea; Z79.84 Long term (current) use of oral hypoglycemic drugs; Z79.4 Long term (current) use of insulin

== ENCOUNTER 2017-04-23 19:56 | Emergency (ER) | payer BC, OTHER ==
[~2017-04-23] VITALS: Ht 162.6 cm; Wt 93.1 kg
[~2017-04-23 19:56] MED LIST changes: +ACET-1256 PO; -ACET-24 PO; -CELE1CAP30 PO; +CRAN1TAB4 PO; +CZR50 PO; -DICY20TA10 PO; -DOCU100C31 PO; -INSDGIPEN SC; +INSDGIPEN SQ; -LDDP5 TD; -LOSA50TA54 PO; -MCRK20 PEG; -NVLG SC; +OXYC-609 PO; +OXYC1TAB3 PO; -PANT40TA PO; +PANT40TA2 PO; -RXC5 PO; +TPRSR25 PO; +[UNRECOGNIZED DRUG - OTHER] OPL
[2017-04-23 20:00] VITALS: Ht 162.6 cm; Wt 93.1 kg
--- NOTE | 2017-04-23 21:19 | EMERGENCY ROOM VISIT NOTE ---
History Report prepared by Meliton: Jh Leon Under the Supervision of: Dr. Rubin Jamil M.D. First contact with patient: 20:13 Chief Complaint: KNEEPAIN Stated Complaint: LT. KNEE PAIN History of Present Illness The patient is a 76 year old female with a past medical history of diabetes and hypertension who presents to the ED with a cc of constant left knee pain beginning four days ago. Positive for bruising on her left knee. The patient states that she fell 2 weeks ago onto her right arm and left knee. She notes that she broke her arm, and had to have surgery to correct the break. She reports that she then began to experience left knee pain four days ago, and started to develop bruising on the top and bottom of the knee. The patient states that her pain worsens when she walks. She rates her pain as a 10/10. Source of History: patient Onset: four days ago Position: knee (left) Symptom Intensity: 10/10 Timing: constant Modifying Factors (Worsening): other (walking) Note: She also complains of left knee bruising. Review of Systems See HPI for pertinent positives and negatives. A total of ten systems were reviewed and were otherwise negative. Past Medical & Surgical Medical Problems: (1) Cancer of thorax (2) Carpal tunnel syndrome on right (3) Chest pain (4) Closed fracture of left proximal humerus (5) Diabetes (6) Diverticulitis (7) Dyspnea (8) Elevated troponin (9) Fracture in accidental fall (10) Hypertension (11) Influenza A (12) left humerus fx, hyperglycemic and sob (13) Right humeral fracture (14) Thyroid cancer Surgical Problems: (1) Hx of cholecystectomy Family History No significant family history stated Social History Smoking Status: Never Smoker Alcohol Use: none Drug Use: none Marital Status: Housing Status: lives with family Occupation Status: retired Current/Historical Medications Scheduled Aspirin (Aspirin Ec), 81 MG PO DAILY Cholecalciferol (Vitamin D3), 1,500 INTER.UNIT PO QAM Cranberry (Vaccinium Macrocarp (Cranberry), 1 TAB PO BID Ferrous Sulfate (Kp Ferrous Sulfate), 650 MG PO DAILY Insulin Glargine (Lantus Solostar), 20 UNITS SQ BID Levothyroxine Sodium (Levothyroxine Sodium), 125 MCG PO DAILY Losartan Potassium (Losartan Potassium), 75 MG PO DAILY Metformin Hcl (Glucophage), 1,000 MG PO BID Metoprolol Succinate (Metoprolol Succinate ER), 25 MG PO QAM Multivitamin (Multivitamin), 1 TAB PO DAILY Ofloxacin (Ofloxacin), 2 DROPS OPL Q4H Pantoprazole (Pantoprazole Sodium), 40 MG PO BID Simvastatin (Zocor), 40 MG PO QAM Tramadol Hcl (Ultram), 25 MG PO Q8H Scheduled PRN Acetaminophen (Tylenol), 1,000 MG PO Q8 PRN for Pain Benzonatate (Tessalon Perles), 100 MG PO DIRECTED PRN for Cough Ipratropium-Albuterol (Duoneb), 1 TREATMENT INH Q4H PRN for SOB/Wheezing Oxycodone HCl (Oxycodone HCl), 5 MG PO Q4 PRN for Pain Oxycodone Immediate Rel Tab (Roxicodone Ir), 5 MG PO Q4H PRN for Severe Pain Prochlorperazine Maleate (Compazine), 10 MG PO Q6H PRN for Nausea Allergies Coded Allergies: Doxycycline (Verified Allergy, Severe, TONGUE SWELLS/SOB, 03/04/17) Codeine (Verified Allergy, Intermediate, LARGE DOSES CAUSE RASH, 03/04/17) Morphine (Verified Adverse Reaction, Severe, CONFUSION, 04/15/17) Physical Exam Vital Signs Date Time Temp Pulse Resp B/P (MAP) Pulse Ox O2 Delivery O2 Flow Rate FiO2 04/23/17 23:27 82 16 139/63 96 Room Air 04/23/17 21:07 81 18 172/91 99 Room Air 04/23/17 20:00 37.0 97 20 214/81 96 Room Air Physical Exam GENERAL: Awake, alert, well-appearing, NAD HENT: Normocephalic, atraumatic, ecchymosis of the left side of face EYES: Normal conjunctiva. Sclera non-icteric. NECK: Supple. No nuchal rigidity. FROM. RESPIRATORY: CTAB, no rhonchi, wheezing, crackles CARDIAC: RRR, no MRG ABDOMEN: Soft, NTND, BS+ MSK: No chest wall TTP, no LE edema, RUQ is in a splint and held in a sling, LOWER EXTREMITIES: Left knee is mildly warm, noted effusion, ecchymosis to posterior calf, knee, and thigh, compartments soft, able to flex and extend at knee without problem, NVI distally. NEURO: GCS 15, CN 2-12 intact, moves all 4s on command SKIN: No rash or jaundice noted. Medical Decision & Procedures ER Provider Diagnostic Interpretation: Radiology results as stated below per my review and radiologist interpretation: L VENOUS DOPP LOWER EXT UNILAT FINDINGS: Mild nonspecific subcutaneous edema. There is normal flow, compressibility, phasicity and augmentation of the left lower extremity deep venous structures. IMPRESSION: No sonographic evidence of deep venous thrombosis. The above report was generated using voice recognition software. It may contain grammatical, syntax or spelling errors. Electronically signed by: Mikie Fu M.D. 04/23/2017 10:47 PM L KNEE 3 VIEWS FINDINGS: Bones are mildly demineralized. Mild medial and lateral with moderate patellofemoral compartment osteoarthritis. Chondrocalcinosis is noted about the knee along with moderate joint effusion. Moderate soft tissue swelling is noted within the prepatellar tissues and tissues in the region of the patellar tendon. No opaque foreign body. No acute fracture or subluxation. IMPRESSION: 1. Moderate joint effusion and moderate soft tissue swelling without acute fracture or subluxation. 2. Mildly demineralized appearance of the bones with tricompartmental osteoarthritis, moderate within the patellofemoral joint. The above report was generated using voice recognition software. It may contain grammatical, syntax or spelling errors. Electronically signed by: Mikie Fu M.D. 04/23/2017 10:09 PM Laboratory Results 04/23/17 22:15 Red Blood Count 3.64, Mean Corpuscular Volume 84.3, Mean Corpuscular Hemoglobin 25.5, Mean Corpuscular Hemoglobin Concent 30.3, Mean Platelet Volume 8.5, Neutrophils (%) (Auto) 73.7, Lymphocytes (%) (Auto) 17.5, Monocytes (%) (Auto) 6.2, Eosinophils (%) (Auto) 2.0, Basophils (%) (Auto) 0.3, Neutrophils # (Auto) 7.45, Lymphocytes # (Auto) 1.77, Monocytes # (Auto) 0.63, Eosinophils # (Auto) 0.20, Basophils # (Auto) 0.03 04/23/17 22:15 Test 04/23/17 22:15 White Blood Count 10.11 K/uL (4.8-10.8) Red Blood Count 3.64 M/uL (4.2-5.4) Hemoglobin 9.3 g/dL (12.0-16.0) Hematocrit 30.7 % (37-47) Mean Corpuscular Volume 84.3 fL (80-100) Mean Corpuscular Hemoglobin 25.5 pg (25-34) Mean Corpuscular Hemoglobin Concent 30.3 g/dl (32-36) Platelet Count 406 K/uL (130-400) Mean Platelet Volume 8.5 fL (7.4-10.4) Neutrophils (%) (Auto) 73.7 % Lymphocytes (%) (Auto) 17.5 % Monocytes (%) (Auto) 6.2 % Eosinophils (%) (Auto) 2.0 % Basophils (%) (Auto) 0.3 % Neutrophils # (Auto) 7.45 K/uL (1.4-6.5) Lymphocytes # (Auto) 1.77 K/uL (1.2-3.4) Monocytes # (Auto) 0.63 K/uL (0.11-0.59) Eosinophils # (Auto) 0.20 K/uL (0-0.5) Basophils # (Auto) 0.03 K/uL (0-0.2) RDW Standard Deviation 61.6 fL (36.4-46.3) RDW Coefficient of Variation 20.4 % (11.5-14.5) Immature Granulocyte % (Auto) 0.3 % Immature Granulocyte # (Auto) 0.03 K/uL (0.00-0.02) Polychromasia 1+ Hypochromasia PRESENT Anisocytosis PRESENT Prothrombin Time 10.8 SECONDS (9.0-12.0) Prothromb Time International Ratio 1.0 (0.9-1.1) Activated Partial Thromboplast Time 23.6 SECONDS (21.0-31.0) Partial Thromboplastin Ratio 0.9 Anion Gap 8.0 mmol/L (3-11) Est Creatinine Clear Calc Drug Dose 66.6 ml/min Estimated GFR () 85.7 Estimated GFR (Non- 74.0 BUN/Creatinine Ratio 20.7 (10-20) Calcium Level 9.0 mg/dl (8.5-10.1) Total Bilirubin 0.9 mg/dl (0.2-1) Direct Bilirubin 0.3 mg/dl (0-0.2) Aspartate Amino Transf (AST/SGOT) 15 U/L (15-37) Alanine Aminotransferase (ALT/SGPT) 20 U/L (12-78) Alkaline Phosphatase 93 U/L (45-117) Total Protein 7.2 gm/dl (6.4-8.2) Albumin 3.5 gm/dl (3.4-5.0) Lipase 95 U/L (73-393) Laboratory results reviewed by me Medications Administered Medications (Trade) Dose Ordered Sig/Regis Route Start Time Stop Time Status Last Admin Dose Admin Tramadol HCl (Ultram Tab) 50 mg NOW STAT PO 04/23/17 22:35 04/23/17 22:36 DC 04/23/17 22:42 50 MG ED Course 8: The patient was evaluated in room A12. A complete history and physical exam was performed. 0045: I reevaluated the patient. Discussed results and discharge instructions: She verbalized understanding and agreement. The patient is ready for discharge. Medical Decision The patient is a 76 year old female with a past medical history of diabetes and hypertension who presents to the ED with a cc of constant left knee pain beginning four days ago. Positive for bruising on her left knee. Differential diagnosis: Etiologies such as fracture, dislocation, intra-abdominal, pneumothorax, intrathoracic , intracranial, neurologic, DVT, as well as other pathologies were entertained. Patient is a 76 year old female with a past medical history of HTN, HLD, Asthma , JEFERSON, DM, GERD, Thyroid Cancer s/p Thyroidectomy in 1994, and tracheal cancer s /p resection in 2007, s/p recent fall and R humeral frx presents from [facility] w/ CC of knee pain Prior records were reviewed. Patient was seen and evaluated the bedside. Patient was complaining of some left knee pain. Patient has noted some mild swelling to the area and does state that the pain medication she is receiving at [facility] has not improved her discomfort. The patient has a normal neurovascular exam. She has good pulses. Compartments are soft. Patient does have a mild effusion to the left knee. Patient has good flexion and extension. Is mild warmth and there is noted ecchymosis around the knee posterior calf and thigh. Patient states that this is new compared to when she initially fell and broke her right arm. Patient did have blood work completed along with a right knee film and ultrasound. Patient's blood work is fairly unremarkable. Patient does not have an elevated white blood cell count. Given that the patient is a normal white blood cell count, normal flexion-extension believe that this is most likely traumatic effusion rather than septic joint. Patient is already on Keflex for possible cellulitis. Patient had a DVT ultrasound completed which was negative for DVT. Patient's hemoglobin has been stable and appears essentially at her baseline compared to priors. Patient's knee film did show an effusion but no fracture or dislocation. I did express the findings of the patient and family members. Patient family are concerned about the rehab center and would prefer not to go back. I did discuss the case making machine operator further attempted to assuage their concerns. Patient was deemed suitable to return to [facility]. Case management discussed concerns w/ nursing and meeting was planned for tomorrow. Patient was given strict follow-up, discharge, and return precautions. All questions were answered. Patient was deemed suitable for outpatient follow-up at this time. Patient agreed with the plan of care and was safely discharged home. Head Trauma GCS Score: 15 Medication Reconcilliation Current Medication List: was personally reviewed by me Blood Pressure Screening Patient's blood pressure: Elevated blood pressure Blood pressure disposition: Elevated BP felt to be situational Impression Primary Impression: Knee pain Additional Impressions: Anemia Knee effusion, left Scribe Attestation The scribe's documentation has been prepared under my direction and personally reviewed by me in its entirety. I confirm that the note above accurately reflects all work, treatment, procedures, and medical decision making performed by me. Departure Information Dispostion Home / Self-Care Prescriptions Tramadol Hcl (ULTRAM) 50 Mg Tab 25 MG PO Q8H, #12 TAB PRN PAIN Prov: Rubin Jamil M.D. 04/24/17 Referrals [facility] (PCP) Patient Instructions ED RICE, Knee Pain, My [facility], Swelling Knee Pain Reduce Additional Instructions Please return to the emergency department if you have worsening or recurrent symptoms not amenable to at-home treatment. Please call for a follow-up appointment with her primary care physician. Please take your medications as prescribed. If you have other concerns and/or complaints please feel free to also call your primary care physician's office or return the ED for further evaluation, management, and treatment. Take your medications as prescribed. You have been examined and treated today on an emergency basis only. This is not a substitute for, or an effort to provide, complete comprehensive medical care. It is impossible to recognize and treat all injuries or illnesses in a single emergency department visit. It is therefore important that you follow up closely with [facility], your PCP, and/or your specialist(s). Call as soon as possible for an appointment. Thank you for your time and consideration. I look forward to speaking with you again soon. Please don't hesitate to call us if you have any questions. Problem Qualifiers Primary Impression: Knee pain Chronicity: chronic Laterality: left Qualified Codes: M25.562 - Pain in left knee; G89.29 - Other chronic pain Additional Impressions: Anemia Anemia type: unspecified type Qualified Codes: D64.9 - Anemia, unspecified
--- NOTE | 2017-04-23 22:10 | DIAGNOSTIC IMAGING REPORT ---
L KNEE 3 VIEWS HISTORY: 76 years-old Female s/p fall 10 days prior now w/ bruising and pain acute left knee pain with recent fall COMPARISON: None available TECHNIQUE: 3 views of the left knee FINDINGS: Bones are mildly demineralized. Mild medial and lateral with moderate patellofemoral compartment osteoarthritis. Chondrocalcinosis is noted about the knee along with moderate joint effusion. Moderate soft tissue swelling is noted within the prepatellar tissues and tissues in the region of the patellar tendon. No opaque foreign body. No acute fracture or subluxation. IMPRESSION: 1. Moderate joint effusion and moderate soft tissue swelling without acute fracture or subluxation. 2. Mildly demineralized appearance of the bones with tricompartmental osteoarthritis, moderate within the patellofemoral joint. The above report was generated using voice recognition software. It may contain grammatical, syntax or spelling errors. Electronically signed by: Mikie Fu M.D. 04/23/2017 10:09 PM Dictated Date/Time: 04/23/2017 10:07 PM
[2017-04-23] MEDS ORDERED: TRAMADOL HCL 50 MG TAB PO STA (22:35)
[2017-04-23 22:36] LABS: HEMATOCRIT 30.7 % (37-47); HEMOGLOBIN 9.3 g/dL (12.0-16.0); MEAN CELL VOLUME 84.3 fL (80-100); MEAN CORPUSCULAR HEMOGLOBIN 25.5 pg (25-34); MEAN CORPUSCULAR HGB CONC 30.3 g/dl (32-36); MEAN PLATELET VOLUME 8.5 fL (7.4-10.4); PLATELET COUNT 406 K/uL (130-400); RED CELL DISTRIBUTION WIDTH CV 20.4 % (11.5-14.5); RED CELL DISTRIBUTION WIDTH SD 61.6 fL (36.4-46.3); WHITE BLOOD COUNT 10.11 K/uL (4.8-10.8)
[2017-04-23 22:38] LABS: PTT PATIENT 23.6 SECONDS (21.0-31.0)
[2017-04-23 22:43] LABS: ALBUMIN 3.5 gm/dl (3.4-5.0); CREATININE 0.77 mg/dl (0.60-1.20); POTASSIUM 3.7 mmol/L (3.5-5.1)
[2017-04-23 22:46] LABS: TOTAL PROTEIN 7.2 gm/dl (6.4-8.2)
--- NOTE | 2017-04-23 22:49 | DIAGNOSTIC IMAGING REPORT ---
L VENOUS DOPP LOWER EXT UNILAT HISTORY: 76 years-old Female swelling, bruising acute left lower extremity pain and swelling COMPARISON: None available TECHNIQUE: Multiple real-time sonographic images of the left lower extremity deep venous structures were obtained assessing grayscale appearance, color and spectral flow. FINDINGS: Mild nonspecific subcutaneous edema. There is normal flow, compressibility, phasicity and augmentation of the left lower extremity deep venous structures. IMPRESSION: No sonographic evidence of deep venous thrombosis. The above report was generated using voice recognition software. It may contain grammatical, syntax or spelling errors. Electronically signed by: Mikie uF M.D. 04/23/2017 10:47 PM Dictated Date/Time: 04/23/2017 10:46 PM
[2017-04-23 23:13] LABS: BASO % 0.3 %; BASO ABS # 0.03 K/uL (0-0.2); IG# 0.03 K/uL (0.00-0.02); LYMPH % 17.5 %; LYMPH ABS # 1.77 K/uL (1.2-3.4); MONO % 6.2 %; MONO ABS # 0.63 K/uL (0.11-0.59); NEUT % 73.7 %; NEUT ABS # 7.45 K/uL (1.4-6.5)
[2017-04-24] MEDS ORDERED: TRAM-453 PO ×2 (00:47→01:11)
[2017-04-24 01:37] VITALS: BP 140/84; PULSE 76; TEMP 37; O2SAT 96
== END 2017-04-24 01:15 | disposition home or self-care (01) ==
LOC: EDBD 19:56 → C.EDA 19:58
DX: M25.562 Pain in left knee (principal); G89.29 Other chronic pain; D64.9 Anemia, unspecified; M25.462 Effusion, left knee; E11.9 Type 2 diabetes mellitus without complications; I10 Essential (primary) hypertension; Z79.4 Long term (current) use of insulin; Z79.82 Long term (current) use of aspirin; Z79.899 Other long term (current) drug therapy; Z88.1 Allergy status to other antibiotic agents; Z88.5 Allergy status to narcotic agent

== ENCOUNTER 2017-04-30 12:11 | Inpatient (IN) | payer OTHER ==
[2017-04-28 15:44] VITALS: BMI 33.0
--- NOTE | 2017-04-29 08:53 | PAT Medication Instructions ---
Service Date Apr 29, 2017. Current Home Medication List Acetaminophen (Tylenol), 500 MG PO Q4H Amlodipine (Norvasc), 2.5 MG PO QAM Aspirin (Aspirin Ec), 81 MG PO QAM Atorvastatin (Lipitor), 20 MG PO HS Bisacodyl (Bisacodyl Laxative), 10 MG RE PRN Cephalexin Monohydrate (Keflex), 500 MG PO QID Cholecalciferol (Vitamin D3), 1 CAP PO QAM Cyanocobalamin (Vitamin B-12), 1,000 MCG PO QAM Docusate Sodium (Docusate Sodium), 1 CAP PO BID PRN for PRN Ferrous Sulfate (Kp Ferrous Sulfate), 650 MG PO QAM Hydrocodone/Acetaminophen 10MG/325MG ([place] 10MG/325MG), 1 TAB PO Q4H PRN for Pain Insulin Glargine (Lantus Solostar), 32 UNITS INJ AM/HS Ipratropium-Albuterol (Combivent Respimat), 1 PUFFS INH QID PRN for PRN Lactobacillus Acidophilus (Lactinex), 1 TAB PO NOON Levothyroxine Sodium (Levothyroxine Sodium), 125 MCG PO QAM Losartan Potassium (Losartan Potassium), 75 MG PO QAM Magnesium Hydroxide (Milk Of Magnesia), 30 ML PO DAILY PRN for RN Metformin Hcl (Glucophage), 1,000 MG PO BID Metoprolol Succ (Toprol Xl) (Toprol-Xl), 25 MG PO QAM Multivitamin (Multivitamin), 1 TAB PO QAM Ondansetron Hcl (Zofran), 4 MG PO Q4H PRN for N Pantoprazole (Pantoprazole Sodium), 40 MG PO BID Phenazopyridine HCl (Pyridium), 100 MG PO TID PRN for PRN Polyethylene Glycol 3350 (Miralax), 17 GM PO NOON Senna/Docusate Sod (Senokot S), 1 TAB PO NOON Sodium Phosphate/Biphosphate (Fleet Enema), 1 EA OH DAILY PRN for PRN [Glucagon Powder], 1 DOSE INJ UD PRN for RN [Glucose Gel], 15 GM PO UD PRN for RN [Novolog], INJ TIDM PRN for UD Medication Instructions For Your Scheduled Surgery - Continue as directed: [Glucagon Powder], 1 DOSE INJ UD PRN for RN [Glucose Gel], 15 GM PO UD PRN for RN - Check with surgeon for instructions: Phenazopyridine HCl (Pyridium), 100 MG PO TID PRN for PRN Cephalexin Monohydrate (Keflex), 500 MG PO QID - Check with surgeon and prescribing physician for instructions: Aspirin (Aspirin Ec), 81 MG PO QAM - Hold the following medications the morning of surgery: Bisacodyl (Bisacodyl Laxative), 10 MG RE PRN Cholecalciferol (Vitamin D3), 1 CAP PO QAM Cyanocobalamin (Vitamin B-12), 1,000 MCG PO QAM Docusate Sodium (Docusate Sodium), 1 CAP PO BID PRN for PRN Ferrous Sulfate (Kp Ferrous Sulfate), 650 MG PO QAM Lactobacillus Acidophilus (Lactinex), 1 TAB PO NOON Losartan Potassium (Losartan Potassium), 75 MG PO QAM Magnesium Hydroxide (Milk Of Magnesia), 30 ML PO DAILY PRN for RN Metformin Hcl (Glucophage), 1,000 MG PO BID Multivitamin (Multivitamin), 1 TAB PO QAM Polyethylene Glycol 3350 (Miralax), 17 GM PO NOON Senna/Docusate Sod (Senokot S), 1 TAB PO NOON Sodium Phosphate/Biphosphate (Fleet Enema), 1 EA OH DAILY PRN for PRN [Novolog], INJ TIDM PRN for UD - Take the following medications the morning of surgery with a sip of water: Ondansetron Hcl (Zofran), 4 MG PO Q4H PRN for N (if needed) Pantoprazole (Pantoprazole Sodium), 40 MG PO BID Metoprolol Succ (Toprol Xl) (Toprol-Xl), 25 MG PO QAM Levothyroxine Sodium (Levothyroxine Sodium), 125 MCG PO QAM Ipratropium-Albuterol (Combivent Respimat), 1 PUFFS INH QID PRN for PRN (if needed) Hydrocodone/Acetaminophen 10MG/325MG ([place] 10MG/325MG), 1 TAB PO Q4H PRN for Pain (okay to take up to 4 hours prior to surgery if needed) Acetaminophen (Tylenol), 500 MG PO Q4H(okay to take up to 4 hours prior to surgery if needed) Amlodipine (Norvasc), 2.5 MG PO QAM - For Insulin Dependent Diabetic patients: Test blood sugar A.M. of surgery. - If Blood sugar greater than 150, take half of your regular dose of: Insulin Glargine (Lantus Solostar), take 16 units - If Blood sugar less than 150, do not take any: Insulin Glargine (Lantus Solostar), 32 UNITS INJ AM/HS If you have any questions please call us at [phone] or [phone] or [phone]
--- NOTE | 2017-04-29 11:24 | HISTORY & PHYSICAL EXAMINATION ---
DATE OF ADMISSION: 04/30/2017 CHIEF COMPLAINT: Right humerus fracture. HISTORY OF PRESENT ILLNESS: The patient is a 76-year-old female who suffered a fall approximately 1 week ago. She was initially seen and evaluated in the hospital and had a closed reduction performed in the operating room. She presented this week for x-ray and reevaluation. Repeat x-rays show further displacement of the fracture and she is now scheduled for an ORIF of her humerus fracture. PAST MEDICAL HISTORY: Hypertension, hypercholesterolemia, asthma, type 1 diabetes, thyroid and tracheal cancer, anemia, acid reflux, and obesity. PAST SURGICAL HISTORY: Unknown at this time. MEDICATIONS: Ferrous sulfate 325 mg, multivitamin, Combivent 1 puff 4 times daily, aspirin 81 mg daily. benzonatate 100 mg 3 times daily, vitamin D 3000 units daily, dicyclomine 20 mg 4 times daily, Lantus insulin as directed, levothyroxine 125 mcg daily, losartan 100 mg daily, metformin 1000 mg 2 times daily, pantoprazole 40 mg daily, and atorvastatin 20 mg daily. ALLERGIES: DOXYCYCLINE, OXYCODONE, AND CODEINE. SOCIAL HISTORY AND REVIEW OF SYSTEMS: Noncontributory. PHYSICAL EXAMINATION: GENERAL: Well-nourished, well-developed elderly female who appears stated age. HEENT: Normocephalic, atraumatic, extraocular movements intact, oropharynx pink and moist. NECK: Supple without adenopathy. LUNGS: Clear to auscultation bilaterally. HEART: Regular rate and rhythm. ABDOMEN: Soft, nontender, nondistended, obese. EXTREMITIES: The right upper extremity has a coaptation splint. Fingers are mobile, neurovascularly intact. The radial nerve appears intact. X-RAYS: X-rays were reviewed. She has a displaced short oblique fracture of the junction of the mid and distal one-third of the right humerus. ASSESSMENT: Displaced right humerus fracture. PLAN: Risks versus benefits were discussed, consent was obtained. The patient's primary care physician is Dr. Sera Liz. Will proceed with ORIF of her right humerus fracture as indicated.
[~2017-04-30] VITALS: Ht 162.6 cm; Wt 87.1 kg
--- NOTE | 2017-04-30 10:25 | [facility] Post Operative Brief Note ---
Immediate Operative Summary Operative Date Apr 30, 2017. Pre-Operative Diagnosis oa l knee Post-Operative Diagnosis same Procedure(s) Performed l tka Surgeon bruno Sheep Boner Surgeon(s) spring Estimated Blood Loss 20cc Findings Consistent with Post-Op Diagnosis Specimens bone Anesthesia Type MAC Spinal Regional Complication(s) none Disposition Accompanied Pt To Recover: no Disposition: Recovery Room / PACU
[~2017-04-30 12:11] MED LIST changes: +AMLO2.5T PO; +ATOR-22 PO; -BENZ100C84 PO; +BISA1SUP4 RE; +CEFAZOLIN 2000MG IV PUSH 15 ML IV SCH; +CEPH500C2 PO; +CHOL2000 PO; -CRAN1TAB4 PO; +CYAN10005 PO; +DOCU100C31 PO; +GLUCAGON INJ; +GLUCOSE GEL PO; +HYDR-4079 PO; +INSDGIPEN INJ; -INSDGIPEN SQ; +IPRA1AER2 INH; -IPRASOL4 INH; +LACTATED RINGER'S 1000ML 1,000 ML IV SCH; +LCTX PO; +METO25TA3 PO; +MOML PO; +NOVOLOG INJ; +ONDA4TAB46 PO; -OXYC-609 PO; -OXYC1TAB3 PO; +PHEN-876 PO; +POLY335019 PO; -PROC1TAB5 PO; +ROPIVACAINE 0.5% 5 MG/ML 30 ML VIAL ONE; +SENN-65 PO; -SIMV40TA2 PO; +SODIENE PR; -TPRSR25 PO; -VTMD1000 PO; -[UNRECOGNIZED DRUG - OTHER] OPL
[2017-04-30] MEDS ORDERED: PROPOFOL IV EMULSION 10 MG/ML 20 ML VIAL IV ONE (12:47)
[2017-04-30] MEDS ORDERED: MIDAZOLAM HCL 1 MG/ML 2ML VIAL ONE (12:47)
[2017-04-30] MEDS ORDERED: DEXAMETHASONE SOD INJ 4 MG/ML VIAL ONE (12:47)
[2017-04-30] MEDS ORDERED: LIDOCAINE HCL 2% 2 ML VIAL (20MG/ML) ONE (12:47)
[2017-04-30] MEDS ORDERED: FENTANYL CITRATE INJ 50 MCG/1 ML 2 ML VIAL ONE ×3 (12:47→16:37)
[2017-04-30] MEDS ORDERED: ONDANSETRON INJ 2 MG/ML 2 ML VIAL ONE (12:47)
[2017-04-30] MEDS ORDERED: PHENYLEPHRINE 100MCG/ML 5ML SYR IV PRN (13:45)
[2017-04-30] MEDS ORDERED: ATROPINE SULFATE 0.1 MG/ML 5ML SYR IV PRN (13:45)
[2017-04-30] MEDS ORDERED: HYDROmorphone INJ 1 MG/ML SYR IV PRN (13:45)
[2017-04-30] MEDS ORDERED: EpHEDrine SULFATE INJ 50 MG/ML AMP IV PRN (13:45)
[2017-04-30] MEDS ORDERED: FENTANYL CITRATE INJ 50 MCG/1 ML 2 ML VIAL IV PRN (13:45)
[2017-04-30] MEDS ORDERED: ONDANSETRON INJ 2 MG/ML 2 ML VIAL IV PRN ×2 (13:45→17:15)
[2017-04-30] MEDS ORDERED: PHENYLEPHRINE 100MCG/ML 5ML SYR ONE (15:14)
[2017-04-30] MEDS ORDERED: EpHEDrine SULFATE 50MG/5ML SYR ONE (15:14)
--- NOTE | 2017-04-30 16:24 | [facility] Post Operative Brief Note ---
Immediate Operative Summary Operative Date Apr 30, 2017. Pre-Operative Diagnosis right distal humerus fracture Post-Operative Diagnosis right distal humerus fracture Procedure(s) Performed Right Open Reduction Internal Fixation Distal Humerus Fracture Surgeon Dr. Devin Mondragon Dance Historian Surgeon(s) Jn Barron Estimated Blood Loss 150ML Findings Consistent with Post-Op Diagnosis Specimens none per surgeon Drains None Anesthesia Type General Complication(s) none Disposition Accompanied Pt To Recover: no Disposition: Recovery Room / PACU
--- NOTE | 2017-04-30 17:08 | OPERATIVE REPORT ---
DATE OF OPERATION: 04/30/2017 PREOPERATIVE DIAGNOSIS: Spiral fracture, right distal humerus. POSTOPERATIVE DIAGNOSIS: Comminuted spiral fracture, right distal humerus. SURGEON: Dr. Mondragon. PROCESS CHECKER: Jn Youngblood PA-C. ANESTHESIA: General. COMPLICATIONS: None. DESCRIPTION OF PROCEDURE: Following induction of general anesthesia, the patient's right arm was prepped and draped in usual sterile manner. No tourniquet was utilized. Posterolateral incision was used over the humerus. Subcutaneous tissue was bluntly and sharply dissected. Electrocautery used for hemostasis. The inner ball just anterior to the triceps was developed exposing the lateral condyle posteriorly as well as the posterior shaft of the humerus. The radial nerve was identified and protected throughout the procedure. Clot and callus were removed from the fracture site. There was found to be a butterfly fragment along with the distal fragment. This was reduced and fixed using 2 interfragmentary lag screws distally. This simplified the fracture pattern and using 2 lion-jaw bone clamps, traction was placed on the fracture until an anatomic reduction could be obtained. This was held using the lion-jaw bone clamps well. Two interfragmentary screws were passed lateral to medial obviating the need for the lion-jaw. Following this, an 8-hole [employer] hockey stick plate was placed in the posterior aspect of the humerus and was first lagged approximately using a single cortical bone screw and the plate was placed beneath the radial nerve. The fracture was then again fixed distally using a single locking screw and check x-rays revealed good maintenance of an anatomic reduction of the fracture. Three additional locking screws proximally and 6 additional locking screws distally were utilized to further fix the fracture. Final check x-rays revealed good screw length and placement with maintenance of the anatomic reduction. The wound was irrigated with pulsatile irrigation and closed using 0 Dexon and khalif. Sterile dressing of Adaptic, 4x4s, Kerlix and ABDs and Cristobal wrap was applied. The patient tolerated the procedure well. I attest to the content of the Intraoperative Record and any orders documented therein. Any exception s are noted below.
[2017-04-30] MEDS ORDERED: NEOSTIGMINE METHYLSULFATE 5 MG/5 ML SYR ONE (17:12)
[2017-04-30] MEDS ORDERED: ROCURONIUM BROMIDE 10 MG/ML 5 ML VIAL IV ONE (17:12)
[2017-04-30] MEDS ORDERED: GLYCOPYRROLATE INJ 0.2 MG/ML VIAL ONE (17:12)
[2017-04-30] MEDS ORDERED: ALUMINUM/MAGNESIUM/SIMETH (MAALOX MAX) 30 ML UDC PO PRN (17:15)
[2017-04-30] MEDS ORDERED: IPRATROPIUM BROMIDE/ALBUTEROL respimat INH INH PRN (17:15)
[2017-04-30] MEDS ORDERED: MAGNESIUM HYDROXIDE SUSP 30 ML UDC PO PRN (17:15)
[2017-04-30] MEDS ORDERED: BISACODYL 10 MG SUPP PR PRN (17:15)
[2017-04-30] MEDS ORDERED: METOCLOPRAMIDE HCL INJ 5 MG/ML 2 ML VIAL IV PRN (17:15)
[2017-04-30] MEDS ORDERED: CEFAZOLIN IV 2,000 MG in DEXTROSE 5% 50ML 50 ML IV SCH (17:15)
[2017-04-30] MEDS ORDERED: ZOLPIDEM TARTRATE 5 MG TAB PO PRN (17:15)
--- NOTE | 2017-04-30 17:27 | DIAGNOSTIC IMAGING REPORT ---
R HUMERUS MIN 2 VIEW ROUTINE HISTORY: 76 years-old Female RT ORIF DISTAL HUMERUS FX status post ORIF of the right humerus with acute spiral fracture of the distal right humeral diaphysis. COMPARISON: Right humerus radiographs 04/27/2017 TECHNIQUE: 2 spot fluoroscopic images of the right humerus were obtained utilizing 176.4 seconds fluoroscopy time FINDINGS: Status post placement of a large fixation plate with multiple cannulated fixation screws fixating the previously noted displaced distal diaphyseal humeral fracture. There is improved near-anatomic alignment. Additionally, there are 2 screws traversing the fracture which do not go through the fixation plate. Expected postsurgical soft tissue swelling and deep tissue air about the upper arm. IMPRESSION: Improved alignment of the right humerus status post ORIF. The above report was generated using voice recognition software. It may contain grammatical, syntax or spelling errors. Electronically signed by: Mikie Fu M.D. 04/30/2017 5:26 PM Dictated Date/Time: 04/30/2017 5:24 PM
[2017-04-30 17:35] VITALS: BMI 33.0
[2017-04-30] MEDS ORDERED: LABETALOL HCL IV 5 MG/ML 20ML IV ONE (17:45)
[2017-04-30] MEDS: FERROUS GLUCONATE 324 MG TAB PO SCH (18:00)
--- NOTE | 2017-04-30 18:20 | Anesthesiology Progress Note ---
Anesthesia Post Op Note Date & Time Apr 30, 2017 at 18:19 Vital Signs Pain Intensity: 0 Vital Signs Past 12 Hours Date Time Temp Pulse Resp B/P (MAP) Pulse Ox O2 Delivery O2 Flow Rate FiO2 04/30/17 18:00 36.4 64 16 155/79 95 Nasal Cannula 3 04/30/17 17:45 36.4 68 16 135/65 95 Nasal Cannula 3 04/30/17 17:30 36.4 88 16 159/86 95 Room Air 04/30/17 17:20 64 16 185/70 99 Oxymask 7 04/30/17 17:10 72 16 161/84 99 Oxymask 7 04/30/17 17:02 36.4 79 16 167/85 99 Oxymask 7 04/30/17 13:14 Room Air Notes Mental Status: alert / awake / arousable, participated in evaluation Pt Amnestic to Procedure: Yes Nausea / Vomiting: adequately controlled Pain: adequately controlled Airway Patency, RR, SpO2: stable & adequate BP & HR: stable & adequate Hydration State: stable & adequate Anesthetic Complications: no major complications apparent
[2017-04-30 18:30] VITALS: BP 149/76; PULSE 71; TEMP 36.4; O2SAT 95
--- NOTE | 2017-04-30 18:56 | DIAGNOSTIC IMAGING REPORT ---
RIGHT HUMERUS 2 VIEWS CLINICAL HISTORY: Postoperative examination. FINDINGS: AP and lateral portable views of the right humerus are compared to study dated 04/17/2017. The examination is performed through a splint, obscuring fine bony detail. The skeletal structures are osteopenic. There has been buttress plate fixation of a spiral fracture through the distal humeral shaft with denominational of near-anatomic alignment. Numerous cortical lag screws transfix the buttress plate. Additional screws transfix the fracture fragments. The orthopedic hardware appears intact. Advanced arthritic change is noted in the shoulder. The elbow joint is grossly preserved. Soft tissue edema and skin clips are noted in the upper extremity. IMPRESSION: Expected postoperative findings status post open reduction and internal fixation of a right humeral fracture. The fragments are in near-anatomic alignment. Electronically signed by: Grant Cochran M.D. 04/30/2017 6:55 PM Dictated Date/Time: 04/30/2017 6:53 PM
[2017-04-30 19:00] VITALS: BP 149/64; PULSE 76; TEMP 36.4; O2SAT 100
[2017-04-30] MEDS: POTASSIUM CHLORIDE INJ 10 MEQ in SODIUM CHLORIDE 0.9% 1000ML 1,000 ML IV SCH (19:09)
[2017-04-30 19:30] VITALS: BP 126/77; PULSE 74; TEMP 36.4; O2SAT 100
[2017-04-30] MEDS: DOCUSATE SODIUM 100 MG CAP PO SCH (20:42)
[2017-04-30] MEDS: ATORVASTATIN 20 MG TAB PO SCH (20:42)
[2017-04-30 20:44] VITALS: BP 146/74; PULSE 85; O2SAT 100
[2017-04-30 21:30] VITALS: BP 176/79; PULSE 90; TEMP 36.6; O2SAT 100
[2017-04-30] MEDS ORDERED: IV FLUIDS COMPLETED PRN (21:45)
[2017-04-30] MEDS ORDERED: GLUCOSE 40% GEL 15 GM TUBE PO PRN (22:15)
[2017-04-30] MEDS ORDERED: DEXTROSE 50% 50 ML SYR IV PRN (22:15)
[2017-04-30] MEDS ORDERED: GLUCOSE 10 TABS/TUBE PO PRN (22:15)
[2017-04-30] MEDS ORDERED: GLUCAGON FOR INJ 1 MG VIAL SQ PRN (22:15)
[2017-04-30 23:15] VITALS: BP 135/76; PULSE 83; TEMP 36.5; O2SAT 100
[2017-04-30] MEDS ORDERED: INSULIN GLARGINE SOLOSTAR 100 UNITS/ML 3 ML PEN SC ONE (23:30)
[2017-04-30] MEDS: HYDROmorphone INJ 2 MG/ML SYR/VIAL IV PRN (23:35)
[2017-04-30] MEDS: CEFAZOLIN IV 2,000 MG in SYRINGE 0 ML IV SCH (23:39)
--- NOTE | 2017-04-30 23:57 | Medical Consult ---
Consultation Date of Consultation: Apr 30, 2017. Attending Physician: Devin Mondragon M.D. Reason for Consultation: Medical management History of Present Illness 76-year-old female with a past medical history of hypertension, hyperlipidemia, asthma, type 2 diabetes, anemia, acid reflux, thyroid cancer had sustained a fall about a week ago and had ORIF of the right humerus performed today. Medicine was consulted for medical management of her other medical issues. She states that her pain is fairly well tolerated and denies any chest pain, shortness of breath, lightheadedness or dizziness. She just returned to her room and states that she is still unable to move her right hand. Past Medical/Surgical History Medical Problems: (1) Abdominal bloating Status: Acute (2) Abdominal discomfort Status: Acute (3) Abdominal pain Status: Acute (4) Anemia Status: Acute (5) Bacteremia Status: Acute (6) Fall Status: Acute (7) Gastritis Status: Acute (8) Humerus fracture Status: Acute (9) Knee effusion, left Status: Acute (10) Knee pain Status: Acute (11) Poisoning by insulin and oral hypoglycemic [antidiabetic] drugs, accidental (unintentional), initial encounter Status: Acute (12) Shingles Status: Acute Family History No significant family history stated Social History Smoking Status: Never Smoker Drug Use: none Marital Status: Housing Status: lives with family Occupation Status: retired Allergies Coded Allergies: Doxycycline (Verified Allergy, Severe, TONGUE SWELLS/SOB, 04/30/17) Codeine (Verified Allergy, Intermediate, LARGE DOSES CAUSE RASH, 04/30/17) Oxycodone (Verified Allergy, Unknown, UNKNOWN, 04/30/17) Morphine (Verified Adverse Reaction, Intermediate, CONFUSION, 04/30/17) Current Inpatient Medications Current Inpatient Medications Medications (Trade) Dose Ordered Sig/Regis Route Start Time Stop Time Status Last Admin Dose Admin Lactated Ringer's 1,000 ml @ 15 mls/hr Q24H IV 04/30/17 06:00 05/01/17 05:59 Potassium Chloride 10 meq/ Sodium Chloride 1,005 ml @ 100 mls/hr Q10H3M IV 04/30/17 19:00 05/30/17 18:59 04/30/17 19:09 100 MLS/HR Acetaminophen/ Hydrocodone Bitart ([place] 5/325 Tab) 1-2 TABS FOR PAIN 1 TABLET ... Q6H PRN PO 04/30/17 17:15 05/14/17 17:14 Magnesium Hydroxide (Milk Of Magnesia Susp) 30 ml Q6H PRN PO 04/30/17 17:15 05/30/17 17:14 Bisacodyl (Dulcolax Supp) 10 mg DAILY PRN [place] 04/30/17 17:15 05/30/17 17:14 Docusate Sodium (coLACE CAP) 100 mg BID PO 04/30/17 21:00 05/30/17 20:59 04/30/17 20:42 100 MG Diphenhydramine HCl (Benadryl Cap) 25 mg Q8H PRN PO 04/30/17 17:15 05/30/17 17:14 Al Hydrox/Mg Hydrox/Simethicone (Maalox Max Susp) 15 ml Q4H PRN PO 04/30/17 17:15 05/30/17 17:14 Zolpidem Tartrate (Ambien Tab) 5 mg HSZ PRN PO 04/30/17 17:15 05/30/17 17:14 Multivitamins (Multivitamin Tab) 1 tab QAM PO 05/01/17 09:00 05/31/17 08:59 Ondansetron HCl (Zofran Inj) 4 mg Q6H PRN IV 04/30/17 17:15 05/30/17 17:14 Metoclopramide HCl (Reglan Inj) 10 mg Q6H PRN IV 04/30/17 17:15 05/30/17 17:14 Ferrous Gluconate (Ferrous Gluconate Tab) 324 mg TIDM PO 04/30/17 18:00 05/30/17 17:59 Pantoprazole Sodium (Protonix Tab) 40 mg QAM PO 05/01/17 09:00 05/31/17 08:59 Amlodipine Besylate (Norvasc Tab) 2.5 mg QAM PO 05/01/17 09:00 05/31/17 08:59 Atorvastatin Calcium (Lipitor Tab) 20 mg HS PO 04/30/17 21:00 05/30/17 20:59 04/30/17 20:42 20 MG Cyanocobalamin (Vitamin B-12 Tab) 1,000 mcg QAM PO 05/01/17 09:00 05/31/17 08:59 Albuterol/ Ipratropium (Combivent Respimat Inh) 1 puffs QID PRN INH 04/30/17 17:15 05/30/17 17:14 Lactobacillus Acidophilus (Floranex Tab) 1 tab DAILY PO 05/01/17 09:00 05/31/17 08:59 Levothyroxine Sodium (Synthroid Tab) 125 mcg DAILYBB PO 05/01/17 06:00 05/31/17 05:59 Losartan Potassium (coZAAR TAB) 75 mg QAM PO 05/01/17 09:00 05/31/17 08:59 Metoprolol Succinate (Toprol Xl Tab) 25 mg QAM PO 05/01/17 09:00 05/31/17 08:59 Hydromorphone HCl (Dilaudid Inj) 2 mg Q4HWA PRN IV 04/30/17 17:15 05/14/17 17:14 04/30/17 23:35 2 MG Cefazolin Sodium 2000 mg/Syringe 15 ml @ 3.75 mls/ min Q8H IV 05/01/17 00:00 05/01/17 08:03 04/30/17 23:39 3.75 MLS/MIN Miscellaneous (Iv Fluids Completed) 1 ea PRN PRN N/A 04/30/17 21:45 04/30/18 21:44 Insulin Aspart (novoLOG ASPART) SLIDING SCALE G... ACHS SC 05/01/17 08:00 05/31/17 07:59 Glucose (Glucose 40% Gel) 15-30 GRAMS 15 GRAMS... UD PRN PO 04/30/17 22:15 05/30/17 22:14 Glucose (Glucose Chew Tab) 4-8 Tablets 4 Tabl... UD PRN PO 04/30/17 22:15 05/30/17 22:14 Dextrose (Dextrose 50% 50ML Syringe) 25-50ML OF 50% DW IV FOR... UD PRN IV 04/30/17 22:15 05/30/17 22:14 Glucagon (Glucagon Inj) 1 mg UD PRN SQ 04/30/17 22:15 05/30/17 22:14 Insulin Glargine (Lantus Solostar Pen) 20 units HS SC 05/01/17 21:00 05/31/17 20:59 Review of Systems Constitutional: No fever, No chills Eyes: No worsening of vision ENT: No hearing loss Respiratory: No cough Cardiovascular: No chest pain Abdomen: No pain, No nausea, No vomiting Musculoskeletal: + joint pain (Right upper extremity status post ORIF-pain well controlled) Genitourinary - Female: No dysuria, No urinary frequency Neurologic: No memory loss Psychiatric: No depression symptoms Endocrine: No fatigue Physical Exam Date Time Temp Pulse Resp B/P (MAP) Pulse Ox O2 Delivery O2 Flow Rate FiO2 04/30/17 21:30 36.6 90 16 176/79 (111) 100 Nasal Cannula 2.0 04/30/17 20:44 85 18 146/74 (98) 100 Nasal Cannula 2.0 04/30/17 19:30 36.4 74 16 126/77 (93) 100 Nasal Cannula 2.0 04/30/17 19:00 36.4 76 17 149/64 (92) 100 Nasal Cannula 2.0 04/30/17 18:30 Room Air 04/30/17 18:30 36.4 71 16 149/76 (100) 95 Room Air 04/30/17 18:30 95 Room Air 04/30/17 18:00 36.4 64 16 155/79 95 Nasal Cannula 3 04/30/17 17:45 36.4 68 16 135/65 95 Nasal Cannula 3 04/30/17 17:30 36.4 88 16 159/86 95 Room Air 04/30/17 17:20 64 16 185/70 99 Oxymask 7 04/30/17 17:10 72 16 161/84 99 Oxymask 7 04/30/17 17:02 36.4 79 16 167/85 99 Oxymask 7 04/30/17 13:14 Room Air General Appearance: WD/WN, no apparent distress Head: normocephalic Eyes: normal inspection ENT: hearing grossly normal Neck: supple Respiratory/Chest: chest non-tender Cardiovascular: regular rate, rhythm Abdomen/GI: normal bowel sounds, non tender, soft Back: + left CVA tenderness Extremities/Musculoskelatal: + pertinent finding (Right upper extremity covered in dressing status post ORIF) Neurologic/Psych: alert, normal mood/affect, oriented x 3 Laboratory Results Last 24 Hours Test 04/30/17 12:41 04/30/17 17:13 04/30/17 19:14 04/30/17 21:00 Bedside Glucose 247 mg/dl 224 mg/dl 272 mg/dl 312 mg/dl Assessment & Plan 76-year-old female with a past medical history of hypertension, hyperlipidemia, asthma, type 2 diabetes, anemia, acid reflux, thyroid cancer had sustained a fall about a week ago and had ORIF of the right humerus performed today. Right humerus fracture status post ORIF -Management per orthopedic team Hypertension: - Blood pressure appears to be well controlled -Continue metoprolol, Norvasc, losartan Diabetes type 2: -Per patient chart, she receives 32 units Lantus twice daily along with insulin sliding scale the patient states that she takes 20 units Lantus twice daily -Started with 20 units Lantus plus NovoLog sliding scale -Monitor blood sugars and adjust Lantus dosing -Metformin currently on hold Hyperlipidemia: -Continue atorvastatin 20 mg daily Hypothyroidism: Continue-Synthroid Acid reflux: Continue pantoprazole Asthma: Stable Continue Combivent as needed DVT prophylaxis: SCDs Aspirin Full code Disposition: in [facility], monitor blood sugars 76 y/o F HTN, HPL, Asthma, JEFERSON, DM, GERD, Thyroid Cancer, tracheal tumor resected 2007 - Presented with a right humeral fracture 04/15 - has been at a rehab facility since then and returned 04/29 to undergo ORIF. The pt is recovering well - denies CP, SOB , N/V, fevers. Dines excessive pain at surgical site. OE AAO x 3 S1,2 R CTAB NT, ND No CCE P: Placed on SS for DM Cont Losartan, Norvasc, Metoprolol - AM labs should be review however prior to restarting her ARB PT/OT to discretion of ortho Resident Tracking Resident Involvement: Resident Care Provided Care Provided: Adult Hospital Medicine
[2017-05-01] MEDS: POTASSIUM CHLORIDE INJ 10 MEQ in SODIUM CHLORIDE 0.9% 1000ML 1,000 ML IV SCH ×2 (04:44→15:06)
[2017-05-01] MEDS: HYDROCODONE/ACETAMIN 5/325MG TAB PO PRN ×2 (04:54→15:00)
[2017-05-01] MEDS ORDERED: NURSING DECISION MEDICATION ORDER SCH (05:30)
[2017-05-01] MEDS ORDERED: MICONAZOLE NITRATE POWDER 43 GM EXT PRN (05:30)
[2017-05-01] MEDS ORDERED: LEVOTHYROXINE 125 MCG TAB PO SCH (06:00)
[2017-05-01 06:09] LABS: HEMATOCRIT 29.8 % (37-47); MEAN CELL VOLUME 85.9 fL (80-100); MEAN CORPUSCULAR HEMOGLOBIN 25.9 pg (25-34); MEAN CORPUSCULAR HGB CONC 30.2 g/dl (32-36); MEAN PLATELET VOLUME 8.7 fL (7.4-10.4); PLATELET COUNT 457 K/uL (130-400); RED CELL DISTRIBUTION WIDTH CV 19.8 % (11.5-14.5); RED CELL DISTRIBUTION WIDTH SD 62.3 fL (36.4-46.3); WHITE BLOOD COUNT 15.44 K/uL (4.8-10.8)
[2017-05-01 06:46] LABS: CALCIUM 7.9 mg/dl (8.5-10.1); CREATININE 0.75 mg/dl (0.60-1.20); POTASSIUM 4.1 mmol/L (3.5-5.1)
--- NOTE | 2017-05-01 08:00 | Orthopedic Progress Note ---
Orthopedic Progress Note Date of Service May 01, 2017. Subjective Post OP Day: 1 Reports: feeling well Objective N/V intact (Pt unable to fully extend thumb or wrist, fingers mobile), dressing C/D/I Date Time Temp Pulse Resp B/P (MAP) Pulse Ox O2 Delivery O2 Flow Rate FiO2 04/30/17 23:40 Nasal Cannula 2.0 04/30/17 23:15 36.5 83 17 135/76 (95) 100 Nasal Cannula 2.0 04/30/17 21:30 36.6 90 16 176/79 (111) 100 Nasal Cannula 2.0 04/30/17 20:44 85 18 146/74 (98) 100 Nasal Cannula 2.0 04/30/17 19:30 36.4 74 16 126/77 (93) 100 Nasal Cannula 2.0 04/30/17 19:00 36.4 76 17 149/64 (92) 100 Nasal Cannula 2.0 04/30/17 18:30 Room Air 04/30/17 18:30 36.4 71 16 149/76 (100) 95 Room Air 04/30/17 18:30 95 Room Air 04/30/17 18:00 36.4 64 16 155/79 95 Nasal Cannula 3 04/30/17 17:45 36.4 68 16 135/65 95 Nasal Cannula 3 04/30/17 17:30 36.4 88 16 159/86 95 Room Air 04/30/17 17:20 64 16 185/70 99 Oxymask 7 04/30/17 17:10 72 16 161/84 99 Oxymask 7 04/30/17 17:02 36.4 79 16 167/85 99 Oxymask 7 04/30/17 13:14 Room Air Laboratory Results 24 Hours: Test 05/01/17 05:35 Hematocrit 29.8 % Hemoglobin 9.0 g/dL Assessment & Plan Assessment: 76 yo female stable POD #1 s/p ORIF right mid/distal humerus, questionable radial nerve palsy Plan: 1. Med management 2. DVT prophylaxis- ASA, SCDs 3. PT/OT 4. D/C planning- pt interested in [facility] or other SNF(pt not interested in [facility])
--- NOTE | 2017-05-01 08:04 | Discharge Instructions ---
Discharge Instructions Date of Service May 01, 2017. Admission Reason for Admission: Displaced Spiral Right Humerus Fracture Discharge Discharge Diagnosis / Problem: Displaced right humerus fracture Discharge Goals Goal(s): Decrease discomfort, Improve function Activity Recommendations Activity Limitations: as noted below . Instructions / Follow-Up Instructions / Follow-Up Keep splint/dressing clean and dry. Maintain splint/dressing until follow-up with MD. Move wrist/hand/fingers as tolerated. Ice to upper arm as needed. Current Hospital Diet Patient's current hospital diet: Diabetes Type 1 Diet Discharge Diet Recommended Diet: Diabetes Type 1 Diet Procedures Procedures Performed: Right Open Reduction Internal Fixation Distal Humerus Fracture Pending Studies Studies pending at discharge: no Laboratory Results Hemoglobin A1c Test 03/06/17 07:32 Range/Units Estimated Average Glucose 192 mg/dl Hemoglobin A1c 8.3 H 4.5-5.6 % Medical Emergencies . Who to Call and When: Medical Emergencies: If at any time you feel your situation is an emergency, please call 911 immediately. . Non-Emergent Contact Non-Emergency issues call your: Surgeon Call Non-Emergent contact if: temperature is above 101.5, your pain is not controlled, wound has increased drainage, wound has increased redness . "Provider Documentation" section prepared by Jn Youngblood PA-C. . [facility] Monitoring Program Search Results: patient reviewed within database, no issues identified
[2017-05-01 08:35] VITALS: BP 136/70; PULSE 74; TEMP 36.5; O2SAT 96
[2017-05-01] MEDS: INSULIN ASPART 100 UNITS/ML 3 ML PEN SC SCH ×3 (08:43→16:44)
[2017-05-01] MEDS: DOCUSATE SODIUM 100 MG CAP PO SCH ×2 (08:46→16:46)
[2017-05-01] MEDS: FERROUS GLUCONATE 324 MG TAB PO SCH ×3 (08:46→16:45)
[2017-05-01] MEDS: CEFAZOLIN IV 2,000 MG in SYRINGE 0 ML IV SCH (08:54)
[2017-05-01] MEDS ORDERED: LOSARTAN POTASSIUM 50 MG TAB PO SCH (09:00)
[2017-05-01] MEDS ORDERED: MULTIVITAMIN TAB PO SCH (09:00)
[2017-05-01] MEDS ORDERED: PANTOprazole SOD 40 MG TAB PO SCH (09:00)
[2017-05-01] MEDS ORDERED: INSULIN GLARGINE SOLOSTAR 100 UNITS/ML 3 ML PEN SC SCH ×2 (09:00→21:00)
[2017-05-01] MEDS ORDERED: METOPROLOL SUCC 25MG EXT REL TAB PO SCH (09:00)
[2017-05-01] MEDS ORDERED: LACTOBACILLUS ACIDOPHILUS (FLORANEX) TAB PO SCH (09:00)
[2017-05-01] MEDS ORDERED: CYANOCOBALAMIN 500 MCG TAB (VIT B-12) PO SCH (09:00)
[2017-05-01] MEDS ORDERED: AMLODIPINE BESYLATE 5 MG TAB PO SCH (09:00)
[2017-05-01] MEDS ORDERED: ASPIRIN 325 MG ECTAB PO SCH (09:00)
[2017-05-01 09:33] VITALS: O2SAT 96
[2017-05-01] MEDS: HYDROmorphone INJ 2 MG/ML SYR/VIAL IV PRN (10:04)
[2017-05-01] MEDS ORDERED: HYDR-5688 PO (10:52)
[2017-05-01 11:58] VITALS: BP 152/72; PULSE 86; TEMP 37; O2SAT 96
[2017-05-01 12:30] VITALS: Ht 162.6 cm; Wt 87.1 kg
[2017-05-01] MEDS ORDERED: HYDROmorphone INJ 1 MG/ML SYR IV PRN (12:30)
[2017-05-01] MEDS: IBUPROFEN 600 MG TAB PO SCH ×3 (13:02→16:45)
--- NOTE | 2017-05-01 14:35 | Family Medicine Progress Note ---
Progress Note Date of Service May 01, 2017. Subjective Pain: 6-7/10 this am Pt resting in chair, is eating and voiding well. C/o pain in her right arm this morning, has not as of yet received IV dilaudid. But otherwise, resting well. Denies loss of sensation or tingling in her arm, denies chest pain or difficulty breathing. ROS See HPI for pertinent positives and negatives. Medications Current Inpatient Medications Medications (Trade) Dose Ordered Sig/Regis Route Start Time Stop Time Status Last Admin Dose Admin Potassium Chloride 10 meq/ Sodium Chloride 1,005 ml @ 100 mls/hr Q10H3M IV 04/30/17 19:00 05/30/17 18:59 05/01/17 04:44 100 MLS/HR Acetaminophen/ Hydrocodone Bitart ([place] 5/325 Tab) 1-2 TABS FOR PAIN 1 TABLET ... Q6H PRN PO 04/30/17 17:15 05/14/17 17:14 05/01/17 04:54 2 TAB Magnesium Hydroxide (Milk Of Magnesia Susp) 30 ml Q6H PRN PO 04/30/17 17:15 05/30/17 17:14 Bisacodyl (Dulcolax Supp) 10 mg DAILY PRN [place] 04/30/17 17:15 05/30/17 17:14 Docusate Sodium (coLACE CAP) 100 mg BID PO 04/30/17 21:00 05/30/17 20:59 05/01/17 08:46 100 MG Diphenhydramine HCl (Benadryl Cap) 25 mg Q8H PRN PO 04/30/17 17:15 05/30/17 17:14 Al Hydrox/Mg Hydrox/Simethicone (Maalox Max Susp) 15 ml Q4H PRN PO 04/30/17 17:15 05/30/17 17:14 Zolpidem Tartrate (Ambien Tab) 5 mg HSZ PRN PO 04/30/17 17:15 05/30/17 17:14 Multivitamins (Multivitamin Tab) 1 tab QAM PO 05/01/17 09:00 05/31/17 08:59 05/01/17 08:48 1 TAB Ondansetron HCl (Zofran Inj) 4 mg Q6H PRN IV 3/15/18 17:15 05/30/17 17:14 Metoclopramide HCl (Reglan Inj) 10 mg Q6H PRN IV 04/30/17 17:15 05/30/17 17:14 Ferrous Gluconate (Ferrous Gluconate Tab) 324 mg TIDM PO 04/30/17 18:00 05/30/17 17:59 05/01/17 13:02 324 MG Pantoprazole Sodium (Protonix Tab) 40 mg QAM PO 05/01/17 09:00 05/31/17 08:59 05/01/17 08:49 40 MG Amlodipine Besylate (Norvasc Tab) 2.5 mg QAM PO 05/01/17 09:00 05/31/17 08:59 05/01/17 08:49 2.5 MG Atorvastatin Calcium (Lipitor Tab) 20 mg HS PO 04/30/17 21:00 05/30/17 20:59 04/30/17 20:42 20 MG Cyanocobalamin (Vitamin B-12 Tab) 1,000 mcg QAM PO 05/01/17 09:00 05/31/17 08:59 05/01/17 08:49 1,000 MCG Albuterol/ Ipratropium (Combivent Respimat Inh) 1 puffs QID PRN INH 04/30/17 17:15 05/30/17 17:14 Lactobacillus Acidophilus (Floranex Tab) 1 tab DAILY PO 05/01/17 09:00 05/31/17 08:59 05/01/17 08:47 1 TAB Levothyroxine Sodium (Synthroid Tab) 125 mcg DAILYBB PO 05/01/17 06:00 05/31/17 05:59 05/01/17 04:54 125 MCG Losartan Potassium (coZAAR TAB) 75 mg QAM PO 05/01/17 09:00 05/31/17 08:59 05/01/17 08:47 75 MG Metoprolol Succinate (Toprol Xl Tab) 25 mg QAM PO 05/01/17 09:00 05/31/17 08:59 05/01/17 08:50 25 MG Miscellaneous (Iv Fluids Completed) 1 ea PRN PRN N/A 04/30/17 21:45 04/30/18 21:44 Insulin Aspart (novoLOG ASPART) SLIDING SCALE G... ACHS SC 05/01/17 08:00 05/31/17 07:59 05/01/17 13:01 7 UNITS Glucose (Glucose 40% Gel) 15-30 GRAMS 15 GRAMS... UD PRN PO 04/30/17 22:15 05/30/17 22:14 Glucose (Glucose Chew Tab) 4-8 Tablets 4 Tabl... UD PRN PO 04/30/17 22:15 05/30/17 22:14 Dextrose (Dextrose 50% 50ML Syringe) 25-50ML OF 50% DW IV FOR... UD PRN IV 04/30/17 22:15 05/30/17 22:14 Glucagon (Glucagon Inj) 1 mg UD PRN SQ 04/30/17 22:15 05/30/17 22:14 Miconazole Nitrate (Desenex Powder) 1 appln PRN PRN EXT 05/01/17 05:30 05/31/17 05:29 05/01/17 05:43 1 APPLN Insulin Glargine (Lantus Solostar Pen) 20 units BID SC 05/01/17 09:00 05/31/17 20:59 05/01/17 08:53 20 UNITS Aspirin (Ecotrin Tab) 325 mg QAM PO 05/01/17 09:00 05/31/17 08:59 05/01/17 10:03 325 MG Ibuprofen (Motrin Tab) 600 mg QID PO 05/01/17 09:45 05/03/17 09:44 05/01/17 13:02 600 MG Hydromorphone HCl (Dilaudid Inj) 1 mg Q4HWA PRN IV 05/01/17 12:30 05/14/17 17:14 Objective Vital Signs Date Time Temp Pulse Resp B/P (MAP) Pulse Ox O2 Delivery O2 Flow Rate FiO2 05/01/17 11:58 37.0 86 14 152/72 (98) 96 Room Air 05/01/17 09:33 96 Room Air 05/01/17 08:35 36.5 74 14 136/70 (92) 96 Room Air 04/30/17 23:40 Nasal Cannula 2.0 04/30/17 23:15 36.5 83 17 135/76 (95) 100 Nasal Cannula 2.0 04/30/17 21:30 36.6 90 16 176/79 (111) 100 Nasal Cannula 2.0 04/30/17 20:44 85 18 146/74 (98) 100 Nasal Cannula 2.0 04/30/17 19:30 36.4 74 16 126/77 (93) 100 Nasal Cannula 2.0 04/30/17 19:00 36.4 76 17 149/64 (92) 100 Nasal Cannula 2.0 04/30/17 18:30 Room Air 04/30/17 18:30 36.4 71 16 149/76 (100) 95 Room Air 04/30/17 18:30 95 Room Air 04/30/17 18:00 36.4 64 16 155/79 95 Nasal Cannula 3 04/30/17 17:45 36.4 68 16 135/65 95 Nasal Cannula 3 04/30/17 17:30 36.4 88 16 159/86 95 Room Air 04/30/17 17:20 64 16 185/70 99 Oxymask 7 04/30/17 17:10 72 16 161/84 99 Oxymask 7 04/30/17 17:02 36.4 79 16 167/85 99 Oxymask 7 Physical Exam Notes: GENERAL: Awake, alert, well-appearing, in moderate distress EYES: Normal conjunctiva. Sclera non-icteric. RESPIRATORY: Clear to auscultation. CARDIAC: Regular rate, normal rhythm. Extremities warm and well perfused. Pulses equal. ABDOMEN: Soft, non-distended. No tenderness to palpation. No rebound or guarding. No masses. MUSCULOSKELETAL: No joint edema. RT arm in sling. LOWER EXTREMITIES: Calves are equal size bilaterally and non-tender. No edema. No discoloration. SKIN: No rash or jaundice noted. Laboratory Results Last Resulted 05/01/17 05:35 Last Resulted 05/01/17 05:35 Assessment and Plan 76F here for ORIF of the right humerus POD 1. Hospitalist consulted to manage sugars and medical management. PMH: hypertension, hyperlipidemia, asthma, type 2 diabetes, anemia, acid reflux , thyroid cancer Right humerus fracture status post ORIF -Management per orthopedic team Hypertension: - Blood pressure appears to be well controlled -Continue metoprolol, Norvasc, losartan Diabetes type 2: -Per patient chart, she receives 32 units Lantus twice daily along with insulin sliding scale the patient states that she takes 20 units Lantus twice daily -Started with 20 units Lantus plus NovoLog sliding scale -- sugars are low 300s this morning, with 298 at noon. Ordered extra 10units lantus this afternoon. She will need to be on 32 units BID of lantus. Discharge medication list reflects this. - can continue metformin on discharge. Hyperlipidemia: -Continue atorvastatin 20 mg daily Hypothyroidism: Continue-Synthroid Acid reflux: Continue pantoprazole Asthma: Stable Continue Combivent as needed DVT prophylaxis: SCDs, Aspirin Full code Disposition: in [facility], Orthopedics will discharge pt possibly to SNF, pending placement. Follow blood sugars. Continued [facility] stay due to: other Discharge planning: uncertain Resident Tracking Resident Involvement: Resident Care Provided Care Provided: Adult Hospital Medicine Reviewed: Pt Seen/Exam by Me History no concerns. Constitutional: denies: fever Respiratory: negative: short of breath Cardiovascular: denies chest pain General Appearance: no apparent distress Respiratory: lungs clear, no respiratory distress Cardiovascular: regular rate, rhythm Neurologic/Psychiatric: alert, oriented x 3 Assessment/Plan Resident Physician Supervision Note: I independently interviewed and examined the patient and verified the coleman history and physical, reviewed labs and image studies, discussed the case with the resident Dr. Rahman and agree with the findings and care plan.
[2017-05-01] MEDS ORDERED: INSULIN GLARGINE SOLOSTAR 100 UNITS/ML 3 ML PEN SC STA (14:55)
[2017-05-01 15:40] VITALS: BP 157/75; PULSE 76; TEMP 36.7; O2SAT 96
[2017-05-01 16:33] VITALS: BP 157/75; PULSE 76; TEMP 36.7; O2SAT 96
[2017-05-01] MEDS: ATORVASTATIN 20 MG TAB PO SCH (16:45)
== END 2017-05-01 17:10 | DRG 494 ==
LOC: C.ACU 12:11 → C.3E 17:10 → ENRESERV 17:32 → OBSVTOIN 05-01 09:38
PROC: 0PSF04Z Reposition Right Humeral Shaft with Internal Fixation Device, Open Approach (ICD-10-PCS; principal; 2017-04-30 14:15)
DX: S42.491A Other displaced fracture of lower end of right humerus, initial encounter for closed fracture (principal); I10 Essential (primary) hypertension; E11.9 Type 2 diabetes mellitus without complications; J45.909 Unspecified asthma, uncomplicated; E78.00 Pure hypercholesterolemia, unspecified; E78.5 Hyperlipidemia, unspecified; D64.9 Anemia, unspecified; K21.9 Gastro-esophageal reflux disease without esophagitis; E66.9 Obesity, unspecified; Z79.899 Other long term (current) drug therapy; Z79.82 Long term (current) use of aspirin; Z79.4 Long term (current) use of insulin; Z85.850 Personal history of malignant neoplasm of thyroid; Z85.12 Personal history of malignant neoplasm of trachea; Z68.33 Body mass index [BMI] 33.0-33.9, adult; Z88.1 Allergy status to other antibiotic agents; Z88.5 Allergy status to narcotic agent; W19.XXXA Unspecified fall, initial encounter

== ENCOUNTER 2020-02-28 15:28 | Observation (INO) ==
[2020-02-28] MEDS ORDERED: FAMOTIDINE 20MG IV PUSH 20 MG/5 ML SYR IV STA (16:47)
[2020-02-28] MEDS ORDERED: ONDANSETRON INJ 2 MG/ML 2 ML VIAL IV STA (16:47)
[2020-02-28] MEDS ORDERED: PANTOprazole 40 MG in SYRINGE 0 ML IV ONE (16:47)
[2020-02-28] MEDS ORDERED: SODIUM CHLORIDE 0.9% 500 ML IV SCH (17:00)
--- NOTE | 2020-02-28 17:04 | Emergency Department Note ---
Impression & Plan Abdominal pain, epigastric, Acute upper gastrointestinal bleeding ED Provider Note NAME: TERESA HUTNER AGE: 79 SEX: F : 1940 ARRIVES VIA: Walk-In INFORMANT: Patient, ED PROVIDER(S): Jonnathan Macdonald DO CHIEF COMPLAINT: Epigastric pain HPI: The patient is an 79-year-old female who presented to the emergency department at the request of her primary care physician for epigastric pain. The patient has been noticing epigastric pain over the course the last 4 days. She states her pain is constant and worsened with food. Because of the pain she has had nausea and vomiting as well as decreased p.o. intake. She has no fever. She denies having any cough. She does complain of lower extremity swelling which is not new for her. She also complains of black stool. She has a history of GI bleeding in the past because of peptic ulcer disease. She used to be on blood thinners but currently does not take any blood thinners because of GI bleeding. She was noted to have blood in her stool earlier this month. She went to see her primary care physician today and was referred to the emergency department because of the degree of her symptoms. She states the pain is worsened with food as well as movement. She also has pain with palpation on the right upper quadrant. Currently she denies having any fever. She also c omplains of loose bowel movements. ROS: See above HPI for pertinent positives & negatives. A total of 10 systems reviewed and were otherwise negative. PAST MEDICAL HISTORY: See Below PAST SURGICAL HISTORY: See Below FAMILY HISTORY: See Below SOCIAL HISTORY: See Below HOME MEDICATIONS: See Below ALLERGIES: See Below VITALS: See Below PHYSICAL EXAMINATION: GENERAL: The patient is awake and alert. The patient is very anxious appearing and appears to be in significant pain. EYES: The conjunctivae are clear. The pupils are round and reactive. EARS, NOSE, MOUTH AND THROAT: The nose is without any evidence of any deformity. Mucous membranes are moist. Tongue is midline. NECK: The neck is nontender and supple. RESPIRATORY: Normal respiratory effort is noted there is no evidence of wheezing rhonchi or rales CARDIOVASCULAR: Tachycardic rate with regular rhythm was noted. No definite murmur was noted. GASTROINTESTINAL: The abdomen was mildly distended and soft. There was right upper quadrant tenderness to palpation. There is no guarding or rigidity. Rectal exam revealed brown stool which was trace heme positive. MUSCULOSKELETAL/EXTREMITIES: There is no evidence of gross deformity full range of motion is noted in the hips and shoulders. SKIN: There is no obvious evidence of any rash. There are no petechiae, pallor or cyanosis noted. NEUROLOGIC: Patient is awake alert and oriented x3 strength is symmetric patellar reflexes are 2+ bilaterally MEDICAL DECISION MAKING: The patient is an 79-year-old female who presented to the emergency department at the request of her primary care physician for an evaluation of upper abdominal pain. The patient had very significant epigastric abdominal pain. They were concerned in the office at the patient's pain level and she may even had a near syncopal episode because of pain. She was sent to the emergency department for further evaluation. I discussed the patient's laboratory and radiographic studies with her. She was treated with proton pump inhibitor and IV fluids in the emergency department. She was reevaluated multiple times. She did have heme positive stool but mostly it was a brown stool. I discussed the patient's condition with her. She was feeling somewhat improved but still had significant pain. Given her age and comorbidities I also discussed her case with the on-call [facility]. They have agreed to evaluate the patient in the emergency department for further management and disposition. Triage Nursing notes reviewed. Prior medical records reviewed Vital Signs: reviewed and remarkable for no significant abnormalities Differential diagnosis: Etiologies such as appendicitis, diverticulitis, obstruction, inflammatory bowel disease, renal colic, PUD, biliary pathology, pancreatitis, mesenteric ischemia, aortic pathology, infections, genitourinary, UTI, perforated viscus, as well as others were entertained. ER treatment provided: See below Diagnostics interpreted by me: ECG: EKG was obtained in the emergency department. My interpretation is normal sinus rhythm at 88 bpm. There was no ectopy. Poor R wave progression was noted. High lateral T wave inversions were noted. This was compared to a tracing from June 102018. No significant changes were noted. Cardiac Monitoring: An order was placed for continuous cardiac monitoring. The monitor shows a rate of 75 bpm with sinus rhythm. Laboratory studies: As stated above and show below. Imaging studies: See below Consultation(s): 1950: I discussed this case with Dr. Ricardo who is on-call for the [facility]. They will evaluate the patient in the emergency department for further management and disposition. Past Med/Surg History Medical History (Updated 02/28/20 @ 19:51 by Jonnathan Macdonald DO) Asthma Carpal tunnel syndrome on right Diabetes Diabetes type 2, uncontrolled Displaced fracture of right humerus Diverticulitis Dyslipidemia Eczema Hypertension Hypothyroidism Shingles Thyroid cancer Surgical History Hx of cholecystectomy Social History Smoking Status: Never smoker Preferred Language: Tajik marital status: current occupational status: retired Feels Safe at Home: Yes Allergies Allergies Allergy/AdvReac Type Severity Reaction Status Date / Time codeine Allergy Intermediate LARGE Verified 12/22/19 14: DOSES CAUSE RASH oxycodone Allergy Unknown UNKNOWN Verified 12/22/19 14:19 Home Meds Home Medications Medication Instructions Recorded Confirmed cranberry conc-ascorbic acid 1 cap PO BID 06/10/18 12/22/19 levothyroxine 125 mcg PO QAM 06/10/18 12/22/19 losartan 100 mg PO QAM 06/10/18 12/22/19 metformin 1,000 mg PO BIDM 06/10/18 12/22/19 metoprolol succinate 25 mg PO HS 06/10/18 12/22/19 multivitamin 1 tab PO QAM 06/10/18 12/22/19 pantoprazole 40 mg PO BID 06/10/18 12/22/19 simvastatin 40 mg PO HS 06/10/18 12/22/19 tramadol 50 mg PO DAILY PRN 06/10/18 12/22/19 acetaminophen [Tylenol Extra 1,000 mg PO Q6H PRN 02/06/19 12/22/19 Strength] albuterol sulfate [Ventolin HFA] 2 puff INHALATION QID PRN 02/06/19 12/22/19 alprazolam [Xanax] 0.5 mg PO DAILY PRN 02/06/19 12/22/19 ipratropium-albuterol 3 ml INHALATION Q6H PRN 02/06/19 12/22/19 Previous Rx's Medication Instructions Recorded hydrocodone-acetaminophen [Pinckard] 1 tab PO Q8H PRN #9 tab 02/06/19 lidocaine [Lidoderm] 1 patch TOP DAILY PRN #15 ea 02/06/19 pen needle, diabetic 32 gauge x #400 ea 07/06/19" insulin aspart U-100 100 unit/mL 75 unit SQ DAILY #4 box 02/01/20 (3 mL) subcutaneous pen insulin degludec 100 unit/mL (3 66 unit SQ DAILY PRN #5 box MDD up 02/01/20 mL) subcutaneous pen to 80 units a day Results & Data (ED) Vital Signs Vital Signs - 24 hr 02/28/20 15:37 02/28/20 17:35 Temperature 37.2 C Temperature Source Oral Pulse Rate 99 H Pulse Rate [Apical] 75 Pulse Rhythm Regular Pulse Strength Normal Respiratory Rate 16 20 Respiratory Effort / Characteristics Non-Labored Respiratory Depth Normal Respiratory Pattern Regular Blood Pressure 206/99 H Blood Pressure [Left Arm] 130/70 Blood Pressure Mean 134 Blood Pressure Mean [Left Arm] 90 Blood Pressure Position Sitting Pulse Oximetry 96 97 Oxygen Delivery Method Room Air Room Air Sepsis Recent Fever Within 48 Hours No Sepsis New/Unexplained Change in Mental Status N/A Sepsis Action Taken by Nursing No Action Required Home Medications Current Medication List: was personally reviewed by me Laboratory Data Attestation: I reviewed the patient's lab results. Result diagrams: 02/28/20 17:09 02/28/20 17:09 Lab Results 02/28/20 02/28/20 02/28/20 Range/Units 17:09 17:09 17:09 WBC 8.97 (4.8-10.8) K/uL RBC 4.87 (4.2-5.4) M/uL Hgb 14.7 (12.0-16.0) g/dL Hct 44.2 (37-47) % MCV 90.8 (80-100) fL MCH 30.2 (25-34) pg MCHC 33.3 (32-36) g/dL RDW Std Deviation 47.5 H (36.4-46.3) fL RDW Coeff of Yelitza 14.3 (11.5-14.5) % Plt Count 228 (130-400) K/uL MPV 10.0 (7.4-10.4) fL Immature Gran % (Auto) 0.3 % Neut % (Auto) 64.1 % Lymph % (Auto) 26.3 % Gilchrist % (Auto) 8.7 % Eos % (Auto) 0.4 % Baso % (Auto) 0.2 % Neut # (Auto) 5.74 (1.4-6.5) K/uL Lymph # (Auto) 2.36 (1.2-3.4) K/uL Gilchrist # (Auto) 0.78 H (0.11-0.59) K/uL Eos # (Auto) 0.04 (0-0.5) K/uL Baso # (Auto) 0.02 (0-0.2) K/uL Immature Gran # (Auto) 0.03 H (0.00-0.02) K/uL PT 11.4 (9.0-12.0) Seconds INR 1.1 (0.9-1.1) APTT 23.4 (21.0-31.0) Seconds PTT Ratio 0.8 Sodium 141 (136-145) mmol/L Potassium 3.7 (3.5-5.1) mmol/L Chloride 108 H (98-107) mmol/L Carbon Dioxide 27 (21-32) mmol/L Anion Gap 6.0 (3-11) BUN 11 (7-18) mg/dl Creatinine 0.76 (0.6-1.2) mg/dl Est Cr Clr Drug Dosing 62.6 ml/min Est GFR ( Amer) 85.3 Est GFR (Non-Af Amer) 73.6 BUN/Creatinine Ratio 13.8 (10-20) Glucose 171 H (70-99) mg/dl Calcium 9.2 (8.5-10.1) mg/dl Total Bilirubin 0.6 (0.2-1) mg/dl AST 22 (15-37) U/L ALT 28 (12-78) U/L Alkaline Phosphatase 59 (45-117) U/L Troponin I < 0.015 (0-0.045) ng/ml Total Protein 7.6 (6.4-8.2) gm/dl Albumin 4.1 (3.4-5.0) gm/dl Globulin 3.5 (2.5-4.0) gm/dl Albumin/Globulin Ratio 1.2 (0.9-2) Lipase 59 L (73-393) U/L Specimen Hemolysis Urine Color Urine Appearance (Clear) Urine pH (4.5-7.5) Ur Specific [place] (1.000-1.030) Urine Protein (Negative) Urine Glucose (UA) (Negative) Urine Ketones (Negative) Urine Blood (Negative) Urine Nitrite (Negative) Urine Bilirubin (Negative) Urine Urobilinogen (Negative) Ur Leukocyte Esterase (Negative) Urine WBC (Auto) (0-5) /hpf Urine RBC (Auto) (0-4) /hpf U Hyaline Cast (Auto) (0-5) /lpf U Epithel Cells (Auto) (0-5) /lpf Urine Bacteria (Auto) (Negative) COVID-19 Eval Order SARS-CoV-2, RNA, NAAT (NEGATIVE) Blood Type Antibody Screen 02/28/20 02/28/20 02/28/20 Range/Units 17:09 17:33 17:33 WBC (4.8-10.8) K/uL RBC (4.2-5.4) M/uL Hgb (12.0-16.0) g/dL Hct (37-47) % MCV (80-100) fL MCH (25-34) pg MCHC (32-36) g/dL RDW Std Deviation (36.4-46.3) fL RDW Coeff of Yelitza (11.5-14.5) % Plt Count (130-400) K/uL MPV (7.4-10.4) fL Immature Gran % (Auto) % Neut % (Auto) % Lymph % (Auto) % Gilchrist % (Auto) % Eos % (Auto) % Baso % (Auto) % Neut # (Auto) (1.4-6.5) K/uL Lymph # (Auto) (1.2-3.4) K/uL Gilchrist # (Auto) (0.11-0.59) K/uL Eos # (Auto) (0-0.5) K/uL Baso # (Auto) (0-0.2) K/uL Immature Gran # (Auto) (0.00-0.02) K/uL PT (9.0-12.0) Seconds INR (0.9-1.1) APTT (21.0-31.0) Seconds PTT Ratio Sodium (136-145) mmol/L Potassium (3.5-5.1) mmol/L Chloride (98-107) mmol/L Carbon Dioxide (21-32) mmol/L Anion Gap (3-11) BUN (7-18) mg/dl Creatinine (0.6-1.2) mg/dl Est Cr Clr Drug Dosing ml/min Est GFR ( Amer) Est GFR (Non-Af Amer) BUN/Creatinine Ratio (10-20) Glucose (70-99) mg/dl Calcium (8.5-10.1) mg/dl Total Bilirubin (0.2-1) mg/dl AST (15-37) U/L ALT (12-78) U/L Alkaline Phosphatase (45-117) U/L Troponin I (0-0.045) ng/ml Total Protein (6.4-8.2) gm/dl Albumin (3.4-5.0) gm/dl Globulin (2.5-4.0) gm/dl Albumin/Globulin Ratio (0.9-2) Lipase (73-393) U/L Specimen Hemolysis Urine Color Urine Appearance (Clear) Urine pH (4.5-7.5) Ur Specific [place] (1.000-1.030) Urine Protein (Negative) Urine Glucose (UA) (Negative) Urine Ketones (Negative) Urine Blood (Negative) Urine Nitrite (Negative) Urine Bilirubin (Negative) Urine Urobilinogen (Negative) Ur Leukocyte Esterase (Negative) Urine WBC (Auto) (0-5) /hpf Urine RBC (Auto) (0-4) /hpf U Hyaline Cast (Auto) (0-5) /lpf U Epithel Cells (Auto) (0-5) /lpf Urine Bacteria (Auto) (Negative) COVID-19 Eval Order Covid19 [facility] SARS-CoV-2, RNA, NAAT NEGATIVE (NEGATIVE) Blood Type B Negative Antibody Screen NEGATIVE 02/28/20 Range/Units 18:24 WBC (4.8-10.8) K/uL RBC (4.2-5.4) M/uL Hgb (12.0-16.0) g/dL Hct (37-47) % MCV (80-100) fL MCH (25-34) pg MCHC (32-36) g/dL RDW Std Deviation (36.4-46.3) fL RDW Coeff of Yelitza (11.5-14.5) % Plt Count (130-400) K/uL MPV (7.4-10.4) fL Immature Gran % (Auto) % Neut % (Auto) % Lymph % (Auto) % Gilchrist % (Auto) % Eos % (Auto) % Baso % (Auto) % Neut # (Auto) (1.4-6.5) K/uL Lymph # (Auto) (1.2-3.4) K/uL Gilchrist # (Auto) (0.11-0.59) K/uL Eos # (Auto) (0-0.5) K/uL Baso # (Auto) (0-0.2) K/uL Immature Gran # (Auto) (0.00-0.02) K/uL PT (9.0-12.0) Seconds INR (0.9-1.1) APTT (21.0-31.0) Seconds PTT Ratio Sodium (136-145) mmol/L Potassium (3.5-5.1) mmol/L Chloride (98-107) mmol/L Carbon Dioxide (21-32) mmol/L Anion Gap (3-11) BUN (7-18) mg/dl Creatinine (0.6-1.2) mg/dl Est Cr Clr Drug Dosing ml/min Est GFR ( Amer) Est GFR (Non-Af Amer) BUN/Creatinine Ratio (10-20) Glucose (70-99) mg/dl Calcium (8.5-10.1) mg/dl Total Bilirubin (0.2-1) mg/dl AST (15-37) U/L ALT (12-78) U/L Alkaline Phosphatase (45-117) U/L Troponin I (0-0.045) ng/ml Total Protein (6.4-8.2) gm/dl Albumin (3.4-5.0) gm/dl Globulin (2.5-4.0) gm/dl Albumin/Globulin Ratio (0.9-2) Lipase (73-393) U/L Specimen Hemolysis Urine Color Yellow Urine Appearance Clear (Clear) Urine pH 6.0 (4.5-7.5) Ur Specific [place] 1.011 (1.000-1.030) Urine Protein Negative (Negative) Urine Glucose (UA) Negative (Negative) Urine Ketones Negative (Negative) Urine Blood Negative (Negative) Urine Nitrite Negative (Negative) Urine Bilirubin Negative (Negative) Urine Urobilinogen Negative (Negative) Ur Leukocyte Esterase 1+ H (Negative) Urine WBC (Auto) 5-10 H (0-5) /hpf Urine RBC (Auto) 0-4 (0-4) /hpf U Hyaline Cast (Auto) 1-5 (0-5) /lpf U Epithel Cells (Auto) 10-20 H (0-5) /lpf Urine Bacteria (Auto) Negative (Negative) COVID-19 Eval Order SARS-CoV-2, RNA, NAAT (NEGATIVE) Blood Type Antibody Screen Administered Medications Discontinued Medications Sodium Chloride (Nss) 500 mls @ 999 mls/hr IV .Q31M HECTOR Stop: 02/28/20 17:30 Last Infusion: 02/28/20 19:12 Dose: 0 mls/hr Documented by: [id number] Admin: 02/28/20 17:31 Dose: 999 mls/hr Documented by: [id number] Pantoprazole Sodium 40 mg/ (Syringe) 10 mls @ 5 mls/min IV NOW ONE Stop: 02/28/20 16:48 Last Admin: 02/28/20 17:46 Dose: 5 mls/min Documented by: [id number] Famotidine (Pepcid 20mg Iv Push) 20 mg in 5 mls @ 2.5 mls/min IV NOW STA Stop: 02/28/20 16:48 Last Admin: 02/28/20 17:31 Dose: 2.5 mls/min Documented by: [id number] Ioversol (Ioversol 100ml) 90 ml IV ONCE ONE Stop: 02/28/20 18:14 Last Admin: 02/28/20 18:15 Dose: 90 ml Documented by: [id number] Ondansetron HCl (Ondansetron Inj 2 Mg/Ml 2 Ml Vial) 4 mg IV NOW STA Stop: 02/28/20 16:48 Last Admin: 02/28/20 17:31 Dose: 4 mg Documented by: [id number] Imaging Data Radiologist's Impression: Patient: TERESA HUNTER Admit Date: 02/28/20 MR#: [id number] Address1: [address] [place] [address] [facility] [address] Acct ID:[id number] Address2: Date: 1940 [facility] Zip: [place] [address] Age: 79 Location: ED Sex: F Room/Bed: Att Phy: Diagnosis: VOMITING,DEHYDRATION Rabia Phy: Sera Liz M.D. Service Date: 02/28/20 [facility] Phy: Interpreting Phy: Piyush Fu Admit Phy: Ordering Phy: Jonnathan Macdonald DO cc: ~ ABDOMEN AND PELVIS CT WITH IV CONTRAST CT DOSE: 1030.24 mGycm HISTORY: Acute right upper quadrant abdominal pain ruq ppain TECHNIQUE: Multiaxial CT images of the abdomen and pelvis were performed following the IV administration of 90 cc of Optiray 320, A dose lowering technique was utilized adhering to the principles of ALARA. COMPARISON STUDY: CT abdomen and pelvis 04/15/2017, chest CT 04/14/2019, chest CT 11/07/2015. FINDINGS: Mild cardiomegaly with coronary artery calcifications. Bibasilar solid pulmonary nodules redemonstrated measuring up to 10 mm which are unchanged from comparison. In retrospect, these are stable dating back to 2015 and likely benign. No pneumatosis or pneumoperitoneum. Spleen, pancreas, adrenal glands and liver are unremarkable. Cholecystectomy with likely postsurgical dilation of the common bile duct. Prominent periportal lymph nodes measuring up to 9 mm are also likely physiologic. 2.3 cm cyst of the superior pole left kidney. No renal or ureteral calculi or obstructive uropathy. Unremarkable urinary bladder, uterus and right adnexum. 2.1 cm cystic structure of the left adnexum. Calcified plaque of the aorta. No aneurysm. There is no adenopathy. Small hiatal hernia. There is no bowel obstruction. Colonic diverticulosis. Mild wall thickening of the sigmoid colon is likely secondary to chronic muscular hypertrophy. Normal appendix. No ascites or mesenteric inflammation. Degenerative changes are noted involving the spine, pelvis and hips. Chondrocalcinosis of the left greater than right hips with likely degenerative related left hip joint effusion. IMPRESSION: 1. No bowel obstruction. 2. Colonic diverticulosis without acute diverticulitis. 3. Normal appendix. 4. Cholecystectomy. 5. Small hiatal hernia. 6. Additional findings as above. ACT 112: Negative or not required by law. The above report was generated using voice recognition software. It may contain grammatical, syntax or spelling errors. Electronically signed by: Mikie Fu M.D. 02/28/2020 6:40 PM Dictated: 02/28/201832 Transcribed: 02/28/201832 Patient: TERESA HUNTER Admit Date: 02/28/20 MR#: [id number] Address1: [address] Acct ID:[id number] Address2: Date: 1940 [facility] Zip: [place] [address] Age: 79 Location: ED Sex: F Room/Bed: Att Phy: Diagnosis: VOMITING,DEHYDRATION Rabia Phy: Sera Liz M.D. Service Date: 02/28/20 [facility] Phy: Interpreting Phy: Piyush Fu Admit Phy: Ordering Phy: Jonnathan Macdonald DO cc: ~ XR chest 1V portable, XR KUB/Abdomen 1 view HISTORY: 79 years-old Female epigastric pain acute epigastric abdominal pain. Acute atypical chest pain COMPARISON: Chest radiographs 06/10/2018 TECHNIQUE: Portable AP view the chest with KUB radiograph FINDINGS: CHEST: Cardiac silhouette is mildly enlarged. Calcified plaque of the thoracic aorta. Surgical clips project over the medial left lung apex. No pneumothorax, pleural effusion or overt pulmonary edema. Mild chronic interstitial coarsening. Degenerative changes of the shoulders and spine. ORIF changes of the bilateral humeri. KUB: Cholecystectomy. No pneumatosis or pneumoperitoneum. Nondilated air-filled loops of large and small bowel are noted. No definite urolith. Pelvic basin calcifications suggest phleboliths. No acute fracture. Degenerative changes of the spine, pelvis and hips. IMPRESSION: 1. No acute processes of the chest. 2. Nonobstructive bowel gas pattern. 3. Cholecystectomy. ACT 112: Negative or not required by law. The above report was generated using voice recognition software. It may contain grammatical, syntax or spelling errors. Electronically signed by: Mikie Fu M.D. 02/28/2020 5:51 PM Dictated: 02/28/201748 Transcribed: 02/28/201748 Patient: TERESA HUNTER Admit Date: 02/28/20 MR#: [id number] Address1: [address] Acct ID:[id number] Address2: Date: 1940 [facility] Zip: [place] [address] Age: 79 Location: ED Sex: F Room/Bed: Att Phy: Diagnosis: VOMITING,DEHYDRATION Rabia Phy: Sera Liz M.D. Service Date: 02/28/20 [facility] Phy: Interpreting Phy: Piyush Fu Admit Phy: Ordering Phy: Jonnathan Macdonald, cc: ~ XR chest 1V portable, XR KUB/Abdomen 1 view HISTORY: 79 years-old Female epigastric pain acute epigastric abdominal pain. Acute atypical chest pain COMPARISON: Chest radiographs 06/10/2018 TECHNIQUE: Portable AP view the chest with KUB radiograph FINDINGS: CHEST: Cardiac silhouette is mildly enlarged. Calcified plaque of the thoracic aorta. Surgical clips project over the medial left lung apex. No pneumothorax, pleural effusion or overt pulmonary edema. Mild chronic interstitial coarsening. Degenerative changes of the shoulders and spine. ORIF changes of the bilateral h umeri. KUB: Cholecystectomy. No pneumatosis or pneumoperitoneum. Nondilated air-filled loops of large and small bowel are noted. No definite urolith. Pelvic basin calcifications suggest phleboliths. No acute fracture. Degenerative changes of the spine, pelvis and hips. IMPRESSION: 1. No acute processes of the chest. 2. Nonobstructive bowel gas pattern. 3. Cholecystectomy. ACT 112: Negative or not required by law. The above report was generated using voice recognition software. It may contain grammatical, syntax or spelling errors. Electronically signed by: Mikie Fu M.D. 02/28/2020 5:51 PM Dictated: 02/28/201748 Transcribed: 02/28/201748 Blood Pressure Blood Pressure Findings: Normal blood pressure Discharge Plan Visit Data Chief Complaint: Dehydration Stated Complaint: VOMITING,DEHYDRATION ED Provider: Jonnathan Macdonald Discharge Problem: Abdominal pain, epigastric, Acute upper gastrointestinal bleeding Patient Disposition: Being Evaluated by Hospitalist Condition: Good Forms Stand Alone Forms: My [employer] Prescriptions Prescriptions: No Action insulin aspart U-100 [Novolog Flexpen U-100 Insulin] 100 unit/mL (3 mL) insulin pen 75 unit SQ DAILY Qty: 4 RF: 3 Tresiba FlexTouch U-100 100 unit/mL (3 mL) insulin pen 66 unit SQ DAILY MDD up to 80 units a day PRN (Reason: diabetes) Qty: 5 RF: 3 (DME) pen needle, diabetic [BD Ultra-Fine Araceli Pen Needle] 32 gauge x 5/32" needle See Rx Instructions [id number] .MEDSUPPLY Qty: 400 RF: 3 multivitamin Tablet 1 tab PO QAM RF: 0 losartan 50 mg tablet 100 mg PO QAM RF: 0 tramadol 50 mg tablet 50 mg PO DAILY PRN (Reason: Pain) RF: 0 simvastatin 40 mg tablet 40 mg PO HS RF: 0 pantoprazole 40 mg tablet,delayed release (DR/EC) 40 mg PO BID RF: 0 levothyroxine 125 mcg tablet 125 mcg PO QAM RF: 0 metoprolol succinate 25 mg tablet extended release 24 hr 25 mg PO HS RF: 0 metformin 500 mg tablet extended release 24 hr 1,000 mg PO BIDM RF: 0 cranberry conc-ascorbic acid 4,200-20 mg Capsule 1 cap PO BID RF: 0 ipratropium-albuterol 0.5 mg-3 mg(2.5 mg base)/3 mL solution for nebulization 3 ml INHALATION Q6H PRN (Reason: Shortness Of Breath Or Wheezing) RF: 0 alprazolam [Xanax] 0.5 mg tablet 0.5 mg PO DAILY PRN (Reason: Anxiety) RF: 0 albuterol sulfate [Ventolin HFA] 90 mcg/actuation HFA aerosol inhaler 2 puff INHALATION QID PRN (Reason: Wheezing) RF: 0 acetaminophen [Tylenol Extra Strength] 500 mg Tablet 1,000 mg PO Q6H PRN (Reason: Pain) RF: 0 hydrocodone-acetaminophen [Pinckard] 5-325 mg tablet 1 tab PO Q8H PRN (Reason: pain) Qty: 9 RF: 0 lidocaine [Lidoderm] 5 % adhesive patch,medicated 1 patch TOP DAILY PRN (Reason: pain) Qty: 15 RF: 0 Referrals Referrals: Sera Liz MD [Primary Care Provider] -
[2020-02-28 17:16] LABS: Basophils # (auto) 0.02 K/uL (0-0.2); Basophils % (auto) 0.2 %; Eosinophils # (auto) 0.04 K/uL (0-0.5); Eosinophils % (auto) 0.4 %; Hematocrit (blood only) 44.2 % (37-47); Hemoglobin 14.7 g/dL (12.0-16.0); Immature Granulocytes # (auto) 0.03 K/uL (0.00-0.02); Immature Granulocytes % (auto) 0.3 %; Lymphocytes # (auto) 2.36 K/uL (1.2-3.4); Lymphocytes % (auto) 26.3 %; Mean Corpuscular Hemoglobin 30.2 pg (25-34); Mean Corpuscular Hgb Conc 33.3 g/dL (32-36); Mean Corpuscular Volume 90.8 fL (80-100); Monocytes # (auto) 0.78 K/uL (0.11-0.59); Monocytes % (auto) 8.7 %; Neutrophils # (auto) 5.74 K/uL (1.4-6.5); Neutrophils % (auto) 64.1 %; Platelet Count 228 K/uL (130-400); RDW Coefficient of Variation 14.3 % (11.5-14.5); RDW Standard Deviation 47.5 fL (36.4-46.3); Red Blood Count 4.87 M/uL (4.2-5.4); White Blood Count 8.97 K/uL (4.8-10.8)
[2020-02-28 17:31] LABS: INR 1.1 (0.9-1.1); Partial Thromboplastin Ratio 0.8; Partial Thromboplastin Time 23.4 Seconds (21.0-31.0); Prothrombin Time 11.4 Seconds (9.0-12.0)
[2020-02-28 17:38] LABS: Alanine Aminotransferase 28 U/L (12-78); Albumin Level 4.1 gm/dl (3.4-5.0); Aspartate Aminotransferase 22 U/L (15-37); BUN Creatinine Ratio 13.8 (10-20); Blood Urea Nitrogen 11 mg/dl (7-18); Calcium 9.2 mg/dl (8.5-10.1); Carbon Dioxide 27 mmol/L (21-32); Chloride 108 mmol/L (98-107); Creatinine Clr Calc Pharmacy 62.6 ml/min; Est GFR (African American) 85.3; Est GFR (Non-African American) 73.6; Glucose 171 mg/dl (70-99); Lipase 59 U/L (73-393); Potassium 3.7 mmol/L (3.5-5.1); Sodium 141 mmol/L (136-145)
[2020-02-28 17:52] LABS: Albumin Globulin Ratio 1.2 (0.9-2); Alkaline Phosphatase 59 U/L (45-117); Bilirubin,Total 0.6 mg/dl (0.2-1); Globulin 3.5 gm/dl (2.5-4.0); Total Protein 7.6 gm/dl (6.4-8.2); Troponin I < 0.015 ng/ml (0-0.045)
--- NOTE | 2020-02-28 17:52 | XRay Report ---
XR chest 1V portable, XR KUB/Abdomen 1 view HISTORY: 79 years-old Female epigastric pain acute epigastric abdominal pain. Acute atypical chest p ain COMPARISON: Chest radiographs 06/10/2018 TECHNIQUE: Portable AP view the chest with KUB radiograph FINDINGS: CHEST: Cardiac silhouette is mildly enlarged. Calcified plaque of the thoracic aorta. Surgical clips project over the medial left lung apex. No pneumothorax, pleural effusion or overt pulmonary edema. Mild chr onic interstitial coarsening. Degenerative changes of the shoulders and spine. ORIF changes of the bi lateral humeri. KUB: Cholecystectomy. No pneumatosis or pneumoperitoneum. Nondilated air-filled loops of large and small b owel are noted. No definite urolith. Pelvic basin calcifications suggest phleboliths. No acute fractu re. Degenerative changes of the spine, pelvis and hips. IMPRESSION: 1. No acute processes of the chest. 2. Nonobstructive bowel gas pattern. 3. Cholecystectomy. ACT 112: Negative or not required by law. The above report was generated using voice recognition software. It may contain grammatical, syntax o r spelling errors. Electronically signed by: Mikie Fu M.D. 02/28/2020 5:51 PM
[2020-02-28] MEDS ORDERED: IOVERSOL 100ml IV ONE (18:13)
[2020-02-28 18:35] LABS: Appearance Urine Clear (Clear); Bacteria Urine Automated Negative (Negative); Bilirubin Urine Negative (Negative); Blood Urine Negative (Negative); Color Urine Yellow; Glucose Urine UA Negative (Negative); Ketones Urine Negative (Negative); Leukocyte Esterase Urine 1+ (Negative); Nitrite Urine Negative (Negative); Protein Urine Negative (Negative); RBC Urine Automated 0-4 /hpf (0-4); Specific Gravity Urine 1.011 (1.000-1.030); Urobilinogen Urine Negative (Negative)
--- NOTE | 2020-02-28 18:42 | CT Scan Report ---
ABDOMEN AND PELVIS CT WITH IV CONTRAST CT DOSE: 1030.24 mGycm HISTORY: Acute right upper quadrant abdominal pain ruq ppain TECHNIQUE: Multiaxial CT images of the abdomen and pelvis were performed following the IV administrat ion of 90 cc of Optiray 320, A dose lowering technique was utilized adhering to the principles of [place] HUMERA. COMPARISON STUDY: CT abdomen and pelvis 04/15/2017, chest CT 04/14/2019, chest CT 11/07/2015. FINDINGS: Mild cardiomegaly with coronary artery calcifications. Bibasilar solid pulmonary nodules re demonstrated measuring up to 10 mm which are unchanged from comparison. In retrospect, these are stab le dating back to 2015 and likely benign. No pneumatosis or pneumoperitoneum. Spleen, pancreas, adren al glands and liver are unremarkable. Cholecystectomy with likely postsurgical dilation of the common bile duct. Prominent periportal lymph nodes measuring up to 9 mm are also likely physiologic. 2.3 cm cyst of the superior pole left kidney. No renal or ureteral calculi or obstructive uropathy. U nremarkable urinary bladder, uterus and right adnexum. 2.1 cm cystic structure of the left adnexum. C alcified plaque of the aorta. No aneurysm. There is no adenopathy. Small hiatal hernia. There is no b owel obstruction. Colonic diverticulosis. Mild wall thickening of the sigmoid colon is likely seconda ry to chronic muscular hypertrophy. Normal appendix. No ascites or mesenteric inflammation. Degenerat griffin changes are noted involving the spine, pelvis and hips. Chondrocalcinosis of the left [place] n right hips with likely degenerative related left hip joint effusion. IMPRESSION: 1. No bowel obstruction. 2. Colonic diverticulosis without acute diverticulitis. 3. Normal appendix. 4. Cholecystectomy. 5. Small hiatal hernia. 6. Additional findings as above. ACT 112: Negative or not required by law. The above report was generated using voice recognition software. It may contain grammatical, syntax o r spelling errors. Electronically signed by: Mikie Fu M.D. 02/28/2020 6:40 PM
--- NOTE | 2020-02-28 20:20 | History & Physical Report ---
Date of Service February 28, 2020 Assessment & Plan (1) Abdominal pain, epigastric: Based on the patient's past history, her current presentation, and heme positive stools I suspect her abdominal pain may be related to peptic ulcer disease. We will therefore proceed as follows: Patient be admitted to the hospital We will continue her on Protonix. As her hemoglobin hematocrit are normal and there are no signs of active bleeding I will place her on 40 mg IV twice daily. We will consult gastroenterology as I feel she would benefit from an EGD. She follows as an outpatient with Dr. Lucas so we will consult his group. Allow clear liquids tonight to make her n.p.o. after midnight so this procedure can potentially be performed tomorrow. We will follow serial hemoglobin and hematocrits as well as serial chemistry profiles. (2) Diabetes type 2, uncontrolled: As the patient will be on clear liquids we will place her on sliding scale insulin and follow BSG's. We will plan on resuming her home regimen once she is able to take a solid diet. (3) Hypothyroidism: We will maintain the patient on her home dose of levothyroxine (4) Dyslipidemia: We will maintain the patient on her home dose of Zocor (5) Acute upper gastrointestinal bleeding: See plan above for abdominal pain (6) Hypertension: Patient is hemodynamically stable. We will maintain her on her home dose of metoprolol however we will hold her losartan as an hour to precipitate any hypotension. We will utilize SCDs while the patient is in bed for DVT prevention. No chemical means as there is concern for GI bleed. Discussed CODE STATUS with this patient and she notes an event of cardiopulmonary rest to be a level 1 full code. History of Present Illness Chief Complaint: My abdomen hurts Primary Care Provider: Sera Liz MD 79-year-old female who presented to the emergency department at the direction of her primary care physician. Patient states that she is having on and off abdominal pain for approximately 3 months however the past 3 days it has gotten significantly worse. She notes that the pain is located in the epigastric area with some radiation to the right upper quadrant. She notes that the pain does not radiate anywhere else. She has associated nausea vomiting but does not have any hematemesis. He does admit to diarrhea and black-colored stools. He notes that the pain is much worse after eating a meal and she says it is relieved by not eating and it also has some relief after she belches or has a bowel movement. She does note a history of peptic ulcer disease diagnosed in 1997 when she lived in [place], [place], during which time she underwent an EGD. She denies any associated fevers, shakes, but did have one episode of chills. She denies chest pain, palpitations, lightheadedness, dizziness, or shortness of breath. Rest of her knowledge she has not been exposed to coronavirus. She does not take any anticoagulants or antiplatelet agents. In the emergency department the patient did undergo labs were CBC revealed her hemoglobin, hematocrit, white blood cell count, and platelet count were all within normal range. Chemistry profile showed that her sodium, potassium, BUN, and creatinine were all within normal range. Regulation studies were checked and were noted to be normal. There was concern noted for urinary tract infection on her urinalysis. A Covid test was performed and is negative. Imaging studies performed included a CT scan of her abdomen this demonstrated a small hiatal hernia. No other acute abdominal findings were noted. Chest x-ray was performed that showed no free air under the diaphragm and there is no acute cardiopulmonary disease. A KUB was performed that showed nonspecific bowel gas pattern with no evidence of obstruction. Emergency room physician did administer Pepcid and Protonix and her pain had improved somewhat. The treating emergency room physician also performed a rectal exam and he noted that this was heme positive. At the time my interview the patient was resting comfortably in bed. Her pain had improved and she was in no distress. Allergies Allergy/AdvReac Type Severity Reaction Status Date / Time codeine Allergy Intermediate LARGE Verified 02/28/20 20:29 DOSES CAUSE RASH oxycodone Allergy Unknown UNKNOWN Verified 02/28/20 20:29 Home Medications Medication Instructions Recorded Confirmed Type cranberry conc-ascorbic acid 1 cap PO BID 06/10/18 02/28/20 History levothyroxine 125 mcg PO QAM 06/10/18 02/28/20 History metformin 1,000 mg PO BIDM 06/10/18 02/28/20 History metoprolol succinate 25 mg PO HS 06/10/18 02/28/20 History multivitamin 1 tab PO QAM 06/10/18 02/28/20 History pantoprazole 40 mg PO BID 06/10/18 02/28/20 History simvastatin 40 mg PO HS 06/10/18 02/28/20 History tramadol 50 mg PO BID PRN 06/10/18 02/28/20 History acetaminophen [Tylenol Extra 1,000 mg PO Q6H PRN 02/06/19 02/28/20 History Strength] albuterol sulfate [Ventolin HFA] 2 puff INHALATION QID PRN 02/06/19 02/28/20 History alprazolam [Xanax] 0.5 mg PO BID PRN 02/06/19 02/28/20 History pen needle, diabetic 32 gauge x #400 ea 07/06/19 02/28/20 Rx 5/32" insulin degludec 100 unit/mL (3 66 unit SQ DAILY PRN #5 box MDD up 02/01/20 02/28/20 Rx mL) subcutaneous pen to 80 units a day insulin aspart U-100 [Novolog 0 unit SQ TIDM 02/28/20 02/28/20 History Flexpen U-100 Insulin] losartan 100 mg PO QAM 02/28/20 02/28/20 History mirtazapine 30 mg PO HS 02/28/20 02/28/20 History Past Med/Surg History Medical History Asthma Carpal tunnel syndrome on right Diabetes Diabetes type 2, uncontrolled Displaced fracture of right humerus Diverticulitis Dyslipidemia Eczema Hypertension Hypothyroidism Shingles Thyroid cancer Surgical History Hx of cholecystectomy Social History Smoking Status: Never smoker Hx Alcohol Use: No Hx Substance Use: No Preferred Language: Swedish Communication Ability: Effective 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 Beliefs That Will Affect Care: None marital status: Current Living Situation: Alone current occupational status: retired Other Information That Helps Us Care for You: No Feels Safe at Home: Yes Safety Concerns: Feels Safe At This Time Assistive Devices: Denture - Upper, Denture - Lower and Walker Review of Systems Constitutional: no fever and no body aches Eyes: no diplopia Ear, Nose, Mouth, Throat: no ear pain Respiratory: no cough and no dyspnea Cardiovascular: no chest pain Gastrointestinal: + abdominal pain, + nausea, + vomiting, + diarrhea/loose stools and + melena; no hematemesis and no blood in stools Genitourinary: no dysuria Musculoskeletal: no back pain Integumentary: no rash Neurologic: no localized weakness Physical Exam Constitutional: well developed and well nourished; no acute distress Eyes: no conjunctival abnormality Wears glasses ENMT: Ears: no hearing impairment Neck: trachea midline Respiratory: normal respiratory effort, lungs clear to auscultation Cardiovascular: Rate/Rhythm: regular rate and regular rhythm Gastrointestinal (Abdomen): Percussion/Palpation: + abdomen tender (Epigastric area and to the lesser degree the right upper quadrant. ) and abdomen soft No rebound tenderness or guarding was noted. Musculoskeletal: No calf pain. No foot wounds. Skin: no rashes, warm and dry Neurologic: CN's II-XI intact bilaterally and moves all extremities Psychiatric: A+Ox3, euthymic affect Results & Data Results & [facility]) Vital Signs (Past 12 Hours) Vital Signs Temp Pulse Pulse Resp BP BP Pulse Ox 02/28/20 17:35 75 20 130/70 97 02/28/20 15:37 37.2 C 99 H 16 206/99 H 96 Code Status & VTE Plan VTE Prophylaxis Plan VTE Prophylaxis will be ordered: Yes Supervising Physician Co-Signing Physician Notes Patient seen and examined, chart reviewed, case discussed with RINKU Choudhury and I agree with his assessment and plan as above. Briefly, patient is an 79yo female with remote history of GIB secondary to PUD - this occurred in 1997 in [place], [place]. She presents today with epigastric and upper abdominal discomfort ongoing for the last few days - acutely worsened immediately after eating. She also reports increased belching and reflux symptoms causing her to sleep upright in a chair. She reports some nausea with non-bloody emesis, dark/black BMs. She was seen by her PCP today and was reportedly diaphoretic and ill in appearnace therefore she was sent to the ER. Patient states that her pain is almost identical to her prior episode of PUD/GIB. Last EGD/[facility] performed in June 2012 in [place], [place] On exam she is afebrile, HD stable, nontoxic in appearance Skin -no rash, no pallor or jaundice HEENT - NC/AT, PERRL, EOMI, MMM, Neck supple Heart - +S1/S2, regular, no m/r/g Lungs - CTA Abd - +BS, soft, tender in epigastrium and near RUQ, no rebound/guarding/p eritoneal signs Ext - No edema Labs and images reviewed. Hgb=14.7, Hct=44.2. ER reports brown, Heme positive stool Assessment/Plan - Suspect PUD, possible UGIB. Patient HD stable, H/H stable -Protonix BID -NPO -GI consultation appreciated -Remainder of plan as above PG Care Time/CCT Total # of Minutes Spent Total Time Spent with Patient: Total time spent is greater than 50% in coordination of care (as documented) at patient's floor/unit and/or counseling patient: Coding Level of Care Code 64970 OBS Care - Level 3 Diagnoses Abdominal pain, epigastric R10.13 Diabetes type 2, uncontrolled E11.65 Hypothyroidism E03.9 Dyslipidemia E78.5 Acute upper gastrointestinal bleeding K92.2 Hypertension I10
[2020-02-28] MEDS ORDERED: ACETAMINOPHEN 1,000 MG/100 ML VIAL IV PRN (21:36)
[2020-02-28] MEDS ORDERED: ONDANSETRON INJ 2 MG/ML 2 ML VIAL IV PRN (21:36)
[2020-02-28] MEDS ORDERED: ALPRAZolam 0.5 MG TABLET PO PRN (22:19)
[2020-02-28] MEDS ORDERED: ACETAMINOPHEN 325 MG TAB PO PRN (22:24)
[2020-02-28] MEDS ORDERED: ACETAMINOPHEN 500 MG TAB PO PRN (22:24)
[2020-02-28] MEDS: INSULIN ASPART 100 UNITS/ML 3 ML PEN SC SCH (22:28)
[2020-02-28] MEDS: PANTOprazole 40 MG in SYRINGE 0 ML IV SCH (22:29)
[2020-02-28] MEDS: SIMVASTATIN 40 MG TAB PO SCH (22:29)
[2020-02-29] MEDS ORDERED: COUGH DROP (SUGAR FREE) LOZ 24 LOZ/1 BOX BUCCAL PRN (00:14)
[2020-02-29] MEDS ORDERED: COUGH DROP (SUGAR FREE) LOZ 24 LOZ/1 BOX BUCCAL ONE (00:15)
[2020-02-29] MEDS: traMADol HCL 50 MG TABLET PO PRN (01:38)
[2020-02-29] MEDS ORDERED: MELATONIN 3 MG TAB PO PRN (01:53)
[2020-02-29] MEDS: LEVOTHYROXINE SODIUM 125 MCG TABLET PO SCH (05:50)
[2020-02-29 06:17] LABS: Basophils # (auto) 0.02 K/uL (0-0.2); Basophils % (auto) 0.2 %; Eosinophils # (auto) 0.14 K/uL (0-0.5); Eosinophils % (auto) 1.5 %; Hematocrit (blood only) 44.9 % (37-47); Hemoglobin 14.7 g/dL (12.0-16.0); Immature Granulocytes # (auto) 0.01 K/uL (0.00-0.02); Immature Granulocytes % (auto) 0.1 %; Lymphocytes % (auto) 27.1 %; Mean Corpuscular Hemoglobin 29.9 pg (25-34); Mean Corpuscular Hgb Conc 32.7 g/dL (32-36); Mean Corpuscular Volume 91.4 fL (80-100); Mean Platelet Volume 9.9 fL (7.4-10.4); Monocytes # (auto) 0.67 K/uL (0.11-0.59); Monocytes % (auto) 7.3 %; Neutrophils # (auto) 5.89 K/uL (1.4-6.5); Neutrophils % (auto) 63.8 %; Platelet Count 269 K/uL (130-400); RDW Coefficient of Variation 14.6 % (11.5-14.5); RDW Standard Deviation 48.6 fL (36.4-46.3); Red Blood Count 4.91 M/uL (4.2-5.4); White Blood Count 9.23 K/uL (4.8-10.8)
[2020-02-29 06:50] LABS: BUN Creatinine Ratio 15.8 (10-20); Calcium 8.9 mg/dl (8.5-10.1); Creatinine Clr Calc Pharmacy 65.1 ml/min; Est GFR (African American) 89.5; Est GFR (Non-African American) 77.2; Potassium 3.3 mmol/L (3.5-5.1)
--- NOTE | 2020-02-29 07:06 | Hospitalist Progress Note ---
Date of Service February 29, 2020 Assessment & Plan (1) Abdominal pain, epigastric: Yolette Cox is an 79 y/o F w/ remote history of GIB secondary to PUD (in 1997, duodenal type per patient) who presented w/ epigastric and upper abdominal discomfort for several days. Worsened by eating. +Melena. afebrile and hemodynamically stable. epigastric abdominal pain w/ UGIB 2/2 gastric angiodysplastic lesion - most likely peptic ulcer disease, w/ possible upper GI bleed. considered AVM vs cardiac vs pancreatitis. - neg trop x1. ecg not suggestive of ischemia. lipase not elevated - GI consulted. 02/28 EGD: two 4-5 angiodysplastic lesions one w/ spontaneous active bleeding found on greater curvature of stomach. coagulation for hemostasis using argon plasma successful. multiple 3-7 mm semi-sessile polyps in gastric cardia, fundus, and body. no biopsies taken because addressing the bleeding angiodysplastic lesion. - 02/27 CT abd/pelv: No bowel obstruction.diverticulosis w/o diverticulitis. no appendicitis. small hiatal hernia. prior cholecystectomy - continue IV protonix 40 BID - NPO advanced to DM2 regular diet after EGD - daily CBC hypertension - metoprolol succinate 25 qAM - home losartan 100 qAM held. BPs elevated ~170s systolic. less aggressive BP control because of the UGIB. will consider restarting 03/01/20 diabetes mellitus type 2, uncontrolled - SSI started after diet resumed after EGD hypothyroidism - restarted home Synthroid after EGD dyslipidemia - restarted home zocor asthma - albuterol PRN FEN/GI: no maintenance IVF. diabetic diet ppx: IV protonix for GI ppx. chemical ppx for VTE withheld given recent UGIB code status: full dispo: med/surg. potential dispo 03/01/20 (2) Diabetes type 2, uncontrolled: (3) Hypothyroidism: (4) Dyslipidemia: (5) Acute upper gastrointestinal bleeding: (6) Hypertension: (7) Asthma: (8) Angiodysplasia of stomach: Admission and Anticipated Discharge Date Admission Date: February 28, 2020 Supervising Physician Co-Signing Physician Notes Resident Physician Supervision Note: I independently interviewed and examined the patient and verified the coleman history and physical, reviewed labs and image studies, discussed the case with the resident Dr. Clemons and agree with the findings and care plan. Subjective Ms. Cox complained of bloating and gassiness this morning, w/ burping and flatus. She has a small amount of emesis of oral secretions overnight but slept well. + chills. + bowel movement this AM, light brown in color. mucousy/stringy without blood or melena. Her stools had been tarry black on thursday for 3-4 wks. hemmocult tested+ both in the outpatient setting and in the ED. She has had several wks of the epigastric symptoms w/ exacerbation and was supposed to have upper and lower endoscopy on 01/21, but the appointment was postponed. She was sent to ed by pcp yesterday for v, diarrhea and epigastric abd pain (hx duodenal ulcer in 1997, otherwise had been doing well) Review of Systems Review of Systems: Constitutional: Denies fever Cardiovascular: Denies chest pain Respiratory: Denies shortness of breath Gastrointestinal: Denies constipation. + diarrhea since 02/26/20 Genitourinary: Denies urinary symptoms including dysuria Neurological: Denies headache, numbness, tingling Physical Exam Physical Exam: General: Grossly A&O. NAD. Cooperative. HEENT: Atraumatic, normocephalic. Pulm: CTAB. exp rhonchi No respiratory distress. Cardiac: RRR, -mrg. Radial pulses intact and symmetrical. no edema Abdominal: nondistended, soft. ttp epigastric and r mid/upper abd. mildler ttp other areas. No rebound/guarding. Results & Data Results & Data ([facility]) Vital Signs (Past 12 Hours) Vital Signs Temp Pulse Resp BP BP Pulse Ox 02/28/20 22:40 178/101 H 02/28/20 22:20 37.1 C 89 18 185/82 H 95 02/28/20 21:36 36.8 C 99 H 16 170/98 H 99 Resident Activity Tracking Resident Involvement: Resident Care Provided Care Provided: Adult [facility]
[2020-02-29] MEDS: PANTOprazole 40 MG in SYRINGE 0 ML IV SCH ×2 (07:52→21:36)
[2020-02-29] MEDS: METOPROLOL SUCC 25MG EXT REL TAB PO SCH (07:54)
[2020-02-29] MEDS: POTASSIUM CHLORIDE / WTR 10 MEQ/100 ML PLCT IV SCH ×2 (07:56→09:03)
[2020-02-29] MEDS: INSULIN ASPART 100 UNITS/ML 3 ML PEN SC SCH ×4 (08:00→20:53)
[2020-02-29] MEDS ORDERED: INSULIN GLARGINE SOLOSTAR 100 UNITS/ML 3 ML PEN SC SCH (09:00)
--- NOTE | 2020-02-29 09:53 | Gastrointestinal Consultation ---
Date of Consultation February 29, 2020 Assessment & Plan (1) Abdominal pain, epigastric: The patient presented to the emergency department with complaints of epigastric pain, nausea, vomiting with complaints of melanotic stools. Symptoms concerning for possible ulcer. We will proceed with EGD today. Continue IV Protonix as ordered twice daily. Maintain n.p.o. status. Please refer to supervising physician addendum for further recommendations. Supervising Physician Co-Signing Physician Notes I have seen and examined the patient. I agree with note above by FRANCHESKA Patel except as noted below. HPI Pt admitted with epi pain and heme pos stool. Hx of melena. Previous PUD. Hx of ASA use but none since 01/25/2020. Fhx non contributory. PE Abdomen pos bs, guarding but no rebound A/P epi pain heme pos stool hx of PUD hx of melena EGD today. Procedure and risks explained to patient which include but not limited to medication reaction, bleeding, perforation, aspiration, and missed lesions. History of Present Illness Attending Physician: Nisha Aly MD History of Present Illness The patient is an 79-year-old female with past medical history to include hypertension, diabetes, thyroid and tracheal cancer, irritable bowel syndrome, diverticulitis with past surgical history to include cholecystectomy and tubal ligation. She presented to the emergency department due to complaints of epigastric pain, nausea, vomiting, melena that worsens with eating. She was subsequently admitted for further management. GI consult due to symptoms. On exam/interview today, she reports that she began having diarrhea nausea and vomiting on 02/26/2020. She states that she had a burning sensation in the epigastric area. Rates this is a 7 out of 10 currently. He states she has had intermittent dizziness. She states she has eaten very little since noon on Thursday. She has been trying to drink fluids. She states that she has had black stools. Reports they were heme positive at PCP 01/29/2020. Reports a history of a ulcer which she believes to be duodenal ulcer diagnosed in 1997. Reports a recent 10 pound weight loss. 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 She also reports poor memory recall. Lifetime non-smoker, denies alcohol or recreational drug use. She was July 2018 after 60 years of marriage. 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 She has 3 adult children that live out of state. She has a sister who lives in [place]. Allergies Allergy/AdvReac Type Severity Reaction Status Date / Time codeine Allergy Intermediate LARGE Verified 02/28/20 20:29 DOSES CAUSE RASH oxycodone Allergy Unknown UNKNOWN Verified 02/28/20 20:29 Home Medications Medication Instructions Recorded Confirmed Type cranberry conc-ascorbic acid 1 cap PO BID 06/10/18 02/28/20 History levothyroxine 125 mcg PO QAM 06/10/18 02/28/20 History metformin 1,000 mg PO BIDM 06/10/18 02/28/20 History metoprolol succinate 25 mg PO HS 06/10/18 02/28/20 History multivitamin 1 tab PO QAM 06/10/18 02/28/20 History pantoprazole 40 mg PO BID 06/10/18 02/28/20 History simvastatin 40 mg PO HS 06/10/18 02/28/20 History tramadol 50 mg PO BID PRN 06/10/18 02/28/20 History acetaminophen [Tylenol Extra 1,000 mg PO Q6H PRN 02/06/19 02/28/20 History Strength] albuterol sulfate [Ventolin HFA] 2 puff INHALATION QID PRN 02/06/19 02/28/20 History alprazolam [Xanax] 0.5 mg PO BID PRN 02/06/19 02/28/20 History pen needle, diabetic 32 gauge x #400 ea 07/06/19 02/28/20 Rx 5/32" insulin degludec 100 unit/mL (3 66 unit SQ DAILY PRN #5 box MDD up 02/01/20 02/28/20 Rx mL) subcutaneous pen to 80 units a day insulin aspart U-100 [Novolog 0 unit SQ TIDM 02/28/20 02/28/20 History Flexpen U-100 Insulin] losartan 100 mg PO QAM 02/28/20 02/28/20 History mirtazapine 30 mg PO HS 02/28/20 02/28/20 History Patient History Medical History Asthma Carpal tunnel syndrome on right Diabetes Diabetes type 2, uncontrolled Displaced fracture of right humerus Diverticulitis Dyslipidemia Eczema Hypertension Hypothyroidism Shingles Thyroid cancer Surgical History Hx of cholecystectomy Social History Smoking Status: Never smoker Hx Alcohol Use: No Hx Substance Use: No Preferred Language: [place] Communication Ability: Effective Plant Wrapper Required: No Beliefs That Will Affect Care: None marital status: Current Living Situation: Alone current occupational status: retired Feels Safe at Home: Yes Assistive Devices: Denture - Upper, Denture - Lower and Walker Review of Systems Review of Systems: All systems reviewed & are unremarkable except as noted in Subjective Physical Exam Constitutional: well developed and well nourished; no acute distress Eyes: no conjunctival abnormality Wears glasses ENMT: Ears: no hearing impairment Neck: trachea midline Respiratory: normal respiratory effort, lungs clear to auscultation Cardiovascular: Rate/Rhythm: regular rate and regular rhythm Gastrointestinal (Abdomen): Percussion/Palpation: + abdomen tender (Epigastric area and to the lesser degree the right upper quadrant. ) and abdomen soft No rebound tenderness or guarding was noted. Musculoskeletal: No calf pain. No foot wounds. Skin: no rashes, warm and dry Neurologic: CN's II-XI intact bilaterally and moves all extremities Psychiatric: A+Ox3, euthymic affect Results & Data ([facility]) Vital Signs (Past 12 Hours) Vital Signs Temp Pulse Resp BP BP Pulse Ox 02/29/20 07:25 36.8 C 88 18 159/88 H 92 02/28/20 22:40 178/101 H 02/28/20 22:20 37.1 C 89 18 185/82 H 95 02/28/20 21:36 36.8 C 99 H 16 170/98 H 99 Laboratory Results - last 24 hr 02/28/20 02/28/20 02/28/20 15:37 17:09 17:09 WBC 8.97 RBC 4.87 Hgb 14.7 Hct 44.2 MCV 90.8 MCH 30.2 MCHC 33.3 RDW Std Deviation 47.5 H RDW Coeff of Yelitza 14.3 Plt Count 228 MPV 10.0 Immature Gran % (Auto) 0.3 Neut % (Auto) 64.1 Lymph % (Auto) 26.3 Steele % (Auto) 8.7 Eos % (Auto) 0.4 Baso % (Auto) 0.2 Neut # (Auto) 5.74 Lymph # (Auto) 2.36 Steele # (Auto) 0.78 H Eos # (Auto) 0.04 Baso # (Auto) 0.02 Immature Gran # (Auto) 0.03 H PT 11.4 INR 1.1 APTT 23.4 PTT Ratio 0.8 Sodium Potassium Chloride Carbon Dioxide Anion Gap BUN Creatinine Est Cr Clr Drug Dosing Est GFR ( Amer) Est GFR (Non-Af Amer) BUN/Creatinine Ratio Glucose POC Glucose 171 H Calcium Total Bilirubin AST ALT Alkaline Phosphatase Troponin I Total Protein Albumin Globulin Albumin/Globulin Ratio Lipase Specimen Hemolysis Urine Color Urine Appearance Urine pH Ur Specific [place] Urine Protein Urine Glucose (UA) Urine Ketones Urine Blood Urine Nitrite Urine Bilirubin Urine Urobilinogen Ur Leukocyte Esterase Urine WBC (Auto) Urine RBC (Auto) U Hyaline Cast (Auto) U Epithel Cells (Auto) Urine Bacteria (Auto) COVID-19 Eval Order SARS-CoV-2, RNA, NAAT Blood Type Antibody Screen 02/28/20 02/28/20 02/28/20 17:09 17:09 17:33 WBC RBC Hgb Hct MCV MCH MCHC RDW Std Deviation RDW Coeff of Yelitza Plt Count MPV Immature Gran % (Auto) Neut % (Auto) Lymph % (Auto) Steele % (Auto) Eos % (Auto) Baso % (Auto) Neut # (Auto) Lymph # (Auto) Steele # (Auto) Eos # (Auto) Baso # (Auto) Immature Gran # (Auto) PT INR APTT PTT Ratio Sodium 141 Potassium 3.7 Chloride 108 H Carbon Dioxide 27 Anion Gap 6.0 BUN 11 Creatinine 0.76 Est Cr Clr Drug Dosing 62.6 Est GFR ( Amer) 85.3 Est GFR (Non-Af Amer) 73.6 BUN/Creatinine Ratio 13.8 Glucose 171 H POC Glucose Calcium 9.2 Total Bilirubin 0.6 AST 22 ALT 28 Alkaline Phosphatase 59 Troponin I < 0.015 Total Protein 7.6 Albumin 4.1 Globulin 3.5 Albumin/Globulin Ratio 1.2 Lipase 59 L Specimen Hemolysis Urine Color Urine Appearance Urine pH Ur Specific [place] Urine Protein Urine Glucose (UA) Urine Ketones Urine Blood Urine Nitrite Urine Bilirubin Urine Urobilinogen Ur Leukocyte Esterase Urine WBC (Auto) Urine RBC (Auto) U Hyaline Cast (Auto) U Epithel Cells (Auto) Urine Bacteria (Auto) COVID-19 Eval [facility] SARS-CoV-2, RNA, NAAT Blood Type B Negative Antibody Screen NEGATIVE 02/28/20 02/28/20 02/28/20 17:33 18:24 22:27 WBC RBC Hgb Hct MCV MCH MCHC RDW Std Deviation RDW Coeff of Yelitza Plt Count MPV Immature Gran % (Auto) Neut % (Auto) Lymph % (Auto) Steele % (Auto) Eos % (Auto) Baso % (Auto) Neut # (Auto) Lymph # (Auto) Steele # (Auto) Eos # (Auto) Baso # (Auto) Immature Gran # (Auto) PT INR APTT PTT Ratio Sodium Potassium Chloride Carbon Dioxide Anion Gap BUN Creatinine Est Cr Clr Drug Dosing Est GFR ( Amer) Est GFR (Non-Af Amer) BUN/Creatinine Ratio Glucose POC Glucose 135 H Calcium Total Bilirubin AST ALT Alkaline Phosphatase Troponin I Total Protein Albumin Globulin Albumin/Globulin Ratio Lipase Specimen Hemolysis Urine Color Yellow Urine Appearance Clear Urine pH 6.0 Ur Specific [place] 1.011 Urine Protein Negative Urine Glucose (UA) Negative Urine Ketones Negative Urine Blood Negative Urine Nitrite Negative Urine Bilirubin Negative Urine Urobilinogen Negative Ur Leukocyte Esterase 1+ H Urine WBC (Auto) 5-10 H Urine RBC (Auto) 0-4 U Hyaline Cast (Auto) 1-5 U Epithel Cells (Auto) 10-20 H Urine Bacteria (Auto) Negative COVID-19 Eval Order SARS-CoV-2, RNA, NAAT NEGATIVE Blood Type Antibody Screen 02/29/20 02/29/20 02/29/20 05:47 05:47 05:58 WBC 9.23 RBC 4.91 Hgb 14.7 Hct 44.9 MCV 91.4 MCH 29.9 MCHC 32.7 RDW Std Deviation 48.6 H RDW Coeff of Yelitza 14.6 H Plt Count 269 MPV 9.9 Immature Gran % (Auto) 0.1 Neut % (Auto) 63.8 Lymph % (Auto) 27.1 Steele % (Auto) 7.3 Eos % (Auto) 1.5 Baso % (Auto) 0.2 Neut # (Auto) 5.89 Lymph # (Auto) 2.50 Steele # (Auto) 0.67 H Eos # (Auto) 0.14 Baso # (Auto) 0.02 Immature Gran # (Auto) 0.01 PT INR APTT PTT Ratio Sodium 143 Potassium 3.3 L Chloride 109 H Carbon Dioxide 29 Anion Gap 5.0 BUN 12 Creatinine 0.73 Est Cr Clr Drug Dosing 65.1 Est GFR ( Amer) 89.5 Est GFR (Non-Af Amer) 77.2 BUN/Creatinine Ratio 15.8 Glucose 139 H POC Glucose 143 H Calcium 8.9 Total Bilirubin AST ALT Alkaline Phosphatase Troponin I Total Protein Albumin Globulin Albumin/Globulin Ratio Lipase Specimen Hemolysis Urine Color Urine Appearance Urine pH Ur Specific [place] Urine Protein Urine Glucose (UA) Urine Ketones Urine Blood Urine Nitrite Urine Bilirubin Urine Urobilinogen Ur Leukocyte Esterase Urine WBC (Auto) Urine RBC (Auto) U Hyaline Cast (Auto) U Epithel Cells (Auto) Urine Bacteria (Auto) COVID-19 Eval Order SARS-CoV-2, RNA, NAAT Blood Type Antibody Screen 02/28/2020: ABDOMEN AND PELVIS CT WITH IV CONTRAST FINDINGS: Mild cardiomegaly with coronary artery calcifications. Bibasilar solid pulmonary nodules redemonstrated measuring up to 10 mm which are unchanged from comparison. In retrospect, these are stable dating back to 2016 and likely benign. No pneumatosis or pneumoperitoneum. Spleen, pancreas, adrenal glands and liver are unremarkable. Cholecystectomy with likely postsurgical dilation of the common bile duct. Prominent periportal lymph nodes measuring up to 9 mm are also likely physiologic. 2.3 cm cyst of the superior pole left kidney. No renal or ureteral calculi or obstructive uropathy. Unremarkable urinary bladder, uterus and right adnexum. 2.1 cm cystic structure of the left adnexum. Calcified plaque of the aorta. No aneurysm. There is no adenopathy. Small hiatal hernia. There is no bowel obstruction. Colonic diverticulosis. Mild wall thickening of the sigmoid colon is likely secondary to chronic muscular hypertrophy. Normal appendix. No ascites or mesenteric inflammation. Degenerative changes are noted involving the spine, pelvis and hips. Chondrocalcinosis of the left greater than right hips with likely degenerative related left hip joint effusion. IMPRESSION: 1. No bowel obstruction. 2. Colonic diverticulosis without acute diverticulitis. 3. Normal appendix. 4. Cholecystectomy. 5. Small hiatal hernia. 6. Additional findings as above.
--- NOTE | 2020-02-29 13:57 | Electrocardiogram Report ---
Test Reason : Blood Pressure : / mmHG Vent. Rate : 088 BPM Atrial Rate : 088 BPM P-R Int : 168 ms QRS Dur : 108 ms QT Int : 362 ms P-R-T Axes : 028 -49 080 degrees QTc Int : 438 ms Normal sinus rhythm Left axis deviation Left ventricular hypertrophy with repolarization abnormality Abnormal ECG When compared with ECG of 10-JUN-2018 14:39, No significant change was found Confirmed by Wilfred Penn ([id number]) on 02/29/2020 1:57:45 PM Referred By: Laura Koroma Confirmed By:Wilfred Penn
--- NOTE | 2020-02-29 14:30 | History & Physical Report ---
Date of Service February 29, 2020 Assessment & Plan (1) Abdominal pain, epigastric: See GI consult from today for full H and P. Plan EGD for epigastric pain, heme pos stools and hx of melena Procedure and risks explained to patient which include but not limited to medication reaction, bleeding, perforation, aspiration, and missed lesions. Admission and Anticipated Discharge Date Admission Date: February 28, 2020 History of Present Illness Primary Care Provider: Sera Liz MD CC epigastric pain HPI Pt admitted with epi pain and heme pos stool. Hx of melena. Previous PUD. Hx of ASA use but none since 01/25/2020. Allergies Allergy/AdvReac Type Severity Reaction Status Date / Time codeine Allergy Intermediate LARGE Verified 02/28/20 20:29 DOSES CAUSE RASH oxycodone Allergy Unknown UNKNOWN Verified 02/28/20 20:29 Home Medications Medication Instructions Recorded Confirmed Type cranberry conc-ascorbic acid 1 cap PO BID 06/10/18 02/28/20 History levothyroxine 125 mcg PO QAM 06/10/18 02/28/20 History metformin 1,000 mg PO BIDM 06/10/18 02/28/20 History metoprolol succinate 25 mg PO HS 06/10/18 02/28/20 History multivitamin 1 tab PO QAM 06/10/18 02/28/20 History pantoprazole 40 mg PO BID 06/10/18 02/28/20 History simvastatin 40 mg PO HS 06/10/18 02/28/20 History tramadol 50 mg PO BID PRN 06/10/18 02/28/20 History acetaminophen [Tylenol Extra 1,000 mg PO Q6H PRN 02/06/19 02/28/20 History Strength] albuterol sulfate [Ventolin HFA] 2 puff INHALATION QID PRN 02/06/19 02/28/20 History alprazolam [Xanax] 0.5 mg PO BID PRN 02/06/19 02/28/20 History pen needle, diabetic 32 gauge x #400 ea 07/06/19 02/28/20 Rx 5/32" insulin degludec 100 unit/mL (3 66 unit SQ DAILY PRN #5 box MDD up 02/01/20 02/28/20 Rx mL) subcutaneous pen to 80 units a day insulin aspart U-100 [Novolog 0 unit SQ TIDM 02/28/20 02/28/20 History Flexpen U-100 Insulin] losartan 100 mg PO QAM 02/28/20 02/28/20 History mirtazapine 30 mg PO HS 02/28/20 02/28/20 History Past Med/Surg History Medical History (Updated 02/29/20 @ 09:54 by FRANCHESKA Garcia) Asthma Carpal tunnel syndrome on right Diabetes Diabetes type 2, uncontrolled Displaced fracture of right humerus Diverticulitis Dyslipidemia Eczema Hypertension Hypothyroidism Shingles Thyroid cancer Surgical History Hx of cholecystectomy Social History Smoking Status: Never smoker Hx Alcohol Use: No Hx Substance Use: No Preferred Language: Senegalese Communication Ability: Effective 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 Required: No Beliefs That Will Affect Care: None marital status: Current Living Situation: Alone current occupational status: retired Feels Safe at Home: Yes Assistive Devices: Denture - Upper, Denture - Lower and Walker Physical Exam Gastrointestinal (Abdomen): positive bowel sounds, epigastric guarding but no rebound Results & Data ([facility]) Vital Signs (Past 12 Hours) Vital Signs Temp Pulse Resp BP Pulse Ox 02/29/20 14:20 37.2 C 82 18 149/124 H 95 02/29/20 07:25 36.8 C 88 18 159/88 H 92 Code Status & VTE Plan VTE Prophylaxis Plan VTE Prophylaxis will be ordered: Yes
[2020-02-29] MEDS ORDERED: ATROPINE SULFATE 0.1 MG/ML 10ML SYR IV PRN (14:46)
[2020-02-29] MEDS ORDERED: ePHEDrine sulfate 50 MG/ML AMP IV PRN (14:46)
[2020-02-29] MEDS ORDERED: fentaNYL citrate 100 MCG/2 ML VIAL IV PRN (14:46)
[2020-02-29] MEDS ORDERED: ONDANSETRON INJ 2 MG/ML 2 ML VIAL IV PRN (14:46)
--- NOTE | 2020-02-29 14:46 | Anesthesiology Consultation ---
Date of Service February 29, 2020 Assessment & Plan ASA ASA3 Proposed Anesthesia Anesthesia Type: MAC Risk / Benefits Reviewed With: PT / POA / Parent / Guardian, Accepts Plan and Informed Consent Obtained History Surgery Operation Date: 02/29/20 11:15 Proposed Procedures p Esophagogastroduodenoscopy Dr Daniel - Vinayak Daniel Height/Weight Height: 5 ft 5 in Weight: 85.2 kg Allergies Allergy/AdvReac Type Severity Reaction Status Date / Time codeine Allergy Intermediate LARGE Verified 02/28/20 20:29 DOSES CAUSE RASH oxycodone Allergy Unknown UNKNOWN Verified 02/28/20 20:29 morphine Allergy Verified 02/29/20 14:34 Medications Home Medications Medication Instructions Recorded Confirmed Last Taken cranberry conc-ascorbic acid 1 cap PO BID 06/10/18 02/28/20 02/06/19 levothyroxine 125 mcg PO QAM 06/10/18 02/28/20 02/06/19 metformin 1,000 mg PO BIDM 06/10/18 02/28/20 02/06/19 metoprolol succinate 25 mg PO HS 06/10/18 02/28/20 02/05/19 multivitamin 1 tab PO QAM 06/10/18 02/28/20 02/06/19 pantoprazole 40 mg PO BID 06/10/18 02/28/20 02/06/19 simvastatin 40 mg PO HS 06/10/18 02/28/20 02/05/19 tramadol 50 mg PO BID PRN 06/10/18 02/28/20 02/06/19 acetaminophen [Tylenol Extra 1,000 mg PO Q6H PRN 02/06/19 02/28/20 02/06/19 Strength] 1000 mg albuterol sulfate [Ventolin HFA] 2 puff INHALATION QID PRN 02/06/19 02/28/20 Unknown alprazolam [Xanax] 0.5 mg PO BID PRN 02/06/19 02/28/20 Unknown pen needle, diabetic 32 gauge x #400 ea 07/06/19 02/28/20 Unknown " insulin degludec 100 unit/mL (3 66 unit SQ DAILY PRN #5 box MDD up 02/01/20 02/28/20 Unknown mL) subcutaneous pen to 80 units a day insulin aspart U-100 [Novolog 0 unit SQ TIDM 02/28/20 02/28/20 Unknown Flexpen U-100 Insulin] losartan 100 mg PO QAM 02/28/20 02/28/20 Unknown mirtazapine 30 mg PO HS 02/28/20 02/28/20 Unknown Active Medications Generic Name Dose Route Start Last Admin Trade Name Freq PRN Reason Stop Dose Admin Pantoprazole Sodium 40 mg/ 10 mls @ 5 mls/min 02/28/20 22:00 02/29/20 07:52 Syringe IV 03/29/20 21:59 5 mls/min BID HECTOR Administration Insulin Aspart 0 units 02/28/20 22:00 02/29/20 11:32 Insulin Aspart 100 Units/Ml 3 Ml Pen SC 03/29/20 21:59 Not Given ACHS HECTOR Levothyroxine Sodium 125 mcg 02/29/20 06:30 02/29/20 05:50 Levothyroxine Sodium 125 Mcg Tablet PO 03/30/20 06:29 125 mcg DAILYBB HECTOR Administration Metoprolol Succinate 25 mg 02/29/20 09:00 02/29/20 07:54 Metoprolol Succ 25mg Ext Rel Tab PO 03/30/20 08:59 25 mg QAM HECTOR Administration Ondansetron HCl 4 mg 02/28/20 21:36 02/29/20 07:51 Ondansetron Inj 2 Mg/Ml 2 Ml Vial IV 03/29/20 21:35 4 mg Q6H PRN Administration Nausea Simvastatin 40 mg 02/28/20 22:00 02/28/20 22:29 Simvastatin 40 Mg Tab PO 03/29/20 21:59 Not Given PM HECTOR Tramadol HCl 50 mg 02/28/20 22:19 02/29/20 01:38 Tramadol Hcl 50 Mg Tablet PO 03/29/20 22:18 50 mg BID PRN Administration Pain NPO Date Last Intake of Fluids: 02/28/20 Time Last Intake of Fluids: 17:00 Date Last Intake of Solids: 02/25/20 Time Last Intake of Solids: 17:00 Past Medical History Medical History Asthma Carpal tunnel syndrome on right Diabetes Diabetes type 2, uncontrolled Displaced fracture of right humerus Diverticulitis Dyslipidemia Eczema Hypertension Hypothyroidism Shingles Thyroid cancer Exercise / Class Metabolic Activity II 4-5 Yardwork/Stairs/Walk up hill Past Surgical History Surgical History Hx of cholecystectomy Past Anesthesia History No Hx of Anesthesia Complications and No Family Hx of Anesthesia Complications History of PONV No Hx of PONV and No Hx of Motion Sickness Social History Smoking Status: Never smoker Hx Alcohol Use: No Hx Substance Use: No Review of Systems denies fever/cough/ colds/ chest pain/ SOB/ JEFERSON denies JEFERSON Physical Exam Vital Signs Last Vital Signs Temp 37.2 C 02/29/20 14:20 Pulse 82 02/29/20 14:20 Resp 18 02/29/20 14:20 BP 149/124 H 02/29/20 14:20 Pulse Ox 95 02/29/20 14:20 ENMT Mouth: + dentures; no TMJ abnormality and no dentition abnormality Thyromental Distance: > or= 3.5 Finger Breadths Mallampati Class: III Neck neck extension not limited Respiratory normal respiratory effort; no respiratory distress Auscultation: lungs clear to auscultation bilaterally Cardiovascular Rate/Rhythm: regular rate and regular rhythm Neurologic moves all extremities Psychiatric Orientation: alert and oriented x 3 Testing Laboratory Results 02/29/20 05:47 PT 11.4 Seconds (9.0-12.0) 02/28/20 17:09 INR 1.1 (0.9-1.1) 02/28/20 17:09 APTT 23.4 Seconds (21.0-31.0) 02/28/20 17:09 Urine Color Yellow 02/28/20 18:24 Urine Appearance Clear (Clear) 02/28/20 18:24 Urine pH 6.0 (4.5-7.5) 02/28/20 18:24 Ur Specific [place] 1.011 (1.000-1.030) 02/28/20 18:24 Urine Protein Negative (Negative) 02/28/20 18:24 Urine Glucose (UA) Negative (Negative) 02/28/20 18:24 Urine Ketones Negative (Negative) 02/28/20 18:24 Urine Nitrite Negative (Negative) 02/28/20 18:24 Ur Leukocyte Esterase 1+ (Negative) H 02/28/20 18:24 Urine WBC (Auto) 5-10 /hpf (0-5) H 02/28/20 18:24 Urine RBC (Auto) 0-4 /hpf (0-4) 02/28/20 18:24 U Hyaline Cast (Auto) 1-5 /lpf (0-5) 02/28/20 18:24 U Epithel Cells (Auto) 10-20 /lpf (0-5) H 02/28/20 18:24 Urine Bacteria (Auto) Negative (Negative) 02/28/20 18:24 Blood Type B Negative 02/28/20 17:09 Antibody Screen NEGATIVE 02/28/20 17:09 02/29/20 02/29/20 02/28/20 11:29 05:58 15:37 POC Glucose 147 H 143 H 171 H
[2020-02-29] MEDS ORDERED: LIDOCAINE HCL 2% 2 ML VIAL/AMP(20MG/ML) INFIL ONE (14:59)
[2020-02-29] MEDS ORDERED: ONDANSETRON INJ 2 MG/ML 2 ML VIAL ONE (14:59)
[2020-02-29] MEDS ORDERED: GLYCOPYRROLATE 0.2 MG/ML VIAL ONE (14:59)
[2020-02-29] MEDS ORDERED: PROPOFOL IV EMULSION 10 MG/ML 20 ML VIAL IV ONE (14:59)
[2020-02-29] MEDS ORDERED: LABETALOL HCL IV 5 MG/ML 20ML IV ONE (14:59)
--- NOTE | 2020-02-29 15:17 | Post Operative Brief Note ---
Immediate Post Op Note v1 Date of Surgery February 29, 2020 Pre & Post Diagnosis Operation Date: 02/29/20 11:15 Pre-Op Diagnosis: ABDOMINAL PAIN Post-Op Diagnosis: Hiatal Hernia Gastric polyps AVM I identified the patient and participated in the time-out.: Yes Procedure Operation Date: 02/29/20 11:15 Actual Procedures p EGD Hemostasis - Vinayak Daniel Surgeon Vinayak Daniel Director [employer] Operations see report Estimated Blood Loss 0 Findings See Below EGD shows 3 cm HH, mult gastric polyps. AVMs in gastric body one with spontaneous hemorhage--both cauterized with APC. Start solid diet.
--- NOTE | 2020-02-29 15:27 | GI REPORT ---
Patient Name: Yolette Cox Procedure Date: 02/29/2020 2:45 PM Date of : 1940 Admit Type: Inpatient Age: 79 Gender: Female Attending MD: Vinayak Daniel MD Procedure: Upper GI endoscopy Providers: Vinayak Daniel MD Referring MD: Laura Koroma Indications: Epigastric abdominal pain, Heme positive stool Medicines: Monitored Anesthesia Care Complications: No immediate complications. Estimated blood loss: None. Estimated Blood Loss: Estimated blood loss: none. Procedure: Pre-Anesthesia Assessment: - The risks and benefits of the procedure and the sedation options and risks were discussed with the patient. All questions were answered and informed consent was obtained. - Patient identification and proposed procedure were verified prior to the procedure by the physician, the nurse and the corrugator helper. The procedure was verified in the procedure room. After obtaining informed consent, the endoscope was passed under direct vision. Throughout the procedure, the patient's blood pressure, pulse, and oxygen saturations were monitored continuously. The Scope was introduced through the mouth, and advanced to the second part of duodenum. The upper GI endoscopy was accomplished without difficulty. The patient tolerated the procedure well. Findings: The Z-line was regular and was found 37 cm from the incisors. A 3 cm hiatal hernia was present. Multiple 3 to 7 mm semi-sessile polyps were found in the cardia, in the gastric fundus and in the gastric body. No biopsies taken because of other bleedingn noted in stomach did not want to confuse issue if rebleeds. Two 4 to 5 mm angiodysplastic lesions one with spontaneous active bleeding were found on the greater curvature of the stomach. Coagulation for hemostasis using argon plasma at 0.8 liters/minute and 40 pedro was successful. Estimated blood loss: none. The examined duodenum was normal. The exam was otherwise without abnormality. Impression: - Z-line regular, 37 cm from the incisors. - 3 cm hiatal hernia. - Multiple gastric polyps. 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 Treated with argon plasma coagulation (APC). - Normal examined duodenum. - The examination was otherwise normal. - No specimens collected. Recommendation: - [facility]. - AVMs can explain heme pos stool and melena but not epigastric pain. Vinayak Daniel M.D. Vinayak Daniel MD 02/29/2020 3:27:17 PM This report has been signed electronically. Note Initiated On: 02/29/2020 2:45 PM Number of Addenda: 0 I attest to the content of the Intraoperative Record and orders documented therein, exceptions below {[id number]}
--- NOTE | 2020-02-29 15:42 | Anesthesiology Progress Note ---
Date of Service February 29, 2020 Anesthesia Post Procedure Vital Signs Vital Signs: Temp Pulse Pulse Resp BP BP Pulse Ox 02/29/20 15:35 36.4 C L 80 16 149/80 H 99 02/29/20 15:25 72 16 139/72 97 02/29/20 15:18 36.2 C L 80 16 117/60 98 02/29/20 14:20 37.2 C 82 18 149/124 H 95 02/29/20 07:25 36.8 C 88 18 159/88 H 92 02/28/20 22:40 178/101 H 02/28/20 22:20 37.1 C 89 18 185/82 H 95 02/28/20 21:36 36.8 C 99 H 16 170/98 H 99 02/28/20 17:35 75 20 130/70 97 Transfer of Care Handoff Completed per policy Notes Mental Status: alert / awake / arousable Patient Amnestic to Procedure: Yes Nausea / Vomiting: adequately controlled Pain: adequately controlled Airway Patency, RR, SpO2: stable & adequate BP & HR: stable & adequate Hydration State: stable & adequate Anesthetic Complications: no major complications apparent and Pt Satisfied with anesthetic care
[2020-02-29] MEDS ORDERED: ALBUTEROL HFA 8 GM INHALER INH PRN (16:04)
[2020-02-29] MEDS ORDERED: INSULIN ASPART 100 UNITS/ML 3 ML PEN SQ SCH (17:00)
[2020-02-29] MEDS ORDERED: NON-FORMULARY MEDICATION (Cranberry Conc-Ascorbic Acid 4,200-20 mg Capsule) PO SCH (21:00)
[2020-02-29] MEDS ORDERED: MIRTAZAPINE SOLTAB 15 MG PO SCH (21:00)
[2020-02-29] MEDS: SIMVASTATIN 40 MG TAB PO SCH (21:36)
[2020-02-29] MEDS ORDERED: LOSARTAN POTASSIUM 25 MG TAB PO ONE (22:45)
[2020-03-01] MEDS: traMADol HCL 50 MG TABLET PO PRN (00:12)
[2020-03-01] MEDS: LEVOTHYROXINE SODIUM 125 MCG TABLET PO SCH (05:53)
[2020-03-01 06:08] LABS: Basophils # (auto) 0.01 K/uL (0-0.2); Basophils % (auto) 0.1 %; Eosinophils # (auto) 0.24 K/uL (0-0.5); Eosinophils % (auto) 2.9 %; Hematocrit (blood only) 40.1 % (37-47); Hemoglobin 13.1 g/dL (12.0-16.0); Immature Granulocytes # (auto) 0.01 K/uL (0.00-0.02); Immature Granulocytes % (auto) 0.1 %; Lymphocytes # (auto) 2.25 K/uL (1.2-3.4); Lymphocytes % (auto) 27.1 %; Mean Corpuscular Hgb Conc 32.7 g/dL (32-36); Mean Platelet Volume 9.8 fL (7.4-10.4); Monocytes # (auto) 0.67 K/uL (0.11-0.59); Monocytes % (auto) 8.1 %; Neutrophils # (auto) 5.11 K/uL (1.4-6.5); Neutrophils % (auto) 61.7 %; Platelet Count 205 K/uL (130-400); RDW Coefficient of Variation 14.4 % (11.5-14.5); RDW Standard Deviation 48.5 fL (36.4-46.3); Red Blood Count 4.36 M/uL (4.2-5.4); White Blood Count 8.29 K/uL (4.8-10.8)
[2020-03-01 06:42] LABS: Albumin Level 3.6 gm/dl (3.4-5.0); BUN Creatinine Ratio 19.2 (10-20); Calcium 8.4 mg/dl (8.5-10.1); Creatinine Clr Calc Pharmacy 68.3 ml/min; Est GFR (African American) 92.6; Est GFR (Non-African American) 79.9; Potassium 3.2 mmol/L (3.5-5.1)
[2020-03-01 06:44] LABS: Albumin Globulin Ratio 1.2 (0.9-2); Bilirubin,Total 0.7 mg/dl (0.2-1); Total Protein 6.6 gm/dl (6.4-8.2)
[2020-03-01] MEDS: METOPROLOL SUCC 25MG EXT REL TAB PO SCH (08:38)
[2020-03-01] MEDS: PANTOprazole 40 MG in SYRINGE 0 ML IV SCH (08:39)
[2020-03-01] MEDS: INSULIN ASPART 100 UNITS/ML 3 ML PEN SC SCH ×2 (08:45→12:43)
[2020-03-01] MEDS ORDERED: LOSARTAN POTASSIUM 50 MG TAB PO SCH (09:00)
[2020-03-01] MEDS ORDERED: INSULIN GLARGINE SOLOSTAR 100 UNITS/ML 3 ML PEN SC SCH (09:00)
--- NOTE | 2020-03-01 09:28 | Gastroenterology Progress Note ---
Date of Service March 01, 2020 Assessment & Plan (1) Abdominal pain, epigastric: (2) Angiodysplasia of stomach: Patient is doing quite well this morning. Denies continuation of epigastric pain and burning. Tolerating p.o. diet without difficulty. Denies nausea or vomiting. No bowel movement this morning. Continue PPI. Diet as tolerated. Will need follow-up outpatient GI. Please refer to supervising physician addendum for further recommendations. Admission and Anticipated Discharge Date Admission Date: February 28, 2020 Supervising Physician Co-Signing Physician Notes Pt seen by FRANCHESKA Patel this am. Pt discharged and not seen by me today. Subjective The patient is awake alert and oriented this morning. She is sitting at bedside finishing up her breakfast. She reports that abdominal pain has significantly improved. She is no longer experiencing epigastric burning. She does complain of some mild right sided pain which has significantly improved since EGD. She has not had any bowel movement since yesterday. Denies any nausea or vomiting. She tolerated her breakfast relatively well only complaint was her toast was too hard. She would like to be discharged with safe to do so. 02/29/2020: EGD notes reviewed performed by Dr. Daniel demonstrated irregular Z- line found at 37 cm from incisors. 3 cm hiatal hernia. Multiple 3 to 7 mm semisessile polyps found in the cardia, in the gastric fundus, and in the gastric body. No biopsies taken due to bleeding. Two 4 to 5 mm angiodysplastic lesions one with spontaneous active bleeding were found in the greater curvature of the stomach. Coagulation for hemostasis using argon plasma was successful. Examined duodenum was normal. Exam was otherwise without abnormality. Review of Systems Review of Systems: All systems reviewed & are unremarkable except as noted in Subjective Physical Exam Constitutional: well developed and well nourished; no acute distress Eyes: Wears corrective lenses ENMT: Nose: no external nose abnormality Neck: normal visual inspection Respiratory: normal respiratory effort; no respiratory distress and no labored breathing Gastrointestinal (Abdomen): normal bowel sounds, soft, nontender, no hepatosplenomegaly Results & Data ([facility]) Vital Signs (Past 12 Hours) Vital Signs Temp Pulse Resp BP Pulse Ox 03/01/20 03:00 36.9 C 69 22 152/72 H 96 02/29/20 23:00 36.9 C 81 20 186/84 H 96 Abnormal lab results 02/29/20 02/29/20 02/29/20 Range/Units 11:29 15:23 16:33 RDW Std Deviation (36.4-46.3) fL [place] # (Auto) (0.11-0.59) K/uL Potassium (3.5-5.1) mmol/L Chloride (98-107) mmol/L Glucose (70-99) mg/dl POC Glucose 147 H 145 H 150 H (70-99) mg/dl Calcium (8.5-10.1) mg/dl 02/29/20 03/01/20 03/01/20 Range/Units 20:31 05:36 05:36 RDW Std Deviation 48.5 H (36.4-46.3) fL [place] # (Auto) 0.67 H (0.11-0.59) K/uL Potassium 3.2 L (3.5-5.1) mmol/L Chloride 109 H (98-107) mmol/L Glucose 136 H (70-99) mg/dl POC Glucose 150 H (70-99) mg/dl Calcium 8.4 L (8.5-10.1) mg/dl 03/01/20 Range/Units 08:07 RDW Std Deviation (36.4-46.3) fL [place] # (Auto) (0.11-0.59) K/uL Potassium (3.5-5.1) mmol/L Chloride (98-107) mmol/L Glucose (70-99) mg/dl POC Glucose 146 H (70-99) mg/dl Calcium (8.5-10.1) mg/dl
[2020-03-01] MEDS ORDERED: POTASSIUM CHLORIDE 20 MEQ/15 ML UDC PO STA (10:25)
--- NOTE | 2020-03-01 16:30 | Discharge Summary ---
Date of Service March 01, 2020 Admission HPI Per Admitting Provider 79-year-old female who presented to the emergency department at the direction of her primary care physician. Patient states that she is having on and off abdominal pain for approximately 3 months however the past 3 days it has gotten significantly worse. She notes that the pain is located in the epigastric area with some radiation to the right upper quadrant. She notes that the pain does not radiate anywhere else. She has associated nausea vomiting but does not have any hematemesis. He does admit to diarrhea and black-colored stools. He notes that the pain is much worse after eating a meal and she says it is relieved by not eating and it also has some relief after she belches or has a bowel movement. She does note a history of peptic ulcer disease diagnosed in 1997 when she lived in [place], [place], during which time she underwent an EGD. She denies any associated fevers, shakes, but did have one episode of chills. She denies chest pain, palpitations, lightheadedness, dizziness, or shortness of breath. Rest of her knowledge she has not been exposed to coronavirus. She does not take any anticoagulants or antiplatelet agents. In the emergency department the patient did undergo labs were CBC revealed her hemoglobin, hematocrit, white blood cell count, and platelet count were all within normal range. Chemistry profile showed that her sodium, potassium, BUN, and creatinine were all within normal range. Regulation studies were checked and were noted to be normal. There was concern noted for urinary tract infection on her urinalysis. A Covid test was performed and is negative. Imaging studies performed included a CT scan of her abdomen this demonstrated a small hiatal hernia. No other acute abdominal findings were noted. Chest x-ray was performed that showed no free air under the diaphragm and there is no acute cardiopulmonary disease. A KUB was performed that showed nonspecific bowel gas pattern with no evidence of obstruction. Emergency room physician did admin ister Pepcid and Protonix and her pain had improved somewhat. The treating emergency room physician also performed a rectal exam and he noted that this was heme positive. At the time my interview the patient was resting comfortably in bed. Her pain had improved and she was in no distress. Admission Exam Per Admitting Provider Constitutional: well developed and well nourished; no acute distress Eyes: no conjunctival abnormality Wears glasses ENMT: Ears: no hearing impairment Neck: trachea midline Respiratory: normal respiratory effort, lungs clear to auscultation Cardiovascular: Rate/Rhythm: regular rate and regular rhythm Gastrointestinal (Abdomen): Percussion/Palpation: + abdomen tender (Epigastric area and to the lesser degree the right upper quadrant. ) and abdomen soft No rebound tenderness or guarding was noted. Musculoskeletal: No calf pain. No foot wounds. Skin: no rashes, warm and dry Neurologic: CN's II-XI intact bilaterally and moves all extremities Psychiatric: A+Ox3, euthymic affect Principal Diagnosis epigastric abdominal pain, upper GI bleed Discharge Exam General: Grossly A&O. NAD. Cooperative. HEENT: Atraumatic, normocephalic. Pulm: CTAB. -wheezes, -rales, -rhonchi. No respiratory distress. Cardiac: RRR, -mrg. No LE edema. Abdominal: Soft, nondistended. Mild TTP at epigastrium and right mid quadrant. No rebound, guarding, or rigidity. Discharge Data Allergies Allergy/AdvReac Type Severity Reaction Status Date / Time codeine Allergy Intermediate LARGE Verified 02/28/20 20:29 DOSES CAUSE RASH oxycodone Allergy Unknown UNKNOWN Verified 02/28/20 20:29 morphine Allergy Verified 02/29/20 14:34 Consultations 02/28/20 19:49 ED Decision to Admit Stat 02/28/20 21:36 Consult Gastroenterology Routine Procedures Performed Operation Date: 02/29/20 11:15 Actual Procedures p EGD Hemostasis - Vinayak Daniel Ordered Studies 02/28/20 16:57 CT abd pelvis IV con only Stat Hospital Course (1) Abdominal pain, epigastric: Yolette Cox is an 79 y/o F w/ remote history of GIB secondary to PUD (in 1997, duodenal type per patient) who presented to [facility] on 02/28/20 w/ epigastric pain, nausea, vomiting that worsens with eating, x several days. On admission, afebrile, and hemodynamically stable. epigastric abdominal pain w/ UGIB 2/2 gastric angiodysplastic lesion Patient's melena (days prior to arrival) and heme+ stool (in ED and outpatient) suggested UGIB. Her H/H was stable. - workup for cardiac vs pancreatic etiologies: neg trop x1. ecg not suggestive of ischemia. lipase not elevated - 1/12 CT abd/pelv: No bowel obstruction. diverticulosis w/o diverticulitis. no appendicitis. small hiatal hernia. prior cholecystectomy - Kept on IV protonix 40 BID during this admission - GI consulted. 02/28 EGD: two 4-5 angiodysplastic lesions one w/ spontaneous active bleeding found on greater curvature of stomach. coagulation for hemostasis using argon plasma successful. multiple 3-7 mm semi-sessile polyps in gastric cardia, fundus, and body. no biopsies taken because addressing the bleeding angiodysplastic lesion. - abdominal pain almost completely resolved after the EGD + AVM cauterization - prescribed 6 wks of protonix 40mg PO BID upon dispo - follow up w/ PCP in 1 week and w/ fur trimming machine operator in 1-2 weeks hypertension - metoprolol succinate 25 qAM - home losartan 100 qAM held. BPs elevated ~170s systolic. less aggressive BP control because of the UGIB. restarting upon dispo. patient's K was low this admission. losartan will increase K levels. diabetes mellitus type 2, uncontrolled - SSI started after diet resumed after EGD hypothyroidism - restarted home Synthroid after EGD dyslipidemia - restarted home Aocor asthma - albuterol PRN dvt ppx: during this admission, chemical ppx for VTE was withheld given recent UGIB code status: full (2) Diabetes type 2, uncontrolled: (3) Hypothyroidism: (4) Dyslipidemia: (5) Acute upper gastrointestinal bleeding: (6) Hypertension: (7) Asthma: (8) Angiodysplasia of stomach: Total Time Total Time Spent Total Time Spent (In Minutes): Please see attending documentation. Discharge Plan Discharge Items Patient Disposition: Home - Self-Care Reason For Visit: ABDOMINAL PAIN Discharge Diagnosis: Abdominal Pain; Upper GI Bleed Activity: Per Instructions section Non-emergency contact: Primary Care Provider Call non-emergency contact if: you have any medication questions and your pain is concerning for you Follow-up/Referrals: Vinayak Daniel [Physician] - 03/12/20 9:00 am (please see in 1-2 weeks from discharge (03/01/20). f/u for UGIB 2/2 gastric AVM) Sera Liz MD [Primary Care Provider] - 03/08/20 2:30 pm (please see in 1 week) Diet: Carb Consistent or DM2 Addtl Attending Provider Instructions: Hi Ms. Cox, You were admitted to [facility] for upper abdominal pain. The fur trimming machine operator performed an endoscopy and found that you had a small bleeding vessel. The bleeding was stopped using cautery. After this procedure, your pain and symptoms have resolved. Your black/tarry appearing stools have not returned. CT scan of your abdomen did not show any new acute problems. You have been prescribed 40 mg of Protonix (pill) to be taken twice a day (instead of the once a day you were previously taking) for the next 6 weeks. This is to help prevent formation of ulcers. Please restart your other home medications. Your blood pressure was high during this admission. One reason it may have been high was because you were not given your home losartan. With the concern about the GI bleeding, the blood pressure wasn't controlled as strictly. This should improve once you restart this medication after returning home. Please follow up on your high blood pressure with your primary care doctor. Follow up with your fur trimming machine operator in 1-2 weeks. Follow up with primary care doctor in 1 week. If you develop any new or worsening symptoms including fever, chills, sweats, chest pain, chest pressure, difficulty breathing, uncontrolled nausea/vomiting, rash, wheezing, passing out or nearly passing out, bleeding, black/bloody bowel movements, or other new or concerning symptoms please call your primary care physician, or call 911 for re-evaluation in the emergency department if you are very concerned. Pending Studies at Discharge: No Visit Report Forms: Smoking Cessation Stand-Alone Forms: My [facility] [place], Opioid Pain Management, Work/School Release (Inpt), Smoking Cessation Medications and DC Order Prescriptions: New pantoprazole 40 mg tablet,delayed release (DR/EC) 40 mg PO BID 42 Days Qty: 84 RF: 0 Continued Tresiba FlexTouch U-100 100 unit/mL (3 mL) insulin pen 66 unit SQ DAILY MDD up to 80 units a day PRN (Reason: diabetes) Qty: 5 RF: 3 (DME) pen needle, diabetic [BD Ultra-Fine Araceli Pen Needle] 32 gauge x 5/32" needle See Rx Instructions [id number] .MEDSUPPLY Qty: 400 RF: 3 mirtazapine 30 mg tablet,disintegrating 30 mg PO HS RF: 0 losartan 100 mg tablet 100 mg PO QAM RF: 0 insulin aspart U-100 [Novolog Flexpen U-100 Insulin] 100 unit/mL (3 mL) insulin pen 0 unit SQ TIDM RF: 0 multivitamin Tablet 1 tab PO QAM RF: 0 tramadol 50 mg tablet 50 mg PO BID PRN (Reason: Pain) RF: 0 simvastatin 40 mg tablet 40 mg PO HS RF: 0 levothyroxine 125 mcg tablet 125 mcg PO QAM RF: 0 metoprolol succinate 25 mg tablet extended release 24 hr 25 mg PO HS RF: 0 metformin 500 mg tablet extended release 24 hr 1,000 mg PO BIDM RF: 0 cranberry conc-ascorbic acid 4,200-20 mg Capsule 1 cap PO BID RF: 0 alprazolam [Xanax] 0.5 mg tablet 0.5 mg PO BID PRN (Reason: Anxiety) RF: 0 albuterol sulfate [Ventolin HFA] 90 mcg/actuation HFA aerosol inhaler 2 puff INHALATION QID PRN (Reason: Wheezing) RF: 0 acetaminophen [Tylenol Extra Strength] 500 mg Tablet 1,000 mg PO Q6H PRN (Reason: Pain) RF: 0 Discontinued pantoprazole 40 mg tablet,delayed release (DR/EC) 40 mg PO BID RF: 0 Discharge Orders: Discharge Order (Routine); Ordered 03/01/20 Ordered By: Mika Alves/Other Patient Handouts: Upper GI Endoscopy with Biopsy, High Blood Sugar (Hyperglycemia), Hypoglycemia (Low Blood Sugar) Admission Data Admit Date/Time: 02/28/20 20:09 Attending Provider: Nisha Aly Admit Provider: Renetta Ricardo Primary Care Provider: Sera Liz Other Providers: Renetta Ricardo ; Samy Lucas Other Interventions: Discharge Summary Assessment (RN) Last Done: 03/01/20 14:28 Supervising Physician Co-Signing Physician Notes Resident Physician Supervision Note: I independently interviewed and examined the patient and verified the coleman histor y and physical, reviewed labs and image studies, discussed the case with the resident Dr. Clemons and agree with the findings and care plan. Resident Activity Tracking Resident Involvement: Resident Care Provided Care Provided: Adult Hospital Medicine
== END 2020-03-01 15:13 | disposition home or self-care (01) ==
LOC: ED 15:28 → 2N 15:28 → SUATTDRO 20:09 → 2N 21:48 → 3N 03-01 07:28

== ENCOUNTER 2023-11-29 19:27 | Inpatient (IN) ==
--- OUTSIDE RECORDS SUMMARY | 2023-11-29 19:35 | External Medical Summary | Continuity of Care Document ---
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, [address] [place] [address] [phone] Encounter Diagnosis Subclavian artery stenosis(Discharge Diagnosis) - 11/19/23 Discharge Disposition: Home or Self Care Attending Physician: MD Parekh Eugene J Referring Physician: MD Johnson Gregory A Allergies, Adverse Reactions, Alerts Substance Criticality Severity Reaction Reaction Severity Status doxycycline Active morphine confusion Active Assessment and Plan Extracted from: Title:Clinical Document Author:RINKU Weber Lynn Date:11/19/23 [facility] OUTPATIENT NOTE Name: TERESA HUNTER Patient Number: [id number] : 1940 Date of Service: 11/19/2023 Chief Complaint: _New patient consultation for subclavian stenosis HPI: _Ms. Hunter is an elderly female who presents to Dr. Parekh's vascular surgery clinic today as a new patient in consultation for incidental finding of left subclavian artery stenosis on imaging. Patient states no previous knowledge of this. She does state that she has had considerable amounts of radiation to her neck and upper chest. She denies any left arm claudication symptoms, or syncope or near syncope when using her left arm. She denies any wounds, discoloration, or other concerns related to her left arm. She is primarily right-handed, but does use her left arm for many things such as knitting and quilting, etc. She denies headache, fever, chest pain, shortness of breath, abdominal pain, nausea, vomiting, rest pain claudication, nonhealing wounds or ulcerations, other complaints. Review of systems: A total of 14 systems were reviewed and are negative aside from what is related in her HPI Imaging: Patient had a soft tissue CT of the neck done in August 2023 at [facility] which indicates a an area of focal stenosis in her mid left subclavian artery. This does not appear to be significant enough to comment on on a same- day chest CT scan. Current Home Meds: (Last Updated 11/18 09:23) ALPRAZolam (Xanax 0.25 mg oral tablet) 0.25 mg PO Daily PRN: as needed for anxiety albuterol-ipratropium (albuterol-ipratropium 2.5 mg-0.5 mg/3 mL inhalation solution) inhale contents of 1 vial ( 3 MILLILITERS ) in nebulizer by mouth and INTO THE LUNGS every 6 hours if neededDx: Asthma J45.4 albuterol (Ventolin HFA 90 mcg/inh inhalation aerosol) 2 puff inhaled qid PRN: NEEDED FOR WHEEZING amLODIPine (amLODIPine 10 mg oral tablet) 1 tab PO Daily atorvastatin (atorvastatin 10 mg oral tablet) 10 mg PO Daily benzonatate (benzonatate 200 mg oral capsule) take 1 capsule by mouth every 8 hours for 10 days betamethasone topical (betamethasone dipropionate 0.05% topical cream) apply to affected area OF ARMS, LEGS AND ABDOMEN twice a day cephalexin (Keflex 250 mg oral capsule) 250 mg PO qid cranberry (Cranberry) 1 tab PO Daily dosage unknown - Moraima Wallace 08/29 13:48 diabetes supplies (Dexcom G7 Sensor) diabetic supplies (Ayasdi G4 Beaver Transmitter Kit) Use as directed; E11.9; E10.649 diabetic supplies (Dexcom G4 Beaver Adult Desk Representative (Black)) Use as directed; E11.9; E10.649 fluticasone nasal (fluticasone 27.5 mcg/inh nasal spray) 1 spray each nostril Daily PRN: allergy symptoms hydroCHLOROthiazide (hydroCHLOROthiazide 25 mg oral tablet) take 1 tablet by mouth daily if needed for SWELLING insulin aspart (Fiasp) sliding scale with meals and bedtime insulin degludec (Tresiba FlexTouch 100 units/mL subcutaneous solution) INJECT 60 UNITS (0.6 MLS), SUBCUTANEOUSLY ONCE DAILY. REPLACES LEVEMIR VIAL ketoconazole topical (ketoconazole 2% topical cream) 1 appl topical bid to fold under belly levothyroxine 137 mcg PO Daily levothyroxine (levothyroxine 125 mcg (0.125 mg) oral tablet) take 1 tablet by mouth daily losartan (losartan 100 mg oral tablet) 1 tab PO Daily magnesium oxide (Mag-Ox 400 oral tablet) 400 mg PO bid metFORMIN (MetFORMIN (Eqv-Glucophage XR) 500 mg oral tablet, extended release) 500 mg PO bid metFORMIN (MetFORMIN (Eqv-Glucophage XR) 500 mg oral tablet, extended release) take 2 tablets by mouth twice a day metoprolol (Metoprolol Succinate ER 25 mg oral tablet, extended release) 1 tab PO Daily multivitamin with minerals 1 tab PO Daily ----- nitrofurantoin (Macrobid 100 mg oral capsule) 100 mg PO bid nystatin topical (nystatin 100,000 units/g topical ointment) 1 appl topical tid abdomen omeprazole (omeprazole 40 mg oral delayed release capsule) 40 mg PO bid ondansetron (ondansetron 4 mg oral tablet) TAKE 1 TABLET EVERY 8 HOURS NEEDED FOR NAUSEA AND VOMITING phenazopyridine (Pyridium 200 mg oral tablet) 200 mg PO tid PRN: as needed for urinary discomfort with food promethazine (promethazine 25 mg oral tablet) take 1 tablet by mouth every 6 hours if needed for nausea and vomiting traMADol (traMADol 50 mg oral tablet) 50 mg PO q4h PRN: as needed for pain Allergies and Sensitivities: morphine(confusion) doxycycline Past Medical History: Problems: Subclavian artery stenosis Hypertension Pharyngoesophageal dysphagia Paralysis of left vocal cord Chronic cough Hoarseness Thyroid cancer Asthma, moderate persistent Hypothyroidism Insomnia Insomnia IBS (irritable bowel syndrome) Type 2 diabetes mellitus without complication, with manager terminal current use of insulin pump Chronic insomnia History of hip replacement Pre-op exam Restless leg Fecal incontinence Nausea Hx of colonic polyp UGI bleed Gastric AVM Bereavement Pulmonary nodules GA (granuloma annulare) Anemia Leg swelling Ambulatory dysfunction Chronic edema Constipation GERD (gastroesophageal reflux disease) Anxiety Diabetic hypoglycemia Incidental pulmonary nodule Weight disorder Cancer of thyroid Hypocalcemia Generalized anxiety disorder Esophageal reflux Diverticulosis Chronic osteoarthritis Hyperlipidemia Generalized osteoarthritis Dyslipidemia associated with type 2 diabetes mellitus Chronic migraine Surgical history: Positive for anal fissure surgery, thyroidectomy, cholecystectomy, left total hip arthroplasty, colonoscopy, EGD, cardiac catheterization without intervention, carpal tunnel surgery Family history: Positive for coronary disease, hypertension, diabetes, cancer, stroke, kidney disease Social history: Patient is a lifelong non-smoker. She does not drink alcohol or use illicit drugs. She is a . OBJECTIVE Vitals: Last Updated 11/19/23 09:43 Date Temp BP Location Pulse RR SpO2 Pain 11/19/23 148/70 Right Arm 11/19/23 162/80 Left Arm 81 97 0 10/26/23 37.2 160/70 81 18 97 Vital Signs are the last 3 documented. No Orthostatic Data Available Height and Weight: Last Updated 10/26/23 13:28 Date BMI Wt(kg) Wt(lb) Method Ht(cm) (ft-in) Method 10/26/23 34.15 91.3 201 Standing Scale 163.5 5-4 Standing 10/06/23 34.3 90.8 200 Standing Scale 162.7 5-4 Standing 07/29/23 89.4 197 Standing Scale Heights and Weights are the last 3 documented. Physical Exam Constitutional: In general patient is an overweight but healthy-appearing well-nourished middle-age elderly female in no distress. She is alert and oriented without any focal deficits. Her neck is supple nontender. Her surgical scars are noted. Her heart is regular, lungs are clear. Abdomen is soft and nontender with no active bowel sounds in all 4 quadrants. Brachial and radial pulses are +3 bilaterally. Femoral pulses are +3. Lower extremities a pulses are +2 in the left foot, +1 DP on the right +2 PT on the right. She has brisk capillary fill and no sign of distal ischemia. ASSESSMENT: _ PLAN: _ 1 ) _left subclavian artery stenosis Patient has a soft tissue CT of the neck which indicates that she may have focal area of stenosis in her left mid subclavian artery, however, clinically she has very little evidence of this, without any significant gradient in blood pressures or changes in pulse. Not to mention the fact that she has no symptoms at all. For completeness, we would recommend that she undergo a carotid artery ultrasound in our office a year from now which would reevaluate this area more appropriately. If there are further questions we be happy to address it before that time if needed. She is advised to call any questions or concerns. Thank you for letting us participate in the care of this patient. I have personally spent__44_ minutes performing [id number] and [id number]-ed-face activities on this date of service.Time does not include separately reported services. Activities Include: x__ review of the medical record _x_ obtaining a history x__ physical exam/evaluation __ review labs _x_ review radiology reports _x_ counseling/educating patient/family/caregiver __ discussion/referral to other healthcare professional _x_ documenting care in the medical record __ independent interpretation of results _x_ communication of results to patient/family/caregiver _x_ coordination of care Immunizations Given and Recorded Vaccine Date Status Refusal Reason SARS-CoV-2 mRNA (tozinameran 5y-11y) 01/10/22 Trever rded SARS-CoV-2 mRNA (tozinameran 5y-11y) 08/02/21 Trever rded influenza virus vaccine, inactivated 12/12/21 Trever rded influenza virus vaccine, inactivated 11/15/19 Give n influenza virus vaccine, inactivated 11/02/18 Give n influenza virus vaccine, inactivated 12/15/17 Give n influenza virus vaccine, inactivated 02/27/17 Give n pneumococcal 23-valent vaccine 1 06/18/21 Given zoster vaccine, inactivated 06/08/20 Recorded pneumococcal 13-valent vaccine 2 12/05/15 Given tetanus/diphtheria/pertuss, acel (Tdap) 3 12/05/15 Given 1Early/Late Reason: Early/Late Reason: Other : N/A 2Early/Late Reason: Other : Late entry 3Early/Late Reason: Other : Late entry Medications albuterol-ipratropium 2.5 mg-0.5 mg/3 mL inhalation solution Start: 09/04/23 1:02:00 PM EDT, See Instructions, Disp# 90 mL, Refills: 3, inhale contents of 1 vial( 3 MILLILITERS ) in nebulizer by mouth and INTO THE LUNGS every 6 hours if needed Dx: Asthma J45.4, Pharmacy: [facility] [address] Start Date: 09/04/23 Status: Ordered amLODIPine 10 mg oral tablet Start: 07/10/23 10:03:00 AM EDT, 1 tab, PO, Daily, Disp# 30 tab, Refills: 6, [facility] Start Date: 07/10/23 Status: Ordered benzonatate 200 mg oral capsule Start: 07/10/23 10:03:00 AM EDT, See Instructions, Disp# 30 cap, Refills: 5, take 1 capsule by mouthevery 8 hours for 10 days, Pharmacy: [facility] [address] Start Date: 07/10/23 Status: Ordered betamethasone dipropionate 0.05% topical cream Start: 08/11/23 1:05:00 PM EDT, See Instructions, Disp# 50 g, Refills: 3, apply to affected area OF ARMS, LEGS AND ABDOMEN twice a day, [facility] Start Date: 08/11/23 Status: Ordered Cranberry Start: 08/29/13 1:47:00 PM EDT, 1 tab, PO, Daily Start Date: 08/29/13 Status: Ordered Dexcom G4 Beaver Adult Desk Representative (Black) Start: 12/15/17 8:54:00 AM EDT, See Instructions, Disp# 1 each, Use as directed; E11.9; E10.649, Pharmacy: [address] Start Date: 12/15/17 Status: Ordered Dexcom G4 Beaver Transmitter Kit Start: 12/15/17 8:53:00 AM EDT, See Instructions, Disp# 1 each, Use as directed; E11.9; E10.649, Pharmacy: [address] Start Date: 12/15/17 Status: Ordered Dexcom G7 Sensor Start: 07/29/22 12:50:00 PM EDT, See Instructions, Disp# 3 kit Start Date: 07/29/22 Status: Ordered Fiasp Start: 07/29/23 9:52:00 AM EDT, See Instructions, sliding scale with meals and bedtime Start Date: 07/29/23 Status: Ordered fluticasone 27.5 mcg/inh nasal spray Start: 09/15/18 10:55:55 AM EDT, 1 spray, each nostril, Daily, Disp# 1 each, Refills: 6, PRN: allergy symptoms, Pharmacy: [address] Start Date: 09/15/18 Status: Ordered hydroCHLOROthiazide 25 mg oral tablet Start: 07/29/23 10:01:00 AM EDT, See Instructions, Disp# 90 tab, Refills: 3, take 1 tablet by mouth daily if needed for SWELLING, Pharmacy: [facility] [address] Start Date: 07/29/23 Status: Ordered ketoconazole 2% topical cream Start: 12/24/17 9:40:00 AM EST, 1 appl, topical, bid, Disp# 30 g, Refills: 2, to fold under belly, Pharmacy: [id number] [place] [address] Start Date: 12/24/17 Status: Ordered levothyroxine Start: 11/19/23 9:21:00 AM EDT, 137 mcg =, PO, Daily Start Date: 11/19/23 Status: Ordered losartan 100 mg oral tablet Start: 04/06/23 11:16:00 AM EST, 1 tab, PO, Daily, Disp# 90 tab, Refills: 3, Pharmacy: [facility] #[id number] Start Date: 04/06/23 Status: Ordered Mag-Ox 400 oral tablet Start: 03/18/16 3:56:00 PM EST, 1 tab, PO, bid, Disp# 60 tab, Refills: 6, Pharmacy: [id number] Start Date: 03/18/16 Status: Ordered MetFORMIN (Eqv-Glucophage XR) 500 mg oral tablet, extended release Start: 11/19/23 9:22:00 AM EDT, 1 tab, PO, bid Start Date: 11/19/23 Status: Ordered Metoprolol Succinate ER 25 mg oral tablet, extended release Start: 12/08/22 9:39:00 AM EDT, 1 tab, PO, Daily, Disp# 90 tab, Refills: 3, Pharmacy: [facility] #[id number] Start Date: 12/08/22 Status: Ordered multivitamin with minerals Start: 08/29/13 1:47:00 PM EDT, 1 tab, PO, Daily, ----- Start Date: 08/29/13 Status: Ordered nystatin 100,000 units/g topical ointment Start: 08/11/23 1:05:00 PM EDT, 1 appl, topical, tid, Disp# 30 g, Refills: 5, abdomen, Pharmacy: [facility] [address] Start Date: 08/11/23 Status: Ordered omeprazole 40 mg oral delayed release capsule Start: 02/24/23 8:34:00 AM EST, 1 cap, PO, bid, Disp# 180 cap, Refills: 3, [facility]acy: [id number] Start Date: 02/24/23 Status: Ordered ondansetron 4 mg oral tablet Start: 07/01/23 2:45:00 PM EDT, See Instructions, Disp# 60 tab, Refills: 3, TAKE 1 TABLET EVERY 8 HOURS NEEDED FOR NAUSEA AND VOMITING, Pharmacy: [facility] [address] Start Date: 07/01/23 Status: Ordered promethazine 25 mg oral tablet Start: 07/01/23 2:45:00 PM EDT, See Instructions, Disp# 60 tab, Refills: 3, take 1 tablet by mouth every 6 hours if needed for nausea and vomiting, Pharmacy: [place] [id number] Start Date: 07/01/23 Status: Ordered traMADol 50 mg oral tablet Start: 11/19/23 9:22:00 AM EDT, 1 tab, PO, q4h, PRN: as needed for pain Start Date: 11/19/23 Status: Ordered Tresiba FlexTouch 100 units/mL subcutaneous solution INJECT 60 UNITS (0.6 MLS), SUBCUTANEOUSLY ONCE DAILY. REPLACES LEVEMIR VIAL Start Date: 10/27/19 Status: Ordered Ventolin HFA 90 mcg/inh inhalation aerosol Start: 09/04/23 12:27:00 PM EDT, 2 puff, inhaled, qid, Disp# 18 g, Refills: 1, PRN: NEEDED FOR WHEEZING, Brand Medically Necessary, Pharmacy: [facility] Start Date: 09/04/23 Status: Ordered Xanax 0.25 mg oral tablet Start: 10/22/23 7:04:00 PM EDT, 1 tab, PO, Daily, Disp# 30 tab, Refills: 0, PRN: as needed for anxiety, Pharmacy: [facility] Start Date: 10/22/23 Stop Date: 11/21/23 Status: Ordered Mental Status 11/19/23 Barriers to Learning one year None evide nt Mandatory Health Literacy Documentation Yes Health Literacy Communication Barriers N ever Primary Language Russian Problem List Condition Confirmation Course Effective Dates Status Health Status Informant Anemia Confirmed Active Anxiety Confirmed Active Gastric AVM Confirmed Active Bereavement Confirmed Active Chronic cough Confirmed Active Chronic insomnia Confirmed Active Chronic osteoarthritis Confirmed Active IBS (irritable bowel syndrome) Confirmed Active Constipation Confirmed Active Generalized osteoarthritis Confirmed Active Diverticulosis Confirmed Active Pharyngoesophageal dysphagia Confirmed Active Chronic edema Confirmed Active Esophageal reflux Confirmed Active Generalized anxiety disorder Confirmed Active GERD (gastroesophageal reflux disease) Confirmed Active GA (granuloma annulare) Confirmed Active Hx of colonic polyp Confirmed Active History of hip replacement Confirmed Active Hoarseness Confirmed Active Hyperlipidemia Confirmed Active Hypertension Confirmed Active Hypocalcemia Confirmed Active Diabetic hypoglycemia Confirmed Active Hypothyroidism Confirmed Active Fecal incontinence Confirmed Active Insomnia Confirmed Active Insomnia Confirmed Active Cancer of thyroid 1 Confirmed Active Thyroid cancer Confirmed Active Chronic migraine Confirmed Active Asthma, moderate persistent Confirmed Active Pulmonary nodules Confirmed Active Nausea Confirmed Active Paralysis of left vocal cord Confirmed Active Pre-op exam Confirmed Active Restless leg Confirmed Active Incidental pulmonary nodule Confirmed Active Subclavian artery stenosis Confirmed Active Leg swelling Confirmed Active Dyslipidemia associated with type 2 diabetes mellitus Confirmed Active Type 2 diabetes mellitus without complication, with manager terminal current use of insulin pump Confirmed Active UGI bleed Confirmed Active Ambulatory dysfunction Confirmed Active Weight disorder Confirmed Active 1papillary carcinoma Diagnosis Diagnosis Type Effective Dates Health Status Clinical Service Informant Subclavian artery stenosis Discharge Diagnosis 11/19/23 Procedures Procedure Date Related Diagnosis Body Site Status Hip replacement 1 05/15/22 Complet ed Plain X-ray of left hip 2 05/15/22 Completed Chest X-ray 3 03/31/22 Completed Excision 4 04/11/21 Completed Shave biopsy of skin 03/21/21 Comp leted Colonoscopy 5, 6 06/20/20 Complete d EGD (esophagogastroduodenosc opy) gastric outlet reduction 7 02/28/20 Compl eted Eye examination 8 12/26/19 Complet ed CAT scan 9 04/14/19 Completed Eye examination 10 09/20/[address] of chest 11 11/06/17 Completed X-ray of humerus 12 05/01/17 Compl eted X-ray of humerus 13 04/30/17 Compl eted Doppler 14 04/23/17 Completed Cardiac catheter 15 04/17/[address] angiography 16 04/17/[address] of chest 17 04/17/17 Completed CXR - Chest X-ray 18 04/17/17 Comp leted Upper arm X-ray 19 04/17/17 Comple velma Shoulder X-ray 20 04/16/17 Complet ed X-ray of humerus 21 04/16/[address] of abdomen and pelvis 22 04/15/[address] of head 23 04/15/17 Completed CXR - Chest X-ray 24 04/15/17 Comp leted Elbow X-ray 25 04/15/17 Completed Hip X-ray 26 04/15/17 Completed Shoulder X-ray 27 04/15/17 Complet ed X-ray of humerus 28 04/15/17 Compl eted X-ray of left knee 29 04/15/17 Com pleted Surgery 03/[address] of chest 31 03/14/17 Completed Shoulder X-ray 32 03/13/17 Complet ed X-ray of humerus 33 03/13/[address] of abdomen and pelvis 34 03/04/[address] of abdomen and pelvis wit h contrast 35 03/04/[address] of entire head 36 03/04/[address] of upper extremity withou t contrast 37 03/04/17 Completed CXR - Chest X-ray 38 03/04/17 Comp leted Forearm X-ray 39 03/04/17 Complete d X-ray of humerus 40 03/04/17 Compl eted CXR - Chest X-ray 41 02/11/17 Comp leted CXR - Chest X-ray 42 01/12/17 Comp leted Punch biopsy 04/01/16 Completed Chest x-ray 43 02/13/16 Completed Chest x-ray 44 02/12/16 Completed Ultrasound-thyroid 45 12/07/[address] of abdomen and pelvis 46 11/07/[address] of chest 47 11/07/[address] of abdomen and pelvis 48 07/15/15 Completed CXR - Chest X-ray 49 07/15/15 Comp leted Plain X-ray abdomen 50 07/12/15 Co mpleted Right wrist x-ray 51 07/04/15 Comp leted Ultrasound right upper quadr ant abdomen 52 12/14/14 Completed X-ray of abdomen 53 12/14/14 Compl eted Gastric emptying scan 54 02/15/14 Completed Mammogram - screening 55 01/27/14 Completed PET scan 56 12/21/13 Completed Operation on vocal cord 57 08/16/12 Completed Colonoscopy 06/16/12 Completed Diagnostic endoscopic examin ation of esophagus and biopsy of lesion of esophagus using rigid esophagoscope 06/16/12 Completed Colonoscopy 58 01/16/09 Completed Colonoscopy 59 10/15/01 Completed Arthroscopy of knee 60 09/16/01 Co mpleted Upper GI endoscopy 61 07/15/01 Com pleted Colonoscopy 62 12/17/00 Completed History of carpal tunnel repair 63 08/16/00 Completed Colonoscopy 64 02/02/98 Completed Upper GI endoscopy 65 02/02/[address] of abdomen 66 11/24/97 Complete d Colonoscopy 67 02/10/95 Completed Colonoscopy 68 01/01/94 Completed Colonoscopy 69 12/14/92 Completed Upper GI endoscopy 70 10/31/92 Com pleted Upper GI endoscopy 71 08/11/89 Com pleted Laparoscopic cholecystectomy Completed Thyroidectomy Completed 1UOC Left hip 2Intraoperative fluoroscopy for left hip replacement surgery. 3No acute cardiopulmonary findings. No change in appearance of the chest. 4MMIS left upper arm 5BIopsies were taken. Pathology results: Colon, random, biopsies: fragments of benign colonic mucosawithout pathologic change. No acute or chronic colitis identified. Negative for dysplasi or malignancy. 6Preparation of the colon was fair. Non bleeding internal hemorrhoids. No specimens collected. 7Z-line regualr 37 cm from incisiors, 3 cm hiatal hernia, multiple gastric polyps, 2 bleeding angiodysplastic lesions in stomach, treated w/argon plasma coagulation, nml duodenum 8Age related nuclear cataract of both eyes Background diabetic retinopathy Retinal flame hemorrhage or right eye. 9CT OF THE CHEST WITH IV CONTRAST IMPRESSION: No change in multiple pulmonary nodules since CT of November 07, 2015. These are considered benign given stablity. 10[facility] Impression: 1.DM Type 2, uncomplicated. No opthalmic manifestations of diabetes noted. 2. Age-related nuclear cataract of both eyes 3. Presbyopia OU. Regular astigmatism of both eyes 11Multiple stable bilateral pulmonary nodules with the largest in the right lung base measuring 11mm.Given the 2 year stability these are likely benign. No new pulmonary nodules identified. One year [facility] CT follow up can be performed to ensure continued stability. 12[facility] Impression: 1. Improved alignment of the right humerus status post ORIF 13Expected postoperative findings status post open reduction and internal fixation of a right humeralfracture. The fragments are in near anatomic alignment. 14No sonographic evidence of deep venous thrombosis. 15non-obstructive coronary ds, right dominant system, nml LV pressures 16[facility] Impression: 1. No evidence of acute pulmonary embolis 2. Multiple lower lobe pulmonary nodules measuring up to 10 mm in diameter. 3. Displaced spira/oblique fracture of the right humerus at the junction of proximal and distal onethird as visualized on the vacuum frame operator radiograph 4. Healing left seventh rib fracture 171. No evidence of acute pulmonary embolism. 2. Multiple lower lobe pulmonary nodules measuring up to 10mm in diameter. As was previously stated, [address] follow up is recommended. 3. Displaced spiral/oblique fracture of the right humerus at the junction of proximal and distal one third as visualized on the vacuum frame operator radiograph. 4. Healing left seventh rib fracture. 18No acute cardiopulmonary findings. No change in appearance of the chest. 19Interval worsening of displacement at the obliquely oriented mid to distal right humeral diaphysealfracture as dictated above. 20SEvere degenerative change right shoulder. No acute bony abnormality. 21Improved alignment of the humeral factre status post reduction and application of a plaster cast. 221. No evidence of acute intra abdominal or pelvic injury. 2. Stable indeterminate lower lobe pulmonary nodules. 3. Healing left seventh rib fracture. 4. Degenerative changes within the spine with multilevel spinal stenosis. 231. No acute intracranial findings. 2. Left frontal scalp hematoma with left periorbital edema. 241. No pneumothorax. 2. Mildly displaced left seventh rib fracture which is likely subacute. 25Acute moderately displaced angulated oblique distal diaphyseal fracture of the right humerus. 26No fractures or dislocations identified. 271. Acute moderately displaced angulated fracture through the distal shaft of the right humerus which is better depicted on the right elbow radiographs. 2. Severe osteoarthritis of the right glenohumeral joint. No proximal right humeral fracture. 28Mildly displaced angulated oblique/spiral fracture of the humerus at the junction of the middle anddistal one third. 291. No acute fracture or joint effusion of the left knee. 2. Marked pre and infrapatellar soft tissue swelling. 30left shoulder and right elbow 31multiple pulm nodules, up to 1 cm, similar to 11/07/15; LLL atelectasis; suggest follow up chest CT in 6 months. 32S/P internal fixation of a proximal left humerus fracture. Hardware appears intact. Alignment is near-anatomic. 33S/P ORIF of the L humerus with improved alignment 341. No acute traumatic findings within the abdomen or pelvis. 2. No significant change in several lower lung nodules since prior CT of November 07, 2015. These remain indeterminate. 3. Small hiatal hernia. 4. Colonic diverticulosis without evidence for acute diverticulitis. 35No evidence of acute intra abdominal or pelvic injury. 361. No acute intracranial abnormality identified. No calvarial fracture. 2. Moderate atrophy with chronic microvascular ischemic changes. 6mm focal area of low attenuation within the region of the inferior right lentiform nucleus suggests prominent perivascular space or remote lacunar infarction. 371. Acute comminuted displaced and angulated fracture of the proximal humeral metadiaphysis redomonstrated. The humeral head, greater and lesser tuberosities are intact. 2. 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 Chondrocalcinosis with 5mm loose body involves the glenohumeral joint as above. 3. Probable small joint effusion with moderate soft tissue swelling. 381. No acute cardiopulmonary findings. 2. Left humeral fracture better depicted on the left humerus radiographs. Please see that report for further description. 39No fractures identified. 401. Comminuted displaced and angulated fracture of the proximal metadiaphyseal humerus as above. 2. Severe degenerative changes of the glenohumeral joint with moderate degenerative changes of the acromioclavicular joint. No fractures are seen involving the humeral head, greater or lesser tuberosities. No dislocation. 3. Bones appear osteopenic. 41No acute cardiopulmonary abnormality. 421. No acute cardiopulmonary disease. 43[facility] Impression: 1. Slight interstitial prominence throughout both hemithoraxes, possibly on the basis of an early interstitial pneumonitis 44[facility] Impression: elevation of the anterior aspect of the right hemidiaphragm consistent with eventration. 45[facility] Thyroid impression: 1. surgically absent thyroid 2. morphologically normal lymph node within the left neck measuring 11x5x7 mm 461. Small pulmonary metastases at the lung bases appear to have modestly increased in size from 07/15/2015. 2. there is no evidence of metastatic disease in the abdomen or pelvis. 3. Hepatomegaly and hepatic steatosis. 4. No acute infectious or inflammatory findings are seen in the abdomen or pelvis. 5. Mild colonic diverticulosis without CT evidence of acute diverticulitis. 6. Additional changes as above. 471. Multiple bilateral pulmonary nodules. Direct comparison with the prior PET CT scan is difficult due to the low resoluation images on the prior study which were compromised due to motion artifact. Nevertheless I suspect that there have been slight interval incrrease in size of the pulmonary nodules. Given the history of a primary thyroid malignancy, metastatic disease is the diagnosis of exclusion. 481. Possible early acute diverticulitis involving the proximal sigmoid colon. No perforation or abscess. 2. Multiple subcentimeter pulmonary nodules at the lung bases. These demonstrate 18 month stablility. Additional [address] follow up is recommended to ensure 2 year stability. 3. Prior cholecystectomy. 4. Small hiatus hernia. 49No acute process. 50Hiatal hernia. Status post cholecystectomy. Normal bowel gas pattern without evidence for obstruction. 51[facility] Impression: 1. Chronic and presumed old posttraumatic changes. No obvious acute bony process 52Impression: Unremarkable sonographic evaluation of the right upper quadrant. No gallstones are identified. 53Impression: No evidence of bowel obstruction. No evidence of free air. 54Impression: Normal study 55No Mammographic evidence of malignancy. 56There is no evidence of FGD avid metastatic disease. Postoperative cahnges from thyroidectomy there is no evidence of abnormal FDG localization or recurrent soft tissue mass at the operative site. There is a 5 mm left lower lobe pulmonary nodulre. This was not demonstrably FDG-avid although was likely too small for definitive PET characterization. Attention at followup chest CT is recommended. 57vocal cord transplant 58polyps X3 59Diverticulosis. No active or recent diverticulitis, no neoplasm 60benign tumor removed 61Dynamic schetski ring. No esophagitis. Moderate hiatal hernia. Stomach normal. Pylorus OK duodenum normal. 62diverticulitis 63right 64Digital OK. mucosa normal. No polyps. sigmoid diverticuli. Cecum and term ileum are normal. 65Somewhat dilated esophagus. Schaski ring. hiatal hernia, mucosa intact. Stomach normal. Pylorus patent. Duodenum normal. No esophageal stricture. 66Impression: No scan evidence for diverticulitis. The examination is essentially unchanged since 02/05/96. If there is concern for rectosigmoid disease, a pelvic Ct scan might be considered. 67sigmoid diverticulosis 68sigmoid diverticulosis without inflammatory change and a very tiny diminutive adenoma was found in the mid sigmoid colon and was removed. 69noted to have sigmoid divertiuclosis but no erythema, exudate, edema or spasm, a rectal adenoma wasfound and removed by snare cautery technique. 70negative 71Multiple antral ulcers with assosiated edema. Finding virtually diagnostic of NSAID gastropathy. Vital Signs Most recent to oldest [Reference Range]: 1 2 Heart Rate 81 bpm (11/19/23 9:25 AM) Blood Pressure 148/70mmHg (11/19/23 9:43 AM) 162/80mmHg (11/19/23 9:25 AM) Cuff Pulse Pressure 78 mmHg (11/19/23 9:43 AM) 82 mmHg (11/19/23 9:25 AM) BP Location # 1 Right Arm (11/19/23 9:43 AM) Left Arm (11/19/23 9:25 AM) Social History Social History Type Response Smoking Status Never smoked cigaret deny Sex Female Sex Representation Female (finding) [facility] Outpt Note * RINKU Weber Lynn: PERFORM Event Display: [facility] Outpt Note Authored Date: [id number] [facility] OUTPATIENT NOTE Name: TERESA HUNTER Patient Number: [id number] : 1940 Date of Service: 11/19/2023 Chief Complaint: _New patient consultation for subclavian stenosis HPI: _Ms. Hunter is an elderly female who presents to Dr. Parekh's vascular surgery clinic today as anew patient in consultation for incidental finding of left subclavian artery stenosis on imaging. Patient states no previous knowledge of this. She does state that she has had considerable amounts ofradiation to her neck and upper chest. She denies any left arm claudication symptoms, or syncope ornear syncope when using her left arm. She denies any wounds, discoloration, or other concerns related to her left arm. She is primarily right-handed, but does use her left arm for many things such asknitting and quilting, etc. She denies headache, fever, chest pain, shortness of breath, abdominal pain, nausea, vomiting, rest pain claudication, nonhealing wounds or ulcerations, other complaints. Review of systems: A total of 14 systems were reviewed and are negative aside from what is related in her HPI Imaging: [facility] an area of focal stenosis in her mid left subclavian artery. This does not appearto be significant enough to comment on on a same-day chest CT scan. Current Home Meds: (Last Updated 11/18 09:23) ALPRAZolam (Xanax 0.25 mg oral tablet) 0.25 mg PO Daily PRN: as needed for anxiety albuterol-ipratropium (albuterol-ipratropium 2.5 mg-0.5 mg/3 mL inhalation solution) inhale contents of 1 vial ( 3 MILLILITERS ) in nebulizer by mouth and INTO THE LUNGS every 6 hours if neededDx: Asthma J45.4 albuterol (Ventolin HFA 90 mcg/inh inhalation aerosol) 2 puff inhaled qid PRN: NEEDED FOR WHEEZING amLODIPine (amLODIPine 10 mg oral tablet) 1 tab PO Daily atorvastatin (atorvastatin 10 mg oral tablet) 10 mg PO Daily benzonatate (benzonatate 200 mg oral capsule) take 1 capsule by mouth every 8 hours for 10 days betamethasone topical (betamethasone dipropionate 0.05% topical cream) apply to affected area OF ARMS, LEGS AND ABDOMEN twice a day cephalexin (Keflex 250 mg oral capsule) 250 mg PO qid cranberry (Cranberry) 1 tab PO Daily dosage unknown - C Rodrigo 08/29 13:48 diabetes supplies (Dexcom G7 Sensor) diabetic supplies (Dexcom G4 Beaver Transmitter Kit) Use as directed; E11.9; E10.649 diabetic supplies (Dexcom G4 Beaver Adult Desk Representative (Black)) Use as directed; E11.9; E10.649 fluticasone nasal (fluticasone 27.5 mcg/inh nasal spray) 1 spray each nostril Daily PRN: allergy symptoms hydroCHLOROthiazide (hydroCHLOROthiazide 25 mg oral tablet) take 1 tablet by mouth daily if needed for SWELLING insulin aspart (Fiasp) sliding scale with meals and bedtime insulin degludec (Tresiba FlexTouch 100 units/mL subcutaneous solution) INJECT 60 UNITS (0.6 MLS), SUBCUTANEOUSLY ONCE DAILY. REPLACES LEVEMIR VIAL ketoconazole topical (ketoconazole 2% topical cream) 1 appl topical bid to fold under belly levothyroxine 137 mcg PO Daily levothyroxine (levothyroxine 125 mcg (0.125 mg) oral tablet) take 1 tablet by mouth daily losartan (losartan 100 mg oral tablet) 1 tab PO Daily magnesium oxide (Mag-Ox 400 oral tablet) 400 mg PO bid metFORMIN (MetFORMIN (Eqv-Glucophage XR) 500 mg oral tablet, extended release) 500 mg PO bid metFORMIN (MetFORMIN (Eqv-Glucophage XR) 500 mg oral tablet, extended release) take 2 tablets by mouth twice a day metoprolol (Metoprolol Succinate ER 25 mg oral tablet, extended release) 1 tab PO Daily multivitamin with minerals 1 tab PO Daily ----- nitrofurantoin (Macrobid 100 mg oral capsule) 100 mg PO bid nystatin topical (nystatin 100,000 units/g topical ointment) 1 appl topical tid abdomen omeprazole (omeprazole 40 mg oral delayed release capsule) 40 mg PO bid ondansetron (ondansetron 4 mg oral tablet) TAKE 1 TABLET EVERY 8 HOURS NEEDED FOR NAUSEA AND VOMITING phenazopyridine (Pyridium 200 mg oral tablet) 200 mg PO tid PRN: as needed for urinary discomfort with food promethazine (promethazine 25 mg oral tablet) take 1 tablet by mouth every 6 hours if needed for nausea and vomiting traMADol (traMADol 50 mg oral tablet) 50 mg PO q4h PRN: as needed for pain Allergies and Sensitivities: morphine(confusion) doxycycline Past Medical History: Problems: Subclavian artery stenosis Hypertension Pharyngoesophageal dysphagia Paralysis of left vocal cord Chronic cough Hoarseness Thyroid cancer Asthma, moderate persistent Hypothyroidism Insomnia Insomnia IBS (irritable bowel syndrome) Type 2 diabetes mellitus without complication, with shelter current use of insulin pump Chronic insomnia History of hip replacement Pre-op exam Restless leg Fecal incontinence Nausea Hx of colonic polyp UGI bleed Gastric AVM Bereavement Pulmonary nodules GA (granuloma annulare) Anemia Leg swelling Ambulatory dysfunction Chronic edema Constipation GERD (gastroesophageal reflux disease) Anxiety Diabetic hypoglycemia Incidental pulmonary nodule Weight disorder Cancer of thyroid Hypocalcemia Generalized anxiety disorder Esophageal reflux Diverticulosis Chronic osteoarthritis Hyperlipidemia Generalized osteoarthritis Dyslipidemia associated with type 2 diabetes mellitus Chronic migraine Surgical history: Positive for anal fissure surgery, thyroidectomy, cholecystectomy, left total hiparthroplasty, colonoscopy, EGD, cardiac catheterization without intervention, carpal tunnel surgery Family history: Positive for coronary disease, hypertension, diabetes, cancer, stroke, kidney disease Social history: Patient is a lifelong non-smoker. She does not drink alcohol or use illicit drugs. She is a . OBJECTIVE Vitals: Last Updated 11/19/23 09:43 Date Temp BP Location Pulse RR SpO2 Pain 11/19/23 148/70 Right Arm 11/19/23 162/80 Left Arm 81 97 0 10/26/23 37.2 160/70 81 18 97 Vital Signs are the last 3 documented. No Orthostatic Data Available Height and Weight: Last Updated 10/26/23 13:28 Date BMI Wt(kg) Wt(lb) Method Ht(cm) (ft-in) Method 10/26/23 34.15 91.3 201 Standing Scale 163.5 5-4 Standing 10/06/23 34.3 90.8 200 Standing Scale 162.7 5-4 Standing 07/29/23 89.4 197 Standing Scale Heights and Weights are the last 3 documented. Physical Exam Constitutional: In general patient is an overweight but healthy-appearing well- nourished middle-ageelderly female in no distress. She is alert and oriented without any focal deficits. Her neck is supple nontender. Her surgical scars are noted. Her heart is regular, lungs are clear. Abdomen is softand nontender with no active bowel sounds in all 4 quadrants. Brachial and radial pulses are +3 bilaterally. Femoral pulses are +3. Lower extremities a pulses are +2 in the left foot, +1 DP on the right +2 PT on the right. She has brisk capillary fill and no sign of distal ischemia. ASSESSMENT: _ PLAN: _ 1 ) _left subclavian artery stenosis Patient has a soft tissue CT of the neck which indicates that she may have focal area of stenosis in her left mid subclavian artery, however, clinically she has very little evidence of this, without any significant gradient in blood pressures or changes in pulse. Not to mention the fact that she has no symptoms at all. For completeness, we would recommend that she undergo a carotid artery ultrasound in our office a year from now which would reevaluate this area more appropriately. If there are further questions we be happy to address it before that time if needed. She is advised to call any questions or concerns. Thank you for letting us participate in the care of this patient. I have personally spent__44_ minutes performing [id number] and [id number] activities on this date of service.Time does not include separately reported services. Activities Include: x__ review of the medical record _x_ obtaining a history x__ physical exam/evaluation __ review labs _x_ review radiology reports _x_ counseling/educating patient/family/caregiver __ discussion/referral to other healthcare professional _x_ documenting care in the medical record __ independent interpretation of results _x_ communication of results to patient/family/caregiver _x_ coordination of care Electronic Signature on File CC: Sera Liz MD [address] [place] [id number] CC: Jason Johnson MD [facility] [address] [address] * Electronically Reviewed/Signed by: Kathleen Weber PA-C Author Signature Dt/Tm:11/19/2023 10:01 AM [facility] [place] [address] LM Patient Care team information Care Team Personnel Name: FRANCHESKA Becerra Janet Griffith Position: Nurse Pract - Pulmonary Med Member Role: Lifetime Relationship Address: [address] [place] [id number] [place] Name: MD Liz Amy L Position: Physician - Family Med Member Role: Primary Care Provider Address: [address] [place] [id number] [place] Name: RINKU Weber Lynn Position: Physician 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
--- NOTE | 2023-11-29 19:39 | Emergency Department Note ---
Impression & Plan Pneumonia, Asthma exacerbation, Acute UTI ED Provider Note NAME: TERESA HUNTER AGE: 83 SEX: F : 1940 ARRIVES VIA: Walk-In INFORMANT: Patient, EMS report ED PROVIDER(S): Rubin Jamil MD CHIEF COMPLAINT: Shortness of breath MEDICAL DECISION MAKING: Patient presents due to concern for shortness of breath. IV was established and blood work was obtained. Patient is a prior history of vocal cord paralysis patient likely has transmitted lower airway sounds into the upper airway but given this concern and inability to ascertain whether or not she is stridulous a CT soft tissue neck was ordered in addition to blood work empiric antibiotics a chest x-ray DuoNeb treatments and IV steroids. Patient's blood work shows a white count of 11 with a normal H&H platelet count is unremarkable. Kidney function unremarkable. The patient's BSG is 150 not DKA. Procalcitonin is not elevated. Urinalysis shows likely infection given the patient's reported symptoms with leukocytes and whites. Patient's chest x- ray does not show obvious consolidative pneumonia but given the patient's symptoms we will treat as the patient has had productive cough increased work of breathing mild white count. Patient CT soft tissue neck does not show any acute findings. Upon reassessment the patient did feel improved after treatment. I did speak the on-call hospitalist service after updating the patient and the patient was admitted by Dr. Bush with inpatient medicine service. Discussion w/ other healthcare providers: None Prior /Outside records reviewed: I reviewed part of a pulmonary visit from Dr. Johnson from September 10, 2023. Patient with a history of pulmonary nodule pneumonia vocal cord paralysis and subclavian artery stenosis. Patient has had a prior CT of the chest which did not show tracheal stenosis but did show possible paretic or fixed vocal cord. Patient was referred to ENT. Pulmonary nodules for follow-up CT scan in 6 months. Lower opacities thought to be resolving pneumonia at that time. I did review part of a vascular note [facility] November 19, 2023 with limb in our check. Patient was referred due to concern for focal area of stenosis in the left mid subclavian artery that would recommend a follow-up carotid artery ultrasound in the office a year from now no additional recommendations at that time. I reviewed part of an ENT note from [facility] from September 2023. Known prior history of total thyroidectomy for thyroid carcinoma. 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 Patient did have a flexible videostrobe laryngoscopy. No lesions of the nasopharynx or posterior pharyngeal wall. Supraglottic structures are normal. Complete paralysis of left vocal cord. Differential diagnosis: Reactive airway disease, pneumonia, pneumothorax, COPD, CHF, ACS, pulmonary embolism, musculoskeletal, GERD as well as other pathologies were considered. Diagnostics, as interpreted by me: ECG: Sinus tachycardia, rate of 109, normal intervals, left axis deviation no ST elevations Q waves noted anteriorly. Cardiac monitoring: An order was placed for continuous cardiac monitoring. The monitor shows a rate of 102 with tachycardic and regular rhythm. Patient was placed on pulse oximetry Medical decision rules: None Imaging studies: I informally interpreted the patient's chest x-ray does not show obvious consolidative pneumonia elevation of right hemidiaphragm noted, no pneumothorax with formal report to follow. HPI: Patient presents due to concern for worsening shortness of breath. The patient reports that he began having symptoms on Thursday and thought they related to allergies and/or asthma. The patient has been using her inhaler and nebulizer treatments but without significant improvement. The patient has had associated shortness of breath with activity and has had productive cough with discolored sputum. The patient believes that she does have a UTI. Patient states that she did fall to her hands and knees earlier today because she has been more weak just in the last day. The patient has had some lower back pain but this was prior to the fall. The patient denies any head strike or LOC and does not take any blood thinner medications. Patient reports that she does follow with pulmonology as well as ENT. Patient states that she has had some associated sore throat. PAST MEDICAL HISTORY: See Below PAST SURGICAL HISTORY: See Below SOCIAL HISTORY: See Below HOME MEDICATIONS: See Below ALLERGIES: See Below VITALS: See Below PHYSICAL EXAMINATION: GENERAL: NAD, non-toxic. Wearing glasses. EYE EXAM: Normal conjunctiva. PERRL, no anisocoria and EOM's grossly intact w/o pain. OROPHARYNX: Moist mucus membranes, grossly normal dentition. Posterior pharynx is clear with no tonsillar uvular deviation or swelling. NECK: Trachea midline, no stridor. Supple, no nuchal rigidity, no adenopathy, non-tender. No signs of meningismus. FROM of the neck with good chin to chest and neck extension. LUNGS: Coarse sounds throughout. Associated wheezing. Tachycardic and regular normal chest wall mechanics. HEART: Tachycardic and regular, no MRG. ABDOMEN: Abdomen soft, non-tender, no masses, no rebound or guarding. BACK: No CVA TTP. SKIN: No rashes and no bruising. UPPER EXTREMITIES: Upper extremities are grossly normal. LOWER EXTREMITIES: Grossly normal, no edema. Negative Homans' sign bilaterally. NEURO EXAM: A&O x3, cranial nerves II-XII grossly intact, normal speech, moves all 4 extremities. 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 Status post thyroidectomy History of thyroid cancer Type 2 diabetes mellitus with insulin therapy Hypertension Controlled type 2 diabetes with retinopathy Vitamin D deficiency Dyslipidemia (Chronic) Hypothyroidism (Chronic) Abdominal pain, epigastric (Acute) Acute upper gastrointestinal bleeding (Acute) Angiodysplasia of stomach (Acute) Encounter for pre-operative examination Medical History Chronic lower back pain History of tracheal cancer HX RADIATION Seasonal allergies Arthritis Anxiety SITUATIONAL/D/T RECENT LOSS OF High cholesterol Duodenal ulcer FEB 282020 - X1 CAUTERIZED Complaint of melena Eczema Right humeral fracture Influenza A Fracture in accidental fall Elevated troponin Dyspnea Displaced fracture of right humerus Closed right humeral fracture Closed fracture of left proximal humerus Chest pain Asthma NO INHALER NEEDED IN MONTHS Carpal tunnel syndrome on right Hypertension Diabetes Thyroid cancer HX /THYROIDECTOMY AND "IODINE UPTAKE" TREATMENT Surgical History History of cataract surgery BL History of surgery VOCAL CORD SURGERY WITH "TRANSPLANT" DEVICE History of tracheostomy History of endoscopy History of colonoscopy History of surgery on arm BILAT History of carpal tunnel release of both wrists Hx of cholecystectomy Social History Smoking Status: Unknown if ever smoked Do You Dip or Chew Tobacco: No; Hx Alcohol Use: No Hx Substance Use: No Preferred Language: Pashto Communication Ability: Effective Housekeeping Coordinator Required: No Beliefs That Will Affect Care: None marital status: Current Living Situation: Alone current occupational status: retired Feels Safe at Home: Yes Assistive Devices: Denture - Upper, Denture - Lower and Glasses Allergies Allergies Allergy/AdvReac Type Severity Reaction Status Date / Time morphine Allergy Severe "JUST WENT Verified 09/08/23 09:55 CRAZY" doxycycline Allergy Verified 09/08/23 09:55 Home Meds Home Medications Medication Instructions Recorded Confirmed cranberry concentrate-ascorbic 1 cap PO BID 06/10/18 09/08/23 acid 4,200 mg-20 mg capsule metoprolol succinate 25 mg 25 mg PO QAM 06/10/18 09/08/23 tablet,extended release 24 hr (Toprol XL) alprazolam 0.5 mg tablet (Xanax) 0.5 mg PO UD PRN Anxiety 02/06/19 09/08/23 losartan 100 mg tablet (Cozaar) 100 mg PO QAM 02/28/20 09/08/23 Lactobacillus 40-Bifidobact 1 cap PO HS 11/17/20 09/08/23 3-S.thermophilus 100 billion cell capsule (Probiotic) albuterol sulfate 2.5 mg/3 mL 0 mg inhalation Q4H PRN Shortness 11/17/20 09/08/23 (0.083 %) solution for nebulization Of Breath pantoprazole 40 mg tablet,delayed 40 mg PO BID 11/17/20 09/08/23 release (Protonix) hydrochlorothiazide 25 mg tablet 25 mg PO DAILY PRN 12/11/20 09/08/23 nystatin 100,000 unit/gram topical g topical 06/11/21 09/08/23 ointment ondansetron HCl 4 mg tablet 4 mg PO DAILY PRN 06/11/21 09/08/23 turmeric 400 mg capsule 400 mg PO DAILY 06/11/21 09/08/23 amlodipine 10 mg tablet 10 mg PO DAILY 09/23/21 09/08/23 cholecalciferol (vitamin D3) 50 2,000 unit PO BID 09/23/21 09/08/23 mcg (2,000 unit) capsule cyanocobalamin (vitamin B-12) 1,000 mcg PO DAILY 09/23/21 09/08/23 1,000 mcg tablet (Vitamin B-12) multivitamin with minerals 1 tab PO BID 09/23/21 09/08/23 (Hair,Skin and Nails tablet) promethazine 25 mg tablet 25 mg PO ONCE PRN 09/23/21 09/08/23 alprazolam 0.25 mg tablet mg PO DAILY PRN 07/21/23 09/08/23 blood-glucose sensor (Dexcom G7 07/21/23 09/08/23 Sensor device) Previous Rx's Medication Instructions Recorded insulin aspart See Rx Instructions subcut 07/16/23 (niacinamide)(U-100) 100 unit/mL(3 .COMPLEX #60 mL mL) subcutaneous pen (Fiasp FlexTouch U-100 Insulin) levothyroxine 137 mcg tablet 137 mcg PO DAILY 90 days #90 tabs 07/21/23 metformin 500 mg tablet,extended 500 mg PO BIDM #180 tabs 07/21/23 release 24 hr atorvastatin 10 mg tablet 10 mg PO DAILY #30 tabs 08/03/23 pen needle, diabetic 32 gauge x #400 ea 08/21/2332" (BD Ultra-Fine Araceli Pen Needle) albuterol sulfate 90 mcg/actuation 2 puff inhalation Q4H PRN Wheezing 09/11/23 aerosol inhaler (Ventolin HFA) #8.5 grams insulin lispro 100 unit/mL See Rx Instructions subcut 10/30/23 subcutaneous pen (Admelog SoloStar .COMPLEX #15 mL U-) insulin degludec 100 unit/mL (3 66 unit (0.66 mL) subcut QAM 11/12/23 mL) subcutaneous pen (Tresiba diabetes #60 mL FlexTouch U-100 insulin) Results & Data (ED) Vital Signs Vital Signs - 24 hr 11/29/23 19:30 11/29/23 19:41 11/29/23 19:43 Temperature 37 C Temperature Source Oral Pulse Rate 111 H 112 H Pulse Rate [Apical] Pulse Rate from SpO2 Sensor Respiratory Rate 24 Respiratory Effort / Characteristics Non-Labored Spontaneous Respiratory Depth Normal Respiratory Pattern Regular Blood Pressure 212/89 H 223/90 H Blood Pressure [Left Arm] Blood Pressure Mean 130 172 Blood Pressure Mean [Left Arm] Pulse Oximetry 94 Oxygen Delivery Method Room Air Sepsis Recent Fever Within 48 Hours No Sepsis New/Unexplained Change in Mental Status N/A Sepsis Action Taken by Nursing No Action Required 11/29/23 20:24 11/29/23 20:56 11/29/23 21:00 Temperature Temperature Source Pulse Rate 97 H 92 H Pulse Rate [Apical] Pulse Rate from SpO2 Sensor Respiratory Rate 17 19 Respiratory Effort / Characteristics Respiratory Depth Respiratory Pattern Blood Pressure 156/81 H 140/106 H Blood Pressure [Left Arm] Blood Pressure Mean 138 112 Blood Pressure Mean [Left Arm] Pulse Oximetry 95 96 Oxygen Delivery Method Room Air Sepsis Recent Fever Within 48 Hours Sepsis New/Unexplained Change in Mental Status Sepsis Action Taken by Nursing 11/29/23 22:00 11/29/23 22:02 11/29/23 22:30 Temperature Temperature Source Pulse Rate 90 91 H Pulse Rate [Apical] 91 H Pulse Rate from SpO2 Sensor 90 Respiratory Rate 15 20 22 Respiratory Effort / Characteristics Respiratory Depth Respiratory Pattern Blood Pressure 176/83 H Blood Pressure [Left Arm] 176/85 H Blood Pressure Mean 119 Blood Pressure Mean [Left Arm] 115 Pulse Oximetry 95 94 94 Oxygen Delivery Method Room Air Sepsis Recent Fever Within 48 Hours Sepsis New/Unexplained Change in Mental Status Sepsis Action Taken by Nursing 11/29/23 23:34 11/30/23 00:00 Temperature Temperature Source Pulse Rate 92 H Pulse Rate [Apical] 96 H Pulse Rate from SpO2 Sensor Respiratory Rate 20 Respiratory Effort / Characteristics Respiratory Depth Respiratory Pattern Blood Pressure Blood Pressure [Left Arm] Blood Pressure Mean Blood Pressure Mean [Left Arm] Pulse Oximetry 95 Oxygen Delivery Method Room Air Sepsis Recent Fever Within 48 Hours Sepsis New/Unexplained Change in Mental Status Sepsis Action Taken by [facility] Medications Current Medication List: was personally reviewed by me Laboratory Data Attestation: I reviewed the patient's lab results. 11/29/23 19:50 11/29/23 19:50 Lab Results 11/29/23 11/29/23 11/29/23 Range/Units 19:50 20:04 20:05 WBC 11.13 H (4.8-10.8) K/ul RBC 5.15 (4.20-5.40) M/uL Hgb 15.2 (12.0-16.0) g/dl POC Hgb 16.0 (12.0-16.0) g/dl Hct 46.3 (37.0-47.0) % POC Hct 47 (37-47) % MCV 89.9 (80.0-100.0) fL MCH 29.5 (25.0-34.0) pg MCHC 32.8 (32.0-36.0) g/dL RDW Std Deviation 48.9 H (36.4-46.3) fL RDW Coeff of Yelitza 14.8 H (11.5-14.5) % Plt Count 275 (130-400) K/uL MPV 9.5 (9.4-12.4) fL Immature Gran % (Auto) 0.4 % Neut % (Auto) 51.3 % Lymph % (Auto) 34.4 % [place] % (Auto) 9.1 % Eos % (Auto) 4.2 % Baso % (Auto) 0.6 % Neut # (Auto) 5.71 (1.40-6.50) K/uL Lymph # (Auto) 3.83 H (1.20-3.40) K/uL [place] # (Auto) 1.01 H (0.11-0.59) K/uL Eos # (Auto) 0.47 (0.00-0.50) K/uL Baso # (Auto) 0.07 (0.00-0.20) K/uL Immature Gran # (Auto) 0.04 (0.01-0.20) K/uL PT 10.5 (9.0-12.0) Seconds INR 1.0 (0.9-1.1) APTT 25 (21-31) Seconds PTT Ratio 0.9 POC Sodium 141 (135-144) mmol/L Sodium 138 (136-145) mmol/L POC Potassium 4.1 (3.3-5.0) mmol/L Potassium 4.2 (3.5-5.1) mmol/L POC Chloride 104 (101-112) mmol/L Chloride 102 (98-107) mmol/L Carbon Dioxide 25 (21-32) mmol/L POC Total CO2 24 (24-31) mmol/L Anion Gap 11 (3-11) POC Anion Gap 18.0 (16-25) mmol/L POC BUN 19 H (7-18) mg/dl BUN 18 (6-23) mg/dl Creatinine 0.81 (0.6-1.2) mg/dl POC Creatinine 0.9 (0.6-1.3) mg/dl Est Cr Clr Drug Dosing 56.5 ml/min eGFR 71.09 BUN/Creatinine Ratio 22.2 H (10-20) Glucose 150 H (70-99(Fasting)) mg/dl POC Glucose (70-99) mg/dl POC Glucose (other) 152 H (70-99) mg/dl Lactate (0.4-2.0) mmol/L Calcium 9.7 (8.6-10.3) mg/dl POC Ioniz Calcium Donnie 1.16 (1.12-1.32) mmol/l Magnesium 1.9 (1.7-2.4) mg/dl Total Bilirubin 0.4 (0.2-1.0) mg/dl AST 32 (13-39) U/L ALT 25 (7-52) U/L Alkaline Phosphatase 70 (34-104) U/L Troponin I High Sens 9.0 (0-14) pg/ml Total Protein 7.8 (6.0-8.3) gm/dl Albumin 4.8 (3.4-5.0) gm/dl Globulin 3.0 (2.5-4.0) gm/dl Albumin/Globulin Ratio 1.6 (0.9-2) Procalcitonin 0.06 (0-0.5) ng/ml Urine Color Yellow Urine Appearance Turbid A (Clear) Urine pH 7.0 (4.5-7.5) Ur Specific Seth 1.008 (1.000-1.030) Urine Protein 1+ H (Negative) Urine Glucose (UA) Negative (Negative) Urine Ketones Negative (Negative) Urine Blood 2+ H (Negative) Urine Nitrite Negative (Negative) Urine Bilirubin Negative (Negative) Urine Urobilinogen Negative (Negative) Ur Leukocyte Esterase 3+ H (Negative) Urine WBC (Auto) >50 H (0-5) /hpf Urine RBC (Auto) 0-2 (0-2) /hpf U Hyaline Cast (Auto) 0-2 (0-2) /lpf U Epithel Cells (Auto) 0-2 (0-2) /hpf Urine Bacteria (Auto) None Seen (None Seen) 11/29/23 11/29/23 Range/Units 20:10 23:53 WBC (4.8-10.8) K/ul RBC (4.20-5.40) M/uL Hgb (12.0-16.0) g/dl POC Hgb (12.0-16.0) g/dl Hct (37.0-47.0) % POC Hct (37-47) % MCV (80.0-100.0) fL MCH (25.0-34.0) pg MCHC (32.0-36.0) g/dL RDW Std Deviation (36.4-46.3) fL RDW Coeff of Yelitza (11.5-14.5) % Plt Count (130-400) K/uL MPV (9.4-12.4) fL Immature Gran % (Auto) % Neut % (Auto) % Lymph % (Auto) % [place] % (Auto) % Eos % (Auto) % Baso % (Auto) % Neut # (Auto) (1.40-6.50) K/uL Lymph # (Auto) (1.20-3.40) K/uL [place] # (Auto) (0.11-0.59) K/uL Eos # (Auto) (0.00-0.50) K/uL Baso # (Auto) (0.00-0.20) K/uL Immature Gran # (Auto) (0.01-0.20) K/uL PT (9.0-12.0) Seconds INR (0.9-1.1) APTT (21-31) Seconds PTT Ratio POC Sodium (135-144) mmol/L Sodium (136-145) mmol/L POC Potassium (3.3-5.0) mmol/L Potassium (3.5-5.1) mmol/L POC Chloride (101-112) mmol/L Chloride (98-107) mmol/L Carbon Dioxide (21-32) mmol/L POC Total CO2 (24-31) mmol/L Anion Gap (3-11) POC Anion Gap (16-25) mmol/L POC BUN (7-18) mg/dl BUN (6-23) mg/dl Creatinine (0.6-1.2) mg/dl POC Creatinine (0.6-1.3) mg/dl Est Cr Clr Drug Dosing ml/min eGFR BUN/Creatinine Ratio (10-20) Glucose (70-99(Fasting)) mg/dl POC Glucose 176 H (70-99) mg/dl POC Glucose (other) (70-99) mg/dl Lactate 1.9 (0.4-2.0) mmol/L Calcium (8.6-10.3) mg/dl POC Ioniz Calcium Donnie (1.12-1.32) mmol/l Magnesium (1.7-2.4) mg/dl Total Bilirubin (0.2-1.0) mg/dl AST (13-39) U/L ALT (7-52) U/L Alkaline Phosphatase (34-104) U/L Troponin I High Sens (0-14) pg/ml Total Protein (6.0-8.3) gm/dl Albumin (3.4-5.0) gm/dl Globulin (2.5-4.0) gm/dl Albumin/Globulin Ratio (0.9-2) Procalcitonin (0-0.5) ng/ml Urine Color Urine Appearance (Clear) Urine pH (4.5-7.5) Ur Specific Seth (1.000-1.030) Urine Protein (Negative) Urine Glucose (UA) (Negative) Urine Ketones (Negative) Urine Blood (Negative) Urine Nitrite (Negative) Urine Bilirubin (Negative) Urine Urobilinogen (Negative) Ur Leukocyte Esterase (Negative) Urine WBC (Auto) (0-5) /hpf Urine RBC (Auto) (0-2) /hpf U Hyaline Cast (Auto) (0-2) /lpf U Epithel Cells (Auto) (0-2) /hpf Urine Bacteria (Auto) (None Seen) Administered Medications Azithromycin 500 mg/ Dextrose 255 mls @ 125 mls/hr IV NOW ONE Stop: 11/30/23 01:47 Last Admin: 11/29/23 23:48 Dose: 125 mls/hr Documented By: JOSE Discontinued Medications Albuterol (Albut/Ipratrop 3mg/0.5mg Neb 3 Ml Vial) 3 ml INH NOW STA Stop: 11/29/23 19:47 Last Admin: 11/29/23 20:16 Dose: 3 ml Documented By: JOSE Benzonatate (Benzonatate 100 Mg Capsule) 100 mg PO NOW ONE Stop: 11/29/23 23:33 Last Admin: 11/29/23 23:48 Dose: 100 mg Documented By: JOSE Ceftriaxone Sodium (Rocephin) 2,000 mg in 50 mls @ 100 mls/hr IV NOW STA Stop: 11/29/23 20:15 Last Infusion: 11/29/23 21:17 Dose: Infused Documented By: Admin: 11/29/23 20:48 Dose: 100 mls/hr Documented By: CATALINA Sodium Chloride (Nss) 500 mls @ 999 mls/hr IV .Q31M ONE Stop: 11/29/23 20:16 Last Infusion: 11/29/23 21:35 Dose: Infused Documented By: Admin: 11/29/23 20:49 Dose: 999 mls/hr Documented By: CATALINA Pantoprazole Sodium 40 mg/ (Syringe) 10 mls @ 5 mls/min IV NOW ONE Stop: 11/29/23 23:46 Last Admin: 11/29/23 23:48 Dose: 5 mls/min Documented By: JOSE Ioversol (Optiray 320 100ml) 92 ml IV ONCE ONE Stop: 11/29/23 20:43 Last Admin: 11/29/23 20:42 Dose: 92 ml Documented By: KYAW Methylprednisolone (Methylprednisolone 125 Mg/2 Ml Vial) 125 mg IV NOW STA Stop: 11/29/23 19:47 Last Admin: 11/29/23 20:16 Dose: 125 mg Documented By: JOSE Imaging Data Radiologist's Impression: Soft Tissue Neck CT 11/29/23 19:50 Exam(s): CT NECK With Contrast IV Amt: 92ML OPTIRAY 320 EXAM: CT Neck With Intravenous Contrast CLINICAL HISTORY: Reason for exam: sore throat; reported device in throat, SOB. TECHNIQUE: Axial computed tomography images of the neck with intravenous contrast. CTDI is 19.21 mGy and DLP is 548.04 mGy-cm. Automated exposure control was utilized for the study. A dose lowering technique was utilized adhering to the principles of ALARA. CONTRAST: Patient received 92ML OPTIRAY 320 of IV contrast COMPARISON: No relevant prior studies available. FINDINGS: Nasal cavity/septum: Unremarkable. Nasopharynx: Unremarkable. Oropharynx: Unremarkable. No significant tonsillar enlargement. No peritonsillar abscess. Hypopharynx: Unremarkable. Larynx: Unremarkable. Normal epiglottis. Trachea: Unremarkable. Retropharyngeal space: Unremarkable. Submandibular/parotid glands: Fatty replacement of the parotid glands. Glands are normal in size. Thyroid: Status post thyroidectomy. Bones/joints: No acute fracture. Soft tissues: Unremarkable. Vasculature: No acute findings. There is a 60% stenosis of the proximal left ICA. Lymph nodes: Unremarkable. No lymphadenopathy. Sinuses: Chronic left maxillary and ethmoid sinusitis. No acute sinusitis. Lung apices: Unremarkable as visualized. IMPRESSION: No evidence of acute cervical soft tissue pathology. Electronically signed by: Sahra Gtz MD 11/29/23 23:06 PM Discharge Plan Visit Data Chief Complaint: Shortness of Breath/Dyspnea Stated Complaint: TROUBLE BREATHING ED Provider: Rubin Jamil Discharge Problem: Pneumonia, Asthma exacerbation, Acute UTI Forms Stand Alone Forms: My [facility] [employer] Prescriptions Prescriptions: No Action Fiasp FlexTouch U-100 Insulin 100 unit/mL (3 mL) insulin pen See Rx Instructions subcut .COMPLEX MDD 60 units Qty: 60 3RF Hold Instructions: on backorder Rx Instructions: subcutaneously injection per sliding scale atorvastatin 10 mg tablet 10 mg PO DAILY Qty: 30 2RF (DME) pen needle, diabetic [BD Ultra-Fine Araceli Pen Needle] 32 gauge x 5/32" needle See Rx Instructions [id number] .MEDSUPPLY Qty: 400 3RF Rx Instructions: Change after each use 4x a day albuterol sulfate [Ventolin HFA] 90 mcg/actuation HFA aerosol inhaler 2 puff INHALATION Q4H PRN (Reason: Wheezing) Qty: 8.5 3RF insulin lispro [Admelog SoloStar U-100 Insulin] 100 unit/mL insulin pen See Rx Instructions subcut .COMPLEX MDD 60 units Qty: 15 1RF Rx Instructions: subcutaneously injection per sliding scale with meals insulin degludec [Tresiba FlexTouch U-100] 100 unit/mL (3 mL) insulin pen 66 unit SQ QAM Qty: 60 3RF (DME) Dexcom G7 Sensor Device See Rx Instructions .Route Rx Instructions: As directed alprazolam 0.25 mg tablet PO DAILY PRN levothyroxine 137 mcg tablet 137 mcg PO DAILY 90 Days Qty: 90 3RF metformin 500 mg tablet extended release 24 hr 500 mg PO BIDM Qty: 180 3RF hydrochlorothiazide 25 mg tablet 25 mg PO DAILY PRN amlodipine 10 mg tablet 10 mg PO DAILY cholecalciferol (vitamin D3) 50 mcg (2,000 unit) capsule 2,000 unit PO BID promethazine 25 mg tablet 25 mg PO ONCE PRN turmeric 400 mg capsule 400 mg PO DAILY nystatin 100,000 unit/gram ointment topical ondansetron HCl 4 mg tablet 4 mg PO DAILY PRN losartan [Cozaar] 100 mg tablet 100 mg PO QAM metoprolol succinate [Toprol XL] 25 mg tablet extended release 24 hr 25 mg PO QAM cranberry conc-ascorbic acid 4,200-20 mg Capsule 1 cap PO BID alprazolam [Xanax] 0.5 mg tablet 0.5 mg PO UD PRN (Reason: Anxiety) pantoprazole [Protonix] 40 mg tablet,delayed release (DR/EC) 40 mg PO BID Probiotic 100 billion cell Capsule 1 cap PO HS albuterol sulfate 2.5 mg /3 mL (0.083 %) Solution For Nebulization 0 mg INHALATION Q4H PRN (Reason: Shortness Of Breath) cyanocobalamin (vitamin B-12) [Vitamin B-12] 1,000 mcg tablet 1,000 mcg PO DAILY Hair,Skin and Nails Tablet 1 tab PO BID Referrals Referrals: Sera Liz MD [Primary Care Provider] - Discharge Problem: Pneumonia Qualifiers: Pneumonia type: due to unspecified organism Laterality: unspecified laterality Lung location: unspecified part of lung Qualified Code(s): J18.9 - Pneumonia, unspecified organism Asthma exacerbation Qualifiers: Asthma severity: moderate Asthma persistence: persistent Qualified Code(s): J 45.41 - Moderate persistent asthma with (acute) exacerbation
[2023-11-29 20:14] LABS: Basophils # (auto) 0.07 K/uL (0.00-0.20); Basophils % (auto) 0.6 %; Eosinophils # (auto) 0.47 K/uL (0.00-0.50); Eosinophils % (auto) 4.2 %; Hematocrit (blood only) 46.3 % (37.0-47.0); Hemoglobin 15.2 g/dl (12.0-16.0); Immature Granulocytes # (auto) 0.04 K/uL (0.01-0.20); Immature Granulocytes % (auto) 0.4 %; Lymphocytes # (auto) 3.83 K/uL (1.20-3.40); Lymphocytes % (auto) 34.4 %; Mean Corpuscular Hemoglobin 29.5 pg (25.0-34.0); Mean Corpuscular Hgb Conc 32.8 g/dL (32.0-36.0); Mean Corpuscular Volume 89.9 fL (80.0-100.0); Mean Platelet Volume 9.5 fL (9.4-12.4); Monocytes # (auto) 1.01 K/uL (0.11-0.59); Monocytes % (auto) 9.1 %; Neutrophils # (auto) 5.71 K/uL (1.40-6.50); Neutrophils % (auto) 51.3 %; Platelet Count 275 K/uL (130-400); RDW Coefficient of Variation 14.8 % (11.5-14.5); RDW Standard Deviation 48.9 fL (36.4-46.3); Red Blood Count 5.15 M/uL (4.20-5.40); White Blood Count 11.13 K/ul (4.8-10.8)
[2023-11-29] MEDS: ALBUT/IPRATROP 3MG/0.5MG NEB 3 ML VIAL INH STA (20:16)
[2023-11-29] MEDS: methylPREDNISolone 125 MG/2 ML VIAL IV STA (20:16)
[2023-11-29 20:17] LABS: iSTAT Creatinine 0.9 mg/dl (0.6-1.3); iSTAT Ionized Calcium 1.16 mmol/l (1.12-1.32); iSTAT Potassium 4.1 mmol/L (3.3-5.0)
[2023-11-29 20:29] LABS: Albumin Globulin Ratio 1.6 (0.9-2); Albumin Level 4.8 gm/dl (3.4-5.0); BUN Creatinine Ratio 22.2 (10-20); Bilirubin,Total 0.4 mg/dl (0.2-1.0); Calcium 9.7 mg/dl (8.6-10.3); Creatinine Clr Calc Pharmacy 56.5 ml/min; Magnesium 1.9 mg/dl (1.7-2.4); Potassium 4.2 mmol/L (3.5-5.1); Total Protein 7.8 gm/dl (6.0-8.3)
[2023-11-29 20:38] LABS: Partial Thromboplastin Ratio 0.9; Partial Thromboplastin Time 25 Seconds (21-31); Prothrombin Time 10.5 Seconds (9.0-12.0)
[2023-11-29 20:38] LABS: Appearance Urine Turbid (Clear); Bacteria Urine Automated None Seen (None Seen); Bilirubin Urine Negative (Negative); Blood Urine 2+ (Negative); Cast Urine Automated 0-2 /lpf (0-2); Color Urine Yellow; Epithelial Cell Urine Auto 0-2 /hpf (0-2); Glucose Urine UA Negative (Negative); Ketones Urine Negative (Negative); Leukocyte Esterase Urine 3+ (Negative); Nitrite Urine Negative (Negative); Protein Urine 1+ (Negative); RBC Urine Automated 0-2 /hpf (0-2); Specific Gravity Urine 1.008 (1.000-1.030); Urobilinogen Urine Negative (Negative); WBC Urine Automated >50 /hpf (0-5)
[2023-11-29] MEDS: OPTIRAY 320 100ml IV ONE (20:42)
[2023-11-29] MEDS: cefTRIAXone SODIUM 2,000 MG/50 ML BAG IV STA (20:48)
[2023-11-29] MEDS: SODIUM CHLORIDE 0.9% 500 ML IV ONE (20:49)
--- NOTE | 2023-11-29 23:07 | CT Scan Report ---
Exam(s): CT NECK With Contrast IV Amt: 92ML OPTIRAY 320 EXAM: CT Neck With Intravenous Contrast CLINICAL HISTORY: Reason for exam: sore throat; reported device in throat, SOB. TECHNIQUE: Axial computed tomography images of the neck with intravenous contrast. CTDI is 19.21 mGy and DLP is 548.04 mGy-cm. Automated exposure control was utilized for the study. A dose lowering technique was utilized adhering to the principles of ALARA. CONTRAST: Patient received 92ML OPTIRAY 320 of IV contrast COMPARISON: No relevant prior studies available. FINDINGS: Nasal cavity/septum: Unremarkable. Nasopharynx: Unremarkable. Oropharynx: Unremarkable. No significant tonsillar enlargement. No peritonsillar abscess. Hypopharynx: Unremarkable. Larynx: Unremarkable. Normal epiglottis. Trachea: Unremarkable. Retropharyngeal space: Unremarkable. Submandibular/parotid glands: Fatty replacement of the parotid glands. Glands are normal in size. Thyroid: Status post thyroidectomy. Bones/joints: No acute fracture. Soft tissues: Unremarkable. Vasculature: No acute findings. There is a 60% stenosis of the proximal left ICA. Lymph nodes: Unremarkable. No lymphadenopathy. Sinuses: Chronic left maxillary and ethmoid sinusitis. No acute sinusitis. Lung apices: Unremarkable as visualized. IMPRESSION: No evidence of acute cervical soft tissue pathology. Electronically signed by: Sahra Gtz MD 11/29/23 23:06 PM
[2023-11-29] MEDS: AZITHROMYCIN 500 MG in DEXTROSE 5% 250 ML IV ONE (23:48)
[2023-11-29] MEDS: PANTOprazole 40 MG in SYRINGE 0 ML IV ONE (23:48)
[2023-11-29] MEDS: BENZONATATE 100 MG CAPSULE PO ONE (23:48)
--- NOTE | 2023-11-29 23:49 | History & Physical Report ---
Date of Service November 29, 2023 Assessment & Plan (1) Acute UTI: (2) Asthmatic bronchitis with acute exacerbation: (3) Vocal cord paralysis: (4) Type 2 diabetes mellitus with insulin therapy: (5) Hypothyroidism: (6) Acquired tracheal stenosis: Plan Asthmatic bronchitis with acute exacerbation/tracheal stenosis/sinusitis-from the ED she received the following: Solu-Medrol 125 mg IV, ceftriaxone 2 g IV, 3 mL DuoNeb Ceftriaxone 2 g IV daily Azithromycin 500mg IV daily Tessalon Perles 100 mg p.o. 3 times daily as needed Guaifenesin 200 mg syrup p.o. every 6 hours while awake DuoNebs every 2 hours as needed Methylprednisolone 40 mg IV every 8 hours Nasal cannula oxygen, titrate to keep pulse ox around 92-94% Diabetes mellitus- Decrease Tresiba from 60 to 50 units subcu every morning, pharmacy may convert to glargine Hold metformin Placed on Accu-Cheks with NovoLog SSI Hypertension- Continue amlodipine, losartan, and metoprolol succinate with hold parameters Thyroid cancer status post radiation/iatrogenic hypothyroidism- Continue levothyroxine GERD- Give a single dose of pantoprazole 40 mg IV tonight, and then 40 mg p.o. twice daily starting tomorrow History of Present Illness Chief Complaint: The patient presents to the emergency department with complaint of worsening shortness of breath at rest, productive cough of initially clear but now green sputum, dyspnea on exertion and fatigue over the past several days. The patient has a known history of tracheal stenosis, has had significantly increased audible sounds with breathing, and became concerned to come into the ED for assessment Primary Care Provider: Sera Liz MD The patient is a 83-year-old female with a past medical history including tracheal stenosis, thyroid cancer status post radiation treatments, vocal cord paralysis, left subclavian artery stenosis, status post thyroidectomy, diabetes mellitus type 2 with insulin therapy, dyslipidemia, iatrogenic hypothyroidism, history of upper GI bleeding due to gastric angiodysplasias, pulmonary nodule, and moderate nonproliferative diabetic retinopathy. She presents to the emergency department with worsening symptoms as noted above. She did have a CT scan of the soft tissue of the neck which ruled out any significant tracheal obstruction. Allergies Allergy/AdvReac Type Severity Reaction Status Date / Time morphine Allergy Severe "JUST WENT Verified 09/08/23 09:55 CRAZY" doxycycline Allergy Verified 09/08/23 09:55 Home Medications Medication Instructions Recorded Confirmed Type cranberry concentrate-ascorbic 1 cap PO BID 06/10/18 09/08/23 History acid 4,200 mg-20 mg capsule metoprolol succinate 25 mg 25 mg PO QAM 06/10/18 09/08/23 History tablet,extended release 24 hr (Toprol XL) alprazolam 0.5 mg tablet (Xanax) 0.5 mg PO UD PRN Anxiety 02/06/19 09/08/23 History losartan 100 mg tablet (Cozaar) 100 mg PO QAM 02/28/20 09/08/23 History Lactobacillus 40-Bifidobact 1 cap PO HS 11/17/20 09/08/23 History 3-S.thermophilus 100 billion cell capsule (Probiotic) albuterol sulfate 2.5 mg/3 mL 0 mg inhalation Q4H PRN Shortness 11/17/20 09/08/23 History (0.083 %) solution for nebulization Of Breath pantoprazole 40 mg tablet,delayed 40 mg PO BID 11/17/20 09/08/23 History release (Protonix) hydrochlorothiazide 25 mg tablet 25 mg PO DAILY PRN 12/11/20 09/08/23 History nystatin 100,000 unit/gram topical g topical 06/11/21 09/08/23 History ointment ondansetron HCl 4 mg tablet 4 mg PO DAILY PRN 06/11/21 09/08/23 History turmeric 400 mg capsule 400 mg PO DAILY 06/11/21 09/08/23 History amlodipine 10 mg tablet 10 mg PO DAILY 09/23/21 09/08/23 History cholecalciferol (vitamin D3) 50 2,000 unit PO BID 09/23/21 09/08/23 History mcg (2,000 unit) capsule cyanocobalamin (vitamin B-12) 1,000 mcg PO DAILY 09/23/21 09/08/23 History 1,000 mcg tablet (Vitamin B-12) multivitamin with minerals 1 tab PO BID 09/23/21 09/08/23 History (Hair,Skin and Nails tablet) promethazine 25 mg tablet 25 mg PO ONCE PRN 09/23/21 09/08/23 History insulin aspart See Rx Instructions subcut 07/16/23 09/08/23 Rx (niacinamide)(U-100) 100 unit/mL(3 .COMPLEX #60 mL mL) subcutaneous pen (Fiasp FlexTouch U-100 Insulin) alprazolam 0.25 mg tablet mg PO DAILY PRN 07/21/23 09/08/23 History blood-glucose sensor (Dexcom G7 07/21/23 09/08/23 History Sensor device) levothyroxine 137 mcg tablet 137 mcg PO DAILY 90 days #90 tabs 07/21/23 09/08/23 Rx metformin 500 mg tablet,extended 500 mg PO BIDM #180 tabs 07/21/23 09/08/23 Rx release 24 hr atorvastatin 10 mg tablet 10 mg PO DAILY #30 tabs 08/03/23 09/08/23 Rx pen needle, diabetic 32 gauge x #400 ea 08/21/23 09/08/23 Rx 5/32" (BD Ultra-Fine Araceli Pen Needle) albuterol sulfate 90 mcg/actuation 2 puff inhalation Q4H PRN Wheezing 09/11/23 Rx aerosol inhaler (Ventolin HFA) #8.5 grams insulin lispro 100 unit/mL See Rx Instructions subcut 10/30/23 Rx subcutaneous pen (Admelog SoloStar .COMPLEX #15 mL U-) insulin degludec 100 unit/mL (3 66 unit (0.66 mL) subcut QAM 11/12/23 Rx mL) subcutaneous pen (Tresiba diabetes #60 mL FlexTouch U-100 insulin) Past Med/Surg History Problem List (Updated 11/30/23 @ 00:58 by Blu Montana MD) Acquired tracheal stenosis Asthmatic bronchitis with acute exacerbation Acute UTI (Acute) Asthma exacerbation (Acute) Pneumonia (Acute) Pulmonary nodule Pneumonia Vocal cord paralysis Subclavian artery stenosis, left 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 Status post thyroidectomy History of thyroid cancer Type 2 diabetes mellitus with insulin therapy Hypertension Controlled type 2 diabetes with retinopathy Vitamin D deficiency Dyslipidemia (Chronic) Hypothyroidism (Chronic) Abdominal pain, epigastric (Acute) Acute upper gastrointestinal bleeding (Acute) Angiodysplasia of stomach (Acute) Encounter for pre-operative examination Medical History Chronic lower back pain History of tracheal cancer HX RADIATION Seasonal allergies Arthritis Anxiety SITUATIONAL/D/T RECENT LOSS OF High cholesterol Duodenal ulcer FEB 282020 - X1 CAUTERIZED Complaint of melena Eczema Right humeral fracture Influenza A Fracture in accidental fall Elevated troponin Dyspnea Displaced fracture of right humerus Closed right humeral fracture Closed fracture of left proximal humerus Chest pain Asthma NO INHALER NEEDED IN MONTHS Carpal tunnel syndrome on right Hypertension Diabetes Thyroid cancer HX /THYROIDECTOMY AND "IODINE UPTAKE" TREATMENT Surgical History History of cataract surgery BL History of surgery VOCAL CORD SURGERY WITH "TRANSPLANT" DEVICE History of tracheostomy History of endoscopy History of colonoscopy History of surgery on arm BILAT History of carpal tunnel release of both wrists Hx of cholecystectomy Social History Smoking Status: Unknown if ever smoked Do You Dip or Chew Tobacco: No; Hx Alcohol Use: No Hx Substance Use: No Preferred Language: Togolese Communication Ability: Effective Presser Hand Required: No Beliefs That Will Affect Care: None marital status: Current Living Situation: Alone current occupational status: retired Feels Safe at Home: Yes Assistive Devices: Denture - Upper, Denture - Lower and Glasses Review of Systems Review of Systems: The patient denies chest pain, palpitations, lower extremity swelling, fevers, chills, sweats, nausea, vomiting, diarrhea , constipation, abdominal pain, pelvic pain, blood in urine or stool, dysuria, urinary frequency or urgency, lightheadedness, dizziness, headache, memory loss, loss of consciousness, rash, abnormal bruising or bleeding, imbalance, focal or generalized weakness, numbness or tingling in arms or legs, generalized arthralgias or myalgias, back or neck pain, or night sweats. The review of systems is otherwise negative other than for that already noted above, and at least 10 systems have been reviewed. Physical Exam Physical Exam: The patient is awake, alert and oriented 3, well developed and well nourished, normocephalic and atraumatic, lying in bed and in no acute distress. HEENT--PERRL, EOMI, mucous membranes and oropharynx dry. Neck--supple.No JVD. No bruits. Thyroid normal, trachea midline, no adenopathy. Heart--normal S1 and S2.No murmurs, rubs or gallops. Lungs-- transmitted upper airway sounds. Decreased breath sounds otherwise throughout. No respiratory distress, no accessory muscle use. Abdomen--normal bowel sounds and soft. Nontender. Nondistended. Extremities--no cyanosis or clubbing. No edema. Dermatologic--normal skin turgor, normal color, no abnormal lymph nodes, no rash. Neurologic--cranial nerves II through XII grossly intact. Rheumatologic--normal range of motion. Psychiatric--normal affect. Results & Data Results & Data Vital Signs (Past 12 Hours) Vital Signs Temp Pulse Pulse Resp BP BP Pulse Ox 11/29/23 23:34 92 H 11/29/23 22:30 91 H 22 94 11/29/23 22:02 91 H 20 176/85 H 94 11/29/23 22:00 90 15 176/83 H 95 11/29/23 21:00 92 H 19 140/106 H 96 11/29/23 20:56 97 H 17 156/81 H 95 11/29/23 20:24 11/29/23 19:43 223/90 H 11/29/23 19:41 112 H 11/29/23 19:30 37 C 111 H 24 212/89 H 94 O2 Del Method 11/29/23 23:34 11/29/23 22:30 11/29/23 22:02 Room Air 11/29/23 22:00 11/29/23 21:00 11/29/23 20:56 11/29/23 20:24 Room Air 11/29/23 19:43 11/29/23 19:41 11/29/23 19:30 Room Air Laboratory Results Laboratory Results WBC 11.13 K/ul (4.8-10.8) H 11/29/23 19:50 RBC 5.15 M/uL (4.20-5.40) 11/29/23 19:50 Hgb 15.2 g/dl (12.0-16.0) 11/29/23 19:50 POC Hgb 16.0 g/dl (12.0-16.0) 11/29/23 20:04 Hct 46.3 % (37.0-47.0) 11/29/23 19:50 POC Hct 47 % (37-47) 11/29/23 20:04 MCV 89.9 fL (80.0-100.0) 11/29/23 19:50 MCH 29.5 pg (25.0-34.0) 11/29/23 19:50 MCHC 32.8 g/dL (32.0-36.0) 11/29/23 19:50 RDW Std Deviation 48.9 fL (36.4-46.3) H 11/29/23 19:50 RDW Coeff of Yelitza 14.8 % (11.5-14.5) H 11/29/23 19:50 Plt Count 275 K/uL (130-400) 11/29/23 19:50 MPV 9.5 fL (9.4-12.4) 11/29/23 19:50 Immature Gran % (Auto) 0.4 % 11/29/23 19:50 Neut % (Auto) 51.3 % 11/29/23 19:50 Lymph % (Auto) 34.4 % 11/29/23 19:50 Hardeman % (Auto) 9.1 % 11/29/23 19:50 Eos % (Auto) 4.2 % 11/29/23 19:50 Baso % (Auto) 0.6 % 11/29/23 19:50 Neut # (Auto) 5.71 K/uL (1.40-6.50) 11/29/23 19:50 Lymph # (Auto) 3.83 K/uL (1.20-3.40) H 11/29/23 19:50 Hardeman # (Auto) 1.01 K/uL (0.11-0.59) H 11/29/23 19:50 Eos # (Auto) 0.47 K/uL (0.00-0.50) 11/29/23 19:50 Baso # (Auto) 0.07 K/uL (0.00-0.20) 11/29/23 19:50 Immature Gran # (Auto) 0.04 K/uL (0.01-0.20) 11/29/23 19:50 PT 10.5 Seconds (9.0-12.0) 11/29/23 19:50 INR 1.0 (0.9-1.1) 11/29/23 19:50 APTT 25 Seconds (21-31) 11/29/23 19:50 PTT Ratio 0.9 11/29/23 19:50 POC Sodium 141 mmol/L (135-144) 11/29/23 20:04 Sodium 138 mmol/L (136-145) 11/29/23 19:50 POC Potassium 4.1 mmol/L (3.3-5.0) 11/29/23 20:04 Potassium 4.2 mmol/L (3.5-5.1) 11/29/23 19:50 POC Chloride 104 mmol/L (101-112) 11/29/23 20:04 Chloride 102 mmol/L (98-107) 11/29/23 19:50 Carbon Dioxide 25 mmol/L (21-32) 11/29/23 19:50 POC Total CO2 24 mmol/L (24-31) 11/29/23 20:04 Anion Gap 11 (3-11) 11/29/23 19:50 POC Anion Gap 18.0 mmol/L (16-25) 11/29/23 20:04 POC BUN 19 mg/dl (7-18) H 11/29/23 20:04 BUN 18 mg/dl (6-23) 11/29/23 19:50 Creatinine 0.81 mg/dl (0.6-1.2) 11/29/23 19:50 POC Creatinine 0.9 mg/dl (0.6-1.3) 11/29/23 20:04 Est Cr Clr Drug Dosing 56.5 ml/min 11/29/23 19:50 eGFR 71.09 11/29/23 19:50 BUN/Creatinine Ratio 22.2 (10-20) H 11/29/23 19:50 Glucose 150 mg/dl (70-99(Fasting)) H 11/29/23 19:50 POC Glucose 176 mg/dl (70-99) H 11/29/23 23:53 POC Glucose (other) 152 mg/dl (70-99) H 11/29/23 20:04 Lactate 1.9 mmol/L (0.4-2.0) 11/29/23 20:10 Calcium 9.7 mg/dl (8.6-10.3) 11/29/23 19:50 POC Ioniz Calcium Donnie 1.16 mmol/l (1.12-1.32) 11/29/23 20:04 Magnesium 1.9 mg/dl (1.7-2.4) 11/29/23 19:50 Total Bilirubin 0.4 mg/dl (0.2-1.0) 11/29/23 19:50 AST 32 U/L (13-39) 11/29/23 19:50 ALT 25 U/L (7-52) 11/29/23 19:50 Alkaline Phosphatase 70 U/L (34-104) 11/29/23 19:50 Troponin I High Sens 9.0 pg/ml (0-14) 11/29/23 19:50 Total Protein 7.8 gm/dl (6.0-8.3) 11/29/23 19:50 Albumin 4.8 gm/dl (3.4-5.0) 11/29/23 19:50 Globulin 3.0 gm/dl (2.5-4.0) 11/29/23 19:50 Albumin/Globulin Ratio 1.6 (0.9-2) 11/29/23 19:50 Procalcitonin 0.06 ng/ml (0-0.5) 11/29/23 19:50 Urine Color Yellow 11/29/23 20:05 Urine Appearance Turbid (Clear) A 11/29/23 20:05 Urine pH 7.0 (4.5-7.5) 11/29/23 20:05 Ur Specific Horner 1.008 (1.000-1.030) 11/29/23 20:05 Urine Protein 1+ (Negative) H 11/29/23 20:05 Urine Glucose (UA) Negative (Negative) 11/29/23 20:05 Urine Ketones Negative (Negative) 11/29/23 20:05 Urine Blood 2+ (Negative) H 11/29/23 20:05 Urine Nitrite Negative (Negative) 11/29/23 20:05 Urine Bilirubin Negative (Negative) 11/29/23 20:05 Urine Urobilinogen Negative (Negative) 11/29/23 20:05 Ur Leukocyte Esterase 3+ (Negative) H 11/29/23 20:05 Urine WBC (Auto) >50 /hpf (0-5) H 11/29/23 20:05 Urine RBC (Auto) 0-2 /hpf (0-2) 11/29/23 20:05 U Hyaline Cast (Auto) 0-2 /lpf (0-2) 11/29/23 20:05 U Epithel Cells (Auto) 0-2 /hpf (0-2) 11/29/23 20:05 Urine Bacteria (Auto) None Seen (None Seen) 11/29/23 20:05 Impressions Soft Tissue Neck CT 11/29/23 19:50 Exam(s): CT NECK With Contrast IV Amt: 92ML OPTIRAY 320 EXAM: CT Neck With Intravenous Contrast CLINICAL HISTORY: Reason for exam: sore throat; reported device in throat, SOB. TECHNIQUE: Axial computed tomography images of the neck with intravenous contrast. CTDI is 19.21 mGy and DLP is 548.04 mGy-cm. Automated exposure control was utilized for the study. A dose lowering technique was utilized adhering to the principles of ALARA. CONTRAST: Patient received 92ML OPTIRAY 320 of IV contrast COMPARISON: No relevant prior studies available. FINDINGS: Nasal cavity/septum: Unremarkable. Nasopharynx: Unremarkable. Oropharynx: Unremarkable. No significant tonsillar enlargement. No peritonsillar abscess. Hypopharynx: Unremarkable. Larynx: Unremarkable. Normal epiglottis. Trachea: Unremarkable. Retropharyngeal space: Unremarkable. Submandibular/parotid glands: Fatty replacement of the parotid glands. Glands are normal in size. Thyroid: Status post thyroidectomy. Bones/joints: No acute fracture. Soft tissues: Unremarkable. Vasculature: No acute findings. There is a 60% stenosis of the proximal left ICA. Lymph nodes: Unremarkable. No lymphadenopathy. Sinuses: Chronic left maxillary and ethmoid sinusitis. No acute sinusitis. Lung apices: Unremarkable as visualized. IMPRESSION: No evidence of acute cervical soft tissue pathology. Electronically signed by: Sahra Gtz MD 11/29/23 23:06 PM Code Status & VTE Plan Code Status Full code VTE Prophylaxis Plan VTE Prophylaxis will be ordered: Yes PG Care Time/CCT Total # of Minutes Spent Total Time Spent with Patient: Total time spent is greater than 50% in coordination of care (as documented) at patient's floor/unit and/or counseling patient: Coding Level of Care Code 69436 INT INP/OBS CARE 3/75MIN Diagnoses Acute UTI N39.0 Asthmatic bronchitis with acute exacerbation J45.901 Vocal cord paralysis J38.00 Type 2 diabetes mellitus with insulin therapy E11.9; Z79.4 Postoperative hypothyroidism E89.0 Hypothyroidism type: postoperative Acquired tracheal stenosis J39.8 (5) Hypothyroidism Hypothyroidism type: postoperative Qualified Code(s): E89.0 - Postprocedural hypothyroidism
[2023-11-30 02:24] LABS: Adenovirus PCR Not Detected (NotDetected); Bordetella parapertussis PCR Not Detected (NotDetected); Bordetella pertussis PCR Not Detected (NotDetected); Chlamydia pneumoniae PCR Not Detected (NotDetected); Coronavirus 229E PCR Not Detected (NotDetected); Coronavirus CoV-2 (COVID19)PCR Not Detected (NotDetected); Coronavirus HKU1 PCR Not Detected (NotDetected); Coronavirus NL63 PCR Not Detected (NotDetected); Coronavirus OC43PCR Not Detected (NotDetected); Human Metapneumovirus PCR Not Detected (NotDetected); Influenza A PCR Not Detected (NotDetected); Influenza B PCR Not Detected (NotDetected); Mycoplasma pneumoniae PCR Not Detected (NotDetected); Parainfluenza Virus 1 PCR Not Detected (NotDetected); Parainfluenza Virus 2 PCR Not Detected (NotDetected); Parainfluenza Virus 3 PCR Not Detected (NotDetected); Parainfluenza Virus 4 PCR Not Detected (NotDetected); Respiratory Syncytial VirusPCR Not Detected (NotDetected); Rhinovirus/Enterovirus PCR DETECTED (NotDetected)
[2023-11-30] MEDS ORDERED: ACETAMINOPHEN 325 MG TAB PO PRN (03:02)
[2023-11-30] MEDS ORDERED: ONDANSETRON INJ 2 MG/ML 2 ML VIAL IV PRN (03:02)
[2023-11-30] MEDS ORDERED: DEXTROSE 50% 50 ML SYRINGE IV PRN (03:02)
[2023-11-30] MEDS ORDERED: GLUCOSE 10 TAB/TUBE PO PRN (03:02)
[2023-11-30] MEDS ORDERED: CARBOHYDRATES FOR HYPOGLYCEMIA PO PRN (03:02)
[2023-11-30] MEDS ORDERED: GLUCOSE 40% GEL 15 GM TUBE PO PRN (03:02)
[2023-11-30] MEDS ORDERED: GLUCAGON FOR INJ 1 MG VIAL SQ PRN (03:02)
[2023-11-30] MEDS: guaiFENesin SUGAR FREE 200 MG/10 ML UDC PO SCH (05:01)
[2023-11-30] MEDS: LEVOTHYROXINE SODIUM 137 MCG TABLET PO SCH (05:02)
[2023-11-30] MEDS: methylPREDNISolone 40 MG in SYRINGE 0 ML IV SCH (06:18)
--- NOTE | 2023-11-30 06:56 | XRay Report ---
XR chest 1V portable CLINICAL HISTORY: Dyspnea COMPARISON STUDY: Chest radiograph June 10, 2023. Chest CT September 08, 2023. FINDINGS: Surgical clips project over the left lung apex. 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 Elevation the right hemidia phragm is unchanged. Lungs are clear. There is no pneumothorax or pleural effusion. Cardiac size is a nd stable. A small hiatal hernia is present. There is no evidence for pulmonary edema. IMPRESSION: No acute cardiopulmonary findings. No change in appearance of the chest. ACT 112: Negative or not required by law. Electronically signed by: Torey Nova M.D. 11/30/2023 6:54 AM
[2023-11-30] MEDS ORDERED: methylPREDNISolone 10 mg/mL (For Ped Dose < 7mg) IV SCH (07:00)
[2023-11-30] MEDS ORDERED: levoFLOXacin/D5W 500 MG/100 ML BAG IV SCH (07:30)
[2023-11-30 07:43] LABS: Estimated Average Glucose 154 mg/dl
--- NOTE | 2023-11-30 08:28 | Electrocardiogram Report ---
Test Reason : Blood Pressure : */* mmHG Vent. Rate : 109 BPM Atrial Rate : 109 BPM P-R Int : 174 ms QRS Dur : 114 ms QT Int : 338 ms P-R-T Axes : 55 -55 86 degrees QTcB Int : 455 ms Sinus tachycardia Left ventricular hypertrophy with QRS widening and repolarization abnormality Abnormal ECG When compared with ECG of 18-Feb-2022 12:13, No significant change was found Confirmed by Sidney Potts ([id number]) on 11/30/2023 8:27:44 AM Referred By: Confirmed By: Sidney Potts
[2023-11-30] MEDS: INSULIN ASPART PER UNIT CHARGE SC SCH (09:32)
[2023-11-30] MEDS: LANTUS PER UNIT CHARGE SQ SCH ×2 (09:38→21:10)
[2023-11-30] MEDS: CHOLECALCIFEROL 25 MCG (1000 UNITS) TAB PO SCH (09:42)
[2023-11-30] MEDS: LOSARTAN POTASSIUM 50 MG TAB PO SCH (09:43)
[2023-11-30] MEDS: CYANOCOBALAMIN (B-12) 500 MCG TABLET PO SCH (09:43)
[2023-11-30] MEDS: amLODIPine BESYLATE 5 MG TAB PO SCH (09:44)
[2023-11-30] MEDS: METOPROLOL SUCC 25MG EXT REL TAB PO SCH (09:44)
[2023-11-30] MEDS: ATORVASTATIN 10 MG TAB PO SCH (09:45)
[2023-11-30] MEDS: PANTOprazole 40 MG TAB PO SCH (09:45)
[2023-11-30] MEDS: CEROVITE ADV FORMULA TAB PO SCH (09:45)
[2023-11-30] MEDS: levoFLOXacin/D5W 750 MG/150 ML BAG IV SCH (09:46)
[2023-11-30] MEDS: ALBUT/IPRATROP 3MG/0.5MG NEB 3 ML VIAL NEB PRN (11:04)
--- NOTE | 2023-11-30 12:09 | Electrocardiogram Report ---
Test Reason : Blood Pressure : */* mmHG Vent. Rate : 87 BPM Atrial Rate : 87 BPM P-R Int : 182 ms QRS Dur : 114 ms QT Int : 398 ms P-R-T Axes : 61 -54 88 degrees QTcB Int : 478 ms Normal sinus rhythm Left ventricular hypertrophy with QRS widening and repolarization abnormality When compared with ECG of 29-Nov-2023 19:39, No significant change was found Confirmed by Sidney Potts ([id number]) on 11/30/2023 12:09:15 PM Referred By: REFERRED SELF Confirmed By: Sidney Potts
--- NOTE | 2023-11-30 12:30 | Hospitalist Progress Note ---
Date of Service November 30, 2023 Assessment & Plan (1) Acute UTI: Plan: Gram-negative bacilli isolated. Will await final identification and sensitivities. Continue Levaquin for now, day 1 (2) Asthmatic bronchitis with acute exacerbation: Plan: Continue parenteral steroid therapy. Continue Levaquin, day 1. Obtain sputum culture if sputum is produced. Scheduled nebulizer treatments (3) Type 2 diabetes mellitus with insulin therapy: Plan: Expect glucose to increase with parenteral steroid therapy. Basal insulin therapy. Sliding scale coverage. ADA diet. (4) Hypothyroidism: Plan: Occurred post thyroid cancer treatment. Continue current replacement therapy (5) Acquired tracheal stenosis: Plan: Next CT scan obtained on admission negative for any significant findings (6) Anxiety state: Plan: Lorazepam as needed Plan Hopeful discharge to home within the next day or 2. Admission and Anticipated Discharge Date Admission Date: November 29, 2023 Subjective Alert and oriented. She is experiencing some anxiety. She is agreeable to try as needed Ativan. Admission antibiotic switched over to Levaquin. Sputum culture requested. Urine culture reveals gram-negative bacteria. Final identification and sensitivities pending. Review of Systems 2 Review of Systems: Constitutionalno fever or chills ENTno blurred vision, no double vision, no epistaxis, no sore throat Respiratoryproductive cough. Wheezing. Transient hemoptysis. Shortness of breath. Cardiacno palpitations, no chest pain, no syncope Ernestina nausea, vomiting, diarrhea, melena, hematochezia GUno urinary retention, no urinary incontinence, no dysuria, no hematuria Musculoskeletalno joint pain, no muscle tenderness Skinno bruising, no rashes, no pruritus Neurono isolated weakness, no paresthesia, no weakness Psychno depression, no anxiety Physical Exam 2 Physical Exam: General-alert and oriented x3, no fever, no chills HEENT-head atraumatic and normocephalic, pupils equal and reactive to light, extraocular muscles intact Neck-no lymphadenopathy or thyromegaly, trachea midline Chest-midline rhonchi. Bilateral expiratory wheezes. No inspiratory rales. i Cardiac-regular rate and rhythm, normal S1 and S2 Abdomen-normal bowel sounds, no hepatosplenomegaly Extremities-no cyanosis, clubbing, or edema Neuro-cranial nerves II through XII intact, motor and sensory function within normal limits, strength symmetrical, no focal deficits Psych-normal affect, normal mood Results & Data Results & Data Vital Signs (Past 12 Hours) Vital Signs Temp Pulse Pulse Resp BP Pulse Ox O2 Del Method 11/30/23 11:04 105 H 20 98 Room Air 11/30/23 11:03 36.8 C 114 H 24 203/92 H 96 Room Air 11/30/23 07:44 88 11/30/23 07:30 Room Air 11/30/23 07:14 36.6 C 83 18 126/70 95 Room Air 11/30/23 03:00 Room Air 11/30/23 02:54 91 H 11/30/23 02:50 36.9 C 86 22 161/81 H 95 Room Air Laboratory Results 11/29/23 19:50 11/29/23 19:50 PG Care Time/CCT Total # of Minutes Spent Total Time Spent with Patient: Total time spent is greater than 50% in coordination of care (as documented) at patient's floor/unit and/or counseling patient: Coding Level of Care Code 95496 SUB INP/OBS CARE 3/50MIN Diagnoses Acute UTI N39.0 Asthmatic bronchitis with acute exacerbation J45.901 Type 2 diabetes mellitus with insulin therapy E11.9; Z79.4 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
[2023-11-30] MEDS: LORazepam 0.5 MG TAB PO STA (12:33)
[2023-11-30] MEDS ORDERED: cefTRIAXone SODIUM 2,000 MG/50 ML BAG IV SCH (20:00)
[2023-11-30] MEDS ORDERED: AZITHROMYCIN 500 MG in DEXTROSE 5% 250 ML IV SCH (21:00)
[2023-11-30] MEDS: ADVANCED PROBIOTIC 625 MG CAPSULE PO SCH (21:05)
[2023-11-30] MEDS: LORazepam 0.5 MG TAB PO PRN (21:07)
[2023-12-01] MEDS: BENZONATATE 100 MG CAPSULE PO PRN (03:08)
[2023-12-01 05:44] LABS: Basophils # (auto) 0.04 K/uL (0.00-0.20); Basophils % (auto) 0.2 %; Eosinophils # (auto) 0.01 K/uL (0.00-0.50); Eosinophils % (auto) 0.1 %; Hematocrit (blood only) 41.4 % (37.0-47.0); Hemoglobin 13.7 g/dl (12.0-16.0); Immature Granulocytes # (auto) 0.16 K/uL (0.01-0.20); Lymphocytes # (auto) 1.92 K/uL (1.20-3.40); Lymphocytes % (auto) 11.5 %; Mean Corpuscular Hemoglobin 29.5 pg (25.0-34.0); Mean Corpuscular Hgb Conc 33.1 g/dL (32.0-36.0); Mean Corpuscular Volume 89.2 fL (80.0-100.0); Mean Platelet Volume 9.7 fL (9.4-12.4); Monocytes # (auto) 0.56 K/uL (0.11-0.59); Monocytes % (auto) 3.4 %; Neutrophils # (auto) 13.96 K/uL (1.40-6.50); Neutrophils % (auto) 83.8 %; Platelet Count 257 K/uL (130-400); RDW Coefficient of Variation 15.1 % (11.5-14.5); RDW Standard Deviation 48.6 fL (36.4-46.3); Red Blood Count 4.64 M/uL (4.20-5.40); White Blood Count 16.65 K/ul (4.8-10.8)
[2023-12-01 05:59] LABS: BUN Creatinine Ratio 23.4 (10-20); Calcium 9.4 mg/dl (8.6-10.3); Creatinine Clr Calc Pharmacy 48.5 ml/min; Potassium 4.3 mmol/L (3.5-5.1)
[2023-12-01] MEDS ORDERED: MAGNESIUM HYDROXIDE SUSP 30 ML UDC PO PRN (10:32)
--- NOTE | 2023-12-01 11:21 | Hospitalist Progress Note ---
Date of Service December 01, 2023 Assessment & Plan (1) Acute UTI: Plan: Pansensitive Klebsiella isolated. Continue Levaquin, day 2 (2) Asthmatic bronchitis with acute exacerbation: Plan: Improving. Continue parenteral steroid therapy. Continue Levaquin, day 2. No sputum produced for culture. Continue scheduled nebulizer treatments (3) Type 2 diabetes mellitus with insulin therapy: Plan: Evening insulin dosage uptitrated today, November 30. Glucose has increased with steroid therapy as anticipated. Sliding scale coverage. ADA diet. (4) Hypothyroidism: Plan: Occurred post thyroid cancer treatment. Continue current replacement therapy (5) Acquired tracheal stenosis: Plan: Neck CT scan obtained on admission negative for any significant findings (6) Anxiety state: Plan: Much improved with lorazepam as needed Plan Eventual discharge to [facility] within the next day or 2 Admission and Anticipated Discharge Date Admission Date: November 29, 2023 Subjective Alert and oriented. No distress. Overall, she is better. Klebsiella isolated in the urine which is pansensitive. Continue Levaquin, day 2. Respiratory status has also improved although she still has some coughing and wheezing. She remains on Levaquin and Solu-Medrol, day 2. Anxiety is much improved with as needed lorazepam. She now agrees to go to SNF at discharge. Arrangements are being finalized for eventual discharge to [facility]. Review of Systems 2 Review of Systems: Constitutionalno fever or chills ENTno blurred vision, no double vision, no epistaxis, no sore throat Respiratorycoughing and wheezing have lessened. No further hemoptysis. No shortness of breath at rest Cardiacno palpitations, no chest pain, no syncope Ernestina nausea, vomiting, diarrhea, melena, hematochezia GUno urinary retention, no urinary incontinence, no dysuria, no hematuria Musculoskeletalno joint pain, no muscle tenderness Skinno bruising, no rashes, no pruritus Neurono isolated weakness, no paresthesia, no weakness Psychno depression, no anxiety Physical Exam 2 Physical Exam: General-alert and oriented x3, no fever, no chills HEENT-head atraumatic and normocephalic, pupils equal and reactive to light, extraocular muscles intact Neck-no lymphadenopathy or thyromegaly, trachea midline Chest-midline rhonchi. Bilateral expiratory wheezes have lessened. No inspiratory rales. Cardiac-regular rate and rhythm, normal S1 and S2 Abdomen-normal bowel sounds, no hepatosplenomegaly Extremities-no cyanosis, clubbing, or edema Neuro-cranial nerves II through XII intact, motor and sensory function within normal limits, strength symmetrical, no focal deficits Psych-normal affect, normal mood Results & Data Results & Data Vital Signs (Past 12 Hours) Vital Signs Temp Pulse Resp BP Pulse Ox Pulse Ox O2 Del Method 12/01/23 10:47 97 12/01/23 07:48 Room Air 12/01/23 07:21 150/75 H 12/01/23 07:11 36.6 C 82 22 172/81 H 93 Room Air 12/01/23 02:36 37.1 C 83 18 135/68 96 Room Air O2 Flow Rate 12/01/23 10:47 0 12/01/23 07:48 12/01/23 07:21 12/01/23 07:11 12/01/23 02:36 Laboratory Results 12/01/23 05:24 12/01/23 05:24 PG Care Time/CCT Total # of Minutes Spent Total Time Spent with Patient: Total time spent is greater than 50% in coordination of care (as documented) at patient's floor/unit and/or counseling patient: Coding Level of Care Code 80034 SUB INP/OBS CARE 3/50MIN Diagnoses Acute UTI N39.0 Asthmatic bronchitis with acute exacerbation J45.901 Type 2 diabetes mellitus with insulin therapy E11.9; Z79.4 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
[2023-12-01] MEDS: ALPRAZolam 0.25 MG TABLET PO PRN (12:43)
[2023-12-01] MEDS: LANTUS PER UNIT CHARGE SQ SCH (21:27)
[2023-12-02 07:09] LABS: Basophils # (auto) 0.03 K/uL (0.00-0.20); Basophils % (auto) 0.2 %; Hematocrit (blood only) 39.5 % (37.0-47.0); Hemoglobin 13.3 g/dl (12.0-16.0); Immature Granulocytes # (auto) 0.13 K/uL (0.01-0.20); Immature Granulocytes % (auto) 0.9 %; Lymphocytes # (auto) 1.67 K/uL (1.20-3.40); Lymphocytes % (auto) 11.2 %; Mean Corpuscular Hemoglobin 29.8 pg (25.0-34.0); Mean Corpuscular Hgb Conc 33.7 g/dL (32.0-36.0); Mean Corpuscular Volume 88.6 fL (80.0-100.0); Monocytes # (auto) 0.56 K/uL (0.11-0.59); Monocytes % (auto) 3.7 %; Neutrophils # (auto) 12.57 K/uL (1.40-6.50); Platelet Count 266 K/uL (130-400); RDW Coefficient of Variation 15.3 % (11.5-14.5); RDW Standard Deviation 49.5 fL (36.4-46.3); Red Blood Count 4.46 M/uL (4.20-5.40); White Blood Count 14.96 K/ul (4.8-10.8)
[2023-12-02 07:21] LABS: BUN Creatinine Ratio 24.2 (10-20); Creatinine Clr Calc Pharmacy 45.7 ml/min
[2023-12-02] MEDS: predniSONE 10 MG TABLET PO SCH (09:46)
--- NOTE | 2023-12-02 11:50 | Hospitalist Progress Note ---
Date of Service December 02, 2023 Assessment & Plan (1) Acute UTI: Plan: Pansensitive Klebsiella isolated. Continue Levaquin, day 3 (2) Asthmatic bronchitis with acute exacerbation: Plan: Improving. Parenteral steroid therapy switched to oral prednisone today, December 01, and will eventually be weaned off. Continue Levaquin, day 3. No sputum produced for culture. Continue scheduled nebulizer treatments (3) Type 2 diabetes mellitus with insulin therapy: Plan: Evening insulin dosage was uptitrated on November 30. Parenteral steroids have now been switched to oral dosing. Evening insulin has been down titrated today, December 01. Sliding scale coverage. ADA diet. (4) Hypothyroidism: Plan: Occurred post thyroid cancer treatment. Continue current replacement therapy (5) Acquired tracheal stenosis: Plan: Neck CT scan obtained on admission negative for any significant findings (6) Anxiety state: Plan: Much improved with lorazepam as needed Plan [facility]ual discharge to [facility] when arrangements are finalized. She is medically stable for discharge. Admission and Anticipated Discharge Date Admission Date: November 29, 2023 Subjective Easily awakened from sleep. No new problems. Glucose this morning is 178. She remains on room air. Parenteral steroid therapy switched to oral prednisone which will be tapered off eventually. Evening insulin dosage decreased. It appears she will go to [facility] at the time of discharge. Levaquin day 3 Review of Systems 2 Review of Systems: Constitutionalno fever or chills ENTno blurred vision, no double vision, no epistaxis, no sore throat Respiratorycoughing and wheezing have lessened. No further hemoptysis. No shortness of breath at rest Cardiacno palpitations, no chest pain, no syncope Ernestina nausea, vomiting, diarrhea, melena, hematochezia GUno urinary retention, no urinary incontinence, no dysuria, no hematuria Musculoskeletalno joint pain, no muscle tenderness Skinno bruising, no rashes, no pruritus Neurono isolated weakness, no paresthesia, no weakness Psychno depression, no anxiety Physical Exam 2 Physical Exam: General-alert and oriented x3, no fever, no chills HEENT-head atraumatic and normocephalic, pupils equal and reactive to light, extraocular muscles intact Neck-no lymphadenopathy or thyromegaly, trachea midline Chest-midline rhonchi has decreased. Bilateral expiratory wheezes have lessened. No inspiratory rales. Cardiac-regular rate and rhythm, normal S1 and S2 Abdomen-normal bowel sounds, no hepatosplenomegaly Extremities-no cyanosis, clubbing, or edema Neuro-cranial nerves II through XII intact, motor and sensory function within normal limits, strength symmetrical, no focal deficits Psych-normal affect, normal mood Results & Data Results & Data Vital Signs (Past 12 Hours) Vital Signs Temp Pulse Pulse Resp BP Pulse Ox O2 Del Method 12/02/23 11:34 36.7 C 83 20 182/73 H 95 Room Air 12/02/23 09:59 73 12/02/23 09:59 Room Air 12/02/23 07:15 36.7 C 71 18 151/77 H 96 Room Air 12/02/23 00:03 79 16 99 Room Air Laboratory Results 12/02/23 06:04 12/02/23 06:04 PG Care Time/CCT Total # of Minutes Spent Total Time Spent with Patient: Total time spent is greater than 50% in coordination of care (as documented) at patient's floor/unit and/or counseling patient: Coding Level of Care Code 26431 SUB INP/OBS CARE 3/50MIN Diagnoses Acute UTI N39.0 Asthmatic bronchitis with acute exacerbation J45.901 Type 2 diabetes mellitus with insulin therapy E11.9; Z79.4 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
[2023-12-02] MEDS: LANTUS PER UNIT CHARGE SQ SCH (21:24)
[2023-12-03 07:39] LABS: Basophils # (auto) 0.03 K/uL (0.00-0.20); Basophils % (auto) 0.2 %; Eosinophils # (auto) 0.01 K/uL (0.00-0.50); Eosinophils % (auto) 0.1 %; Hematocrit (blood only) 40.8 % (37.0-47.0); Hemoglobin 13.9 g/dl (12.0-16.0); Immature Granulocytes # (auto) 0.15 K/uL (0.01-0.20); Lymphocytes # (auto) 2.64 K/uL (1.20-3.40); Lymphocytes % (auto) 18.4 %; Mean Corpuscular Hemoglobin 30.2 pg (25.0-34.0); Mean Corpuscular Hgb Conc 34.1 g/dL (32.0-36.0); Mean Corpuscular Volume 88.5 fL (80.0-100.0); Mean Platelet Volume 9.8 fL (9.4-12.4); Monocytes # (auto) 1.23 K/uL (0.11-0.59); Monocytes % (auto) 8.6 %; Neutrophils # (auto) 10.31 K/uL (1.40-6.50); Neutrophils % (auto) 71.7 %; Platelet Count 273 K/uL (130-400); RDW Coefficient of Variation 15.1 % (11.5-14.5); Red Blood Count 4.61 M/uL (4.20-5.40); White Blood Count 14.37 K/ul (4.8-10.8)
[2023-12-03 08:02] LABS: Anion Gap 7 (3-11); Blood Urea Nitrogen 24 mg/dl (6-23); Calcium 8.7 mg/dl (8.6-10.3); Carbon Dioxide 29 mmol/L (21-32); Chloride 105 mmol/L (98-107); Creatinine Clr Calc Pharmacy 50.6 ml/min; Glucose 105 mg/dl (70-99(Fasting)); Sodium 141 mmol/L (136-145)
[2023-12-03] MEDS: AMOXICILLIN/CLAVULANATE 875 MG TAB PO SCH (09:40)
[2023-12-03] MEDS: FLUCONAZOLE 100 MG TAB PO SCH (09:40)
--- NOTE | 2023-12-03 10:13 | Discharge Summary ---
Discharge Summary Date of Service December 03, 2023 Principal Dx & Hospital Course #1 = Principal Diagnosis (1) Acute UTI: Pansensitive Klebsiella isolated. Treated with Levaquin while hospitalized. (2) Asthmatic bronchitis with acute exacerbation: Improving. Parenteral steroid therapy switched to oral prednisone on December 01 and will eventually be weaned off. On intravenous Levaquin switched to oral Augmentin at discharge for 5 more days. Sputum Gram stain reveals gram-positive cocci and yeast. Diflucan added orally for 5 more days to prevent development of thrush since she has diabetes and hyperglycemia from the steroid therapy. (3) Type 2 diabetes mellitus with insulin therapy: Evening insulin dosage was uptitrated on November 30. Parenteral steroids have now been switched to oral dosing. Evening insulin has been down titrated then on December 01. Sliding scale coverage. ADA diet. (4) Hypothyroidism: Occurred post thyroid cancer treatment. Continue current replacement therapy (5) Acquired tracheal stenosis: Neck CT scan obtained on admission negative for any significant findings (6) Anxiety state: Much improved with lorazepam as needed Plan Discharge to [facility] today, December 02 Admission HPI Per Admitting Provider The patient is a 83-year-old female with a past medical history including tracheal stenosis, thyroid cancer status post radiation treatments, vocal cord paralysis, left subclavian artery stenosis, status post thyroidectomy, diabetes mellitus type 2 with insulin therapy, dyslipidemia, iatrogenic hypothyroidism, history of upper GI bleeding due to gastric angiodysplasias, pulmonary nodule, and moderate nonproliferative diabetic retinopathy. She presents to the emergency department with worsening symptoms as noted above. She did have a CT scan of the soft tissue of the neck which ruled out any significant tracheal obstruction. Discharge Exam General-alert and oriented x3, no fever, no chills HEENT-head atraumatic and normocephalic, pupils equal and reactive to light, extraocular muscles intact Neck-no lymphadenopathy or thyromegaly, trachea midline Chest-midline rhonchi has decreased. Bilateral expiratory wheezes have lessened. No inspiratory rales. Cardiac-regular rate and rhythm, normal S1 and S2 Abdomen-normal bowel sounds, no hepatosplenomegaly Extremities-no cyanosis, clubbing, or edema Neuro-cranial nerves II through XII intact, motor and sensory function within normal limits, strength symmetrical, no focal deficits Psych-normal affect, normal mood Discharge Plan Discharge Items Patient Disposition: Transfer Inpatient Rehab Fac Reason For Visit: ASTHMATIC BRONCHITIS, TRACHEAL STENOSIS Discharge Diagnosis: Acute bronchitis, acute exacerbation COPD, Klebsiella UTI, steroid-induced hyperglycemia and diabetes, anxiety neurosis Activity: Resume your previous activity Non-emergency contact: Primary Care Provider Call non-emergency contact if: you have any medication questions and your symp toms worsen Follow-up/Referrals: Sera Liz MD [Primary Care Provider] - Diet: Carb Consistent or DM2 Addtl Attending Provider Instructions: Take Augmentin (amoxicillin/clavulanate) twice daily for 5 more days. Take prednisone 10 mg 3 times a day for 2 days, then 10 mg twice a day for 2 days, then 10 mg once a day for 2 days, then stop. Take Diflucan for 5 more days to prevent yeast infection while on antibiotic Pending Studies at Discharge: Yes Studies:: Final sputum culture results Stand-Alone Forms: My [facility] Skilled Items Patient informed of condition?: Yes DNR: No Discharge Level of Care: Acute rehab Communicable Disease: No Discharge Prognosis: Improving Lines: None Urinary Catheter: No Medications and DC Order Prescriptions: New lorazepam 0.5 mg Tablet 0.5 mg PO Q6H PRNQty: 0 0RF prednisone 10 mg Tablet 10 mg PO TID Qty: 0 0RF fluconazole [Diflucan] 100 mg Tablet 100 mg PO QAM Qty: 0 0RF amoxicillin-pot clavulanate 875-125 mg Tablet 1 tab PO BIDM Qty: 0 0RF Continued Fiasp FlexTouch U-100 Insulin 100 unit/mL (3 mL) insulin pen See Rx Instructions subcut .COMPLEX MDD 60 units Qty: 60 3RF Hold Instructions: on backorder Rx Instructions: subcutaneously injection per sliding scale atorvastatin 10 mg tablet 10 mg PO DAILY Qty: 30 2RF (DME) pen needle, diabetic [BD Ultra-Fine Araceli Pen Needle] 32 gauge x 5/32" needle See Rx Instructions [id number] .MEDSUPPLY Qty: 400 3RF Rx Instructions: Change after each use 4x a day albuterol sulfate [Ventolin HFA] 90 mcg/actuation HFA aerosol inhaler 2 puff INHALATION Q4H PRN (Reason: Wheezing) Qty: 8.5 3RF insulin lispro [Admelog SoloStar U-100 Insulin] 100 unit/mL insulin pen See Rx Instructions subcut .COMPLEX MDD 60 units Qty: 15 1RF Rx Instructions: subcutaneously injection per sliding scale with meals insulin degludec [Tresiba FlexTouch U-100] 100 unit/mL (3 mL) insulin pen 66 unit SQ QAM Qty: 60 3RF (DME) Dexcom G7 Sensor Device See Rx Instructions .Route Rx Instructions: As directed alprazolam 0.25 mg tablet PO DAILY PRN levothyroxine 137 mcg tablet 137 mcg PO DAILY 90 Days Qty: 90 3RF metformin 500 mg tablet extended release 24 hr 500 mg PO BIDM Qty: 180 3RF hydrochlorothiazide 25 mg tablet 25 mg PO DAILY PRN amlodipine 10 mg tablet 10 mg PO DAILY cholecalciferol (vitamin D3) 50 mcg (2,000 unit) capsule 2,000 unit PO BID promethazine 25 mg tablet 25 mg PO ONCE PRN turmeric 400 mg capsule 400 mg PO DAILY nystatin 100,000 unit/gram ointment topical ondansetron HCl 4 mg tablet 4 mg PO DAILY PRN losartan [Cozaar] 100 mg tablet 100 mg PO QAM metoprolol succinate [Toprol XL] 25 mg tablet extended release 24 hr 25 mg PO QAM cranberry conc-ascorbic acid 4,200-20 mg Capsule 1 cap PO BID alprazolam [Xanax] 0.5 mg tablet 0.5 mg PO UD PRN (Reason: Anxiety) pantoprazole [Protonix] 40 mg tablet,delayed release (DR/EC) 40 mg PO BID Probiotic 100 billion cell Capsule 1 cap PO HS albuterol sulfate 2.5 mg /3 mL (0.083 %) Solution For Nebulization 0 mg INHALATION Q4H PRN (Reason: Shortness Of Breath) cyanocobalamin (vitamin B-12) [Vitamin B-12] 1,000 mcg tablet 1,000 mcg PO DAILY Hair,Skin and Nails Tablet 1 tab PO BID Discharge Orders: Discharge Order (Routine); Ordered 12/03/23 Ordered By: Fransisco Alves/Other Patient Handouts: Managing Type 2 Diabetes Admission Data Admit Date/Time: 11/29/23 23:49 Attending Provider: Fransisco Coronel Admit Provider: Blu Montana Primary Care Provider: Sera Liz Other Providers: Blu [place]; [place]; [facility] Stay Data Consultations 11/29/23 23:35 ED Decision to Admit Stat Diagnostic Imagining Performed 11/29/23 19:50 CT soft tissue neck w con Stat Pending Results Patient Have Any Pending Studies at Discharge: Yes Discharge Instructions Given to Patient (Per Discharging Provider) Take Augmentin (amoxicillin/clavulanate) twice daily for 5 more days. Take prednisone 10 mg 3 times a day for 2 days, then 10 mg twice a day for 2 days, then 10 mg once a day for 2 days, then stop. Take Diflucan for 5 more days to prevent yeast infection while on antibiotic Total Time Total Time Spent Total Time Spent (In Minutes): 45 minutes Coding Level of Care Code 43566 INP/OBS DISCH >30 MIN Diagnoses Acute UTI N39.0 Asthmatic bronchitis with acute exacerbation J45.901 Type 2 diabetes mellitus with insulin therapy E11.9; Z79.4 Postoperative hypothyroidism E89.0 Hypothyroidism type: postoperative Acquired tracheal stenosis J39.8 Anxiety state F41.1
[2023-12-03 11:19] VITALS: PULSE 74; RESP 20; TEMP 98.1; O2SAT 93
[2023-12-03 12:54] VITALS: BP 154/71
[2023-12-04] MEDS ORDERED: levoFLOXacin/D5W 750 MG/150 ML BAG IV SCH (08:00)
== END 2023-12-03 14:59 | DRG 202 ==
LOC: ED 19:27 → SUATTDRO 23:49 → 4W 23:49

== ENCOUNTER 2025-02-09 10:07 | Inpatient (IN) ==
--- NOTE | 2025-02-09 10:37 | Emergency Department Note ---
Impression & Plan Acute hypoxic respiratory failure, Community acquired pneumonia, Asthma exacerbation ED Provider Note NAME: TERESA HUNTER AGE: 84 SEX: F : 1940 ARRIVES VIA: Walk-In INFORMANT: Patient ED PROVIDER(S): Mansoor Aguila DO CHIEF COMPLAINT: SOB, cough HPI: This is an 84-year-old female with the PMHx of asthma, HTN, HLD, and hypothyroidism presenting to [facility] for further evaluation of SOB. She has had worsening SOB and cough over the last few days. Cough is sometimes productive. She had vomiting on . She has had subjective fevers and chills. Denies chest pain or palpitations. They deny abdominal pain. No urinary complaints. No recent changes in bowel movements. Patient denies recent changes in medications or OTC supplements. Patient offers no other complaints, today. ADDITIONAL HISTORY OBTAINED: Per HPI Chronic Medical/Social Conditions Affecting Care: Per HPI PAST MEDICAL HISTORY: See Below PAST SURGICAL HISTORY: See Below FAMILY HISTORY: See Below SOCIAL HISTORY: See Below HOME MEDICATIONS: See Below ALLERGIES: See Below VITALS: See Below PHYSICAL EXAMINATION: GENERAL: Sitting up in bed, alert, well appearing, well nourished, no distress, non-toxic EYE EXAM: normal conjunctiva. OROPHARYNX: no exudate, no erythema, lips, buccal mucosa, and tongue normal and mucous membranes are dry NECK: supple, no nuchal rigidity, no adenopathy, non-tender LUNGS: Rhonchi with mild expiratory wheezing. Normal chest wall mechanics HEART: no murmurs, tachycardic rate, regular rhythm ABDOMEN: abdomen soft, non-tender, no masses, no rebound or guarding. BACK: Back is symmetrical on inspection and there is no deformity, no midline tenderness, no CVA tenderness. SKIN: no rashes and no bruising UPPER EXTREMITIES: upper extremities are grossly normal. LOWER EXTREMITIES: No pitting edema. NEURO EXAM: Normal sensorium, GCS 15, normal speech, no gross weakness of arms, no gross weakness of legs. MEDICAL DECISION MAKING: Differential diagnoses includes but not limited to ACS, unstable angina, dysrhythmia, PNA, hypervolemia/pulmonary edema, CHF exacerbation, COPD exacerbation, PE, pneumothorax, pericardial effusion, cardiac tamponade, anxiety/psychogenic, viral URI In summary, this is an 84 year old female who presented with SOB. Differential as above. Nursing notes and pertinent past medical records reviewed. Vital signs reviewed and the patient is tachycardic and hypoxic but otherwise afebrile and HDS. LFNC applied with improvement. History and presentation revealed extensive history of asthma. She feels similar to when she has had pneumonia in the past. Physical examination revealed as above. As a result of my initial evaluation, IV access was established and the patient was placed on CCRM. Therapeutics ordered include plan for management of asthma exacerbation with duonebs and steroids. Will plan for labs and imaging. Diagnostics interpreted by me include EKG and cardiac monitoring as listed below: -Cardiac Monitoring: An order was placed for continuous cardiac monitoring. The monitor shows a rate of 80-110s with regular rhythm. -ECG: Sinus tachycardia at a rate of [address] segment changes to suggest STEMI. Intervals are otherwise within and limits. There is left axis deviation. Patient completed laboratory studies and imaging. Chest x-ray was independently interpreted by me as possible consolidation developing in the right middle lobe. Do feel this is concerning for possible infiltrate suggestive of pneumonia. Will start the patient on community-acquired pneumonia coverage with IV ceftriaxone and azithromycin. Results independently interpreted by me are mild leukocytosis. No significant anemia.. The patient was managed with Steroids as well as a DuoNeb on arrival for treatment of asthma exacerbation. Given ongoing symptoms, she was managed further with an hour-long albuterol nebulizer. Patient was also given IV fluid resuscitation and IV magnesium. Her symptoms are not consistent with ACS or CHF exacerbation. I favor asthma exacerbation secondary to pneumonia. Ultimately, the decision was made to admit the patient for acute hypoxic respiratory failure from asthma exacerbation and PNA. I discussed the case with the hospitalist service via telephone/TigerText and they are agreeable to admit the patient to their services. Based on the above, including the patient's age, coexisting illnesses, labs, imaging, and exam findings the decision to treat as an inpatient. I discussed the patient with the hospitalist team who recommended admission to their services. They received the medications, treatments, interventions indicated above and their condition remained guarded. I discussed my findings with the patient and their family and they understand and agree with the treatment plan. All patient / family questions were answered to their satisfaction. Consults/Care Managements Discussions: Per MDM ER treatment provided: See above Procedures: None Critical Care: I have personally spent 38 minutes of critical care time in direct management of this patient. This includes bedside care, interpretation of diagnostic studies, and testing, discussion with consultants, patient, and family members, and other require inpatient management activities. This 38 minutes is in excess of all separately billable procedures. The chart was completed utilizing [employer] Speech voice recognition software. Grammatical errors, random word insertions, pronoun errors, and incomplete sentences are an occasional consequence of this system due to software limitations, ambient noise, and hardware issues. Any formal questions or concerns about the content, text, or information contained within the body of this dictation should be directly addressed to the physician for clarification. 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 History of thyroid cancer Hypertension Vitamin D deficiency Dyslipidemia (Chronic) Abdominal pain, epigastric (Acute) Acute upper gastrointestinal bleeding (Acute) Angiodysplasia of stomach (Acute) Encounter for pre-operative examination Medical History Acquired tracheal stenosis Vocal cord paralysis Type 2 diabetes mellitus with insulin therapy Hypothyroidism Chronic lower back pain History of tracheal cancer Seasonal allergies Arthritis Anxiety High cholesterol Duodenal ulcer Complaint of melena Eczema Right humeral fracture Influenza A Fracture in accidental fall Elevated troponin Dyspnea Displaced fracture of right humerus Closed right humeral fracture Closed fracture of left proximal humerus Chest pain Asthma Carpal tunnel syndrome on right Hypertension Diabetes Thyroid cancer Surgical History History of cataract surgery History of surgery History of tracheostomy History of endoscopy History of colonoscopy History of surgery on arm History of carpal tunnel release of both wrists Hx of cholecystectomy Social History Smoking Status: Never smoker Second Hand Exposure: No; Do You Dip or Chew Tobacco: No; Tobacco Cessation Education Requested by Patient: No Hx Alcohol Use: No Hx Substance Use: No Preferred Language: [place]ican Communication Ability: Effective Carpet Technician Required: No Beliefs That Will Affect Care: Roman Catholic Roman Catholic Beliefs: Mormonism marital status: Current Living Situation: Alone current occupational status: retired Other Information That Helps Us Care for You: No Feels Safe at Home: Yes Safety Concerns: Feels Safe At This Time Assistive Devices: Cane, Raised Toilet Seat, Walker and Other Allergies Allergies Allergy/AdvReac Type Severity Reaction Status Date / Time morphine Allergy Severe "JUST WENT Verified 11/18/24 11:16 CRAZY" shellfish derived Allergy Intermediate Vomiting Verified 11/18/24 11:16 doxycycline Allergy Verified 11/18/24 11:16 Home Meds Home Medications Medication Instructions Recorded Confirmed cranberry concentrate-ascorbic 1 cap PO BID 06/10/18 02/09/25 acid 4,200 mg-20 mg capsule metoprolol succinate 25 mg 25 mg PO QAM 06/10/18 02/09/25 tablet,extended release 24 hr (Toprol XL) losartan 100 mg tablet (Cozaar) 100 mg PO QAM 02/28/20 02/09/25 albuterol sulfate 2.5 mg/3 mL 2.5 mg inhalation Q4H PRN 11/17/20 02/09/25 (0.083 %) solution for nebulization Shortness Of Breath amlodipine 10 mg tablet 10 mg PO DAILY 09/23/21 02/09/25 cholecalciferol (vitamin D3) 50 2,000 unit PO BID 09/23/21 02/09/25 mcg (2,000 unit) capsule cyanocobalamin (vitamin B-12) 1,000 mcg PO DAILY 09/23/21 02/09/25 1,000 mcg tablet (Vitamin B-12) multivitamin with minerals 1 tab PO BID 09/23/21 02/09/25 (Hair,Skin and Nails tablet) blood-glucose sensor (Dexcom G7 07/21/23 11/25/24 Sensor device) holasbtlkvyr-Ft-tjjf-minerals 1 tab PO DAILY 10/10/24 02/09/25 omeprazole 40 mg capsule,delayed 40 mg PO BID 10/10/24 02/09/25 release Previous Rx's Medication Instructions Recorded pen needle, diabetic 32 gauge x #400 ea 08/21/23" (BD Ultra-Fine Araceli Pen Needle) albuterol sulfate 90 mcg/actuation 2 puff inhalation Q4H PRN Wheezing 09/11/23 aerosol inhaler (Ventolin HFA) #8.5 grams insulin pump cart,auto,BT,G6/7 #15 ea 02/03/24 (Omnipod 5 G6-G7 Pods (Gen 5) subcutaneous cartridge) metformin 500 mg tablet,extended 500 mg PO BIDM #180 tabs 07/04/24 release 24 hr levothyroxine 137 mcg tablet 137 mcg PO DAILY 90 days #90 tabs 10/27/24 vibegron 75 mg tablet (Gemtesa) 75 mg PO DAILY #90 tabs 11/18/24 Results & Data (ED) Vital Signs Vital Signs - 24 hr 02/09/25 10:15 02/09/25 10:29 Temperature 36.2 C L Temperature Source Temporal Artery Scan Pulse Rate 95 H 103 H Respiratory Rate 21 Respiratory Effort / Characteristics Spontaneous Short of Breath Respiratory Depth Normal Respiratory Pattern Regular Blood Pressure 198/88 H Blood Pressure Mean 124 Pulse Oximetry 95 Oxygen Delivery Method Room Air Sepsis Recent Fever Within 48 Hours Yes Sepsis New/Unexplained Change in Mental Status N/A Sepsis Action Taken by Nursing No Action Required Laboratory Data 02/09/25 10:28 02/11/25 08:33 Lab Results 02/09/25 02/09/25 02/09/25 Range/Units 10:28 11:37 12:00 WBC 14.25 H (4.8-10.8) K/ul RBC 4.53 (4.20-5.40) M/uL Hgb 14.3 (12.0-16.0) g/dL Hct 41.8 (37.0-47.0) % MCV 92.3 (80.0-100.0) fL MCH 31.6 (25.0-34.0) pg MCHC 34.2 (32.0-36.0) g/dL RDW Std Deviation 47.7 H (36.4-46.3) fL RDW Coeff of Yelitza 14.2 (11.5-14.5) % Plt Count 200 (130-400) K/uL MPV 9.6 (9.4-12.4) fL Immature Gran % (Auto) 0.6 % Neut % (Auto) 71.1 % Lymph % (Auto) 18.0 % Wilkes % (Auto) 9.3 % Eos % (Auto) 0.6 % Baso % (Auto) 0.4 % Neut # (Auto) 10.15 H (1.40-6.50) K/uL Lymph # (Auto) 2.56 (1.20-3.40) K/uL Wilkes # (Auto) 1.32 H (0.11-0.59) K/uL Eos # (Auto) 0.09 (0.00-0.50) K/uL Baso # (Auto) 0.05 (0.00-0.20) K/uL Immature Gran # (Auto) 0.08 (0.01-0.20) K/uL VBG pH 7.39 (7.36-7.41) VBG pCO2 50 (38-50) mmHg VBG pO2 32 mmHg VBG HCO3 30 mmol/L VBG O2 Saturation < 60.0 % VBG Base Excess 4.2 mEq/L Sodium 138 (136-145) mmol/L Potassium 3.5 (3.5-5.1) mmol/L Chloride 102 (98-107) mmol/L Carbon Dioxide 26 (21-32) mmol/L Anion Gap 10 (3-11) BUN 14 (6-23) mg/dl Creatinine 0.78 (0.6-1.2) mg/dl Est Cr Clr Drug Dosing 56.9 ml/min eGFR 73.92 BUN/Creatinine Ratio 17.9 (10-20) Glucose 200 H (70-99(Fasting)) mg/dl Calcium 9.1 (8.6-10.3) mg/dl Magnesium 1.8 (1.7-2.4) mg/dl Total Bilirubin 1.3 H (0.2-1.0) mg/dl AST 22 (13-39) U/L ALT 25 (7-52) U/L Alkaline Phosphatase 62 (34-104) U/L Troponin I High Sens 10.8 (0-14) pg/ml B-Natriuretic Peptide 36 (0-100) pg/ml Total Protein 7.1 (6.0-8.3) gm/dl Albumin 4.3 (3.4-5.0) gm/dl Globulin 2.8 (2.5-4.0) gm/dl Albumin/Globulin Ratio 1.5 (0.9-2) Procalcitonin 0.11 (0-0.5) ng/ml Urine Color Yellow Urine Appearance Clear (Clear) Urine pH 6.5 (4.5-7.5) Ur Specific [place] 1.008 (1.000-1.030) Urine Protein Negative (Negative) Urine Glucose (UA) Negative (Negative) Urine Ketones Negative (Negative) Urine Blood Negative (Negative) Urine Nitrite Negative (Negative) Urine Bilirubin Negative (Negative) Urine Urobilinogen Negative (Negative) Ur Leukocyte Esterase 3+ H (Negative) Urine WBC (Auto) 21-50 H (0-5) /hpf Urine RBC (Auto) 0-2 (0-2) /hpf U Hyaline Cast (Auto) 0-2 (0-2) /lpf U Epithel Cells (Auto) 0-2 (0-2) /hpf Urine Bacteria (Auto) None Seen (None Seen) Urine Comment Adenovirus (PCR) Not Detected (NotDetected) B. pertussis DNA (PCR) Not Detected (NotDetected) B.parapertussis DNA PCR Not Detected (NotDetected) C. pneumoniae DNA (PCR) Not Detected (NotDetected) Coronavirus OC43 (PCR) Not Detected (NotDetected) Coronavirus HKU1 (PCR) Not Detected (NotDetected) Coronavirus 229E (PCR) Not Detected (NotDetected) SARS-CoV-2 (PCR) Not Detected (NotDetected) Coronavirus NL63 (PCR) Not Detected (NotDetected) Human Metapneumovir PCR Not Detected (NotDetected) Influenza Type A (PCR) Not Detected (NotDetected) Influenza Type B (PCR) Not Detected (NotDetected) M. pneumoniae (PCR) Not Detected (NotDetected) Parainfluenza 1 (PCR) Not Detected (NotDetected) Parainfluenza 2 (PCR) Not Detected (NotDetected) Parainfluenza 3 (PCR) Not Detected (NotDetected) Parainfluenza 4 (PCR) Not Detected (NotDetected) RSV (PCR) Not Detected (NotDetected) Entero/Rhino (PCR) Not Detected (NotDetected) Administered Medications Acetaminophen (Acetaminophen 325 Mg Tab) 650 mg PO Q4H PRN PRN Reason: pain/fever Stop: 03/11/25 12:13 Last Admin: 02/11/25 00:53 Dose: 650 mg Documented By: philippe Albuterol (Albut/Ipratrop 3mg/0.5mg Neb 3 Ml Vial) 3 ml NEB Q6R PRN; Protocol PRN Reason: Shortness Of Breath Or Wheezing Stop: 03/11/25 12:09 Last Admin: 02/10/25 15:53 Dose: 3 ml Documented By: Admin: 02/10/25 05:11 Dose: 3 ml Documented By: CARYN Albuterol (Albut/Ipratrop 3mg/0.5mg Neb 3 Ml Vial) 3 ml NEB QIDR HECTOR; Protocol Stop: 03/12/25 18:59 Last Admin: 02/11/25 20:08 Dose: 3 ml Documented By: caroline Admin: 02/11/25 15:15 Dose: Not Given Documented By: Admin: 02/11/25 10:37 Dose: 3 ml Documented By: Admin: 02/11/25 07:24 Dose: 3 ml Documented By: Admin: 02/10/25 19:48 Dose: 3 ml Documented By: CARYN Amlodipine Besylate (Amlodipine Besylate 5 Mg Tab) 10 mg PO DAILY [facility] Stop: 03/12/25 08:59 Last Admin: 02/11/25 08:27 Dose: 10 mg Documented By: arabella Admin: 02/10/25 11:23 Dose: 10 mg Documented By: MICHAEL Azithromycin (Azithromycin 250 Mg Tab) 500 mg PO QAM [facility] Stop: 02/15/25 08:59 Last Admin: 02/11/25 08:27 Dose: 500 mg Documented By: arabella Admin: 02/10/25 11:23 Dose: 500 mg Documented By: MICHAEL Benzonatate (Benzonatate 100 Mg Capsule) 100 mg PO TID [facility] Stop: 03/11/25 20:59 Last Admin: 02/11/25 19:46 Dose: 100 mg Documented By: philippe Admin: 02/11/25 17:20 Dose: 100 mg Documented By: arabella Admin: 02/11/25 08:27 Dose: 100 mg Documented By: arabella Admin: 02/10/25 20:14 Dose: 100 mg Documented By: philippe Admin: 02/10/25 13:59 Dose: 100 mg Documented By: Admin: 02/10/25 11:20 Dose: 100 mg Documented By: Admin: 02/09/25 20:57 Dose: 100 mg Documented By: philippe Guaifenesin (Guaifenesin 600 Mg Tabcr) 600 mg PO Q12 [facility] Stop: 03/13/25 20:59 Last Admin: 02/11/25 19:47 Dose: 600 mg Documented By: philippe Heparin Sodium (Porcine) (Heparin Sod 5,000 Unit/0.5 Ml Vial) 5,000 units SQ Q8 [facility] Stop: 03/11/25 13:59 Last Admin: 02/12/25 05:26 Dose: 5,000 units Documented By: philippe Admin: 02/11/25 21:25 Dose: 5,000 units Documented By: philippe Admin: 02/11/25 17:20 Dose: 5,000 units Documented By: arabella Admin: 02/11/25 05:30 Dose: 5,000 units Documented By: philippe Admin: 02/10/25 20:14 Dose: 5,000 units Documented By: philippe Admin: 02/10/25 13:59 Dose: 5,000 units Documented By: Admin: 02/10/25 05:43 Dose: 5,000 units Documented By: philippe Admin: 02/09/25 20:22 Dose: 5,000 units Documented By: philippe Admin: 02/09/25 14:11 Dose: 5,000 units Documented By: INO Hydrochlorothiazide (Hydrochlorothiazide 25 Mg Tab) 25 mg PO DAILY [facility] Stop: 03/12/25 08:59 Last Admin: 02/11/25 08:28 Dose: 25 mg Documented By: arabella Admin: 02/10/25 11:24 Dose: 25 mg Documented By: MICHAEL Ceftriaxone Sodium (Rocephin) 2,000 mg in 50 mls @ 100 mls/hr IV Q24H [facility]; Protocol Stop: 02/12/25 08:59 Last Infusion: 02/11/25 14:42 Dose: Infused Documented By: arabella Admin: 02/11/25 08:28 Dose: 100 mls/hr Documented By: arabella Infusion: 02/10/25 12:12 Dose: Infused Documented By: Admin: 02/10/25 11:24 Dose: 100 mls/hr Documented By: MICHAEL Insulin Aspart (Insulin Aspart Per Unit Charge) 0 units SC ACHS [facility] Stop: 03/11/25 12:59 Last Admin: 02/11/25 21:24 Dose: 4 units Documented By: philippe Co-signed By: SP Admin: 02/11/25 18:07 Dose: 5 units Documented By: arabella Co-signed By: ALBERTINA Admin: 02/11/25 13:35 Dose: 6 units Documented By: arabella Co-signed By: PAKO Admin: 02/11/25 09:42 Dose: 11 units Documented By: arabella Co-signed By: PAKO Admin: 02/10/25 20:14 Dose: 4 units Documented By: philippe Co-signed By: OCTAVIO Admin: 02/10/25 18:20 Dose: 9 units Documented By: MICHAEL Co-signed By: ALBERTINA Admin: 02/10/25 14:00 Dose: 15 units Documented By: MICHAEL Co-signed By: ALBERTINA Admin: 02/10/25 11:22 Dose: 10 units Documented By: MICHAEL Co-signed By: LINDA Admin: 02/09/25 20:21 Dose: 6 units Documented By: philippe Co-signed By: ZAK Admin: 02/09/25 18:04 Dose: 13 units Documented By: shawn Co-signed By: MICHAEL Admin: 02/09/25 14:11 Dose: 6 units Documented By: INO Co-signed By: CEF Insulin Glargine (Lantus Per Unit Charge) 30 units SC DAILY [facility] Stop: 03/12/25 08:59 Last Admin: 02/11/25 08:27 Dose: 30 units Documented By: arabella Co-signed By: PAKO Admin: 02/10/25 11:23 Dose: 30 units Documented By: MICHAEL Co-signed By: LINDA Lactobacillus Acidophilus (Advanced Probiotic 625 Mg Capsule) 1,250 mg PO HS [facility] Stop: 03/11/25 20:59 Last Admin: 02/11/25 19:47 Dose: 1,250 mg Documented By: philippe Admin: 02/10/25 20:14 Dose: 1,250 mg Documented By: philippe Admin: 02/09/25 20:22 Dose: 1,250 mg Documented By: philippe Levothyroxine Sodium (Levothyroxine Sodium 137 Mcg Tablet) 137 mcg PO DAILYBB [facility] Stop: 03/12/25 06:29 Last Admin: 02/12/25 05:27 Dose: 137 mcg Documented By: philippe Admin: 02/11/25 05:30 Dose: 137 mcg Documented By: philippe Admin: 02/10/25 05:44 Dose: 137 mcg Documented By: philippe Lorazepam (Lorazepam 0.5 Mg Tab) 0.5 mg PO Q6H PRN PRN Reason: Anxiety Stop: 03/11/25 15:00 Last Admin: 02/11/25 23:34 Dose: 0.5 mg Documented By: philippe Admin: 02/10/25 22:52 Dose: 0.5 mg Documented By: philippe Admin: 02/09/25 22:21 Dose: 0.5 mg Documented By: philippe Admin: 02/09/25 15:39 Dose: 0.5 mg Documented By: shawn Losartan Potassium (Losartan Potassium 50 Mg Tab) 100 mg PO QAM [facility] Stop: 03/12/25 08:59 Last Admin: 02/11/25 08:26 Dose: 100 mg Documented By: arabella Admin: 02/10/25 11:25 Dose: 100 mg Documented By: MICHAEL Magnesium Oxide (Magnesium Oxide 400 Mg Tab) 400 mg PO DAILY [facility] Stop: 03/12/25 08:59 Last Admin: 02/11/25 08:27 Dose: 400 mg Documented By: arabella Admin: 02/10/25 11:23 Dose: 400 mg Documented By: MICHAEL Melatonin (Melatonin 3 Mg Tab) 3 mg PO HS PRN PRN Reason: Insomnia Stop: 03/11/25 12:13 Last Admin: 02/11/25 23:34 Dose: 3 mg Documented By: philippe Admin: 02/11/25 00:53 Dose: 3 mg Documented By: philippe Admin: 02/09/25 22:21 Dose: 3 mg Documented By: philippe Metformin HCl (Metformin Hcl Er 500 Mg Tabcr) 500 mg PO BIDM [facility] Stop: 03/11/25 16:59 Last Admin: 02/11/25 18:07 Dose: 500 mg Documented By: arabella Admin: 02/11/25 08:28 Dose: 500 mg Documented By: arabella Admin: 02/10/25 18:19 Dose: 500 mg Documented By: Admin: 02/10/25 11:25 Dose: 500 mg Documented By: Admin: 02/09/25 18:05 Dose: 500 mg Documented By: shawn Metoprolol Succinate (Metoprolol Succ 25mg Ext Rel Tab) 25 mg PO QAM [facility] Stop: 03/12/25 08:59 Last Admin: 02/11/25 08:28 Dose: 25 mg Documented By: arabella Admin: 02/10/25 11:25 Dose: 25 mg Documented By: MICHAEL Ondansetron HCl (Ondansetron Inj 2 Mg/Ml 2 Ml Vial) 4 mg IV Q6H PRN PRN Reason: Nausea Stop: 03/11/25 12:13 Last Admin: 02/09/25 22:21 Dose: 4 mg Documented By: philippe Admin: 02/09/25 14:42 Dose: 4 mg Documented By: shawn Pantoprazole Sodium (Pantoprazole 40 Mg Tab) 40 mg PO BID [facility] Stop: 03/11/25 20:59 Last Admin: 02/11/25 19:47 Dose: 40 mg Documented By: philippe Admin: 02/11/25 08:27 Dose: 40 mg Documented By: arabella Admin: 02/10/25 20:14 Dose: 40 mg Documented By: philippe Admin: 02/10/25 11:26 Dose: 40 mg Documented By: Admin: 02/09/25 20:22 Dose: 40 mg Documented By: philippe Vibegron (Vibegron 75 Mg Tab) 75 mg PO DAILY [facility] Stop: 03/12/25 08:59 Last Admin: 02/11/25 08:28 Dose: 75 mg Documented By: arabella Admin: 02/10/25 11:24 Dose: 75 mg Documented By: MICHAEL Discontinued Medications Albuterol (Albut/Ipratrop 3mg/0.5mg Neb 3 Ml Vial) 3 ml INH NOW STA Stop: 02/09/25 10:25 Last Admin: 02/09/25 10:59 Dose: 3 ml Documented By: CEF Albuterol (Albuterol 0.083% Nebu Soln 3 Ml Vial) 10 mg NEB NOW STA; Protocol Stop: 02/09/25 11:08 Last Admin: 02/09/25 11:31 Dose: 10 mg Documented By: CEF Parenteral Electrolytes (Plasma-Lyte A Ph 7.4) 500 mls @ 999 mls/hr IV .Q31M ONE Stop: 02/09/25 10:54 Last Infusion: 02/09/25 12:09 Dose: Infused Documented By: Admin: 02/09/25 11:00 Dose: 999 mls/hr Documented By: CEF Ceftriaxone Sodium (Rocephin) 2,000 mg in 50 mls @ 100 mls/hr IV NOW STA Stop: 02/09/25 11:36 Last Infusion: 02/09/25 12:09 Dose: Infused Documented By: Admin: 02/09/25 11:29 Dose: 100 mls/hr Documented By: CEF Azithromycin (Zithromax) 500 mg in 255 mls @ 127.5 mls/hr IV NOW ONE Stop: 02/09/25 13:06 Last Infusion: 02/09/25 14:12 Dose: Infused Documented By: Admin: 02/09/25 11:59 Dose: 127.5 mls/hr Documented By: CEF Magnesium Sulfate/Dextrose (Magnesium Sulfate / D5w) 1 gm in 100 mls @ 100 mls/hr IV NOW STA Stop: 02/09/25 12:25 Last Infusion: 02/09/25 13:00 Dose: Infused Documented By: Admin: 02/09/25 11:59 Dose: 100 mls/hr Documented By: CEF Insulin Glargine (Lantus Per Unit Charge) 26 units SC DAILY@1300 [facility] Stop: 03/11/25 12:59 Last Admin: 02/09/25 13:13 Dose: 26 units Documented By: INO Co-signed By: MARY KATE Methylprednisolone (Methylprednisolone 125 Mg/2 Ml Vial) 125 mg IV NOW STA Stop: 02/09/25 10:25 Last Admin: 02/09/25 10:52 Dose: 125 mg Documented By: CEF Potassium Chloride (Potassium Chloride Crtab 20 Meq Tabcr) 40 meq PO NOW STA Stop: 02/09/25 11:27 Last Admin: 02/09/25 12:02 Dose: 40 meq Documented By: CEF Discharge Plan Visit Data Chief Complaint: Respiratory Problems Stated Complaint: TROUBLES BREATHING ED Provider: Mansoor Aguila Discharge Problem: Acute hypoxic respiratory failure, Community acquired pneumonia, Asthma exacerbation Patient Disposition: Admitted As Inpatient Condition: Serious Discharge Instructions Interventions: ED Discharge Assessment Last Done: 02/09/25 13:57
[2025-02-09 10:47] LABS: Hematocrit (blood only) 41.8 % (37.0-47.0); Hemoglobin 14.3 g/dL (12.0-16.0); Immature Granulocytes # (auto) 0.08 K/uL (0.01-0.20); Immature Granulocytes % (auto) 0.6 %; Mean Corpuscular Hemoglobin 31.6 pg (25.0-34.0); Mean Corpuscular Volume 92.3 fL (80.0-100.0); Platelet Count 200 K/uL (130-400); RDW Standard Deviation 47.7 fL (36.4-46.3); Red Blood Count 4.53 M/uL (4.20-5.40); White Blood Count 14.25 K/ul (4.8-10.8)
[2025-02-09] MEDS: ALBUT/IPRATROP 3MG/0.5MG NEB 3 ML VIAL INH STA (10:59)
[2025-02-09] MEDS: PLASMA-LYTE A 500 ML IV ONE (11:00)
[2025-02-09 11:16] LABS: Alanine Aminotransferase 25.0 U/L (7-52); Albumin Globulin Ratio 1.5 (0.9-2); Albumin Level 4.3 gm/dl (3.4-5.0); Alkaline Phosphatase 62.0 U/L (34-104); Anion Gap 10.0 (3-11); Bilirubin,Total 1.3 mg/dl (0.2-1.0); Blood Urea Nitrogen 14.0 mg/dl (6-23); Calcium 9.1 mg/dl (8.6-10.3); Carbon Dioxide 26.0 mmol/L (21-32); Chloride 102.0 mmol/L (98-107); Creatinine Clr Calc Pharmacy 56.9 ml/min; Globulin 2.8 gm/dl (2.5-4.0); Glucose 200.0 mg/dl (70-99(Fasting)); Magnesium 1.8 mg/dl (1.7-2.4); Potassium 3.5 mmol/L (3.5-5.1); Sodium 138.0 mmol/L (136-145); Total Protein 7.1 gm/dl (6.0-8.3)
[2025-02-09] MEDS: cefTRIAXone SODIUM 2,000 MG/50 ML BAG IV STA (11:29)
[2025-02-09] MEDS: ALBUTEROL 0.083% NEBU SOLN 3 ML VIAL NEB STA (11:31)
--- NOTE | 2025-02-09 11:38 | XRay Report ---
EXAM: Radiographs of the Chest 2 Views INDICATION: Dyspnea TECHNIQUE: Frontal and lateral views of the chest. COMPARISON: No relevant prior studies available. FINDINGS: Lungs and pleural spaces: There is a small infiltrate in the right upper lobe along the minor fissure. No pleural effusion or pneumothorax. Heart: Stable prominent shadow. Mediastinum: Normal contour. Bones/joints: Degenerative changes noted throughout the spine and both shoulders. No lytic or blastic lesions noted. Vasculature: Stable ectatic aorta. IMPRESSION: Right upper lobe pneumonia. ACT 112: N/A Electronically signed by Stefanie Agarwal 02-09-2025 11:37 AM
[2025-02-09 11:42] LABS: Chlamydia pneumoniae PCR Not Detected (NotDetected); Coronavirus 229E PCR Not Detected (NotDetected); Coronavirus CoV-2 (COVID19)PCR Not Detected (NotDetected); Coronavirus HKU1 PCR Not Detected (NotDetected); Coronavirus NL63 PCR Not Detected (NotDetected); Coronavirus OC43PCR Not Detected (NotDetected); Human Metapneumovirus PCR Not Detected (NotDetected); Parainfluenza Virus 1 PCR Not Detected (NotDetected); Parainfluenza Virus 2 PCR Not Detected (NotDetected); Parainfluenza Virus 3 PCR Not Detected (NotDetected); Parainfluenza Virus 4 PCR Not Detected (NotDetected); Respiratory Syncytial VirusPCR Not Detected (NotDetected); Rhinovirus/Enterovirus PCR Not Detected (NotDetected)
[2025-02-09 11:49] LABS: Base Excess VBG 4.2 mEq/L; HCO3 VBG 30 mmol/L; Oxygen Saturation VBG < 60.0 %; PCO2 VBG 50 mmHg (38-50); PO2 VBG 32 mmHg; pH VBG 7.39 (7.36-7.41)
[2025-02-09] MEDS: MAGNESIUM SULFATE / D5W 1 GM/100 ML BAG IV STA (11:59)
[2025-02-09] MEDS: AZITHROMYCIN 500 MG/255 ML BAG IV ONE (11:59)
[2025-02-09] MEDS: POTASSIUM CHLORIDE CRTAB 20 MEQ TABCR PO STA (12:02)
[2025-02-09] MEDS ORDERED: PHENAZOPYRIDINE HCL 200 MG TAB PO PRN (12:04)
[2025-02-09] MEDS ORDERED: PHARMACY GLYCEMIC MGMT CONSULT PRN (12:10)
[2025-02-09 12:16] LABS: Appearance Urine Clear (Clear); Bacteria Urine Automated None Seen (None Seen); Cast Urine Automated 0-2 /lpf (0-2); Epithelial Cell Urine Auto 0-2 /hpf (0-2); Glucose Urine UA Negative (Negative); RBC Urine Automated 0-2 /hpf (0-2); WBC Urine Automated 21-50 /hpf (0-5)
--- NOTE | 2025-02-09 12:27 | History & Physical Report ---
Date of Service February 09, 2025 Assessment & Plan (1) Pneumonia: Plan: -CXR showing RUL infiltrate -rocephin/zithromax -duonebs -supplemental 02 (2) Asthma: Plan: -duonebs (3) Hypertension: Plan: -metoprolol -losartan -HCTZ -amlodipine (4) Diabetes: Plan: -Pharm consult for glycemic managment (5) Hypothyroidism: Plan: -levothyroxine Plan Hepairn SQ for DVT px History of Present Illness Chief Complaint: SOB Primary Care Provider: Sera Liz MD Pt is an 84 y/o female with pmh of asthma, HTN, DM, hypothyroidism who presents with SOB and cough for the past few days. In the ER her CXR showed evidence of RUL PNA. Pt was given neb, solu-medrol, and rocephin/zithromax in the ER. Pt is being admitted for additional treat of her CAP. Allergies Allergy/AdvReac Type Severity Reaction Status Date / Time morphine Allergy Severe "JUST WENT Verified 11/18/24 11:16 CRAZY" shellfish derived Allergy Intermediate Vomiting Verified 11/18/24 11:16 doxycycline Allergy Verified 11/18/24 11:16 Home Medications Medication Instructions Recorded Confirmed Type cranberry concentrate-ascorbic 1 cap PO BID 06/10/18 02/09/25 History acid 4,200 mg-20 mg capsule metoprolol succinate 25 mg 25 mg PO QAM 06/10/18 02/09/25 History tablet,extended release 24 hr (Toprol XL) losartan 100 mg tablet (Cozaar) 100 mg PO QAM 02/28/20 02/09/25 History albuterol sulfate 2.5 mg/3 mL 2.5 mg inhalation Q4H PRN 11/17/20 02/09/25 History (0.083 %) solution for nebulization Shortness Of Breath amlodipine 10 mg tablet 10 mg PO DAILY 09/23/21 02/09/25 History cholecalciferol (vitamin D3) 50 2,000 unit PO BID 09/23/21 02/09/25 History mcg (2,000 unit) capsule cyanocobalamin (vitamin B-12) 1,000 mcg PO DAILY 09/23/21 02/09/25 History 1,000 mcg tablet (Vitamin B-12) multivitamin with minerals 1 tab PO BID 09/23/21 02/09/25 History (Hair,Skin and Nails tablet) blood-glucose sensor (Dexcom G7 07/21/23 11/25/24 History Sensor device) pen needle, diabetic 32 gauge x #400 ea 08/21/23 11/25/24 Rx 5/32" (BD Ultra-Fine Araceli Pen Needle) albuterol sulfate 90 mcg/actuation 2 puff inhalation Q4H PRN Wheezing 09/11/23 02/09/25 Rx aerosol inhaler (Ventolin HFA) #8.5 grams insulin pump cart,auto,BT,G6/7 #15 ea 02/03/24 11/25/24 Rx (Omnipod 5 G6-G7 Pods (Gen 5) subcutaneous cartridge) metformin 500 mg tablet,extended 500 mg PO BIDM #180 tabs 07/04/24 02/09/25 Rx release 24 hr plehxiurxlcb-Jq-wliz-minerals 1 tab PO DAILY 10/10/24 02/09/25 History omeprazole 40 mg capsule,delayed 40 mg PO BID 10/10/24 02/09/25 History release levothyroxine 137 mcg tablet 137 mcg PO DAILY 90 days #90 tabs 10/27/24 02/09/25 Rx vibegron 75 mg tablet (Gemtesa) 75 mg PO DAILY #90 tabs 11/18/24 02/09/25 Rx Past Med/Surg History Problem List (Updated 11/25/24 @ 13:53 by Adam Quintero PA-C) Statin intolerance Urinary incontinence Gross hematuria Albuminuria Anxiety state Asthmatic bronchitis with acute exacerbation Pulmonary nodule Pneumonia Subclavian artery stenosis, left 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 Status post thyroidectomy History of thyroid cancer Hypertension Vitamin D deficiency Dyslipidemia (Chronic) Abdominal pain, epigastric (Acute) Acute upper gastrointestinal bleeding (Acute) Angiodysplasia of stomach (Acute) Encounter for pre-operative examination Medical History Acquired tracheal stenosis Vocal cord paralysis Type 2 diabetes mellitus with insulin therapy Hypothyroidism Chronic lower back pain History of tracheal cancer Seasonal allergies Arthritis Anxiety High cholesterol Duodenal ulcer Complaint of melena Eczema Right humeral fracture Influenza A Fracture in accidental fall Elevated troponin Dyspnea Displaced fracture of right humerus Closed right humeral fracture Closed fracture of left proximal humerus Chest pain Asthma Carpal tunnel syndrome on right Hypertension Diabetes Thyroid cancer Surgical History History of cataract surgery History of surgery History of tracheostomy History of endoscopy History of colonoscopy History of surgery on arm History of carpal tunnel release of both wrists Hx of cholecystectomy Social History Smoking Status: Never smoker Second Hand Exposure: No; Do You Dip or Chew Tobacco: No; Tobacco Cessation Education Requested by Patient: No Hx Alcohol Use: No Hx Substance Use: No Preferred Language: Paraguayan Communication Ability: Effective Auto Porter Required: No Beliefs That Will Affect Care: Presybeterian Presybeterian Beliefs: Voodoo marital status: Current Living Situation: Alone current occupational status: retired Other Information That Helps Us Care for You: No Feels Safe at Home: Yes Safety Concerns: Feels Safe At This Time Assistive Devices: Denture - Upper, Denture - Lower, Glasses, Hospital Bed and Walker Review of Systems Review of Systems: CONST: Negative for fever, body aches and chills. HENT: Negative for neck pain/stiffness, headache, congestion, sore throat, swelling. EYES: Negative for discharge/pain or vision changes. RESP: +cough/hemoptysis and +shortness of breath. CV: Negative chest pain, difficulty breathing, palpitations. ABD: Negative pain, nausea, vomiting. : Negative increase frequency, dysuria, blood in urine or stool. MUSC: Negative for muscle aches, edema. SKIN: Negative rash, lesions/sores. NEURO: Negative headache, dizziness, weakness. Physical Exam Physical Exam: GENERAL APPEARANCE NAD, activity normal for age, well developed/ well nourished, no cyanosis, pallor, or diaphoresis. EYES lids/conjunctiva normal. EARS/NOSE/THROAT Mucous membranes moist, nares normal, lips/teeth normal uvula midline without oral pharyngeal erythema, e xudate or swelling TMs normal bilaterally. No lymphangitis/lymphedema. HEAD/NECK normocephalic atraumatic, no facial trauma, neck is supple. RESPIRATORY respiratory effort normal, speaks in full sentences, no tripod position, no accessory muscle use. Lungs clear to auscultation without rhonchi, wheezes, rales CARDIAC Regular rate and rhythm, no edema. ABDOMINAL Soft, ND/NT. No evidence of fluid wave. No pulsatile masses on exam, rebound tenderness, Ramirez sign or pain over Mcburney's point. MUSCLES/EXTREMITIES No abnormal range of motion, no swelling. SKIN Warm, pink and dry. No rashes, dermatoses, petechiae or lesions. NEUROLOGICAL Speech is clear and appropriate. Normal level of consciousness. Gait and coordination are normal. 5/5 strength in all extremities. PSYCH Normal mood and affect. Judgement/competence is appropriate Results & Data Results & Data Vital Signs (Past 12 Hours) Vital Signs Temp Pulse Resp BP Pulse Ox O2 Del Method 02/09/25 12:00 104 H 21 169/72 H 94 02/09/25 11:30 84 18 148/67 H 02/09/25 10:29 103 H 02/09/25 10:15 36.2 C L 95 H 21 198/88 H 95 Room Air PG Care Time/CCT Total # of Minutes Spent Total Time Spent with Patient: Total time spent is greater than 50% in coordination of care (as documented) at patient's floor/unit and/or counseling patient: Coding Level of Care Code 75387 INT INP/OBS CARE 2/55MIN Diagnoses Pneumonia J18.9 Asthma J45.909 Hypertension I10 Diabetes E11.9 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
[2025-02-09] MEDS ORDERED: GLUCOSE 40% GEL 15 GM TUBE PO PRN (13:00)
[2025-02-09] MEDS ORDERED: DEXTROSE 50% 50 ML SYRINGE IV PRN (13:00)
[2025-02-09] MEDS ORDERED: GLUCOSE 10 TAB/TUBE PO PRN (13:00)
[2025-02-09] MEDS ORDERED: CARBOHYDRATES FOR HYPOGLYCEMIA PO PRN (13:00)
[2025-02-09] MEDS ORDERED: GLUCAGON FOR INJ 1 MG VIAL SQ PRN (13:00)
[2025-02-09] MEDS: LANTUS PER UNIT CHARGE SC SCH (13:03)
--- NOTE | 2025-02-09 13:10 | Pharmacy Report ---
Pharmacy Glycemic Short Note 2 - Date of Service February 09, 2025 - Glycemic Short BSG Results (Last 24 hours): 02/09/25 10:28 Glucose 200 H OUTPATIENT ANTIDIABETIC REGIMEN: * Metformin ER 500 mg PO BID * Based on DM note from 11/25/24: * Basal ~26units/day * Bolus ~ 36 units/day * TDD~ 62units/day * A1c 6.4% 11/21/24 ASSESSMENT: * 84 yo F, admitted for CAP treatment, Type 2 DM, managed on Omnipod insulin pum p at home, would like to use basal bolus insulin while inpatient as she does not have her pump supplies with her here. * Will begin basal bolus at similar settings as her insulin pump. PLAN FOR INPATIENT GLYCEMIC CONTROL: * Hold outpatient insulin pump * Metformin ER 500mg PO BID with meals * Basal insulin * Lantus 26 units SQ daily at 1300 * Bolus insulin * NovoLog per scale ACHS or Q6hrs while NPO * Goal Range: Low 110 mg/dL - High 140 mg/dL * Correction Factor: 25 mg/dL/unit * Nutritional / Prandial insulin per carb ratio of 1 unit per 8 grams CHO co nsumed
[2025-02-09] MEDS: HEPARIN SOD 5,000 UNIT/0.5 ML VIAL SQ SCH (14:11)
[2025-02-09] MEDS: INSULIN ASPART PER UNIT CHARGE SC SCH (14:11)
[2025-02-09] MEDS: ONDANSETRON INJ 2 MG/ML 2 ML VIAL IV PRN (14:42)
[2025-02-09] MEDS: LORazepam 0.5 MG TAB PO PRN (15:39)
[2025-02-09] MEDS: ADVANCED PROBIOTIC 625 MG CAPSULE PO SCH (20:22)
[2025-02-09] MEDS: BENZONATATE 100 MG CAPSULE PO SCH (20:57)
[2025-02-09] MEDS ORDERED: NON-FORMULARY MEDICATION (Cranberry Conc-Ascorbic Acid 4,200-20 mg Capsule) PO SCH (21:00)
[2025-02-09] MEDS: MELATONIN 3 MG TAB PO PRN (22:21)
[2025-02-10] MEDS: ALBUT/IPRATROP 3MG/0.5MG NEB 3 ML VIAL NEB PRN (05:11)
[2025-02-10] MEDS: LEVOTHYROXINE SODIUM 137 MCG TABLET PO SCH (05:44)
--- NOTE | 2025-02-10 09:50 | Hospitalist Progress Note ---
Date of Service February 10, 2025 Assessment & Plan (1) Pneumonia: Plan: -CXR showing RUL infiltrate -rocephin/zithromax day #2 -duonebs -supplemental 02 (2) Asthma: Plan: -duonebs (3) Hypertension: Plan: -metoprolol -losartan -HCTZ -amlodipine (4) Diabetes: Plan: -Pharm consult for glycemic managment (5) Hypothyroidism: Plan: -levothyroxine Plan Hepairn SQ for DVT px Admission and Anticipated Discharge Date Admission Date: February 09, 2025 Subjective No events overnight Review of Systems Review of Systems: CONST: Negative for fever, body aches and chills. HENT: Negative for neck pain/stiffness, headache, congestion, sore throat, swelling. EYES: Negative for discharge/pain or vision changes. RESP: +cough/hemoptysis and +shortness of breath. CV: Negative chest pain, difficulty breathing, palpitations. ABD: Negative pain, nausea, vomiting. : Negative increase frequency, dysuria, blood in urine or stool. MUSC: Negative for muscle aches, edema. SKIN: Negative rash, lesions/sores. NEURO: Negative headache, dizziness, weakness. Physical Exam Physical Exam: GENERAL APPEARANCE NAD, activity normal for age, well developed/ well nourished, no cyanosis, pallor, or diaphoresis. EYES lids/conjunctiva normal. EARS/NOSE/THROAT Mucous membranes moist, nares normal, lips/teeth normal uvula midline without oral pharyngeal erythema, exudate or swelling TMs normal bilaterally. No lymphangitis/lymphedema. HEAD/NECK normocephalic atraumatic, no facial trauma, neck is supple. RESPIRATORY respiratory effort normal, speaks in full sentences, no tripod position, no accessory muscle use. Lungs clear to auscultation without rhonchi, wheezes, rales CARDIAC Regular rate and rhythm, no edema. ABDOMINAL Soft, ND/NT. No evidence of fluid wave. No pulsatile masses on exam, rebound tenderness, Ramirez sign or pain over Mcburney's point. MUSCLES/EXTREMITIES No abnormal range of motion, no swelling. SKIN Warm, pink and dry. No rashes, dermatoses, petechiae or lesions. NEUROLOGICAL Speech is clear and appropriate. Normal level of consciousness. Gait and coordination are normal. 5/5 strength in all extremities. PSYCH Normal mood and affect. Judgement/competence is appropriate Results & Data Results & Data Vital Signs (Past 12 Hours) Vital Signs Temp Pulse Pulse Resp BP Pulse Ox O2 Del Method 02/10/25 08:10 36.3 C L 71 18 123/71 95 Room Air 02/10/25 07:48 75 02/10/25 05:14 74 17 97 Room Air 02/10/25 04:05 36.6 C 84 20 162/85 H 94 Room Air 02/09/25 22:36 36.8 C 83 18 165/80 H 94 Room Air 02/09/25 21:56 85 PG Care Time/CCT Total # of Minutes Spent Total Time Spent with Patient: Total time spent is greater than 50% in coordination of care (as documented) at patient's floor/unit and/or counseling patient: Coding Level of Care Code 39063 SUB INP/OBS CARE 2/35MIN Diagnoses Pneumonia J18.9 Asthma J45.909 Hypertension I10 Diabetes E11.9 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
[2025-02-10] MEDS: AZITHROMYCIN 250 MG TAB PO SCH (11:23)
[2025-02-10] MEDS: MAGNESIUM OXIDE 400 MG TAB PO SCH (11:23)
[2025-02-10] MEDS: LANTUS PER UNIT CHARGE SC SCH (11:23)
[2025-02-10] MEDS: VIBEGRON 75 MG TAB PO SCH (11:24)
[2025-02-10] MEDS: cefTRIAXone SODIUM 2,000 MG/50 ML BAG IV SCH (11:24)
[2025-02-10] MEDS: hydroCHLOROthiazide 25 MG TAB PO SCH (11:24)
[2025-02-10] MEDS: METOPROLOL SUCC 25MG EXT REL TAB PO SCH (11:25)
[2025-02-10] MEDS: LOSARTAN POTASSIUM 50 MG TAB PO SCH (11:25)
--- NOTE | 2025-02-10 13:39 | Electrocardiogram Report ---
Test Reason : Blood Pressure : */* mmHG Vent. Rate : 102 BPM Atrial Rate : 102 BPM P-R Int : 186 ms QRS Dur : 118 ms QT Int : 346 ms P-R-T Axes : 39 -47 91 degrees QTcB Int : 450 ms Sinus tachycardia Left axis deviation Left ventricular hypertrophy with QRS widening and repolarization abnormality Abnormal ECG When compared with ECG of 30-Nov-2023 03:10, No significant change was found Confirmed by Toñito Canales ([id number]) on 02/10/2025 1:39:22 PM Referred By: REFERRED SELF Confirmed By: Toñito Canales
--- NOTE | 2025-02-10 14:01 | Pharmacy Report ---
Pharmacy Glycemic Short Note 2 - Date of Service February 10, 2025 - Glycemic Short BSG Results (Last 24 hours): 02/09/25 02/09/25 02/09/25 14:07 16:57 20:06 POC Glucose 280 H 296 H 281 H 02/10/25 02/10/25 02/10/25 07:52 12:02 12:03 POC Glucose 230 H 331 H* 325 H* 02/10/25 13:24 POC Glucose 265 H OUTPATIENT ANTIDIABETIC REGIMEN: * Metformin ER 500 mg PO BID * Based on DM note from 11/25/24: * Basal ~26units/day * Bolus ~ 36 units/day * TDD~ 62units/day * A1c 6.4% 11/21/24 ASSESSMENT: 02/10/25: * Blood sugars elevated yesterday, ranging 200-296 mg/dL * Fasting blood sugar of 230 mg/dL this morning * AM insulin not given until after 11 AM this morning (will not overreact to blood sugar > 300 mg/dL this afternoon) 02/09/25: * 84 yo F, admitted for CAP treatment, Type 2 DM, managed on Omnipod insulin pump at home, would like to use basal bolus insulin while inpatient as she does not have her pump supplies with her here. * Will begin basal bolus at similar settings as her insulin pump. PLAN FOR INPATIENT GLYCEMIC CONTROL: * Hold outpatient insulin pump * Metformin ER 500mg PO BID with meals * Basal insulin * Lantus 30 units SC daily * Bolus insulin * NovoLog per scale ACHS or Q6hrs while NPO * Goal Range: Low 110 mg/dL - High 140 mg/dL * Correction Factor: 20 mg/dL/unit * Nutritional / Prandial insulin per carb ratio of 1 unit per 7 grams CHO consumed
[2025-02-10] MEDS: ALBUT/IPRATROP 3MG/0.5MG NEB 3 ML VIAL NEB SCH (19:48)
[2025-02-11] MEDS: ACETAMINOPHEN 325 MG TAB PO PRN (00:53)
[2025-02-11 09:11] LABS: Anion Gap 9.0 (3-11); Blood Urea Nitrogen 21.0 mg/dl (6-23); Calcium 8.8 mg/dl (8.6-10.3); Carbon Dioxide 29.0 mmol/L (21-32); Chloride 100.0 mmol/L (98-107); Creatinine Clr Calc Pharmacy 52.5 ml/min; Glucose 196.0 mg/dl (70-99(Fasting)); Potassium 4.1 mmol/L (3.5-5.1); Sodium 138.0 mmol/L (136-145)
--- NOTE | 2025-02-11 10:34 | Hospitalist Progress Note ---
Date of Service February 11, 2025 Assessment & Plan (1) Pneumonia: Plan: -CXR showing RUL infiltrate -rocephin/zithromax day #3 -duonebs -supplemental 02 (2) Asthma: Plan: -duonebs (3) Hypertension: Plan: -metoprolol -losartan -HCTZ -amlodipine (4) Diabetes: Plan: -Pharm consult for glycemic managment (5) Hypothyroidism: Plan: -levothyroxine Plan Hepairn SQ for DVT px Plan for d/c home 02/12 Admission and Anticipated Discharge Date Admission Date: February 09, 2025 Subjective No events overnight Review of Systems Review of Systems: CONST: Negative for fever, body aches and chills. HENT: Negative for neck pain/stiffness, headache, congestion, sore throat, swelling. EYES: Negative for discharge/pain or vision changes. RESP: +cough/hemoptysis and +shortness of breath. CV: Negative chest pain, difficulty breathing, palpitations. ABD: Negative pain, nausea, vomiting. : Negative increase frequency, dysuria, blood in urine or stool. MUSC: Negative for muscle aches, edema. SKIN: Negative rash, lesions/sores. NEURO: Negative headache, dizziness, weakness. Physical Exam Physical Exam: GENERAL APPEARANCE NAD, activity normal for age, well developed/ well nourished, no cyanosis, pallor, or diaphoresis. EYES lids/conjunctiva normal. EARS/NOSE/THROAT Mucous membranes moist, nares normal, lips/teeth normal uvula midline without oral pharyngeal erythema, exudate or swelling TMs normal bilaterally. No lymphangitis/lymphedema. HEAD/NECK normocephalic atraumatic, no facial trauma, neck is supple. RESPIRATORY respiratory effort normal, speaks in full sentences, no tripod position, no accessory muscle use. Lungs clear to auscultation without rhonchi, wheezes, rales CARDIAC Regular rate and rhythm, no edema. ABDOMINAL Soft, ND/NT. No evidence of fluid wave. No pulsatile masses on exam, rebound tenderness, Ramirez sign or pain over Mcburney's point. MUSCLES/EXTREMITIES No abnormal range of motion, no swelling. SKIN Warm, pink and dry. No rashes, dermatoses, petechiae or lesions. NEUROLOGICAL Speech is clear and appropriate. Normal level of consciousness. Gait and coordination are normal. 5/5 strength in all extremities. PSYCH Normal mood and affect. Judgement/competence is appropriate Results & Data Results & Data Vital Signs (Past 12 Hours) Vital Signs Temp Pulse Resp BP Pulse Ox O2 Del Method 02/11/25 10:11 Room Air 02/11/25 08:34 36.4 C L 85 20 161/77 H 95 Room Air 02/11/25 07:24 80 18 93 Room Air 02/11/25 02:33 36.7 C 74 16 151/78 H 94 Room Air 02/10/25 23:01 36.7 C 70 16 145/79 H 94 Room Air PG Care Time/CCT Total # of Minutes Spent Total Time Spent with Patient: Total time spent is greater than 50% in coordination of care (as documented) at patient's floor/unit and/or counseling patient: Coding Level of Care Code 92652 SUB INP/OBS CARE 2/35MIN Diagnoses Pneumonia J18.9 Asthma J45.909 Hypertension I10 Diabetes E11.9 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
[2025-02-11] MEDS: guaiFENesin 600 MG TABCR PO SCH (19:47)
[2025-02-12 07:40] VITALS: O2SAT 95
[2025-02-12] MEDS: LANTUS PER UNIT CHARGE SC SCH (08:42)
[2025-02-12 11:13] VITALS: BP 145/77; PULSE 79; RESP 18; TEMP 98.2
== END 2025-02-12 13:00 | disposition home or self-care (01) | DRG 195 ==
LOC: ED 10:07 → 2W 12:14